=== PATIENT | male | born 1940 | race Caucasian/White ===

== ENCOUNTER 2018-04-13 13:00 | Outpatient (RCR) | payer OTHER, SELFPAY ==
--- NOTE | 2018-03-18 14:33 | HP.PTEVAL ---
Patient's Visit Information YASMANI HERNANDEZ is a 77 year old M referred to Physical Therapy by [facility] with a diagnosis of LBP and radiating BLE pain. Date of Evaluation: 03/09/18 Physical Therapist: Demarco Smith - Visit Plan Frequency: 2x /Week Duration: 4 Weeks Plan: Start with general mobility/core strengthening and hip strengthening in aquatic setting. Progress as tolerated. Add in gait progression and postural strengthening as tolerated. - Subjective Subjective: Pt. is here today for his initial evaluation with diagnosis of Low back pain and bilateral radiating pain. Pt. has a history of 3 lumbar surgeries Pt. reports most recently being in 2013. He reports BLE weakness and difficulty with gait. He has had increased difficulty over last 2 years. He reports occassionally falling due to his LLE giving out on him. He is scheduled for a CT and MRI on fri03/11/18. Pt. denies N/T currently, but does get N/T in LLE and B hands. Pt. does have MS. Pt. reports difficulty with bending twisting. He reports sudden LLE weakness at times and his leg gives out on him, but is typically able to regain his balance. Pt. uses a cane in community, no AD in home. Pt. is hopeful to increase stability in stance, decrease LBP and increase BLE strength in order to increase functional mobility. - Pain Lumbar spine Pain Intensity (Out of 10): 0 Pain Intensity Range: 0, 8 - Objective POSTURE: Pt. has increased L lateral shift in stance with hip out to R side. pt. has has slight correction through his lumbar spine, but maintains his shift. PT. has wide TOM and with trunk flexion. OCcassionally reaching out for objects to stabilize. Pt. is able to increase erect posture, but not fully secondary to increased pain. PALPATION: Pt. has increased tenderness to palpation of B lumbar erector spinea, increased muscle tone/tightness noted bilaterally. Pt. has normal healing incision, no signs of infection. No pain noted throughout BLEs. NEUROLOGICAL: Pt. has decreased sensation at distal LLE, lateral malleolus and bottom of foot the worst. Pt. has difficulty rising on toes and heels, requires balance assistance to attempt, minimal ability to complete. 2+ achilles DTR, unable to elicit patellar DTR bilaterally. ROM: LUMBAR SPINE: flexion mod loss increase NW (LLE sudden weakness), ext max loss increase NW, SB mod loss bilat NE, rotation min loss bilat NE. Pt. has tight HS bilaterally, tight hip flexors bilaterally, tight hip ER/IR as well. MMT: RLE- ankle 5/5 throughout; knee- ext 4+/5, flexion 4+/5; hip- flexion 4/5, abd 4/5, ext 4/5. LLE- ankle PF 5/5, DF 4+/5; knee- ext 4+/5, flexon 4+/5;hip- flexion 4/5, abd 4/5, ext 4/5. Core strength- poor. GAIT: Pt. has increased flexed posture in stance. He ambulates with cane, but has broken down pattern, occassional use of cane. Pt. has decreased L stance phase. Pt. has increased L lateral lean during stance. STAIRS: BHR with step to pattern, heavy use of railings. - Special Tests L/S Slump test left side: Positive L/S Slump test right side: Negative Lumbar Standing: Flexion - Mechanical Response: No effect Lumbar Standing: Flexion - Symptoms During Testing: Increases Lumbar Standing: Flexion - Symptoms After Testing: No worse Lumbar Standing: Extension - Mechanical Response: No effect Lumbar Standing: Extension - Symptoms During Testing: Increases Lumbar Standing: Extension - Symptoms After Testing: No worse Lumbar Standing: Right Side Gl[place] - Mechanical Response: No effect Lumbar Standing: Right Side [place] - Symptoms During Testing: No effect Lumbar Standing: Right Side [place] - Symptoms After Testing: No effect Lumbar Standing: Left Side [place] - Mechanical Response: No effect Lumbar Standing: Left Side [place] - Symptoms During Testing: No effect Lumbar Standing: Left Side [place] - Symptoms After Testing: No effect Lumbar Lying: Flexion - Mechanical Response: No effect Lumbar Lying: Flexion - Symptoms During Testing: No effect Lumbar Lying: Flexion - Symptoms After Testing: No effect - Goals Goal 1:: Pt. to be I with HEP. Goal Time Frame: 4-6 Weeks Goal 2:: Pt. to have increased lumbar ROM by 25% in all directions without increase in symptoms. Goal Time Frame: 4-6 Weeks Goal 3:: Pt. to ambulate 500' with increased gait pattern and reduced pain to 2-4/10 in lumbar spine. Goal Time Frame: 4-6 Weeks Goal 4:: Pt. to have icnreased BLE strength by 1/2 grade of all effected musculature to reduce stress on lumbar spine with all functional mobility. Goal Time Frame: 4-6 Weeks Goal 5:: Pt. sleep throughout the night with 0-2/10 pain. - Rehabilitation Potential Physical Therapy Diagnosis: Pt. has signs and symptoms consistent with LBP and BLE, L worse than R. Pt. has increased pain in lumbar spine and LLE with standing, lifting, bending, and most ADLs. Pt. would benefit from PT to increase core strength, BLE strength, gait mechanics and to increase lumbar ROM Rehabilitation Potential: Fair - Anticipated Interventions Patient/Client Instruction: Educate patient on: Condition, Plan of Care, Risk Factors, Benefits of Fitness Program For the Purpose of:: To improve self management, To prevent re-injury, To improve ability to perform tasks related to life management, To improve tolerance to ADL's Therapeutic Exercise to Include: Strength training, Power training, Endurance training, Balance training, Postural training, Flexibilty training, Gait and locomotor training, In an aquatic setting, Passive ROM, Active ROM, Dynamic Lumbar Stabilization For the Purpose of:: To decrease pain, To increase ROM, To improve nutrient delivery to tissue, To increase oxygenation perfusion, To improve muscle performance and motor function, To improve ability to perform ADL's, To increase tolerance to activity/condition/position, To improve health of tissue, To decrease soft tissue restriction, To improve safety with gait Thank you for the opportunity to evaluate your patient. For Medicare and Medicare HMO plans, please review the plan of care and approve it. It will need to be FAXED BACK to us at [phone] for Medicare purposes. Please let me know if there are questions or concerns regarding this plan of care. Physician Signature: Date:
--- NOTE | 2018-08-04 17:09 | HP.PT.NRP ---
HP - Discharge Summary (1) - Patient Information YASMANI HERNANDEZ was seen in my office for initial evaluation on 03/09/18. The following Plan of Care was established for this patient: Initial Frequency: 2x /Week Initial Duration: 4 Weeks - Anticipated Interventions Patient/Client Instruction: Educate patient on: Condition, Plan of Care, Risk Factors, Benefits of Fitness Program For the Purpose of:: To improve self management, To prevent re-injury, To improve ability to perform tasks related to life management, To improve tolerance to ADL's Therapeutic Exercise to Include: Strength training, Power training, Endurance training, Balance training, Postural training, Flexibilty training, Gait and locomotor training, In an aquatic setting, Passive ROM, Active ROM, Dynamic Lumbar Stabilization For the Purpose of:: To decrease pain, To increase ROM, To improve nutrient delivery to tissue, To increase oxygenation perfusion, To improve muscle performance and motor function, To improve ability to perform ADL's, To increase tolerance to activity/condition/position, To improve health of tissue, To decrease soft tissue restriction, To improve safety with gait This patient was last seen in our office 04/13/18. Pertinent comments regarding their Physical therapy will appear below: Pt. was seen for his low back pain in aquatic setting. Pt. was making good progress. I suggested and requested more visits, but patient has not been seen in ~4 months. Pt. will be DC from PT at this point in time. At this point I will be discontinuing this patient from physical therapy. I would be happy to see this patient again in the future if found appropriate by the physician. Thank you! AIDEN RosalesT
== END 2018-04-13 19:00 | disposition home or self-care (01) ==
LOC: PT 13:00
DX: M96.1 Postlaminectomy syndrome, not elsewhere classified (principal)
CPT/HCPCS: 97113; 97162

== ENCOUNTER 2018-10-08 14:52 | Emergency (ER) | payer OTHER, SELFPAY ==
[2018-10-08 14:53] VITALS: BP 141/95; PULSE 82; RESP 16; TEMP 36.4; O2SAT 100; BMI 29.2
--- NOTE | 2018-10-08 15:17 | US_ITS ---
STUDY: SCROTUM ULTRASOUND REASON FOR EXAM: Male, 78 years old. Swelling, injury TECHNIQUE: Ultrasound evaluation of the scrotum was performed with color Doppler and static salcido-scale imaging. COMPARISON: None. FINDINGS: RIGHT TESTICLE INTRATESTICULAR: There is a normal size of the right testicle. The right testicle measures 4.6 x 2.7 x 2.4 cm. There is a homogenous echotexture. There is normal arterial and normal venous vascularity. There is no demonstrated right testicular mass or cyst. EXTRATESTICULAR: The epididymis is normal in size. The epididymis head measures 1.4 x 1.3 x 0.9 cm. There is normal vascularity of the epididymis. There is 7 x 7 x 6 mm epididymal cyst. There is a large right hydrocele with debris.. There is no demonstrated varicocele. There is no demonstrated extratesticular mass or cyst. LEFT TESTICLE INTRATESTICULAR: There is a normal size of the left testicle. The left testicle measures 5.7 x 2 x 2.3 cm. There is a homogenous echotexture. There is normal arterial and normal venous vascularity. There is no demonstrated left testicular mass or cyst. EXTRATESTICULAR: The epididymis is normal in size. The epididymis head measures 29 x 0.8 x 0.8 cm. There is normal vascularity of the epididymis. There is no demonstrated epididymal cystic structure. There is there is a large complex hematoma adjacent to the testis measuring 6.4 x 3.6 x 4.1 cm There is no demonstrated varicocele. There is no demonstrated extratesticular mass or cyst. US/Testicular with Arterial Flow IMPRESSION: Large complex hematoma adjacent to the left testis within the scrotal sac, due to the hematoma along the surface of the testis testis or capsular injury cannot be excluded, the testis has homogeneous echogenicity. Large right hydrocele with debris likely hemorrhagic Right epididymal cyst Electronically Signed: Chaitanya Xiong, at 17:51 EDT Tel , Service support ,
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
[2018-10-08 15:56] LABS: Absolute Lymphocyte Count 1.61 X10^3/ul (0.83-4.51); Absolute Neutrophil Count 3.7 X10^3/uL (2.0-7.7); Basophil# 0.02 X10^3/uL; Basophil% 0.3 % (0-1); Eosinophil# 0.09 X10^3/uL; Eosinophils% 1.5 % (0-5); Hematocrit 39.5 % (40-54); Hemoglobin 13.3 g/dl (13.0-16.5); Lymphocyte # 1.61 X10^3/ul (4.0); Lymphocyte % 27.2 % (19-41); Mean Corp Hgb Conc 33.7 g/gl (32-36); Mean Corpuscular Hgb 30.6 pg (27.0-32.0); Mean Corpuscular Volume 90.8 fL (80-94); Mean Platelet Vol. 8.5 fl (6.2-12.0); Monocyte# 0.49 X10^3/uL; Monocyte% 8.3 % (0-10); Neutrophil # 3.71 X10^3/uL (2.7-7.7); Neutrophil % 62.5 % (47-70); Platelet Count 213 K/mm3 (150-450); RBC Distribution Width CV 12.6 % (11.6-14.6); RBC Distribution Width SD 42.1 fl (35.1-43.9); Red Blood Count 4.35 M/mm3 (4.6-6.2); White Blood Count 5.9 K/mm3 (4.4-11.0)
[2018-10-08 15:59] LABS: POSITIVE COUNT NO; POSITIVE DIFFERENTIAL NO; POSITIVE MORPHOLOGY NO
[2018-10-08 16:12] LABS: BUN 9 mg/dL (7-18); Creatinine, Serum 0.83 mg/dL (0.70-1.30); Estimated Creatinine Clearance 63.81 ml/min; Glucose 96 mg/dL (74-106)
[2018-10-08 16:13] LABS: Anion Gap 5 (5-15); BUN/Creat Ratio 10.8 RATIO (10-20); Calcium,Total 8.6 mg/dL (8.5-10.1); Chloride 98 mmol/L (98-107); EST Glomerular Filtration Rate 95 mL/min (>60); Est Glom Filt Rate - Afr Amer 115 mL/min (>60); Potassium 3.6 mmol/L (3.5-5.1); Sodium Level 133 mmol/L (136-145)
[2018-10-08] MEDS: Ceftriaxone 1 GM/50 ML BAG IV (16:34)
[2018-10-08 18:49] VITALS: RESP 18; O2SAT 99
== END 2018-10-08 18:49 | disposition home or self-care (01) ==
PROVIDERS: Emergency Provider Emergency Medicine
DX: N49.2 Inflammatory disorders of scrotum (principal); S30.22XA Contusion of scrotum and testes, initial encounter; W20.8XXA Other cause of strike by thrown, projected or falling object, initial encounter; Y93.89 Activity, other specified; Y92.89 Other specified places as the place of occurrence of the external cause; Y99.8 Other external cause status
CPT/HCPCS: 76870; 80048; 85025; 93976; 96365; 96366; 99284; A4216

== ENCOUNTER 2018-12-30 16:19 | Observation (INO) | payer OTHER, MEDICARE, SELFPAY ==
[2018-12-30] VITALS (8 sets, daily range): BP systolic 129–189; BP diastolic 77–108; PULSE 75–89; RESP 18; TEMP 36.2–37.2; O2SAT 97–98; BMI 28.3; BMI 27.1
--- NOTE | 2018-12-30 16:32 | CT_ITS ---
STUDY: CT BRAIN WITHOUT CONTRAST REASON FOR EXAM: Male, 78 years old. Confusion RADIATION DOSAGE (If Supplied By Facility): CTDIvol = ( 44.99 ) mGy, DLP = ( 748.30 ) mGycm TECHNIQUE: Transaxial CT imaging of the brain was performed without administration of intravenous contrast material. Individualized dose optimization techniques were used for this CT. COMPARISON: 08/24/2016 FINDINGS: There is no acute bleed or infarct. There are stable chronic ischemic and atrophic changes. The ventricles are normal in configuration. There is no hydrocephalus. There are stable mucosal hypertrophy in the left maxillary sinus. The visualized paranasal sinuses are otherwise clear. The mastoid air cells are well aerated. There is no skull fracture. CT/Brain/Head without Contrast IMPRESSION: Stable chronic ischemic and atrophic changes. No acute intracranial abnormality. Stable left maxillary sinusitis. Electronically Signed: Harris Rivero, at 18:00 EDT Tel , Service support ,
--- NOTE | 2018-12-30 16:33 | EKG12_ITS ---
Test Reason : CONFUSION Blood Pressure : / mmHG Vent. Rate : 078 BPM Atrial Rate : 078 BPM P-R Int : 170 ms QRS Dur : 154 ms QT Int : 436 ms P-R-T Axes : 062 004 022 degrees QTc Int : 497 ms Sinus rhythm with Premature atrial complexes Right bundle branch block Possible Lateral infarct , age undetermined Inferior infarct , age undetermined Abnormal ECG Confirmed by PK MORALES, NOLAN ([id number]), deputy editor in chief SATHISH JUSTIN ([id number]) on 01/04/2019 10:40:52 AM Referred By: NADEEM Confirmed By:JEAN WHITTINGTON MD
--- NOTE | 2018-12-30 16:40 | RAD_ITS ---
STUDY: X-RAY CHEST REASON FOR EXAM: Male, 78 years old. Dizziness. Confusion. TECHNIQUE: Frontal view of the chest COMPARISON: None. FINDINGS: The lungs are clear. There are no pleural effusions. There is no pneumothorax. The heart is normal in size. There are degenerative changes noted in the shoulders. RAD/Chest 1 View (Portable) IMPRESSION: No acute thoracic pathology. Electronically Signed: Harris Rivero, at 17:00 EDT Tel , Service support ,
[2018-12-30 16:44] LABS: Absolute Neutrophil Count 4.6 X10^3/uL (2.0-7.7); Basophil# 0.02 X10^3/uL; Basophil% 0.3 % (0-1); Eosinophils% 1.3 % (0-5); Hematocrit 37.8 % (40-54); Hemoglobin 13.1 g/dl (13.0-16.5); Lymphocyte % 25.3 % (19-41); Mean Corp Hgb Conc 34.7 g/gl (32-36); Mean Corpuscular Hgb 30.3 pg (27.0-32.0); Mean Corpuscular Volume 87.5 fL (80-94); Mean Platelet Vol. 8.3 fl (6.2-12.0); Monocyte# 0.87 X10^3/uL; Monocyte% 11.6 % (0-10); Neutrophil # 4.58 X10^3/uL (2.7-7.7); POSITIVE COUNT NO; POSITIVE DIFFERENTIAL NO; POSITIVE MORPHOLOGY NO; Platelet Count 248 K/mm3 (150-450); RBC Distribution Width CV 12.4 % (11.6-14.6); Red Blood Count 4.32 M/mm3 (4.6-6.2); White Blood Count 7.5 K/mm3 (4.4-11.0)
[2018-12-30 17:00] LABS: ALB/GLOB Ratio 1.2 RATIO (0.9-2.4); AST(SGOT) 26 U/L (15-37); Alanine Aminotransfer ALT/SGPT 24 U/L (16-61); Albumin, Serum 4.1 g/dL (3.2-5.0); Alkaline Phosphatase 108 U/L (45-117); Anion Gap 8 (5-15); BUN 22 mg/dL (7-18); BUN/Creat Ratio 20.8 RATIO (10-20); Calcium,Total 8.9 mg/dL (8.5-10.1); Chloride 91 mmol/L (98-107); Creatinine, Serum 1.06 mg/dL (0.70-1.30); EST Glomerular Filtration Rate 72 mL/min (>60); Est Glom Filt Rate - Afr Amer 87 mL/min (>60); Estimated Creatinine Clearance 46.22 ml/min; Globulin 3.4 g/dL (2.2-4.2); Glucose 97 mg/dL (74-106); Potassium 3.2 mmol/L (3.5-5.1); Protein, Total 7.5 g/dL (6.4-8.2); Sodium Level 128 mmol/L (136-145)
[2018-12-30] MEDS: 0.9% Normal Saline 1,000 ML 150 ML IV (17:08)
--- NOTE | 2018-12-30 18:16 | PCM.HP.STD ---
Problem List (1) CVA (cerebral infarction) Status: Acute Qualifiers: Cerebral infarction mechanism: unspecified mechanism Qualified Code(s): I63.9 - Cerebral infarction, unspecified (2) Dementia Status: Chronic Qualifiers: Dementia type: unspecified type Dementia behavioral disturbance: without behavioral disturbance Qualified Code(s): F03.90 - Unspecified dementia without behavioral disturbance (3) Depression Status: Chronic Qualifiers: Depression Type: unspecified Qualified Code(s): F32.9 - Major depressive disorder, single episode, unspecified (4) Diabetes mellitus, type II Status: Chronic Qualifiers: Diabetes mellitus termite helper insulin use: without termite helper use Diabetes mellitus complication status: with other specified complication Qualified Code(s): E11.69 - Type 2 diabetes mellitus with other specified complication (5) Hyperlipidemia Status: Chronic Qualifiers: Hyperlipidemia type: unspecified Qualified Code(s): E78.5 - Hyperlipidemia, unspecified (6) Hypertension Status: Chronic Qualifiers: Hypertension type: essential hypertension Qualified Code(s): I10 - Essential (primary) hypertension (7) Multiple sclerosis Status: Chronic (8) S/P AAA repair Status: Chronic History of Present Illness Date of Admission: 12/30/18 Chief Complaint: Confusion, Dizziness, LUE Paresthesias The patient is a 78 y/o M w/ PMHx: History of lung cancer status post partial lung resection in remission, Dementia unclear type with unclear behavioral disturbance history, HTN, HLD, Anxiety and Depression, Fe Deficiency Anemia/? Bipolar disorder, BPH, Hx CVA, Diabetes mellitus type II, Hx AAA s/p repair, Multiple Sclerosis, Chronic COPD, Carotid Disease s/p L CEA, Former EtOH Abuse, Former Tobacco use who presents to the [facility] history of weakness, malaise, difficulty with balance as well as noted confusion and disorientation with left upper extremity paresthesias. Work-up in the ED included T 97.2, heart rate 82, BP 129/77, respiratory rate 18, 97% on room air, unremarkable orthostatic vital signs, CBC with WBC 7.5, hemoglobin 13.1, platelet 248 with no left shift demonstrated, CMP with sodium 128, potassium 3.2, chloride 91, BUN/Cr 22/1.06, troponin less than 0.015, EKG with no acute evidence of ischemia, urinalysis unremarkable, CT brain with stable chronic ischemic and atrophic changes with no acute intracranial abnormality and stable left maxillary sinusitis, chest x-ray with no acute cardio primary findings. In the ED patient administered normal saline. Past Medical History Past Medical History (Chronic Problems): Chronic Problems Multiple sclerosis (Chronic) S/P AAA repair (Chronic) Dementia (Chronic) Depression (Chronic) Hypertension (Chronic) Diabetes mellitus, type II (Chronic) Hyperlipidemia (Chronic) Allergies tramadol Adverse Reaction (Verified 12/30/18 16:20) Itching Home Medications: Ambulatory Orders Medication Instructions Recorded Alprostadil/Papaverine Injection 5.9 mcg OTHER DAILY PRN 08/22/13 Baclofen [Lioresal] 20 mg PO TID 08/22/13 Clopidogrel Bisulfate [Plavix] 75 mg PO DAILY 08/22/13 Gabapentin [Neurontin] 900 mg PO 4X/DAY 08/22/13 Hydrochlorothiazide 25 mg PO DAILY 08/22/13 Donepezil HCl [Aricept] 10 mg PO QHS 01/02/15 Lamotrigine [Lamictal Odt] 100 mg PO BID 01/02/15 Multivitamins,Ther W-Minerals 1 tablet PO DAILY 01/02/15 [Multivitamin With Minerals] Terazosin HCl [Hytrin] 10 mg PO QHS 01/02/15 Venlafaxine HCl [Effexor] 150 mg PO BID 01/02/15 Albuterol Inhaler 2 puff INHALATION 4X/DAY PRN PRN 12/30/18 Atorvastatin Calcium 40 mg PO QHS 12/30/18 Budesonide 2 puff INHALATION BID 12/30/18 Ferrous Sulfate 325 mg PO DAILY 12/30/18 Finasteride 5 mg PO DAILY 12/30/18 Fluticasone Propionate 2 spray NASAL DAILY PRN PRN 12/30/18 Lisinopril [Prinivil] 10 mg PO DAILY 12/30/18 Loratadine 10 mg PO DAILY 12/30/18 Miralax 17 gm PO DAILY 12/30/18 Montelukast [Singulair] 10 mg PO QHS 12/30/18 Naproxen 500 mg PO BID PRN PRN 12/30/18 Sulfamethoxazole/Trimethoprim 1 tab PO DAILY 12/30/18 Surgical History: - - AAA repair, Carotid endarterectomy (L), Partial lung resection (Lung CA). Psychiatric History: Anxiety, Bipolar, Depression Lives: Spouse/ Significant Other Smoking Status: Former smoker Tobacco Use: Non-smoker Alcohol: Sober Drugs: None - *Family History Maternal History Items: - - Patient his mother when he was young of cancer, unclear type. Paternal History Items: - - Patient notes that his father when he was young of comp occasions secondary to alcohol abuse. Review of Systems Constitutional: Reports: Anorexia, Malaise, Weakness, Fatigue. Denies: Chills, Fever, Weight Change HEENT: Denies: Head Aches, Sinus Congestion, Sinus Drainage Cardiovascular: Denies: Chest Pain, Palpitations Respiratory: Denies: Cough, Shortness of breath at rest, Sputum production Gastrointestinal: Denies: Abdominal Pain, Nausea, Vomiting Genitourinary: Denies: Dysuria Musculoskeletal: Reports: Back Pain, Joint Pain, Neck Pain. Denies: Joint Tenderness Skin: Denies: Rash, Wounds Neurological: Reports: Confusion, Focal weakness, Numbness, Tingling Psychiatric: Reports: Anxiety, Depression. Denies: Homicidal Ideations, Suicidal Ideations Hematologic/ Lymphatic: Reports: Anemia, Easy Bruising, Easy Bleeding VTE Information - Inpt Only VTE Present on Admission: No VTE Mechan Device Prophylaxis: SCD's VTE Pharm Prophylaxis ordered?: Yes Subjective: Seated upright in ED bed, fatigued appearance, denies any acute complaints at this time and notes the paresthesias have improved to the left upper extremity. Objective: Physical Examination: General: awake, alert, oriented x [address], year, month, cooperative, seated upright in the ED bed, mildly fatigued appearance otherwise no acute distress. Skin: normal color, turgor, no icterus, cyanosis. HEENT: AT/NC, EOMI, PERRLA, mildly dry MM, no carotid bruits or JVD noted. Lungs: CTA bilaterally, moderate effort, moderate decrease BL bases, no rales, ronchi or wheezing. Heart: Regular rate and rhythm; no gallop, rub audible. Abdomen: soft, NTTP, ND, normal BS, + HM. Extremities: no cyanosis, clubbing, or edema. Neurological: patient awake, alert, oriented as noted; cognitive function improved per and she notes nearing baseline intact; pupils equally reactive to light and accomodation; cranial nerves II-XII grossly normal, moving all 4 extremities, no focal deficits, strength improved, moderately globally decreased, sensation intact including left upper extremity, [id number] and [id number] mildly impaired on the left side, negative Babinski bilaterally. Psychiatric: affect appears mildly fatigued, no acute evidence of depressive or anxiety feelings. - Physical Exam Vital Signs Temp Pulse Resp BP Pulse Ox 97.2 F L 83 18 189/108 H 98 12/30/18 16:21 12/30/18 18:11 12/30/18 18:11 12/30/18 18:11 12/30/18 18:11 Oxygen Delivery Method Room Air Weight: 159 lb 9.835 oz Body Mass Index (BMI) 28.3 Laboratory Tests Past 24 Hrs 12/30/18 12/30/18 16:35 16:35 WBC 7.5 RBC 4.32 L Hgb 13.1 Hct 37.8 L MCV 87.5 MCH 30.3 MCHC 34.7 RDW 12.4 RDW Differential 39.0 Plt Count 248 MPV 8.3 Immature Gran % (Auto) 0.500 Neut % (Auto) 61.0 Lymph % (Auto) 25.3 Teller % (Auto) 11.6 H Eos % (Auto) 1.3 Baso % (Auto) 0.3 Absolute Neuts (auto) 4.6 Absolute Lymphs (auto) 1.90 Total Counted Not Reportable Sodium 128 L Potassium 3.2 L Chloride 91 L Carbon Dioxide 29.0 Anion Gap 8 BUN 22 H Creatinine 1.06 Estim Creat Clear Calc 46.22 Est GFR (MDRD) Af Amer 87 Est GFR (MDRD) Non-Af 72 BUN/Creatinine Ratio 20.8 H Glucose 97 Calcium 8.9 Total Bilirubin 0.60 AST 26 ALT 24 Alkaline Phosphatase 108 Troponin I < 0.015 Total Protein 7.5 Albumin 4.1 Globulin 3.4 Albumin/Globulin Ratio 1.2 Assessment/Plan All Active Problems CVA (cerebral infarction) (Acute) The patient is a 78 y/o M w/ PMHx: History of lung cancer status post partial lung resection in remission, Dementia unclear type with unclear behavioral disturbance history, HTN, HLD, Anxiety and Depression, Fe Deficiency Anemia/? Bipolar disorder, BPH, Hx CVA, Diabetes mellitus type II, Hx AAA s/p repair, Multiple Sclerosis, Chronic COPD, Carotid Disease s/p L CEA, Former EtOH Abuse, Former Tobacco use who presents to the [facility] ED [facility] history of weakness, malaise, difficulty with balance as well as noted confusion and disorientation with left upper extremity paresthesias. (1) Malaise, fatigue, balance instability with left upper extremity paresthesias concerning for CVA: Work-up in the ED included T 97.2, heart rate 82, BP 129/77, respiratory rate 18, 97% on room air, unremarkable orthostatic vital signs, CBC with WBC 7.5, hemoglobin 13.1, platelet 248 with no left shift demonstrated, CMP with sodium 128, potassium 3.2, chloride 91, BUN/Cr 22/1.06, troponin less than 0.015, EKG with no acute evidence of ischemia, urinalysis unremarkable, CT brain with stable chronic ischemic and atrophic changes with no acute intracranial abnormality and stable left maxillary sinusitis, chest x-ray with no acute cardio primary findings. Will admit to PCU, will obtain MRI Brain, MRA Head and Neck, ECHO, PT/OT/Speech/Nutrition evaluation per protocol. Will consult Neurology for evaluation. Will allow permissive HTN, maintain on asa/plavix, statin w/ AM FLP, fall precautions. (2) Acute on chronic hyponatremia, suspect hypovolemia: Admission sodium 128, prior baseline 133-135, poor oral intake recently, will continue to hydrate and repeat level in AM. (3) Hypokalemia: Admission K+ 3.2, supplementation given, repeat level in AM. (4) Carotid Disease: s/p CEA, maintain on asa, plavix, statin (5) Chronic COPD: Hold home inhalers, ATC duonebs, PRN albuterol, HOB, IS parameters. (6) Hypertension: Continue home regimen including lisinopril, holding hydrochlorothiazide given poor oral intake and mild hyponatremia with restart once appropriate, PRN hydralazine. (7) Hyperlipidemia: Continue home statin regimen. AM FLP. (8) ? Diabetes mellitus type II: Noted in history, not on regimen, hemoglobin A1c pending, ADA diet, accu checks w/ ISS. (9) Multiple sclerosis: We will continue home baclofen and gabapentin regimen, fall precautions, PT, OT, case management for discharge planning. (10) Dementia, unclear type with unclear behavioral disturbance history: Complicates presentation, continue home Aricept regimen. (11) Anxiety and Depression/? Bipolar disorder: Continue home Lamictal and venlafaxine regimen. (12) Iron deficiency anemia: Admission hemoglobin 13.1, stable, continue supplementation. (13) BPH: Continue home finasteride regimen. (14) Former Tobacco use: Quit cigarette tobacco usage approximately 4 years prior, encouraged continued tobacco cessation. (15) Former EtOH Abuse: Never times nearing for years now. (16) DVT prophylaxis: SCD, Lovenox. Code Visit OBSV E&M: [id number] Initial observation care L3
--- NOTE | 2018-12-30 18:16 | ED.VISSUMM ---
- ER Visit Summary Date of Service: 12/30/18 Chief Complaint: [Dizziness and increased confusion] History of Present Illness: The patient is a 78 M [to the emergency department with his . Patient complains of dizziness for the last 5 days. states that he was in bed for 3 days and really could not stand or ambulate as he would fall. Patient also was quite confused per he would just stare when she try to talk to him. He would not take very much nourishment in. Patient denies any chest pain or shortness of breath. He denies recent illness. Patient has had history of prior stroke. He is a diabetic and has a history of hypertension and high cholesterol. Patient has a history of depression and some dementia. Past surgical history includes a left carotid endarterectomy and a AAA repair.] Physical Examination: [HEENT-PERRLA, EOMI. Cranial nerves II through XII grossly intact. TMs clear. Mucous membranes moist. No adenopathy. Cardiovascular-regular rate and rhythm without murmur or ectopy Lungs-clear to auscultation, chest wall stable without crepitus or subcu emphysema Abdomen-normoactive bowel sounds, soft, nontender, no rebound or rigidity, no peritoneal signs. Neuro rtfy-sedexa-pevi and heel ghotra testing within normal limits, negative Romberg, negative pronator drift, fundi benign. No focal neurologic deficits noted. Extremities-intact ?4, normal range of motion, normal pulses, atraumatic] Test Results: [CBC with differential obtained showed a white count of 7.5, hemoglobin 13, hematocrit 38, placed 248. Chemistries unremarkable other than a slightly depressed potassium at 3.2 and a sodium of 128. BUN was 22 and creatinine 1.06. Troponin is less than 0.015. EKG showed a sinus rhythm with a right bundle branch block and old inferior infarct CT scan of the brain without contrast showed chronic involutional changes otherwise nothing acute.] Emergency Department Course and Treatment: [] Treatment Plan: [Admit for further work-up and evaluation of possible stroke] Disposition: [Admit] Impression: [Dizziness Disequilibrium Hyponatremia Generalized weakness] This note was generated with [employer] software. It may contain incorrect words, spelling, and punctuation that were not noted in review of the chart prior to signing ED Disposition - Plan for ED Patient: [facility] [Primary Care Provider] -
[2018-12-30 18:19] LABS: Bacteria 0 SEEN /hpf (None Seen); Mucous, Urine 0 SEEN /hpf (<or=2+); Squamous Epithelial Cells - UA 0 SEEN /hpf (0-5); White Blood Cells 0 SEEN /hpf (0-5)
[2018-12-30 18:20] LABS: Color, Urine Yellow (Yellow); Glucose, Dipstick Normal (Normal); Ketone-Dipstick Negative (Negative); Leukocyte Esterase-Dipstick Negative /ul (Negative); Nitrite-Dipstick Negative (Negative); Occult Blood-Urine Negative /ul (Negative); Protein-Dipstick Negative (Negative); Urine Bilirubin Dipstick Negative (Negative); Urine Clarity Clear (Clear); Urine Urobilinogen Normal (Normal)
--- NOTE | 2018-12-30 18:20 | NURSING ---
CALLED [facility], TALKED TO ART. GAVE HER ALL THE INFO. THEY WILL CONTACT [facility] TOMORROW
--- NOTE | 2018-12-30 18:22 | NURSING ---
DR SIMS FOR DR MOORE
[2018-12-30 18:28] LABS: Red Blood Cells-Urine 0-5 SEEN /hpf (0-5)
--- NOTE | 2018-12-30 20:06 | ECHOD_ITS ---
Reason For Study: TIA/CVA Procedure This was a 2D Doppler, Color Flow transthoracic echocardiogram. Exam performed portable in patient room. Left Ventricle Normal size and thickness. Left ventricular systolic function is hyperdynamic. The estimated ejection fraction is greater than 70 %. Normal diastology for age. No regional wall motion abnormalities noted. Right Ventricle Normal RV size. Normal systolic function. Atria Normal left atrium. Normal right atrium. No doppler evidence for ASD. Mitral Valve There is no mitral valve stenosis. No mitral valve insufficiency. Tricuspid Valve There is no tricuspid stenosis. Trivial tricuspid valve insufficiency. Pulmonary artery systolic pressure is 55 mmHg. Aortic Valve Moderate diffuse aortic valve thickening. Trisinus/trileaflet aortic valve. Mild aortic stenosis. No aortic valve insufficiency. Pulmonic Valve There is no pulmonic valvular stenosis. No pulmonic valve insufficiency. Great Vessels Normal aortic root. Pericardium/Pleural No pericardial effusion. MMode/2D Measurements & Calculations LVIDd: 4.2 cm IVSd: 1.1 cm LVOT diam: 2.1 cm LVIDs: 2.3 cm LVPWd: 1.1 cm LVOT area: 3.6 cm2 RVDd: 3.1 cm FS: 44.1 % Ao root diam: 3.3 cm LAV(MOD-bp): 40.4 ml LA A4 area: 14.1 cm2 LAV(MOD-bp) Indexed: 22.3 ml/m2 LAV(MOD-sp2): 49.3 ml LAV(MOD-sp4): 30.6 ml LA dimension(2D): 3.4 cm RA A4 area: 13.2 cm2 Doppler Measurements & Calculations MV E max jairon: 86.9 cm/sec Lat Peak E' Jairon: 10.1 cm/sec Med Peak E' Jairon: 8.6 cm/sec MV A max jairon: 104.2 cm/sec E/E' lat: 8.6 E/E' med: 10.1 MV E/A: 0.83 Ao V2 max: 248.9 cm/sec LV V1 max: 135.7 cm/sec SV(LVOT): 82.5 ml Ao max P.8 mmHg LV V1 max P.4 mmHg Ao V2 mean: 157.8 cm/sec LV V1 mean P.7 mmHg Ao mean P.6 mmHg LV V1 mean: 90.6 cm/sec Ao V2 VTI: 41.0 cm LV V1 VTI: 23.0 cm REY(I,D): 2.0 cm2 REY(V,D): 2.0 cm2 PA V2 max: 136.3 cm/sec TR max jairon: 319.5 cm/sec TR max P.1 mmHg Interpretation Summary Left ventricular systolic function is hyperdynamic. The estimated ejection fraction is greater than 70 %. Normal diastology for age. Pulmonary artery systolic pressure is 55 mmHg. Moderate diffuse aortic valve thickening. Mild aortic stenosis. Ordering Physician: Rose Marinelli Performed By: Inocencia Garcia RDCS
--- NOTE | 2018-12-30 20:30 | NURSING ---
This RN received notice from ED that pt had vape pen. This RN questioned pt and pt confirmed that he had vape pen in his posession. This RN informed pt that it was against policy for him to use the vape pen while hospitalized here. This RN also informed pt that if he did use it then we would need to lock it up for him. Pt acknowledges understanding and agrees not to use it but would like to keep in his posession. Pt stated she placed it in his belongings bag in the closet.
[2018-12-30] MEDS: Ipratropium/Albuterol Sulfate 3 ML AMPUL.NEB INHALATION (21:16)
[2018-12-30] MEDS: 0.9% Normal Saline 1,000 ML 100 ML IV (21:20)
[2018-12-30 21:21] LABS: Phosphorus 2.8 mg/dL (2.5-4.9); Thyroid Stim Hormone (TSH) 0.51 uIU/mL (0.358-3.74)
[2018-12-30] MEDS: lamoTRIgine 100 MG Tablet PO (21:25)
[2018-12-30] MEDS: Venlafaxine HCl 75 MG Tablet 150 MG PO (21:26)
[2018-12-30] MEDS: Atorvastatin Calcium 40 MG Tablet PO (21:26)
[2018-12-30] MEDS: Gabapentin 600 MG Tablet 900 MG PO (21:26)
[2018-12-30] MEDS: Baclofen 10 MG Tablet 20 MG PO (21:26)
[2018-12-30] MEDS: Doxazosin 4 MG Tablet 8 MG PO (21:26)
[2018-12-30] MEDS: Donepezil HCl 10 MG Tablet PO (21:26)
[2018-12-30] MEDS: Montelukast 10 MG Tablet PO (21:30)
[2018-12-30 22:40] LABS: Bedside Glucose 82 mg/dL (70-110)
[2018-12-31] VITALS (9 sets, daily range): BP systolic 91–134; BP diastolic 47–68; PULSE 61–99; RESP 16–18; TEMP 36.7–37.1; O2SAT 93–98; BMI 27.1
[2018-12-31] MEDS: Acetaminophen 325 MG Tablet 650 MG PO (04:22)
[2018-12-31] MEDS: Baclofen 10 MG Tablet 20 MG PO ×2 (05:06→15:05)
[2018-12-31] MEDS: Fluticasone 0.05% 1 SPRAY NASAL.SRY 2 SPRAY NASAL (05:15)
[2018-12-31] MEDS: 0.9% NaCl Peripheral Flush Adult/Peds IV (05:17)
[2018-12-31 06:02] LABS: Hematocrit 34.1 % (40-54); Hemoglobin 11.9 g/dl (13.0-16.5); Mean Corp Hgb Conc 34.9 g/gl (32-36); Mean Corpuscular Hgb 30.7 pg (27.0-32.0); Mean Corpuscular Volume 88.1 fL (80-94); Mean Platelet Vol. 8.6 fl (6.2-12.0); Platelet Count 251 K/mm3 (150-450); RBC Distribution Width CV 12.3 % (11.6-14.6); RBC Distribution Width SD 39.1 fl (35.1-43.9); Red Blood Count 3.87 M/mm3 (4.6-6.2); White Blood Count 6.9 K/mm3 (4.4-11.0)
[2018-12-31 06:06] LABS: Scan Indicated on CBC? Y/N NO
[2018-12-31 06:24] LABS: Anion Gap 8 (5-15); BUN 18 mg/dL (7-18); BUN/Creat Ratio 19.4 RATIO (10-20); Calcium,Total 8.5 mg/dL (8.5-10.1); Chloride 96 mmol/L (98-107); Cholesterol 125 mg/dL (200); Creatinine, Serum 0.93 mg/dL (0.70-1.30); EST Glomerular Filtration Rate 84 mL/min (>60); Est Glom Filt Rate - Afr Amer 101 mL/min (>60); Estimated Creatinine Clearance 56.94 ml/min; Glucose 91 mg/dL (74-106); High Density Lipoprotein 47 mg/dL; Potassium 3.4 mmol/L (3.5-5.1); Sodium Level 133 mmol/L (136-145); Triglycerides 100 mg/dL; Very Low Density Lipoprotein 20 mg/dL (5-40)
[2018-12-31] MEDS: Ipratropium/Albuterol Sulfate 3 ML AMPUL.NEB INHALATION ×2 (06:59→13:08)
[2018-12-31 07:06] LABS: Bedside Glucose 100 mg/dL (70-110)
--- NOTE | 2018-12-31 08:30 | MRI_ITS ---
STUDY: MRI BRAIN WITHOUT CONTRAST REASON FOR EXAM: Male, 78 years old. CVA, dizziness, confusion TECHNIQUE: Standardized multiplanar fat and water weighted pulse sequences were obtained. COMPARISON: CT 12/30/2018 FINDINGS: Normal size of the ventricles and extra-axial spaces for the patient's age. There are multiple white matter hyperintensities, distributed throughout the deep white matter tracts of the cerebral hemispheres, consistent with moderate chronic white matter ischemic changes. Normal bilateral basal ganglia. Normal thalami. There is no extra-axial fluid accumulation. Normal flow voids within the major intracranial circulation suggesting patency by spin echo criteria. Normal sella turcica, pituitary gland, infundibular stalk, optic chiasm and hypothalamus. Normal tectal plate and pineal gland. Normal midbrain, selina and medulla. Normal cerebellum. Normal basal cisterns. Normal bilateral temporal bones. Normal bilateral internal auditory canals. There are bilateral ocular lens implants with otherwise normal intraorbital contents. Normal visualized paranasal sinuses. Normal calvarium and skull base. Normal visualized soft tissue structures. Normal visualized upper cervical spine. MRI/Brain without Contrast IMPRESSION: No evidence of acute infarct or hemorrhage. Moderate microangiopathic white matter disease. Electronically Signed: Ramez Shirley MD at 9:57 EDT Tel , Service support ,
--- NOTE | 2018-12-31 08:30 | MRI_ITS ---
STUDY: MRA OF THE HEAD WITHOUT CONTRAST REASON FOR EXAM: Male, 78 years old. CVA, dizziness, confusion TECHNIQUE: 3-D [id number] (TOF) imaging was performed with MIPs. The study was performed unenhanced. COMPARISON: MRI same day FINDINGS: Normal bilateral petrous carotid arteries. Normal right cavernous carotid artery with a normal supraclinoid bifurcation. Normal left cavernous carotid artery with a normal supraclinoid bifurcation. Normal right A1 segments of the anterior cerebral artery. Normal left A1 segments of the anterior cerebral artery. Normal intact anterior communicating artery (ACOM). Normal bilateral A2 segments of the anterior cerebral arteries. Normal right M1 and M2 segments of the middle cerebral arteries, with a normal M1 bifurcation. Normal left M1 and M2 segments of the middle cerebral arteries, with a normal M1 bifurcation. There is non-visualization of the right posterior communicating artery (PCOM). There is non-visualization of the left posterior communicating artery (PCOM). Normal bilateral vertebral arteries. Normal basilar artery with a normal basilar bifurcation. The visualized bilateral superior cerebellar (SCA) arteries are normal. Normal bilateral P1, P2 and visualized P3 segments of the posterior cerebral arteries. There is no demonstrated aneurysm of the [place] of Way. There is no major vessel occlusion or hemodynamically significant stenosis. There is no demonstrated abnormality of the visualized brain. MRI/MRA Head ONLY without Contrast IMPRESSION: No MRA evidence of significant intracranial arterial pathology. Electronically Signed: Ramez Shirley MD at 9:59 EDT Tel , Service support ,
--- NOTE | 2018-12-31 08:30 | MRI_ITS ---
STUDY: MRA NECK WITHOUT CONTRAST REASON FOR EXAM: Male, 78 years old. CVA and dizziness with confusion TECHNIQUE: Source images were obtained, MIPs were performed. The study was performed unenhanced. COMPARISON: None. FINDINGS: RIGHT CAROTID ARTERIES: Normal right common carotid artery (CCA). Normal right common carotid bulb. Normal origin of the right internal carotid (ICA) artery without a hemodynamically significant stenosis. Normal visualized cervical portion of the right internal carotid artery. Normal origin of the right external carotid artery (ECA). LEFT CAROTID ARTERIES: Normal left common carotid artery (CCA). Normal left common carotid bulb. Normal origin of the left internal carotid (ICA) artery without a hemodynamically significant stenosis. Normal visualized cervical portion of the left internal carotid artery. Normal origin of the left external carotid artery (ECA). VERTEBRAL ARTERIES: Normal antegrade flow within the bilateral vertebral artery without a hemodynamically significant stenosis. MRI/MRA Neck without Contrast IMPRESSION: Normal bilateral cervical carotid and vertebral arteries. Electronically Signed: Ramez Shirley MD at 10:13 EDT Tel , Service support ,
--- NOTE | 2018-12-31 09:55 | PCM.CONS.GEN ---
Reason for Consult Date of Consultation: 12/31/18 Reason for Consultation: paresthesias History of Present Illness: The patient is a 78 year old M reports left leg jumping since mri, but came into hospital due to multiple complaints as below, also several months of left arm tingling. being evaluated for possible [facility] was at home, had headache for two days, woozy, called [facility] and was instructed over the phone to come to ed. no new parestheias. reports dizzy described as worse when tryng to stand or bend over. describes spinning as well as light headedness per admit note: Date of Admission: 12/30/18 Chief Complaint: Confusion, Dizziness, LUE Paresthesias The patient is a 78 y/o M w/ PMHx: History of lung cancer status post partial lung resection in remission, Dementia unclear type with unclear behavioral disturbance history, HTN, HLD, Anxiety and Depression, Fe Deficiency Anemia/? Bipolar disorder, BPH, Hx CVA, Diabetes mellitus type II, Hx AAA s/p repair, Multiple Sclerosis, Chronic COPD, Carotid Disease s/p L CEA, Former EtOH Abuse, Former Tobacco use who presents to [facility] ED [facility] of weakness, malaise, difficulty with balance as well as noted confusion and disorientation with left upper extremity paresthesias. Work-up in the ED included T 97.2, heart rate 82, BP 129/77, respiratory rate 18, 97% on room air, unremarkable orthostatic vital signs, CBC with WBC 7.5, hemoglobin 13.1, platelet 248 with no left shift demonstrated, CMP with sodium 128, potassium 3.2, chloride 91, BUN/Cr 22/1.06, troponin less than 0.015, EKG with no acute evidence of ischemia, urinalysis unremarkable, CT brain with stable chronic ischemic and atrophic changes with no acute intracranial abnormality and stable left maxillary sinusitis, chest x-ray with no acute cardio primary findings. In the ED patient administered normal saline. Past Medical History Past Medical History (Chronic Problems): Chronic Problems Multiple sclerosis (Chronic) S/P AAA repair (Chronic) Dementia (Chronic) Depression (Chronic) Hypertension (Chronic) Diabetes mellitus, type II (Chronic) Hyperlipidemia (Chronic) Allergies tramadol Adverse Reaction (Verified 12/30/18 16:20) Itching Home Medications: Ambulatory Orders Medication Instructions Recorded Clopidogrel Bisulfate [Plavix] 75 mg PO DAILY 08/22/13 Donepezil HCl [Aricept] 10 mg PO QHS 01/02/15 Terazosin HCl [Hytrin] 10 mg PO QHS 01/02/15 Venlafaxine HCl [Effexor] 150 mg PO BID 01/02/15 Albuterol Sulfate [Ventolin Hfa] 2 puff INHALATION 4X/DAY PRN PRN 12/30/18 Atorvastatin Calcium [Lipitor] 40 mg PO QHS 12/30/18 Baclofen 10 - 20 mg PO TID 12/30/18 Budesonide/Formoterol Fumarate 2 puff INHALATION BID 12/30/18 [Symbicort 160-4.5 Mcg Inhaler] Calcium Carbonate/Vitamin D3 1 tab PO BID 12/30/18 [Calcium 500-Vit D3 200 Tablet] Cholecalciferol (Vitamin D3) 2,000 unit PO DAILY 12/30/18 [D3-2000] Ferrous Sulfate 325 mg PO DAILY 12/30/18 Finasteride [Proscar] 5 mg PO DAILY 12/30/18 Fluticasone 0.05% [Flonase Nasal 2 spray NASAL DAILY 12/30/18 [place]] Gabapentin [Neurontin] 900 mg PO 4X/DAY 12/30/18 Hydrochlorothiazide [Hctz] 25 mg PO DAILY 12/30/18 Lamotrigine [Lamictal] 100 mg PO BID 12/30/18 Lisinopril [Prinivil] 10 mg PO DAILY 12/30/18 Loratadine 10 mg PO DAILY 12/30/18 Montelukast [Singulair] 10 mg PO QHS 12/30/18 Naproxen 500 mg PO BID PRN PRN 12/30/18 Polyethylene Glycol 3350 [Purelax] 17 gm PO DAILY PRN PRN 12/30/18 Surgical History: - - AAA repair, Carotid endarterectomy (L), Partial lung resection (Lung CA). Psychiatric History: Anxiety, Bipolar, Depression Lives: Spouse/ Significant Other Smoking Status: Current every day smoker Tobacco Use: Vapor Alcohol: Sober Drugs: None - *Family History Maternal History Items: - - Patient his mother when he was young of cancer, unclear type. Paternal History Items: - - Patient notes that his father when he was young of comp occasions secondary to alcohol abuse. - Physical Exam General: Alert, Oriented x3, Cooperative, No apparent distress HEENT: PERRLA, EOMI Neurological: Cranial nerves II-XII grossly intact, Neuro grossly intact, Motor Exam 5/5 strength throughout, Sensory exam intact to light touch and pain, Coordination normal Psych/Mental Status: Normal Affect, Alert and oriented to time, place, person, mood and affect Vital Signs Temp Pulse Resp BP Pulse Ox 37.0 C 82 18 125/66 H 98 12/31/18 09:49 12/31/18 09:49 12/31/18 09:49 12/31/18 09:49 12/31/18 09:49 Oxygen Delivery Method Room Air Weight: 74 kg Body Mass Index (BMI) 27.1 Intake and Output for Last 24 Hours 12/29/18 12/30/18 12/31/18 23:59 23:59 23:59 Intake Total 360 / 360 877 / 877 Output Total 200 / 200 Balance 160 / 160 877 / 877 Laboratory Tests Past 24 Hrs 12/30/18 12/30/18 12/30/18 16:35 16:35 16:35 WBC 7.5 RBC 4.32 L Hgb 13.1 Hct 37.8 L MCV 87.5 MCH 30.3 MCHC 34.7 RDW 12.4 RDW Differential 39.0 Plt Count 248 MPV 8.3 Immature Gran % (Auto) 0.500 Neut % (Auto) 61.0 Lymph % (Auto) 25.3 [place] % (Auto) 11.6 H Eos % (Auto) 1.3 Baso % (Auto) 0.3 Absolute Neuts (auto) 4.6 Absolute Lymphs (auto) 1.90 Total Counted Not Reportable Sodium 128 L Potassium 3.2 L Chloride 91 L Carbon Dioxide 29.0 Anion Gap 8 BUN 22 H Creatinine 1.06 Estim Creat Clear Calc 46.22 Est GFR (MDRD) Af Amer 87 Est GFR (MDRD) Non-Af 72 BUN/Creatinine Ratio 20.8 H Glucose 97 Hemoglobin A1c Calcium 8.9 Phosphorus 2.8 Magnesium 2.0 Total Bilirubin 0.60 AST 26 ALT 24 Alkaline Phosphatase 108 Troponin I < 0.015 Total Protein 7.5 Albumin 4.1 Globulin 3.4 Albumin/Globulin Ratio 1.2 Triglycerides Cholesterol LDL Cholesterol VLDL Cholesterol HDL Cholesterol TSH 0.51 Urine Color Urine Clarity Urine pH Ur Specific [place] Urine Protein Urine Glucose (UA) Urine Ketones Urine Occult Blood Urine Nitrite Urine Bilirubin Urine Urobilinogen Ur Leukocyte Esterase Urine RBC Urine WBC Ur Squamous Epith Cells Urine Bacteria Urine Mucus 12/30/18 12/30/18 12/31/18 16:35 18:00 05:22 WBC 6.9 RBC 3.87 L Hgb 11.9 L Hct 34.1 L MCV 88.1 MCH 30.7 MCHC 34.9 RDW 12.3 RDW Differential 39.1 Plt Count 251 MPV 8.6 Immature Gran % (Auto) Neut % (Auto) Lymph % (Auto) [place] % (Auto) Eos % (Auto) Baso % (Auto) Absolute Neuts (auto) Absolute Lymphs (auto) Total Counted Sodium Potassium Chloride Carbon Dioxide Anion Gap BUN Creatinine Estim Creat Clear Calc Est GFR (MDRD) Af Amer Est GFR (MDRD) Non-Af BUN/Creatinine Ratio Glucose Hemoglobin A1c 6.0 Calcium Phosphorus Magnesium Total Bilirubin AST ALT Alkaline Phosphatase Troponin I Total Protein Albumin Globulin Albumin/Globulin Ratio Triglycerides Cholesterol LDL Cholesterol VLDL Cholesterol HDL Cholesterol TSH Urine Color Yellow Urine Clarity Clear Urine pH 7.0 Ur Specific [place] 1.010 Urine Protein Negative Urine Glucose (UA) Normal Urine Ketones Negative Urine Occult Blood Negative Urine Nitrite Negative Urine Bilirubin Negative Urine Urobilinogen Normal Ur Leukocyte Esterase Negative Urine RBC 0-5 SEEN Urine WBC 0 SEEN Ur Squamous Epith Cells 0 SEEN Urine Bacteria 0 SEEN Urine Mucus 0 SEEN 12/31/18 05:22 WBC RBC Hgb Hct MCV MCH MCHC RDW RDW Differential Plt Count MPV Immature Gran % (Auto) Neut % (Auto) Lymph % (Auto) [place] % (Auto) Eos % (Auto) Baso % (Auto) Absolute Neuts (auto) Absolute Lymphs (auto) Total Counted Sodium 133 L Potassium 3.4 L Chloride 96 L Carbon Dioxide 29.0 Anion Gap 8 BUN 18 Creatinine 0.93 Estim Creat Clear Calc 56.94 Est GFR (MDRD) Af Amer 101 Est GFR (MDRD) Non-Af 84 BUN/Creatinine Ratio 19.4 Glucose 91 Hemoglobin A1c Calcium 8.5 Phosphorus Magnesium Total Bilirubin AST ALT Alkaline Phosphatase Troponin I Total Protein Albumin Globulin Albumin/Globulin Ratio Triglycerides 100 Cholesterol 125 LDL Cholesterol 58 VLDL Cholesterol 20 HDL Cholesterol 47 TSH Urine Color Urine Clarity Urine pH Ur Specific [place] Urine Protein Urine Glucose (UA) Urine Ketones Urine Occult Blood Urine Nitrite Urine Bilirubin Urine Urobilinogen Ur Leukocyte Esterase Urine RBC Urine WBC Ur Squamous Epith Cells Urine Bacteria Urine Mucus POC Glucose 12/31/18 12/30/18 06:55 21:13 POC Glucose 100 82 Current Home Med List Medication Instructions Recorded Confirmed Type Clopidogrel Bisulfate [Plavix] 75 mg PO DAILY 08/22/13 12/30/18 History Donepezil HCl [Aricept] 10 mg PO QHS 01/02/15 12/30/18 History Terazosin HCl [Hytrin] 10 mg PO QHS 01/02/15 12/30/18 History Venlafaxine HCl [Effexor] 150 mg PO BID 01/02/15 12/30/18 History Albuterol Sulfate [Ventolin Hfa] 2 puff INHALATION 4X/DAY PRN PRN 12/30/18 12/30/18 History Atorvastatin Calcium [Lipitor] 40 mg PO QHS 12/30/18 12/30/18 History Baclofen 10 - 20 mg PO TID 12/30/18 12/30/18 History Budesonide/Formoterol Fumarate 2 puff INHALATION BID 12/30/18 12/30/18 History [Symbicort 160-4.5 Mcg Inhaler] Calcium Carbonate/Vitamin D3 1 tab PO BID 12/30/18 12/30/18 History [Calcium 500-Vit D3 200 Tablet] Cholecalciferol (Vitamin D3) 2,000 unit PO DAILY 12/30/18 12/30/18 History [D3-2000] Ferrous Sulfate 325 mg PO DAILY 12/30/18 12/30/18 History Finasteride [Proscar] 5 mg PO DAILY 12/30/18 12/30/18 History Fluticasone 0.05% [Flonase Nasal 2 spray NASAL DAILY 12/30/18 12/30/18 History [place]] Gabapentin [Neurontin] 900 mg PO 4X/DAY 12/30/18 12/30/18 History Hydrochlorothiazide [Hctz] 25 mg PO DAILY 12/30/18 12/30/18 History Lamotrigine [Lamictal] 100 mg PO BID 12/30/18 12/30/18 History Lisinopril [Prinivil] 10 mg PO DAILY 12/30/18 12/30/18 History Loratadine 10 mg PO DAILY 12/30/18 12/30/18 History Montelukast [Singulair] 10 mg PO QHS 12/30/18 12/30/18 History Naproxen 500 mg PO BID PRN PRN 12/30/18 12/30/18 History Polyethylene Glycol 3350 [Purelax] 17 gm PO DAILY PRN PRN 12/30/18 12/30/18 History Current Medications Generic Name Dose Route Start Last Admin Trade Name Freq PRN Reason Stop Dose Admin Acetaminophen 650 mg 12/30/18 20:06 12/31/18 04:22 Tylenol PO 650 mg Q6H PRN PRN Administration Non-cardiac pain (mod-severe) Al Hydroxide/Mg Hydroxide 15 - 30 ml 12/30/18 20:06 Mylanta Ii PO Q4H PRN PRN INDIGESTION Albuterol Sulfate 2.5 mg 12/30/18 20:06 Ventolin Aerosols INHALATION Q2H PRN PRN dyspnea, wheezing Albuterol/Ipratropium 3 ml 12/30/18 20:06 12/31/18 06:59 Duoneb INHALATION 3 ml Q6HWA.RT JUAN F Administration Aspirin 81 mg 12/31/18 08:00 Aspirin, Baby PO DAILY@0800 [facility] Atorvastatin Calcium 40 mg 12/30/18 22:00 12/30/18 21:26 Lipitor PO 40 mg QHS JUAN F Administration Baclofen 20 mg 12/30/18 22:00 12/31/18 05:06 Lioresal PO 20 mg TID JUAN F Administration Clopidogrel Bisulfate 75 mg 12/31/18 10:00 Plavix PO DAILY [facility] Dextrose 0 gm 12/30/18 20:06 D50w Syringe IV X1 PRN Hypoglycemia Protocol Donepezil HCl 10 mg 12/30/18 22:00 12/30/18 21:26 Aricept PO 10 mg QHS JUAN F Administration Doxazosin Mesylate 8 mg 12/30/18 22:00 12/30/18 21:26 Cardura PO 8 mg QHS JUAN F Administration Enoxaparin Sodium 40 mg 12/31/18 10:00 Lovenox SC DAILY@1000 [facility] Ferrous Sulfate 325 mg 12/31/18 08:00 [facility] Finasteride 5 mg 12/31/18 10:00 Proscar PO DAILY [facility] Fluticasone Propionate 2 spray 12/30/18 20:45 12/31/18 05:15 Flonase Nasal [place] NASAL 2 spray DAILY PRN PRN Administration ALLERGIES Gabapentin 900 mg 12/30/18 22:00 12/30/18 21:26 Neurontin PO 900 mg 4X/DAY JUAN F Administration Glucagon 1 mg 12/30/18 20:06 IM .X1 PRN Hypoglycemia Hydralazine HCl 10 mg 12/30/18 20:06 Apresoline Iv IV Q4H PRN PRN SBP > 160 Sodium Chloride 1,000 mls @ 100 mls/hr 12/30/18 20:06 12/30/18 21:20 IV 100 mls/hr .Q10H JUAN F Administration Insulin Human Lispro 0 unit 12/30/18 22:00 12/31/18 07:55 Humalog Kwashlypen ([facility]) SQ Not Given ACHS [facility] Protocol Lamotrigine 100 mg 12/30/18 22:00 12/30/18 21:25 Lamictal PO 100 mg BID JUAN F Administration Lisinopril 10 mg 12/31/18 10:00 Zestril PO DAILY JUAN F Loratadine 10 mg 12/31/18 10:00 Claritin PO DAILY JUAN F Melatonin 3 mg 12/30/18 20:06 Melatonin PO QHS PRN PRN INSOMNIA Montelukast Sodium 10 mg 12/30/18 22:00 12/30/18 21:30 Singulair PO 10 mg QHS JUAN F Administration Multivitamins/Minerals 1 tablet 12/31/18 08:00 [facility] Ondansetron HCl 4 mg 12/30/18 20:06 Zofran IV Q8H PRN PRN NAUSEA/VOMITING Polyethylene Glycol 17 gm 12/31/18 10:00 Miralax PO DAILY [facility] Sodium Chloride 5 - 15 ml 12/30/18 20:40 12/31/18 05:17 IV 10 ml UD PRN Administration SALINE FLUSH Venlafaxine HCl 150 mg 12/30/18 22:00 12/30/18 21:26 Effexor PO 150 mg BID JUAN F Administration mri reviewed, no acute mra reviewed, no stenosis Assessment/Plan All Active Problems CVA (cerebral infarction) (Acute) no evidence of cva however multiple confounding factors, suspect syncope. also history of myelopathy rec support bp 120-140 pt/ot no evidence of worsening myelopathy, [facility].
[2018-12-31] MEDS: Aspirin 81 MG TAB.CHEW PO (11:12)
[2018-12-31] MEDS: Ferrous Sulfate 325 MG Tablet PO (11:13)
[2018-12-31] MEDS: Loratadine 10 MG Tablet PO (11:14)
[2018-12-31] MEDS: lamoTRIgine 100 MG Tablet PO (11:14)
[2018-12-31] MEDS: Gabapentin 600 MG Tablet 900 MG PO ×2 (11:14→15:04)
[2018-12-31] MEDS: Venlafaxine HCl 75 MG Tablet 150 MG PO (11:14)
[2018-12-31] MEDS: Multivitamins,Ther W-Minerals Tablet 1 TABLET PO (11:14)
[2018-12-31] MEDS: Lisinopril 10 MG Tablet PO (11:15)
[2018-12-31] MEDS: Clopidogrel Bisulfate 75 MG Tablet PO (11:15)
[2018-12-31] MEDS: Finasteride 5 MG Tablet PO (11:15)
[2018-12-31] MEDS: Enoxaparin 40 MG/0.4 ML Syringe SC (11:20)
[2018-12-31 11:25] LABS: Bedside Glucose 121 mg/dL (70-110)
--- NOTE | 2018-12-31 14:54 | PCM.DC ---
You will use the following diet at home:: Calorie/Carbohydrate Controlled (specify 1200, 1400, etc), Cardiac Discharge Activity: Return to Normal Activity Call your doctor if you observe: Shortness of breath, Dizziness, Fainting spells, Chest pain Allergies/Adverse Reactions: Allergies tramadol Adverse Reaction (Verified 12/30/18 16:20) Itching Medications to take at Discharge Clopidogrel Bisulfate [Plavix] 75 mg PO DAILY 08/22/13 Donepezil HCl [Aricept] 10 mg PO QHS 01/02/15 Terazosin HCl [Hytrin] 10 mg PO QHS 01/02/15 Venlafaxine HCl [Effexor] 150 mg PO BID 01/02/15 Albuterol Sulfate [Ventolin Hfa] 2 puff INHALATION 4X/DAY PRN PRN 12/30/18 Atorvastatin Calcium [Lipitor] 40 mg PO QHS 12/30/18 Baclofen 10 - 20 mg PO TID 12/30/18 Budesonide/Formoterol Fumarate [Symbicort 160-4.5 Mcg Inhaler] 2 puff INHALATION BID 12/30/18 Calcium Carbonate/Vitamin D3 [Calcium 500-Vit D3 200 Tablet] 1 tab PO BID 12/30/18 Cholecalciferol (Vitamin D3) [D3-2000] 2,000 unit PO DAILY 12/30/18 Ferrous Sulfate 325 mg PO DAILY 12/30/18 Finasteride [Proscar] 5 mg PO DAILY 12/30/18 Fluticasone 0.05% [Flonase Nasal [place]] 2 spray NASAL DAILY 12/30/18 Gabapentin [Neurontin] 900 mg PO 4X/DAY 12/30/18 Hydrochlorothiazide [Hctz] 25 mg PO DAILY 12/30/18 Lamotrigine [Lamictal] 100 mg PO BID 12/30/18 Lisinopril [Prinivil] 10 mg PO DAILY 12/30/18 Loratadine 10 mg PO DAILY 12/30/18 Montelukast [Singulair] 10 mg PO QHS 12/30/18 Naproxen 500 mg PO BID PRN PRN 12/30/18 Polyethylene Glycol 3350 [Purelax] 17 gm PO DAILY PRN PRN 12/30/18 Primary Care Physician: [facility] [Primary Care Provider] - Please follow up with your Primary Care Physician in: 1 Week Test Results: Test results from this visit will be discussed in further detail at your follow-up appointment, if applicable. Proposed Discharge Date: 12/31/18
--- NOTE | 2018-12-31 14:55 | DS.PCM_ITS ---
Discharge Date and Diagnosis Date of Admission: 12/30/18 Date of Discharge: 12/31/18 - Primary Discharge Diagnosis 1. Left upper extremity paresthesias, CVA ruled out 2. Suspected syncope 3. Acute on chronic hyponatremia, secondary to hypovolemia 4. Hypokalemia, mild 5. Carotid artery disease status post CEA 6. Chronic COPD 7. Hypertension 8. Hyperlipidemia 9. Type 2 diabetes mellitus 10. Multiple sclerosis 11. Dementia, without known behavioral disturbance 12. Anxiety/depression/bipolar disorder? 13. Iron deficiency anemia 14. BPH 15. Former tobacco use 16. Former EtOH abuse - Secondary Discharge Diagnosis Chronic Problems Multiple sclerosis (Chronic) S/P AAA repair (Chronic) Dementia (Chronic) Depression (Chronic) Hypertension (Chronic) Diabetes mellitus, type II (Chronic) Hyperlipidemia (Chronic) Hospital Course and Treatment Imaging Results: Diagnostic Data Brain CT 12/30/18 16:32 IMPRESSION: Stable chronic ischemic and atrophic changes. No acute intracranial abnormality. Stable left maxillary sinusitis. Electronically Signed: Harris Riveor, at 18:00 EDT Tel , Service support , Chest X-Ray 12/30/18 16:40 IMPRESSION: No acute thoracic pathology. Electronically Signed: Harris Rivero at 17:00 EDT Tel , Service support , Brain MRI 12/31/18 08:30 IMPRESSION: No evidence of acute infarct or hemorrhage. Moderate microangiopathic white matter disease. Electronically Signed: Ramez Shirley MD at 9:57 EDT Tel , Service support , Head MRA 12/31/18 08:30 IMPRESSION: No MRA evidence of significant intracranial arterial pathology. Electronically Signed: Ramez Shirley MD at 9:59 EDT Tel , Service support , Neck MRA 12/31/18 08:30 IMPRESSION: Normal bilateral cervical carotid and vertebral arteries. Electronically Signed: Ramez Shirley MD at 10:13 EDT Tel , Service support , Dr. Mata- Neurology Operations: None Procedures: 2-D Echocardiogram Summary of Care Provided: The patient is a 78 year old M admitted 12/30/2018 due to confusion, dizziness, left upper extremity paresthesias. 1. Left upper extremity paresthesias, CVA ruled out-neurology consulted. Brain MRI negative for acute infarct or hemorrhage. MRI with no evidence of significant intracranial arterial pathology. Neck MRA with normal bilateral cervical carotid and vertebral arteries. Patient has history of myelopathy of the cervical and thoracic region. Suspect symptoms are secondary to this. [facility] Echocardiogram pending and will be reviewed prior to discharge. Neurology consulted. Suspect possible syncope versus myelopathy. Troponin negative. Orthostatic vitals negative. Continue aspirin, Plavix, statin. 2. Suspected syncope-troponin negative. Orthostatic vitals negative. Echocardiogram pending as noted above. 3. Acute on chronic hyponatremia, secondary to hypovolemia-improved with IV fluids. 4. Hypokalemia, mild-replace per protocol. 5. Carotid artery disease status post CEA-continue aspirin, Plavix, statin. 6. Chronic COPD-no acute exacerbation. 7. Hypertension-stable, continue home lisinopril, HCTZ regimen. If sodium continues to be low as outpatient, may consider discontinuing HCTZ and adding a different agent. 8. Hyperlipidemia-continue statin. 9. Type 2 diabetes mellitus-diet controlled. Hemoglobin A1c 6%. 10. Multiple sclerosis-continue baclofen, gabapentin regimen. 11. Dementia, without known behavioral disturbance-continue Aricept regimen. 12. Anxiety/depression/bipolar disorder? Continue Lamictal, venlafaxine regimen. 13. Iron deficiency anemia-continue iron supplementation. 14. BPH-continue finasteride regimen. 15. Former tobacco use-encouraged continued cessation. 16. Former ETOH abuse-denies recent use. Patient seen and examined prior to discharge. Physical assessment as noted below. Patient is stable for discharge with follow up recommendations as noted above. This patient was seen by RAISA Javed under the supervision of Dr. Sementi. - Physical Exam General: Alert, Oriented x3, Cooperative HEENT: Atraumatic, PERRLA, EOMI, Normocephalic Neck: Supple, No JVD, Negative Carotid Bruits Lungs: Clear to auscultation, Normal air movement Cardiovascular: Regular rate, Regular Rhythm, Normal S1, Normal S2, No murmurs Abdomen: Bowel Sounds Present, Soft, Non Tender, Non-Distended Extremities: No clubbing, No cyanosis, No edema, Capillary Refill Less than 3 Seconds Skin: No rashes, No breakdown Musculoskeletal: No Tenderness to Palpation of Joints or Extremities Neurological: Cranial nerves II-XII grossly intact, Neuro grossly intact Psych/Mental Status: Normal Affect, Appropriate Vital Signs Temp Pulse Resp BP Pulse Ox 98.6 F 82 16 125/66 H 98 12/31/18 09:49 12/31/18 13:08 12/31/18 13:08 12/31/18 09:49 12/31/18 09:49 Oxygen Delivery Method Room Air Weight: 163 lb 2.273 oz Body Mass Index (BMI) 27.1 Intake and Output for Last 24 Hours 12/29/18 12/30/18 12/31/18 23:59 23:59 23:59 Intake Total 360 / 360 877 / 877 Output Total 200 / 200 Balance 160 / 160 877 / 877 Laboratory Tests Past 24 Hrs 12/30/18 12/30/18 12/30/18 16:35 16:35 16:35 WBC 7.5 RBC 4.32 L Hgb 13.1 Hct 37.8 L MCV 87.5 MCH 30.3 MCHC 34.7 RDW 12.4 RDW Differential 39.0 Plt Count 248 MPV 8.3 Immature Gran % (Auto) 0.500 Neut % (Auto) 61.0 Lymph % (Auto) 25.3 [place] % (Auto) 11.6 H Eos % (Auto) 1.3 Baso % (Auto) 0.3 Absolute Neuts (auto) 4.6 Absolute Lymphs (auto) 1.90 Total Counted Not Reportable Sodium 128 L Potassium 3.2 L Chloride 91 L Carbon Dioxide 29.0 Anion Gap 8 BUN 22 H Creatinine 1.06 Estim Creat Clear Calc 46.22 Est GFR (MDRD) Af Amer 87 Est GFR (MDRD) Non-Af 72 BUN/Creatinine Ratio 20.8 H Glucose 97 Hemoglobin A1c Calcium 8.9 Phosphorus 2.8 Magnesium 2.0 Total Bilirubin 0.60 AST 26 ALT 24 Alkaline Phosphatase 108 Troponin I < 0.015 Total Protein 7.5 Albumin 4.1 Globulin 3.4 Albumin/Globulin Ratio 1.2 Triglycerides Cholesterol LDL Cholesterol VLDL Cholesterol HDL Cholesterol TSH 0.51 Urine Color Urine Clarity Urine pH Ur Specific [place] Urine Protein Urine Glucose (UA) Urine Ketones Urine Occult Blood Urine Nitrite Urine Bilirubin Urine Urobilinogen Ur Leukocyte Esterase Urine RBC Urine WBC Ur Squamous Epith Cells Urine Bacteria Urine Mucus 12/30/18 12/30/18 12/31/18 16:35 18:00 05:22 WBC 6.9 RBC 3.87 L Hgb 11.9 L Hct 34.1 L MCV 88.1 MCH 30.7 MCHC 34.9 RDW 12.3 RDW Differential 39.1 Plt Count 251 MPV 8.6 Immature Gran % (Auto) Neut % (Auto) Lymph % (Auto) [place] % (Auto) Eos % (Auto) Baso % (Auto) Absolute Neuts (auto) Absolute Lymphs (auto) Total Counted Sodium Potassium Chloride Carbon Dioxide Anion Gap BUN Creatinine Estim Creat Clear Calc Est GFR (MDRD) Af Amer Est GFR (MDRD) Non-Af BUN/Creatinine Ratio Glucose Hemoglobin A1c 6.0 Calcium Phosphorus Magnesium Total Bilirubin AST ALT Alkaline Phosphatase Troponin I Total Protein Albumin Globulin Albumin/Globulin Ratio Triglycerides Cholesterol LDL Cholesterol VLDL Cholesterol HDL Cholesterol TSH Urine Color Yellow Urine Clarity Clear Urine pH 7.0 Ur Specific [place] 1.010 Urine Protein Negative Urine Glucose (UA) Normal Urine Ketones Negative Urine Occult Blood Negative Urine Nitrite Negative Urine Bilirubin Negative Urine Urobilinogen Normal Ur Leukocyte Esterase Negative Urine RBC 0-5 SEEN Urine WBC 0 SEEN Ur Squamous Epith Cells 0 SEEN Urine Bacteria 0 SEEN Urine Mucus 0 SEEN 12/31/18 05:22 WBC RBC Hgb Hct MCV MCH MCHC RDW RDW Differential Plt Count MPV Immature Gran % (Auto) Neut % (Auto) Lymph % (Auto) [place] % (Auto) Eos % (Auto) Baso % (Auto) Absolute Neuts (auto) Absolute Lymphs (auto) Total Counted Sodium 133 L Potassium 3.4 L Chloride 96 L Carbon Dioxide 29.0 Anion Gap 8 BUN 18 Creatinine 0.93 Estim Creat Clear Calc 56.94 Est GFR (MDRD) Af Amer 101 Est GFR (MDRD) Non-Af 84 BUN/Creatinine Ratio 19.4 Glucose 91 Hemoglobin A1c Calcium 8.5 Phosphorus Magnesium Total Bilirubin AST ALT Alkaline Phosphatase Troponin I Total Protein Albumin Globulin Albumin/Globulin Ratio Triglycerides 100 Cholesterol 125 LDL Cholesterol 58 VLDL Cholesterol 20 HDL Cholesterol 47 TSH Urine Color Urine Clarity Urine pH Ur Specific [place] Urine Protein Urine Glucose (UA) Urine Ketones Urine Occult Blood Urine Nitrite Urine Bilirubin Urine Urobilinogen Ur Leukocyte Esterase Urine RBC Urine WBC Ur Squamous Epith Cells Urine Bacteria Urine Mucus POC Glucose 12/31/18 12/31/18 12/30/18 11:10 06:55 21:13 POC Glucose 121 H 100 82 Discharge Diet: Low fat/ Low Cholesterol, Carb Control Diet Discharge Activity: Return to Normal Activity Call your doctor if you observe: Shortness of breath, Dizziness, Fainting spells, Chest pain Home Medications: Medications to take at Discharge Clopidogrel Bisulfate [Plavix] 75 mg PO DAILY 08/22/13 Donepezil HCl [Aricept] 10 mg PO QHS 01/02/15 Terazosin HCl [Hytrin] 10 mg PO QHS 01/02/15 Venlafaxine HCl [Effexor] 150 mg PO BID 01/02/15 Albuterol Sulfate [Ventolin Hfa] 2 puff INHALATION 4X/DAY PRN PRN 12/30/18 Atorvastatin Calcium [Lipitor] 40 mg PO QHS 12/30/18 Baclofen 10 - 20 mg PO TID 12/30/18 Budesonide/Formoterol Fumarate [Symbicort 160-4.5 Mcg Inhaler] 2 puff INHALATION BID 12/30/18 Calcium Carbonate/Vitamin D3 [Calcium 500-Vit D3 200 Tablet] 1 tab PO BID 12/30/18 Cholecalciferol (Vitamin D3) [D3-2000] 2,000 unit PO DAILY 12/30/18 Ferrous Sulfate 325 mg PO DAILY 12/30/18 Finasteride [Proscar] 5 mg PO DAILY 12/30/18 Fluticasone 0.05% [Flonase Nasal [place]] 2 spray NASAL DAILY 12/30/18 Gabapentin [Neurontin] 900 mg PO 4X/DAY 12/30/18 Hydrochlorothiazide [Hctz] 25 mg PO DAILY 12/30/18 Lamotrigine [Lamictal] 100 mg PO BID 12/30/18 Lisinopril [Prinivil] 10 mg PO DAILY 12/30/18 Loratadine 10 mg PO DAILY 12/30/18 Montelukast [Singulair] 10 mg PO QHS 12/30/18 Naproxen 500 mg PO BID PRN PRN 12/30/18 Polyethylene Glycol 3350 [Purelax] 17 gm PO DAILY PRN PRN 12/30/18 Primary Care Physician: [facility] [Primary Care Provider] - Please follow up with your Primary Care Physician in: 1 Week Disposition: Home Minutes spent on discharge:: 35 Patient Condition:: Stable Medical Necessity - Tobacco Use Smoking Status: Current every day smoker Tobacco Use: Vapor Meaningful Use Info Meaningful Use Diagnoses (Choose all that apply): None applicable
[2018-12-31 16:46] LABS: Bedside Glucose 86 mg/dL (70-110)
== END 2018-12-31 14:55 | disposition home or self-care (01) ==
LOC: ED 17:35 → PCU 18:48
PROVIDERS: Admitting Provider Family Medicine; Emergency Provider Emergency Medicine; Visit Provider Internal Medicine
DX: E86.0 Dehydration (principal); E87.1 Hypo-osmolality and hyponatremia; R20.2 Paresthesia of skin; E87.6 Hypokalemia; I27.20 Pulmonary hypertension, unspecified; E11.9 Type 2 diabetes mellitus without complications; I10 Essential (primary) hypertension; F32.9 Major depressive disorder, single episode, unspecified; F03.90 Unspecified dementia, unspecified severity, without behavioral disturbance, psychotic disturbance, mood disturbance, and anxiety; E78.5 Hyperlipidemia, unspecified; G35 Multiple sclerosis; F41.9 Anxiety disorder, unspecified; D50.9 Iron deficiency anemia, unspecified; Z79.899 Other long term (current) drug therapy; Z79.02 Long term (current) use of antithrombotics/antiplatelets; Z79.51 Long term (current) use of inhaled steroids; Z85.118 Personal history of other malignant neoplasm of bronchus and lung; Z87.891 Personal history of nicotine dependence
CPT/HCPCS: 36415; 70450; 70544; 70547; 70551; 71045; 80048; 80053; 80061; 81001; 82962; 83036; 83735; 84100; 84443; 84484; 85025; 85027; 93005; 93306; 94640; 96360; 96361; 96372; 97162; 97166; 97802; 99218; 99285; J7030; Q9957; A4216; G0378

== ENCOUNTER 2019-08-03 20:22 | Emergency (ER) | payer OTHER, SELFPAY ==
[2018-12-31 16:34] VITALS: BMI 27.1
[2019-08-03 20:23] VITALS: BP 154/77; PULSE 62; RESP 20; TEMP 36.6; O2SAT 93; BMI 29.7
--- NOTE | 2019-08-03 21:33 | ED.DCSUM_ITS ---
- ER Visit Summary Date of Service: 08/03/19 Chief Complaint: Forearm dog scratch believes is infected History of Present Illness: The patient is a 79 M past medical history of prior TIA back surgery, AAA surgery and prior lung partial resection for lung cancer. Patient states his dog scratch about 4 days ago. On his right forearm. Nothing since in fact it is mildly red. Denies any fever. No pus. No streaks. No prior history. Physical Examination: Older male no acute distress vital signs are stable. He is afebrile. He does not look septic or toxic. H EENT exam unremarkable. Neck nontender no lymphadenopathy. Lungs clear to auscultation bilaterally. Heart regular rate and rhythm no murmur. Abdomen soft and nontender. Normal bowel sounds no peritoneal signs. Extremities moves all 4. Neurovascular intact. His right forearm about 2 inch laceration reportedly [place] to a dog. There is no puncture wounds. There is mild redness around it. No abscess. No lymphangitic streaking. No axillary lymphadenopathy. The right shoulder, elbow and wrist are nontender nonswollen. Normal range of motion. Right hand is neurovascular intact with normal oil and gas specialist strength and sensation and radial pulse. Test Results: None Emergency Department Course and Treatment: Right forearm cellulitis approximately 2 inches x 2 inches around the scratch. Patient given 1 p.o. Augmentin here. Treatment Plan: Augmentin twice daily for 7 days. Follow-up if not improving. Return if worse. Disposition: Discharge Impression: Right forearm dog scratch with surrounding cellulitis. This note was generated with [employer] dictation software. It may contain incorrect words, spelling, and punctuation that were not noted in review of the chart prior to signing ED Disposition - Plan for ED Patient: [facility] [[facility] -
--- NOTE | 2019-08-03 21:35 | ED.DEP ---
ED Disposition - Plan for ED Patient: Disposition: Home or Assisted Living Instructions: Cellulitis Prescriptions: Amox/Clavulanate Tablet [Augmentin Tablet] 875 mg PO Q12H #14 tab Prescription Printed [facility]errals[facility] [[facility]] - 1 Week if not improving Additional Instructions: Augmentin 1 pill twice a day for 7 days. Follow-up if not improving return to ER for looking worse.
[2019-08-03] MEDS: Amox/Clavulanate 875 MG Tablet PO (21:49)
[2019-08-03 21:51] VITALS: BP 145/80; PULSE 76; RESP 15; O2SAT 97
== END 2019-08-03 21:51 | disposition home or self-care (01) ==
PROVIDERS: Emergency Provider Emergency Medicine
DX: S50.811A Abrasion of right forearm, initial encounter (principal); L03.113 Cellulitis of right upper limb; W54.8XXA Other contact with dog, initial encounter; Y93.9 Activity, unspecified; Y92.9 Unspecified place or not applicable; I71.4 Abdominal aortic aneurysm, without rupture; Z86.73 Personal history of transient ischemic attack (TIA), and cerebral infarction without residual deficits; Z85.118 Personal history of other malignant neoplasm of bronchus and lung; Z90.2 Acquired absence of lung [part of]; Z79.02 Long term (current) use of antithrombotics/antiplatelets; Z79.899 Other long term (current) drug therapy
CPT/HCPCS: 99283

== ENCOUNTER 2020-05-01 18:27 | Emergency (ER) | payer OTHER, SELFPAY ==
[2020-05-01 18:28] VITALS: BP 129/78; PULSE 70; PULSE 77; RESP 18; TEMP 36.3; BMI 28.3
--- NOTE | 2020-05-01 18:47 | CT_ITS ---
STUDY: CT CERVICAL SPINE WITHOUT CONTRAST REASON FOR EXAM: Male, 79 years old. FELL OFF THE PORCH HIT HEAD. ON BLOOD THINNERS. HX OF MS AND LUNG CA RADIATION DOSAGE (If Supplied By Facility): CTDIvol = ( 25.28 ) mGy, DLP = ( 651.70 ) mGycm TECHNIQUE: High resolution transaxial imaging was performed without contrast material. Sagittal and coronal images were reconstructed. Individualized dose optimization techniques were used for this CT. COMPARISON: None FINDINGS: Normal craniovertebral junction. Normal anterior atlantoaxial articulation. Normal odontoid process. Normal cervical lordosis. Normal vertebral bodies and posterior osseous elements. C2-3: Normal endplates. Normal disc height and morphology. Normal central canal and intervertebral neuroforamina. C3-4: Normal endplates. Normal disc height and tiny central disc protrusion. Normal central canal. Severe bilateral neuroforaminal stenosis secondary to bony hypertrophy. C4-5: Postop change status post bilateral laminectomy Grade 1 spondylolisthesis. Normal endplates. Normal disc height and morphology. Normal central canal. Severe bilateral neuroforaminal stenosis secondary to bony hypertrophy. C5-6: Status post bilateral laminectomy. Narrowed disc space and minor endplate spurring. Normal central canal. Severe bilateral neuroforaminal stenosis secondary to bony hypertrophy. C6-7: Status post bilateral laminectomy. Normal endplates. Normal disc height and morphology. Normal central canal and intervertebral neuroforamina. C7-T1: Grade 1 spondylolisthesis Status post bilateral laminectomy. Normal endplates. Normal disc height and morphology. Normal central canal and intervertebral neuroforamina. Normal visualized soft tissue structures. CT/Spine Cervical without Contras IMPRESSION: No evidence for acute fracture or subluxation Status post bilateral laminectomy C4-5 through C7-T1 Moderate spondylosis and multilevel spinal stenosis secondary to bony hypertrophy Electronically Signed: Martinez Rajput MD at 19:57 EDT , Service support ,
--- NOTE | 2020-05-01 18:55 | ED.DCSUM_ITS ---
History of Present Illness Chief Complaint: Head Injury Informant: Patient, Significant Other Narrative: 79-year-old male with past medical history of multiple sclerosis and CVA presents with concern for fall. States that he was trying to open the front door with multiple bags in his hand became dizzy falling backwards. States that he fell backwards approximately 4 feet and struck his head. Patient is complaining of headache. Patient is on Plavix. Patient also complaining of neck pain. Patient has pain in his left great toe secondary to laceration he sustained during the fall. Past Medical History - Allergies and Home Meds Allergies/Adverse Reactions: Allergies tramadol Adverse Reaction (Verified 12/30/18 16:20) Itching Primary Care Physician: [facility] [Primary Care Provider] - Prior records reviewed: Yes Past Medical History: - - MS, CVA, HTN Surgical History: - - AAA repair, Carotid endarterectomy (L), Partial lung resection (Lung CA). Lives: With Family Smoking Status: Former smoker Alcohol: None Drugs: None - Family History Maternal Family History: Reports: - - Patient his mother when he was young of cancer, unclear type. Paternal Family History: Reports: - - Patient notes that his father when he was young of comp occasions secondary to alcohol abuse. Review of Systems General: Denies: Chills, Fever, Sweats Eyes: Denies: Visual changes - bilaterally, Diplopia ENT: Denies: Rhinorrhea, Sore throat Cardiovascular: Reports: Chest pain. Denies: Palpitations Respiratory: Reports: Dyspnea. Denies: Cough, Dyspnea on exertion Gastrointestinal: Denies: Abdominal pain, Nausea, Vomiting, Diarrhea, Melena, Hematochezia Genitourinary: Denies: Dysuria, Hematuria, Frequency Musculoskeletal: Denies: Back pain, Extremity Pain Skin: Denies: Rash, Wounds Neurological: Denies: Headache, Weakness, Numbness Physical Exam Vital Signs/Narrative: Vital Signs Temp Pulse Resp BP 05/01/20 18:28 97.4 F L 70 18 129/78 H Inital Vital Signs reviewed: Yes General: Well nourished, Well developed, No Acute Distress Head: Normocephalic, Atraumatic Eyes: Perrl, EOMI ENT: Moist mucous membranes, No rhinorrhea, Nasal congestion Neck: Supple, - - TTP in the cervical midline. Cardiovascular: Regular rate, Regular rhythm, No murmurs Respiratory: No distress, CTA bilaterally, Chest nontender Abdomen: Soft, Nontender, Nondistended, Normal bowel sounds Back: Nontender, Normal Inspection Extremities: Nontender, No edema Skin: Normal color, No rash, - - 2.5 cm laceration over the dorsal big toe. Neurological: Alert, Oriented x3, Cranial nerves II-XII grossly intact, Normal Strength, Normal Sensation Psychological: Normal affect, Normal Mood Diagnostic/Tx/Re-eval Clinical Impression(s) from Imaging Studies Cervical Spine CT 05/01/20 18:47 IMPRESSION: No evidence for acute fracture or subluxation Status post bilateral laminectomy C4-5 through C7-T1 Moderate spondylosis and multilevel spinal stenosis secondary to bony hypertrophy Electronically Signed: Martinez Rajput MD at 19:57 EDT , Service support , Toe X-Ray 05/01/20 19:05 IMPRESSION: 1. Mild to moderate soft tissue swelling is present around the phalanges of the great toe. Some small punctate radiopaque densities or calcifications are seen adjacent to the mid shaft of the proximal phalanges of the great toe which may be related to the overlying bandage material or due to radiopaque foreign bodies or soft tissue calcifications. Electronically Signed: Andrea Marcum MD at 19:21 EDT , Service support , Brain CT 05/01/20 19:10 IMPRESSION: Moderate atrophy and advanced periventricular white matter ischemic change. No evidence for acute intracranial bleed Electronically Signed: Martinez Rajput MD at 19:52 EDT , Service support , Laboratory Data 05/01/20 05/01/20 05/01/20 19:41 19:41 20:35 WBC 6.1 RBC 3.97 L Hgb 12.6 L Hct 39.2 L MCV 98.7 H MCH 31.7 MCHC 32.1 RDW Std Deviation 43.7 RDW Coeff of Melany 11.9 Plt Count 266 MPV 8.9 Immature Gran % (Auto) 0.300 Neut % (Auto) 58.2 Lymph % (Auto) 29.8 [place] % (Auto) 9.2 Eos % (Auto) 2.0 Baso % (Auto) 0.5 Absolute Neuts (auto) 3.6 Absolute Lymphs (auto) 1.82 Nucleated RBC % 0 Sodium 140 Potassium 4.3 Chloride 105 Carbon Dioxide 30.0 Anion Gap 5 BUN 17 Creatinine 0.84 Estim Creat Clear Calc 62.03 Est GFR (MDRD) Af Amer 113 Est GFR (MDRD) Non-Af 93 BUN/Creatinine Ratio 20.2 H Glucose 97 Calcium 8.9 Troponin I < 0.015 Urine Color Yellow Urine Clarity Sl. Cloudy Urine pH 6.0 Ur Specific [place] 1.015 Urine Protein 15 H Urine Glucose (UA) Normal Urine Ketones Negative Urine Occult Blood Negative Urine Nitrite Negative Urine Bilirubin Negative Urine Urobilinogen 4 H Ur Leukocyte Esterase 25 H Urine RBC 0 SEEN Urine WBC 0-5 SEEN Ur Squamous Epith Cells 0-5 SEEN Urine Bacteria 0 SEEN Urine Mucus 0 SEEN - Rhythm Strip Rhythm Strip: Sinus Rhythm Rate: 75 - EKG Initial EKG Interpretation: Sinus Rhythm - Sinus rhythm at 75 bpm. SD interval 168 ms. QTC of 484 ms. Right bundle branch block. Nonspecific ST changes. No changes from previous done on 12/30/2018. - Medical Decision Making Patient appears well and nontoxic. CT brain and cervical spine negative. Lab work within normal limits. EKG unchanged. X-ray of the right great toe shows no acute fracture. The wound was thoroughly cleansed. Patient be given Keflex for 5 days. 8 simple interrupted 4-0 Vicryl sutures were placed. Patient advised to return for any increasing pain or drainage. Patient also advised to return for any vomiting or confusion. Patient agreeable and discharged home in stable condition. Impression: 1. Closed head injury 2. Toe laceration - 8 4-0 vicryl sutures in simple interupted 3. Chronic anticoagulation Procedures - Lacerations lac Length: 0.98 in Depth: Sub Q Shape: Flap Prep: Nadir Laceration repair: Digital block, Irrigated, Lidocaine Irrigated (ml): 100 Number of Sutures/Shahid: 8 Suture Information: Vicryl, Simple, 4-0 ED Disposition - Plan for ED Patient: Disposition: Home or Assisted Living Instructions: ED Head Injury Adult, ED Laceration Foot Prescriptions: Cephalexin [Keflex] 500 mg PO Q6 #30 cap Prescription Printed [facility] [[facility]] -
--- NOTE | 2020-05-01 18:56 | EKG12_ITS ---
Test Reason : DYSRHYTHMIA Blood Pressure : / mmHG Vent. Rate : 075 BPM Atrial Rate : 075 BPM P-R Int : 168 ms QRS Dur : 148 ms QT Int : 434 ms P-R-T Axes : 028 070 031 degrees QTc Int : 484 ms Sinus rhythm with Premature atrial complexes Right bundle branch block Possible Inferior infarct , age undetermined Abnormal ECG Confirmed by JUS MORALES, BALTAZAR ([id number]), director of corporate real estate CLAUDY FERRARA ([id number]) on 05/08/2020 11:46:22 AM Referred By: EMILIANO Confirmed By:BALTAZAR LUU MD
--- NOTE | 2020-05-01 19:05 | RAD_ITS ---
STUDY: X-RAY LEFT FOOT, GREAT TOE REASON FOR EXAM: Male, 79 years old. FALL OFF OF PORCH. DEEP LACERATION AT PROXIMAL END OF GREAT TOE. DORSAL SURFACE TECHNIQUE: 3 view(s) of the toe were obtained. COMPARISON: None. FINDINGS: Mild to moderate soft tissue swelling is present around the phalanges of the great toe. Some small punctate radiopaque densities or calcifications are seen adjacent to the mid shaft of the proximal phalanges of the great toe which may be related to the overlying bandage material or due to radiopaque foreign bodies or soft tissue calcifications. Mild degenerative narrowing and spurring of the first MTP joint noted. No visualized acute fracture or displaced bony fragment. The remaining visualized structures are unremarkable. Small corticated ossicle at the head of the middle phalanges of the second digit is a normal variant or sequela from old trauma. Additional scattered degenerative changes are present. RAD/Toe(s) Min 2 Views IMPRESSION: 1. Mild to moderate soft tissue swelling is present around the phalanges of the great toe. Some small punctate radiopaque densities or calcifications are seen adjacent to the mid shaft of the proximal phalanges of the great toe which may be related to the overlying bandage material or due to radiopaque foreign bodies or soft tissue calcifications. Electronically Signed: Andrea Marcum MD at 19:21 EDT , Service support ,
--- NOTE | 2020-05-01 19:10 | CT_ITS ---
STUDY: CT BRAIN WITHOUT CONTRAST REASON FOR EXAM: Male, 79 years old. FELL OFF THE PORCH HIT HEAD. ON BLOOD THINNERS. HX OF MS AND LUNG CA RADIATION DOSAGE (If Supplied By Facility): CTDIvol = ( 44.99 ) mGy, DLP = ( 812.98 ) mGycm TECHNIQUE: Transaxial CT imaging of the brain was performed without administration of intravenous contrast material. Individualized dose optimization techniques were used for this CT. COMPARISON: No relevant priors. FINDINGS: Normal soft tissue structures. Normal calvarium. Calcification of cavernous carotids. Moderate atrophy and advanced periventricular white matter ischemic changes.. Normal basal ganglia and thalami. Normal brainstem. Normal cerebellum. There is no intracranial hemorrhage. There are no findings of an acute ischemic infarction. Postsurgical changes of the orbits. Mild mucosal thickening left maxillary sinus CT/Brain/Head without Contrast IMPRESSION: Moderate atrophy and advanced periventricular white matter ischemic change. No evidence for acute intracranial bleed Electronically Signed: Martinez Rajput MD at 19:52 EDT , Service support ,
[2020-05-01 19:44] VITALS: BP 178/91; PULSE 74; RESP 18; O2SAT 98
[2020-05-01 19:50] LABS: Absolute Lymphocyte Count 1.82 X10^3/uL (0.83-4.51); Absolute Neutrophil Count 3.6 X10^3/uL (2.0-7.7); Basophil# 0.03 X10^3/uL; Basophil% 0.5 % (0-1); Eosinophil# 0.12 X10^3/uL; Hematocrit 39.2 % (40-54); Hemoglobin 12.6 g/dL (13.0-16.5); Lymphocyte # 1.82 X10^3/ul (4.0); Lymphocyte % 29.8 % (19-41); Mean Corp Hgb Conc 32.1 g/dL (32-36); Mean Corpuscular Hgb 31.7 pg (27.0-32.0); Mean Corpuscular Volume 98.7 fL (80-94); Mean Platelet Vol. 8.9 fl (6.2-12.0); Monocyte# 0.56 X10^3/uL; Monocyte% 9.2 % (0-10); NRBC Flagged by Analyzer 0 % (0-5); Neutrophil # 3.56 X10^3/uL (2.7-7.7); Neutrophil % 58.2 % (47-70); Platelet Count 266 K/mm3 (150-450); RBC Distribution Width CV 11.9 % (11.6-14.6); RBC Distribution Width SD 43.7 fl (35.1-43.9); Red Blood Count 3.97 M/mm3 (4.6-6.2); White Blood Count 6.1 K/mm3 (4.4-11.0)
[2020-05-01 20:13] LABS: Anion Gap 5 (5-15); BUN 17 mg/dL (7-18); BUN/Creat Ratio 20.2 RATIO (10-20); Calcium,Total 8.9 mg/dL (8.5-10.1); Chloride 105 mmol/L (98-107); Creatinine, Serum 0.84 mg/dL (0.70-1.30); EST Glomerular Filtration Rate 93 mL/min (>60); Est Glom Filt Rate - Afr Amer 113 mL/min (>60); Estimated Creatinine Clearance 62.03 ml/min; Glucose 97 mg/dL (74-106); Potassium 4.3 mmol/L (3.5-5.1); Sodium Level 140 mmol/L (136-145)
[2020-05-01 20:43] LABS: Bacteria 0 SEEN /hpf (None Seen); Mucous, Urine 0 SEEN /hpf (<or=2+); Red Blood Cells-Urine 0 SEEN /hpf (0-5)
[2020-05-01 20:51] LABS: Color, Urine Yellow (Yellow); Glucose, Dipstick Normal (Normal); Ketone-Dipstick Negative (Negative); Leukocyte Esterase-Dipstick 25 /ul (Negative); Nitrite-Dipstick Negative (Negative); Occult Blood-Urine Negative /ul (Negative); Protein-Dipstick 15 mg/dl (Negative); Specific Gravity, Urine 1.015 (1.002-1.030); Urine Bilirubin Dipstick Negative (Negative); Urine Clarity Sl. Cloudy (Clear); Urine Urobilinogen 4 mg/dl (Normal)
[2020-05-01 21:11] LABS: Squamous Epithelial Cells - UA 0-5 SEEN /hpf (0-5); White Blood Cells 0-5 SEEN /hpf (0-5)
[2020-05-01] MEDS: Diphth,Pertuss(Acell),Tet Vac 0.5 ML Vial IM (21:11)
[2020-05-01] MEDS: Cephalexin 250 MG Capsule 500 MG PO (22:09)
[2020-05-01] MEDS: Acetaminophen 500 MG Tablet 1000 MG PO (23:10)
[2020-05-01 23:17] VITALS: BP 193/88; PULSE 71; RESP 20; O2SAT 97
--- NOTE | 2020-05-01 23:18 | ED.RN ---
THIS NURSE REVIEWED D/C INSTRUCTIONS WITH PT AND VISITOR. BOTH VERBALIZED UNDERSTANDING OF INSTRUCTIONS. IV D/C. IV CATHETER INTACT. RIGHT FOOT AND TOE CLEANED AND DRESSED. PT DENIES FURTHER QUESTIONS AT THIS TIME. PT ASSISTED TO VEHICLE VIA W/C.
== END 2020-05-01 23:22 | disposition home or self-care (01) ==
PROVIDERS: Emergency Provider Emergency Medicine
DX: S09.90XA Unspecified injury of head, initial encounter (principal); S91.111A Laceration without foreign body of right great toe without damage to nail, initial encounter; G35 Multiple sclerosis; Z79.01 Long term (current) use of anticoagulants; Z85.118 Personal history of other malignant neoplasm of bronchus and lung; Z86.73 Personal history of transient ischemic attack (TIA), and cerebral infarction without residual deficits; W19.XXXA Unspecified fall, initial encounter
CPT/HCPCS: 12001; 70450; 72125; 73660; 80048; 81001; 84484; 85025; 90471; 90715; 93005; 99285; A4216

== ENCOUNTER → 2020-05-25 15:44 | Outpatient (CLI) | payer SELFPAY ==
[2020-05-01 18:28] VITALS: BMI 28.3
--- NOTE | 2020-05-25 15:47 | VDLE_ITS ---
Reason For Study: Lt leg swelling Procedure LEFT This is a venous duplex using B-mode, color GSV is normal. flow and spectral Doppler. FV is compressible, spontaneous, phasic, Exam performed in department. competent and demonstrates normal A preliminary report was called and/or faxed augmentation. to [facility]. POP V is compressible, spontaneous, phasic, competent and demonstrates normal augmentation. T/P Trunk is compressible. PTV is compressible. LT PerV is compressible. Unable to visualize left CFV and SFJ in short due to shadowing from left SUPERVISOR HOME ENERGY CONSULTANT. CFV visualized in long with normal venous doppler flow noted. Incidental finding of left SUPERVISOR HOME ENERGY CONSULTANT measuring 2.28 x 2.23 x 2.1 cm. Interpretation Summary Deep veins of the left lower extremity are patent and compressible segmentally. There is no evidence of left lower extremity deep vein thrombosis. The left great saphenous vein appears patent and compressible segmentally. The left common femoral vein and left sapheno-femoral junction were not well visualized. 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 Clinical correlation is advised, and further evaluation may be warranted. Ordering Physician: Tiffany Eli Referring Physician: [facility] Performed By: Sonam Chavez RVT and Student
== END ==
PROVIDERS: Referring Provider Internal Medicine; Visit Provider Internal Medicine
DX: M79.89 Other specified soft tissue disorders (principal)
CPT/HCPCS: 93971

== ENCOUNTER 2020-08-03 16:29 | Inpatient (IN) | payer OTHER, MEDICARE, SELFPAY ==
[2020-08-03 16:30] VITALS: BP 132/76; PULSE 74; RESP 20; TEMP 36.6; O2SAT 93; O2SAT 98
[2020-08-03 16:32] VITALS: BP 132/76; PULSE 74; RESP 20; TEMP 36.6; O2SAT 93; BMI 29.7
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
[2020-08-03 17:20] LABS: Bacteria 0 SEEN /hpf (None Seen); Red Blood Cells-Urine 0 SEEN /hpf (0-5); Squamous Epithelial Cells - UA 0 SEEN /hpf (0-5); White Blood Cells 0 SEEN /hpf (0-5)
[2020-08-03 17:31] LABS: Color, Urine Yellow (Yellow); Glucose, Dipstick Normal (Normal); Ketone-Dipstick 5 mg/dl (Negative); Leukocyte Esterase-Dipstick Negative /ul (Negative); Nitrite-Dipstick Negative (Negative); Occult Blood-Urine 10 /ul (Negative); Protein-Dipstick 30 mg/dl (Negative); Urine Bilirubin Dipstick Negative (Negative); Urine Clarity Clear (Clear); Urine Urobilinogen 1 mg/dl (Normal)
[2020-08-03 17:38] LABS: Absolute Lymphocyte Count 1.52 X10^3/uL (0.83-4.51); Absolute Neutrophil Count 4.4 X10^3/uL (2.0-7.7); Basophil# 0.02 X10^3/uL; Basophil% 0.3 % (0-1); Eosinophil# 0.03 X10^3/uL; Eosinophils% 0.4 % (0-5); Lymphocyte # 1.52 X10^3/ul (4.0); Mean Corp Hgb Conc 34.2 g/dL (32-36); Mean Corpuscular Hgb 31.2 pg (27.0-32.0); Mean Corpuscular Volume 91.1 fL (80-94); Mean Platelet Vol. 8.4 fl (6.2-12.0); Monocyte# 0.94 X10^3/uL; Monocyte% 13.6 % (0-10); NRBC Flagged by Analyzer 0 % (0-5); Neutrophil # 4.38 X10^3/uL (2.7-7.7); Neutrophil % 63.4 % (47-70); Platelet Count 252 K/mm3 (150-450); RBC Distribution Width CV 12.3 % (11.6-14.6); Red Blood Count 4.17 M/mm3 (4.6-6.2); White Blood Count 6.9 K/mm3 (4.4-11.0)
[2020-08-03 17:44] LABS: Mucous, Urine 1+ /hpf (<or=2+)
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
[2020-08-03 17:47] LABS: ALB/GLOB Ratio 1.1 RATIO (0.9-2.4); AST(SGOT) 14 U/L (15-37); Alanine Aminotransfer ALT/SGPT 26 U/L (16-61); Albumin, Serum 3.7 g/dL (3.2-5.0); Alkaline Phosphatase 143 U/L (45-117); Anion Gap 6 (5-15); BUN 13 mg/dL (7-18); BUN/Creat Ratio 20.3 RATIO (10-20); Calcium,Total 8.9 mg/dL (8.5-10.1); Chloride 98 mmol/L (98-107); Creatinine, Serum 0.64 mg/dL (0.70-1.30); EST Glomerular Filtration Rate 128 mL/min (>60); Est Glom Filt Rate - Afr Amer 155 mL/min (>60); Estimated Creatinine Clearance 43.58 ml/min; Globulin 3.3 g/dL (2.2-4.2); Glucose 82 mg/dL (74-106); Potassium 3.6 mmol/L (3.5-5.1); Sodium Level 132 mmol/L (136-145)
[2020-08-03 18:03] VITALS: BP 147/87; PULSE 73; RESP 14; O2SAT 98
[2020-08-03 18:54] LABS: Amphetamine Urine VISTA NEGATIVE (<1000 ng/mL); Barbiturate Urine VISTA NEGATIVE (< 200 ng/mL); Benzodiazepine Urine VISTA NEGATIVE (< 200 ng/mL); Cocaine Urine VISTA NEGATIVE (< 300 ng/mL); Ecstacy Urine VISTA NEGATIVE (< 500 ng/mL); Methadone Urine VISTA NEGATIVE (< 300 ng/mL); PCP Urine VISTA NEGATIVE (< 25 ng/mL); THC Urine VISTA NEGATIVE (< 50 ng/mL); Vista UDS pH Range 5
[2020-08-03 19:09] VITALS: BP 167/98; PULSE 71; RESP 12; O2SAT 98
[2020-08-03 20:00] VITALS: BP 156/85; PULSE 89; RESP 12; O2SAT 97
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
[2020-08-03 21:28] LABS: Vitamin B12 718 pg/mL (211-911)
[2020-08-03 22:30] VITALS: BP 163/87; PULSE 89; RESP 16; TEMP 37; O2SAT 98
[2020-08-03 22:31] VITALS: BMI 27.8
[2020-08-03 22:41] VITALS: BMI 27.8
[2020-08-04 04:30] VITALS: BP 151/100; PULSE 78; RESP 16; TEMP 37.1; O2SAT 97
[2020-08-04 05:56] LABS: Absolute Lymphocyte Count 1.55 X10^3/uL (0.83-4.51); Absolute Neutrophil Count 4.9 X10^3/uL (2.0-7.7); Basophil# 0.03 X10^3/uL; Basophil% 0.4 % (0-1); Eosinophil# 0.06 X10^3/uL; Eosinophils% 0.8 % (0-5); Hematocrit 38.3 % (40-54); Hemoglobin 12.8 g/dL (13.0-16.5); Lymphocyte # 1.55 X10^3/ul (4.0); Lymphocyte % 20.7 % (19-41); Mean Corp Hgb Conc 33.4 g/dL (32-36); Mean Corpuscular Hgb 30.3 pg (27.0-32.0); Mean Corpuscular Volume 90.5 fL (80-94); Mean Platelet Vol. 8.2 fl (6.2-12.0); Monocyte# 0.93 X10^3/uL; Monocyte% 12.4 % (0-10); NRBC Flagged by Analyzer 0 % (0-5); Neutrophil # 4.88 X10^3/uL (2.7-7.7); Neutrophil % 65.4 % (47-70); Platelet Count 228 K/mm3 (150-450); RBC Distribution Width CV 12.2 % (11.6-14.6); RBC Distribution Width SD 40.4 fl (35.1-43.9); Red Blood Count 4.23 M/mm3 (4.6-6.2); White Blood Count 7.5 K/mm3 (4.4-11.0)
[2020-08-04 06:35] LABS: Anion Gap 8 (5-15); BUN 12 mg/dL (7-18); BUN/Creat Ratio 21.5 RATIO (10-20); Calcium,Total 8.9 mg/dL (8.5-10.1); Chloride 98 mmol/L (98-107); Creatinine, Serum 0.56 mg/dL (0.70-1.30); EST Glomerular Filtration Rate 150 mL/min (>60); Est Glom Filt Rate - Afr Amer 181 mL/min (>60); Estimated Creatinine Clearance 43.58 ml/min; Glucose 89 mg/dL (74-106); Potassium 3.4 mmol/L (3.5-5.1); Sodium Level 132 mmol/L (136-145); Thyroid Stim Hormone (TSH) 0.18 uIU/mL (0.358-3.74)
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
[2020-08-04 08:09] VITALS: BP 138/96; PULSE 97; RESP 16; TEMP 37.3; O2SAT 95; BMI 27.8
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
[2020-08-04] MEDS: Acetaminophen 325 MG Tablet 650 MG PO (10:42)
[2020-08-04 13:40] VITALS: BP 135/87; PULSE 82; RESP 18; TEMP 37.1; O2SAT 97
--- NOTE | 2020-08-04 13:47 | PCS.PANDOC ---
PANDEMIC DOCUMENTATION INITIATED: Date: 08/04/20 Time: 6186
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
[2020-08-04 15:50] VITALS: O2SAT 97
--- NOTE | 2020-08-04 16:12 | CASEMGMT ---
Addendum entered by Rosita Abraham 08/04/20 16:14: Social Work Phone call to Terence at [facility] and updated that pt will discharge to [facility]. RAS Leach Original Note: Social Work Return call from Maddie at [facility] and they are able to accept pt tomorrow. PassRR completed in the [employer] system. Phone call to pt and updated that pt has been accepted at [facility] and will likely transfer tomorrow. Plan: [facility], tomorrow or when medically ready RAS Leach
[2020-08-04 16:39] LABS: Free T3 2.8 pg/mL (2.18-3.98); T4 Free Direct 1.52 ng/dL (0.76-1.46)
[2020-08-04 19:56] VITALS: PULSE 99; RESP 22; O2SAT 96
[2020-08-04] MEDS: Albuterol 2.5 MG/3 ML VIAL.NEB. INHALATION (19:56)
[2020-08-04] MEDS: Budesonide Respules 0.5 MG/2 ML AMPUL.NEB. INHALATION (19:56)
[2020-08-04 21:21] VITALS: BP 141/74; PULSE 66; RESP 16; TEMP 36.6; O2SAT 96
[2020-08-04] MEDS: lamoTRIgine 100 MG Tablet PO (21:23)
[2020-08-04] MEDS: Doxazosin 4 MG Tablet 8 MG PO (21:23)
[2020-08-04] MEDS: Calcium Carb/Vitamin D 1 TABLET Tablet PO (21:24)
[2020-08-04] MEDS: Montelukast 10 MG Tablet PO (21:24)
[2020-08-04] MEDS: Atorvastatin Calcium 40 MG Tablet PO (21:24)
[2020-08-05 03:20] VITALS: BP 98/63; PULSE 85; RESP 18; TEMP 36.6; O2SAT 98
[2020-08-05 06:24] LABS: Anion Gap 5 (5-15); BUN 19 mg/dL (7-18); BUN/Creat Ratio 33.9 RATIO (10-20); Calcium,Total 8.6 mg/dL (8.5-10.1); Chloride 98 mmol/L (98-107); Creatinine, Serum 0.56 mg/dL (0.70-1.30); EST Glomerular Filtration Rate 149 mL/min (>60); Est Glom Filt Rate - Afr Amer 180 mL/min (>60); Estimated Creatinine Clearance 43.58 ml/min; Glucose 102 mg/dL (74-106); Magnesium 1.9 mg/dL (1.6-2.6); Potassium 3.5 mmol/L (3.5-5.1); Sodium Level 131 mmol/L (136-145)
[2020-08-05 06:53] VITALS: PULSE 68; RESP 16; O2SAT 97
[2020-08-05] MEDS: Albuterol 2.5 MG/3 ML VIAL.NEB. INHALATION ×2 (06:53→13:15)
[2020-08-05] MEDS: Budesonide Respules 0.5 MG/2 ML AMPUL.NEB. INHALATION (06:53)
--- NOTE | 2020-08-05 09:06 | TREXTCAR_ITS ---
- Diet 08/03/20 22:18 Diet: Regular - General Food consistency:: Soft & Bite Sized Liquid Consistency:: Regular/Thin Type of Dietary Supplement:: Ensure Enlive Is pt able to select menu?: No Diet Comments: 120 ml ensure enlive w/ meals - Routine Orders/Code Status Routine Lab Work: [facility] Code Status: Full Code - Wound(s) left forehead Wound Type: Hematoma right shoulder Wound Type: Hematoma left forearm Wound Type: wound from wrist fracture, splint in place left eye Wound Type: Hematoma - Therapies Physical Therapy: Eval and Treat Occupational Therapy: Eval and Treat - Allergies/Procedures Done in Hospital Allergies/Adverse Reactions: Allergies tramadol Adverse Reaction (Verified 12/30/18 16:20) Itching - Type of Care/Length of Stay Estimated LOS: Convalescent Care Less Than 30 days Type of Care Needed: Skilled Rehab Potential: Fair Prognosis: Fair - Additional Orders/Day of Discharge Additional Orders: Hard Neck collar. May remove briefy for bathing/showering. Day of Discharge: 08/05/20 - Dietary and Speech Recommendations Dietitian Recommendations/Changes: Will provide liberal Regular soft / bite sized diet w/ ONS at meals d/t s/s of malnutrition - Follow Up Care Primary Care Physician: [facility] [Primary Care Provider] - Within 2 Weeks Please Follow Up With: Spine/Neurosurgery When: next scheduled appointment or in 2-4 weeks.
[2020-08-05 09:42] VITALS: BP 113/57; PULSE 93; RESP 16; TEMP 36.7; O2SAT 97
[2020-08-05] MEDS: Calcium Carb/Vitamin D 1 TABLET Tablet PO (09:48)
[2020-08-05] MEDS: Ferrous Sulfate 325 MG Tablet PO (09:48)
[2020-08-05] MEDS: Lisinopril 10 MG Tablet PO (09:48)
[2020-08-05] MEDS: Clopidogrel Bisulfate 75 MG Tablet PO (09:48)
[2020-08-05] MEDS: lamoTRIgine 100 MG Tablet PO (09:48)
[2020-08-05] MEDS: Loratadine 10 MG Tablet PO (09:49)
[2020-08-05] MEDS: Fluticasone 0.05% 1 SPRAY NASAL.SRY 2 SPRAY NASAL (09:50)
[2020-08-05] MEDS: Finasteride 5 MG Tablet PO (09:50)
--- NOTE | 2020-08-05 12:39 | DS.PCM_ITS ---
Discharge Date and Diagnosis - Problem List Patient Problems: Active and Suspected Problems Encephalopathy (Acute) Multiple falls (Acute) Date of Admission: 08/03/20 Date of Discharge: 08/05/20 - Primary Discharge Diagnosis Acute Problems: Active Problems Encephalopathy (Acute) Multiple falls (Acute) - Secondary Discharge Diagnosis Chronic Problems: Chronic Problems Multiple sclerosis (Chronic) S/P AAA repair (Chronic) Dementia (Chronic) Depression (Chronic) Hypertension (Chronic) Diabetes mellitus, type II (Chronic) Hyperlipidemia (Chronic) Hospital Course and Treatment Imaging Results: Clinical Impression(s) from Imaging Studies Brain CT 08/03/20 16:48 IMPRESSION: No acute intracranial findings. Negative for hemorrhage, hematoma or extra-axial fluid collection. Stable involutional changes from prior exam. Contusion of the anterior left scalp without underlying skull fracture. Electronically Signed: Fariha Acevedo MD at 19:24 EST , Service support , Cervical Spine CT 08/03/20 16:50 IMPRESSION: Degenerative anterolisthesis of C4 and C7 stable from prior exam. Status post laminectomy and posterior spinal fusion from C5 through T2 with no change in hardware placement from prior exam. Negative for acute fracture deformity. There are linear defects consistent with fractures in the posterior arch of C1 which are nondisplaced and were present on the prior exam of 05/01/2020 with no change in alignment. Degenerative disc and joint changes as stated above are stable from prior exam. Bilateral carotid artery calcifications are present. Electronically Signed: Fariha Acevedo MD at 19:34 EST , Service support , Chest X-Ray 08/03/20 17:45 IMPRESSION: No acute cardiopulmonary findings or changes allowing for shallow inspiration. Moderate chronic elevation of the right diaphragm. Negative for pneumothorax, consolidation, atelectasis or substantial pleural effusion. Stable cardiomediastinal silhouette. Evidence of a recent fracture of the lateral left seventh rib. Electronically Signed: Fariha Acevedo MD at 19:20 EST , Service support , Wrist X-Ray 08/03/20 17:45 IMPRESSION: Wrist is in splints in slight dorsiflexion. Mild dorsal impaction fracture deformity of the distal radius that looks old. The distal ulna has been surgically removed or has eroded in the past, chronic finding. Degenerative arthrosis of the radiocarpal joint, intercarpal articulations and first carpometacarpal joint. Electronically Signed: Fariha Acevedo MD at 19:18 EST , Service support , Operations: None Procedures: None Summary of Care Provided: The patient is a 80 year old M presents with confusion. 1. encephalopathy: * improved. * Likely multifactorial. Head CT did not show any intracranial injury, however does show pronounced atrophy. Unclear patient has underlying dementia may also be a component of medication. * Patient is on gabapentin, donezepil. Continue to hold these medications. 2. Recent neck fracture: * CT neck does show a linear defect within the posterior arch of C1 that were nondisplaced and that were present back in April though that report does not comment on it. * Continue with the hard cervical collar. * Follow up with spine/neurosurgery as to when brace can be removed. * I requested records from , but have not arrived. 3. Positive rapid Covid antigen. PCR was negative. No lymphopenia. Chest x- ray is not suggestive of COVID-19 either. Discontinue isolation. 4. Abnormal TSH: FT4 slightly elevated. follow up as outpt. Not significant to suggest Grave's disease. 5. Debility: [] Patient Problems: Active and Suspected Problems Encephalopathy (Acute) Multiple falls (Acute) - Physical Exam Vitals/I&O's: Vital Signs Temp Pulse Resp BP Pulse Ox 36.7 C 93 16 113/57 L 97 08/05/20 09:42 08/05/20 09:42 08/05/20 09:42 08/05/20 09:42 08/05/20 09:42 Oxygen Delivery Method Room Air Weight: 66.8 kg Body Mass Index (BMI) 27.8 Intake and Output for Last 24 Hours 08/03/20 08/04/20 08/05/20 23:59 23:59 23:59 Intake Total 120 / 120 480 / 880 400 / 400 Output Total 200 / 425 575 / 575 Balance 120 / 120 280 / 455 -175 / -175 General: Alert, No apparent distress HEENT: Atraumatic, Normocephalic Oral: Moist Mucosa, No Gingival or Mucosal Lesions/ Ulcerations Neck: No Nodes, Thyroid Normal Size and Texture Lungs: Clear to auscultation, Normal air movement, No rhonchi, No wheeze, No rales Cardiovascular: Regular rate, Regular Rhythm, Normal S1, Normal S2 Abdomen: Bowel Sounds Present, Soft, Non Tender, Non-Distended, No Hepato- splenomegaly Extremities: No edema, No Calf Tenderness Microbiology Past 72 Hours 08/03/20 17:11 Mucosa - Nose SARS-CoV-2 Antigen (Rapid) - Final SARS-CoV-2 (COVID 19) Laboratory Results 08/04/20 05:40: Free T4 1.52 H, Free T3 pg/dL 2.8 08/05/20 05:10: Sodium 131 L, Potassium 3.5, Chloride 98, Carbon Dioxide 28.0, Anion Gap 5, BUN 19 H, Creatinine 0.56 L, Estim Creat Clear Calc 43.58, Est GFR (MDRD) Af Amer 180, Est GFR (MDRD) Non-Af 149, BUN/Creatinine Ratio 33.9 H, Glucose 102, Calcium 8.6, Magnesium 1.9 Current Medications Acetaminophen (Acetaminophen 325 Mg Tablet) 650 mg PO Q6H PRN PRN PRN Reason: Pain Score 1-10/Temp > 100.7 F Last Admin: 08/04/20 10:42 Dose: 650 mg Documented by: Albuterol Sulfate (Albuterol Sulfate 8 Gm Inhaler (60 Puffs)) 2 puff INHALATION 4X/DAY PRN PRN PRN Reason: SOB &/OR WHEEZING Albuterol Sulfate (Albuterol 2.5 Mg/3 Ml Vial.Neb.) 2.5 mg INHALATION Q6HWA.RT JUAN F Last Admin: 08/05/20 06:53 Dose: 2.5 mg Documented by: Atorvastatin Calcium (Atorvastatin Calcium 40 Mg Tablet) 40 mg PO QHS JUAN F Last Admin: 08/04/20 21:24 Dose: 40 mg Documented by: Budesonide (Budesonide Respules 0.5 Mg/2 Ml Ampul.Neb.) 0.5 mg INHALATION Q12H.RT [facility] Last Admin: 08/05/20 06:53 Dose: 0.5 mg Documented by: Calcium/Vitamin D (Calcium Carb/Vitamin D 1 Tablet Tablet) 1 tablet PO BID [facility] Last Admin: 08/05/20 09:48 Dose: 1 tablet Documented by: Cholecalciferol (Cholecalciferol (Vit D3) 1,000 Unit (25mcg)) 2,000 unit PO DAILY [facility] Last Admin: 08/05/20 09:47 Dose: 2,000 unit Documented by: Clopidogrel Bisulfate (Clopidogrel Bisulfate 75 Mg Tablet) 75 mg PO DAILY [facility] Last Admin: 08/05/20 09:48 Dose: 75 mg Documented by: Doxazosin Mesylate (Doxazosin 4 Mg Tablet) 8 mg PO QHS [facility] Last Admin: 08/04/20 21:23 Dose: 8 mg Documented by: Ferrous Sulfate (Ferrous Sulfate 325 Mg Tablet) 325 mg PO DAILY [facility] Last Admin: 08/05/20 09:48 Dose: 325 mg Documented by: Finasteride (Finasteride 5 Mg Tablet) 5 mg PO DAILY [facility] Last Admin: 08/05/20 09:50 Dose: 5 mg Documented by: Fluticasone Propionate (Fluticasone 0.05% 1 [place] Nasal.Sry) 2 spray NASAL DAILY [facility] Last Admin: 08/05/20 09:50 Dose: 2 spray Documented by: Lamotrigine (Lamotrigine 100 Mg Tablet) 100 mg PO BID [facility] Last Admin: 08/05/20 09:48 Dose: 100 mg Documented by: Lisinopril (Lisinopril 10 Mg Tablet) 10 mg PO DAILY [facility] Last Admin: 08/05/20 09:48 Dose: 10 mg Documented by: Loratadine (Loratadine 10 Mg Tablet) 10 mg PO DAILY [facility] Last Admin: 08/05/20 09:49 Dose: 10 mg Documented by: Montelukast Sodium (Montelukast 10 Mg Tablet) 10 mg PO QHS [facility] Last Admin: 08/04/20 21:24 Dose: 10 mg Documented by: Ondansetron HCl (Ondansetron 4 Mg/2 Ml Vial) 4 mg IV Q8H PRN PRN PRN Reason: NAUSEA/VOMITING Polyethylene Glycol (Polyethylene Glycol 3350 17 Gm Packet) 17 gm PO DAILY PRN PRN PRN Reason: Constipation Sodium Chloride (0.9% Saline Lock 10 Ml Syringe) 10 - 40 ml IV UD PRN PRN Reason: SALINE FLUSH Discharge Diet: No Restrictions Home Medications: Medications to take at Discharge Clopidogrel Bisulfate [Plavix] 75 mg PO DAILY 08/22/13 Terazosin HCl [Hytrin] 10 mg PO QHS 01/02/15 Venlafaxine HCl [Effexor] 150 mg PO BID 01/02/15 Albuterol Sulfate [Ventolin Hfa] 2 puff INHALATION 4X/DAY PRN PRN 12/30/18 Atorvastatin Calcium [Lipitor] 40 mg PO QHS 12/30/18 Budesonide/Formoterol Fumarate [Symbicort 160-4.5 Mcg Inhaler] 2 puff INHALATION BID 12/30/18 Calcium Carbonate/Vitamin D3 [Calcium 500-Vit D3 200 Tablet] 1 tab PO BID 12/30/18 Cholecalciferol (Vitamin D3) [D3-2000] 2,000 unit PO DAILY 12/30/18 Ferrous Sulfate 325 mg PO DAILY 12/30/18 Finasteride [Proscar] 5 mg PO DAILY 12/30/18 Fluticasone 0.05% [Flonase Nasal [place]] 2 spray NASAL DAILY 12/30/18 Hydrochlorothiazide [Hctz] 25 mg PO DAILY 12/30/18 Lamotrigine [Lamictal] 100 mg PO BID 12/30/18 Lisinopril [Prinivil] 10 mg PO DAILY 12/30/18 Loratadine 10 mg PO DAILY 12/30/18 Montelukast [Singulair] 10 mg PO QHS 12/30/18 Naproxen 500 mg PO BID PRN PRN 12/30/18 Polyethylene Glycol 3350 [Purelax] 17 gm PO DAILY PRN PRN 12/30/18 Alprostadil [Edex] 1 injectable IC PRN PRN 08/03/19 [facility] [[facility]] - Within 2 Weeks Please Follow Up With: Spine/Neurosurgery When: next scheduled appointment or in 2-4 weeks. Disposition: [facility] facility Minutes spent on discharge:: 32 Patient Condition:: Fair Medical Necessity - Tobacco Use Smoking Status: Former smoker Meaningful Use Info Meaningful Use Diagnoses (Choose all that apply): None applicable Inpatient E&M: 69286 Disch Hosp
[2020-08-05 13:15] VITALS: PULSE 85; RESP 16
[2020-08-05] MEDS: Glycerin/Hypromellose/PEG400 15 ml Bottle 2 DRP EACH EYE (14:15)
== END 2020-08-05 15:30 | disposition skilled nursing facility (03) | DRG 72 ==
LOC: ED 19:53 → MS2 20:14 → PCU 08-04 13:31
PROVIDERS: Admitting Provider Hospitalist; Emergency Provider Emergency Medicine
DX: G93.40 Encephalopathy, unspecified (principal); R94.6 Abnormal results of thyroid function studies; F03.90 Unspecified dementia, unspecified severity, without behavioral disturbance, psychotic disturbance, mood disturbance, and anxiety; R29.6 Repeated falls; R05 Cough; G35 Multiple sclerosis; I10 Essential (primary) hypertension; E78.5 Hyperlipidemia, unspecified; E11.9 Type 2 diabetes mellitus without complications; F31.9 Bipolar disorder, unspecified; Z87.891 Personal history of nicotine dependence; F41.9 Anxiety disorder, unspecified; S00.91XA Abrasion of unspecified part of head, initial encounter; W19.XXXA Unspecified fall, initial encounter; Y92.9 Unspecified place or not applicable; Y99.9 Unspecified external cause status
CPT/HCPCS: 36415; 70450; 71045; 72125; 73110; 80048; 80053; 80307; 81001; 82140; 82607; 83735; 84439; 84443; 84481; 85025; 87426; 87635; 94640; 97162; 97166; 97802; 99285; 99406; A4216; U0002

== ENCOUNTER 2020-08-21 20:14 | Observation (INO) | payer OTHER, MEDICARE, SELFPAY ==
[2020-08-21 20:19] VITALS: BP 92/60; PULSE 91; RESP 18; TEMP 37.1; O2SAT 95; BMI 25.4
--- NOTE | 2020-08-21 20:50 | EKG12_ITS ---
Test Reason : DEC SODIUM Blood Pressure : / mmHG Vent. Rate : 089 BPM Atrial Rate : 089 BPM P-R Int : 164 ms QRS Dur : 156 ms QT Int : 412 ms P-R-T Axes : 013 074 030 degrees QTc Int : 501 ms Sinus rhythm with Premature atrial complexes Right bundle branch block Possible Inferior infarct , age undetermined Abnormal ECG Confirmed by JUS MORALES, BALTAZAR ([id number]), assistant production editor CLAUDY FERRARA ([id number]) on 08/24/2020 9:29:10 AM Referred By: KRISTEN Confirmed By:BALTAZAR LUU MD
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
[2020-08-21 21:05] LABS: Absolute Lymphocyte Count 0.65 X10^3/uL (0.83-4.51); Absolute Neutrophil Count 4.9 X10^3/uL (2.0-7.7); Basophil# 0.03 X10^3/uL; Basophil% 0.4 % (0-1); Eosinophil# 0.09 X10^3/uL; Eosinophils% 1.3 % (0-5); Hematocrit 36.4 % (40-54); Hemoglobin 11.3 g/dL (13.0-16.5); Lymphocyte # 0.65 X10^3/ul (4.0); Lymphocyte % 9.6 % (19-41); Mean Corpuscular Hgb 30.2 pg (27.0-32.0); Mean Corpuscular Volume 97.3 fL (80-94); Mean Platelet Vol. 11.4 fl (6.2-12.0); Monocyte# 1.12 X10^3/uL; Monocyte% 16.5 % (0-10); NRBC Flagged by Analyzer 0 % (0-5); Neutrophil # 4.86 X10^3/uL (2.7-7.7); Neutrophil % 71.6 % (47-70); Platelet Count 141 K/mm3 (150-450); RBC Distribution Width CV 13.8 % (11.6-14.6); RBC Distribution Width SD 49.4 fl (35.1-43.9); Red Blood Count 3.74 M/mm3 (4.6-6.2); White Blood Count 6.8 K/mm3 (4.4-11.0)
[2020-08-21] MEDS: 0.9% Normal Saline 1,000 ML 1000 ML IV (21:15)
[2020-08-21 21:22] LABS: AST(SGOT) 21 U/L (15-37); Alanine Aminotransfer ALT/SGPT 27 U/L (16-61); Albumin, Serum 3.3 g/dL (3.2-5.0); Alkaline Phosphatase 111 U/L (45-117); Anion Gap 8 (5-15); BUN 13 mg/dL (7-18); BUN/Creat Ratio 22.7 RATIO (10-20); Calcium,Total 8.6 mg/dL (8.5-10.1); Chloride 87 mmol/L (98-107); Creatinine, Serum 0.57 mg/dL (0.70-1.30); EST Glomerular Filtration Rate 145 mL/min (>60); Est Glom Filt Rate - Afr Amer 176 mL/min (>60); Estimated Creatinine Clearance 51.25 ml/min; Globulin 3.2 g/dL (2.2-4.2); Glucose 117 mg/dL (74-106); Potassium 3.9 mmol/L (3.5-5.1); Protein, Total 6.5 g/dL (6.4-8.2); Sodium Level 121 mmol/L (136-145)
[2020-08-21 21:53] LABS: Mucous, Urine 0 SEEN /hpf (<or=2+); Red Blood Cells-Urine 0 SEEN /hpf (0-5)
[2020-08-21 22:01] LABS: Color, Urine Yellow (Yellow); Glucose, Dipstick Normal (Normal); Ketone-Dipstick Negative (Negative); Leukocyte Esterase-Dipstick 500 /ul (Negative); Nitrite-Dipstick Positive (Negative); Occult Blood-Urine 10 /ul (Negative); Protein-Dipstick 30 mg/dl (Negative); Urine Bilirubin Dipstick Negative (Negative); Urine Clarity Sl. Cloudy (Clear); Urine Urobilinogen 1 mg/dl (Normal)
[2020-08-21 22:12] LABS: White Blood Cells 25-50 SEEN /hpf (0-5)
[2020-08-21 22:13] LABS: Bacteria 3+ /hpf (None Seen); Squamous Epithelial Cells - UA 0-5 SEEN /hpf (0-5)
[2020-08-21 22:18] VITALS: BP 139/96; PULSE 90; RESP 18; O2SAT 93
[2020-08-21 22:21] LABS: Lactic Acid 0.7 mmol/L (0.4-1.9)
[2020-08-21] MEDS: 0.9% Normal Saline 1,000 ML 999 ML IV (22:50)
[2020-08-21] MEDS: Ceftriaxone 1 GM/50 ML BAG IV (22:51)
--- NOTE | 2020-08-21 23:01 | HP.PCM_ITS ---
History of Present Illness Date of Admission: 08/21/20 Chief Complaint: abnormal labs The patient is a 80 year old M with a PMH as outlined who was admitted via the ED with a complaint of abnormal labs. Labs done in the SNF showed sodium of 118. He has chronically low sodium. He is on hydrochlorthiazide, and also said he wasnt drinking much. Review of systems was otherwise negative. BP improved with IVF hydration, and labs also showed some evidence of UTI. He had no other complaints. Review of systems was otherwise negative. Vitals in the ED showed initial blood pressure of 92/60 which improved to 139/96 after he was hydrated with fluids. Labs were otherwise stable. Initial sodium was 121 per labs done here. Chemistry was otherwise negative. CBC was unremarkable with hemoglobin of 11.3 and platelets of WBC of 6.8 as well as platelets of 141. Urine showed 3+ bacteria and elevated white cell count and urine was also cloudy. He is being admitted to be managed for acute on chronic hyponatremia as well as UTI. Past Medical History Past Medical History (Chronic Problems): Chronic Problems Multiple sclerosis (Chronic) S/P AAA repair (Chronic) Dementia (Chronic) Depression (Chronic) Hypertension (Chronic) Diabetes mellitus, type II (Chronic) Hyperlipidemia (Chronic) Allergies tramadol Adverse Reaction (Verified 12/30/18 16:20) Itching Home Medications: Ambulatory Orders Medication Instructions Recorded Clopidogrel Bisulfate [Plavix] 75 mg PO DAILY 08/22/13 Terazosin HCl [Hytrin] 10 mg PO QHS 01/02/15 Venlafaxine HCl [Effexor] 150 mg PO BID 01/02/15 Atorvastatin Calcium [Lipitor] 40 mg PO QHS 12/30/18 Budesonide/Formoterol Fumarate 2 puff INHALATION BID 12/30/18 [Symbicort 160-4.5 Mcg Inhaler] Calcium Carbonate/Vitamin D3 1 tab PO BID 12/30/18 [Calcium 500-Vit D3 200 Tablet] Cholecalciferol (Vitamin D3) 2,000 unit PO DAILY 12/30/18 [D3-2000] Ferrous Sulfate 325 mg PO DAILY 12/30/18 Finasteride [Proscar] 5 mg PO DAILY 12/30/18 Fluticasone 0.05% [Flonase Nasal 2 spray NASAL QHS 12/30/18 [place]] Hydrochlorothiazide [Hctz] 25 mg PO DAILY 12/30/18 Lamotrigine [Lamictal] 100 mg PO BID 12/30/18 Lisinopril [Prinivil] 10 mg PO DAILY 12/30/18 Loratadine 10 mg PO DAILY 12/30/18 Montelukast [Singulair] 10 mg PO QHS 12/30/18 Baclofen 10 mg PO TID 08/21/20 Surgical History: noncontributory, - - AAA repair, Carotid endarterectomy (L), Partial lung resection (Lung CA). Back surgery Psychiatric History: Anxiety, Bipolar, Depression Lives: [facility] Smoking Status: Former smoker Alcohol: Sober Drugs: None - *Family History Maternal History Items: - - Patient his mother when he was young of cancer, unclear type. Paternal History Items: - - Patient notes that his father when he was young of comp occasions secondary to alcohol abuse. Review of Systems Constitutional: Reports: Weight Change. Denies: Chills, Fever, Malaise, Weakn ess, Fatigue Eyes: Denies: Blurred vision HEENT: Denies: Head Aches, Sinus Congestion, Sinus Drainage Cardiovascular: Denies: Chest Pain, Palpitations Respiratory: Denies: Cough, Shortness of Breath, Shortness of breath at rest, Shortness of breath upon exertion, Sputum production Gastrointestinal: Denies: Abdominal Pain, Nausea, Vomiting Genitourinary: Denies: Dysuria Musculoskeletal: Denies: Joint Pain, Joint Tenderness Skin: Denies: Rash, Wounds Neurological: Denies: Numbness, Tingling, Focal weakness Psychiatric: Denies: Anxiety, Depression, Homicidal Ideations, Suicidal Ideations Hematologic/ Lymphatic: Denies: Easy Bruising, Easy Bleeding VTE Information - Inpt Only VTE Present on Admission: No VTE Pharm Prophylaxis ordered?: Yes Patient Problems: Active and Suspected Problems UTI (urinary tract infection) (Acute) Hyponatremia (Acute) Hypotension (Acute) - Physical Exam Vitals/I&O's: Vital Signs Temp Pulse Resp BP Pulse Ox 98.7 F 90 18 139/96 H 93 08/21/20 20:19 08/21/20 22:18 08/21/20 22:18 08/21/20 22:18 08/21/20 22:18 Oxygen Delivery Method Room Air Weight: 153 lb 0.013 oz Body Mass Index (BMI) 25.4 Intake and Output for Last 24 Hours 08/19/20 08/20/20 08/21/20 23:59 23:59 23:59 Intake Total 1000 / 1000 Balance 1000 / 1000 General: Alert, Oriented x3, Cooperative HEENT: Atraumatic, PERRLA, EOMI, Normocephalic Neck: Supple, No JVD, Negative Carotid Bruits Lungs: Clear to auscultation, Normal air movement, No rhonchi, No wheeze Cardiovascular: Regular rate, Regular Rhythm, Normal S1, Normal S2, No murmurs Abdomen: Bowel Sounds Present, Soft, Non Tender Extremities: No clubbing, No cyanosis, No edema, Capillary Refill Less than 3 Seconds Skin: No rashes, No breakdown Musculoskeletal: No Tenderness to Palpation of Joints or Extremities Lymphatic: No Cervical, Supraclavicular, or Inguinal Adenopathy Neurological: Cranial nerves II-XII grossly intact, Neuro grossly intact, Motor Exam 5/5 strength throughout Psych/Mental Status: Normal Affect, Appropriate, Alert and oriented to time, place, person, mood and affect Laboratory Results 08/21/20 20:55: WBC 6.8, RBC 3.74 L, Hgb 11.3 L, Hct 36.4 L, MCV 97.3 H, MCH 30.2, MCHC 31.0 L, RDW Std Deviation 49.4 H, RDW Coeff of Melany 13.8, Plt Count 141 L, MPV 11.4, Immature Gran % (Auto) 0.600, Neut % (Auto) 71.6 H, Lymph % (Auto) 9.6 L, [place] % (Auto) 16.5 H, Eos % (Auto) 1.3, Baso % (Auto) 0.4, Absolute Neuts (auto) 4.9, Absolute Lymphs (auto) 0.65 L, Nucleated RBC % 0 08/21/20 20:55: Sodium 121 L, Potassium 3.9, Chloride 87 L, Carbon Dioxide 26.0, Anion Gap 8, BUN 13, Creatinine 0.57 L, Estim Creat Clear Calc 51.25, Est GFR (MDRD) Af Amer 176, Est GFR (MDRD) Non-Af 145, BUN/Creatinine Ratio 22.7 H, Glucose 117 H, Calcium 8.6, Magnesium 2.0, Total Bilirubin 0.40, AST 21, ALT 27, Alkaline Phosphatase 111, Total Protein 6.5, Albumin 3.3, Globulin 3.2, Alb umin/Globulin Ratio 1.0 08/21/20 21:40: Urine Color Yellow, Urine Clarity Sl. Cloudy, Urine pH 7.0, Ur Specific [place] 1.010, Urine Protein 30 H, Urine Glucose (UA) Normal, Urine Ketones Negative, Urine Occult Blood 10 H, Urine Nitrite Positive H, Urine Bilirubin Negative, Urine Urobilinogen 1 H, Ur Leukocyte Esterase 500 H, Urine RBC 0 SEEN, Urine WBC 25-50 SEEN, Ur Squamous Epith Cells 0-5 SEEN, Urine Bacteria 3+, Urine Mucus 0 SEEN 08/21/20 21:40: Lactic Acid 0.7 Current Medications Sodium Chloride () 1,000 mls @ 999 mls/hr IV .Q1H1M ONE Stop: 08/21/20 23:29 Last Admin: 08/21/20 22:50 Dose: 999 mls/hr Documented by: Sodium Chloride () 1,000 mls @ 150 mls/hr IV .[id number] [facility] Assessment/Plan All Active Problems Encephalopathy (Acute) Multiple falls (Acute) UTI (urinary tract infection) (Acute) Hyponatremia (Acute) Hypotension (Acute) 80 y/o admitted for hyponatremia #Acute on chronic hyponatremia * sodium is 121, was 118 in the SNF. baseline sodium is ~ 131 * think it is due to diuretics, and he has also not been eating or drinking well * will hold HCTZ; hydrate gently with IVF * check urine and sodium osmolality * trend sodium. To correct sodium by 6-8mmol/L within 24 hours * * #UTI * UA showed 3+ bacteria and elevated wbc * started on IV ceftriaxone, will continue * urine culture * #Hypertension: on lisinopril #CAD: on plavix and lisinopril #BPH: on flomax and terazosin DVT prophylaxis: lovenox OBSV E&M: [id number] Initial observation care L3 Procedures: [id number] Advncd Care Plan 30 Min
[2020-08-21 23:23] VITALS: BP 117/75; PULSE 84; RESP 18; TEMP 36.9; O2SAT 95
[2020-08-22] VITALS (13 sets, daily range): BP systolic 119–149; BP diastolic 61–87; PULSE 73–131; RESP 16–18; TEMP 36.5–37.1; O2SAT 95–98; BMI 25.1
[2020-08-22] MEDS: 0.9% Normal Saline 1,000 ML 150 ML IV ×3 (00:29→14:20)
[2020-08-22] MEDS: Phenazopyridine 95 MG Tablet PO ×2 (04:27→14:23)
[2020-08-22 04:53] LABS: Osmolality, Urine 206 mOsm/KG
[2020-08-22] MEDS: Baclofen 10 MG Tablet PO ×2 (05:51→14:23)
[2020-08-22] MEDS: Enoxaparin 40 MG/0.4 ML Syringe SC (05:51)
[2020-08-22 06:39] LABS: Absolute Lymphocyte Count 0.75 X10^3/uL (0.83-4.51); Absolute Neutrophil Count 4.1 X10^3/uL (2.0-7.7); Basophil# 0.03 X10^3/uL; Basophil% 0.5 % (0-1); Eosinophil# 0.01 X10^3/uL; Eosinophils% 0.2 % (0-5); Hematocrit 32.6 % (40-54); Hemoglobin 11.3 g/dL (13.0-16.5); Lymphocyte # 0.75 X10^3/ul (4.0); Lymphocyte % 12.8 % (19-41); Mean Corp Hgb Conc 34.7 g/dL (32-36); Mean Corpuscular Hgb 30.4 pg (27.0-32.0); Mean Corpuscular Volume 87.6 fL (80-94); Mean Platelet Vol. 8.3 fl (6.2-12.0); Monocyte# 0.92 X10^3/uL; Monocyte% 15.7 % (0-10); NRBC Flagged by Analyzer 0 % (0-5); Neutrophil # 4.12 X10^3/uL (2.7-7.7); Neutrophil % 70.5 % (47-70); Platelet Count 290 K/mm3 (150-450); RBC Distribution Width SD 38.8 fl (35.1-43.9); Red Blood Count 3.72 M/mm3 (4.6-6.2); White Blood Count 5.9 K/mm3 (4.4-11.0)
[2020-08-22 07:02] LABS: Anion Gap 6 (5-15); BUN 7 mg/dL (7-18); BUN/Creat Ratio 16.2 RATIO (10-20); Calcium,Total 8.2 mg/dL (8.5-10.1); Chloride 96 mmol/L (98-107); Creatinine, Serum 0.43 mg/dL (0.70-1.30); EST Glomerular Filtration Rate 202 mL/min (>60); Est Glom Filt Rate - Afr Amer 244 mL/min (>60); Estimated Creatinine Clearance 51.25 ml/min; Glucose 92 mg/dL (74-106); Potassium 3.5 mmol/L (3.5-5.1); Sodium Level 126 mmol/L (136-145)
[2020-08-22] MEDS: Budesonide Respules 0.5 MG/2 ML AMPUL.NEB. INHALATION (07:03)
[2020-08-22] MEDS: Albuterol 2.5 MG/3 ML VIAL.NEB. INHALATION ×2 (07:03→13:40)
[2020-08-22 07:08] LABS: Osmolality, Serum 263 mOsm/KG (280-301)
[2020-08-22] MEDS: Calcium Carb/Vitamin D 1 TABLET Tablet PO ×2 (08:30→16:45)
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
[2020-08-22] MEDS: Clopidogrel Bisulfate 75 MG Tablet PO (10:47)
[2020-08-22] MEDS: Finasteride 5 MG Tablet PO (10:48)
[2020-08-22] MEDS: Venlafaxine HCl 75 MG Tablet 150 MG PO (10:48)
[2020-08-22] MEDS: lamoTRIgine 100 MG Tablet PO (10:49)
[2020-08-22] MEDS: Lisinopril 10 MG Tablet PO (10:49)
[2020-08-22] MEDS: Loratadine 10 MG Tablet PO (10:50)
[2020-08-22] MEDS: Ferrous Sulfate 325 MG Tablet PO (10:50)
[2020-08-22] MEDS: Fluticasone 0.05% 1 SPRAY NASAL.SRY 2 SPRAY NASAL (10:51)
[2020-08-22] MEDS: HYDROcodone Bitartrate/Apap 5/325 Tablet PO ×2 (11:40→18:16)
--- NOTE | 2020-08-22 11:50 | TREXTCAR_ITS ---
- Diet 08/22/20 00:12 Diet: Cardiac - Heart Healthy Food consistency:: Regular Liquid Consistency:: Regular/Thin - Routine Orders/Code Status Routine Lab Work: BMP - daily times 3 days starting 08/23/20 - Wound(s) Left Medial Great Toe Wound Type: Abrasion - Therapies Weight Bearing: Full weight bearing Physical Therapy: Eval and Treat Occupational Therapy: Eval and Treat - Problem/Diagnosis (1) UTI (urinary tract infection) Status: Acute Comment: Culture pending at the time of discharge from hospital (2) Hyponatremia Status: Acute Comment: Probably secondary to hydrochlorothiazide usage (3) Multiple sclerosis Status: Chronic (4) Dementia Status: Chronic (5) Hyperlipidemia Status: Chronic - Allergies/Procedures Done in Hospital Allergies/Adverse Reactions: Allergies tramadol Adverse Reaction (Verified 12/30/18 16:20) Itching Procedures: None - Type of Care/Length of Stay Estimated LOS: Convalescent Care Less Than 30 days Type of Care Needed: Skilled Rehab Potential: Good Prognosis: Good - Additional Orders/Day of Discharge H&P will serve as current which was dated: 08/21/20 Day of Discharge: 08/22/20 - Follow Up Care Primary Care Physician: [facility],[place] [Primary Care Provider] -
[2020-08-22] MEDS: Cefadroxil 500 MG CAPSULE 1000 MG PO (13:08)
--- NOTE | 2020-08-22 13:23 | CASEMGMT ---
Addendum entered by Sonam Keenan 08/22/20 15:11: COVID test is still pending. SW did go ahead and schedule transportation. SW accessed trip assist and arrange transportation via cot for 5:30pm. Transportation form completed and placed on SNF folder and copy on pt's chart. SW updated RN on transportation time. SW placed a call to Maddie at [facility] and updated her on transportation time, let Maddie know as soon as COVID results are available they will be faxed. SW updated pt on discharge and transportation to [facility]. SW also placed a call to pt's Jessica and updated her on discharge and transportation time. COVID test results will be faxed once available Plan: Return to [facility] skilled with [facility] transporting pt at 5:30pm. RAS Gallegos Original Note: Social Work Note SW faxed completed discharge paperwork to [facility] including transfer to extended care facility, signed medication list, and any scripts. Original in SNF folder and copy on pt's chart. YAMILETH spoke with RN, COVID test will need to be collected and then transportation can be arranged. RN states pt can transport via cot. SW will arrange transportation once COVID test has been collected. YAMILETH will also fax COVID results and COVID tool to [facility] once available. Plan: Return to [facility] skilled today LILY GallegosW
[2020-08-22] MEDS: DiphenhydrAMINE 25 MG Capsule PO (16:45)
--- NOTE | 2020-08-22 18:13 | NURSING ---
report called to Justine at [facility]
--- NOTE | 2020-08-23 14:47 | PCM.DC.SUM ---
Discharge Date and Diagnosis - Problem List Patient Problems: Active and Suspected Problems UTI (urinary tract infection) (Acute) Culture pending at the time of discharge from hospital Hyponatremia (Acute) Probably secondary to hydrochlorothiazide usage Hypotension (Acute) Date of Admission: 08/21/20 Date of Discharge: 08/22/20 - Primary Discharge Diagnosis Acute Problems: Active Problems #1 hyponatremia-secondary to hydrochlorothiazide usage #2 acute cystitis-from E. coli #3 multiple sclerosis #4 dementia #5 hyperlipidemia - Secondary Discharge Diagnosis Chronic Problems: Chronic Problems Multiple sclerosis (Chronic) S/P AAA repair (Chronic) Dementia (Chronic) Depression (Chronic) Hypertension (Chronic) Diabetes mellitus, type II (Chronic) Hyperlipidemia (Chronic) Hospital Course and Treatment Operations: None Procedures: None Summary of Care Provided: The patient is a 80 year old M was seen in the emergency room at [facility] due to abnormal labs drawn at the nursing facility at which the patient resides. [facility] a [facility], patient had no complaints and was unsure why he was sent to the emergency room. Patient's medical problems included dementia, multiple sclerosis, and hypertension. Labs obtained in the emergency room showed a sodium of 121, urinalysis indicated the patient had a urinary tract infection, patient's white blood cell count was normal. Patient was given IV antibiotics and IV fluids, he was placed in observation status on MedSurg 3, patient remained asymptomatic with a sodium of 126. It was felt that he was stable for discharge back to his extended care facility on 08/22/2020. On 08/22/2020, patient was seen and examined: On examination he appeared in good health and spirits. Vital signs as documented. Skin warm and dry and without overt rashes. Neck without JVD, neck was supple, trachea midline, thyroid was normal. Lungs clear bilaterally, normal air movement was noted. Heart exam notable for regular rhythm, normal sounds and absence of murmurs, rubs or gallops. Abdomen unremarkable and without evidence of organomegaly, masses, or abdominal aortic enlargement. Bowel sounds are present, abdomen is not distended. Extremities nonedematous, no cyanosis was noted, no clubbing was noted. Neuro: Cranial nerves II through XII are grossly intact, no focal motor deficits were noted, sensation to light touch and pinprick intact, motor exam 5/5 throughout. Psych: Patient is alert and responded to simple questions appropriately Patient was discharged to his extended care facility on 08/22/2020 in stable condition. Patient Problems: Active and Suspected Problems UTI (urinary tract infection) (Acute) Culture pending at the time of discharge from hospital Hyponatremia (Acute) Probably secondary to hydrochlorothiazide usage Hypotension (Acute) - Physical Exam Vitals/I&O's: Vital Signs Temp Pulse Resp BP Pulse Ox 98.8 F 78 16 149/87 H 95 08/22/20 16:26 08/22/20 16:26 08/22/20 16:26 08/22/20 16:26 08/22/20 16:26 Oxygen Delivery Method Room Air Weight: 68.5 kg Body Mass Index (BMI) 25.1 Intake and Output for Last 24 Hours 08/21/20 08/22/20 08/23/20 23:59 23:59 23:59 Intake Total 1050 / 1050 3120 / 3120 Output Total 1050 / 1050 Balance 1050 / 1050 2070 / 2070 Microbiology Past 72 Hours 08/21/20 Unknown Urine, Clean Catch Urine Culture - Final Presumptive E. coli Laboratory Results 08/22/20 13:30: COVID-19 (LINDY) Not Detected Home Medications: Medications to take at Discharge Clopidogrel Bisulfate [Plavix] 75 mg PO DAILY 08/22/13 Terazosin HCl [Hytrin] 10 mg PO QHS 01/02/15 Venlafaxine HCl [Effexor] 150 mg PO BID 01/02/15 Atorvastatin Calcium [Lipitor] 40 mg PO QHS 12/30/18 Budesonide/Formoterol Fumarate [Symbicort 160-4.5 Mcg Inhaler] 2 puff INHALATION BID 12/30/18 Calcium Carbonate/Vitamin D3 [Calcium 500-Vit D3 200 Tablet] 1 tab PO BID 12/30/18 Cholecalciferol (Vitamin D3) [D3-2000] 2,000 unit PO DAILY 12/30/18 Ferrous Sulfate 325 mg PO DAILY 12/30/18 Finasteride [Proscar] 5 mg PO DAILY 12/30/18 Fluticasone 0.05% [Flonase Nasal [place]] 2 spray NASAL QHS 12/30/18 Lamotrigine [Lamictal] 100 mg PO BID 12/30/18 Lisinopril [Prinivil] 10 mg PO DAILY 12/30/18 Loratadine 10 mg PO DAILY 12/30/18 Montelukast [Singulair] 10 mg PO QHS 12/30/18 Baclofen 5 mg PO TID #1 tab 08/22/20 Cephalexin [Keflex] 500 mg PO TID #18 cap 08/22/20 Hydrocodone Bitart/Apap 5-325 [[place] 5/325] 2 tab PO Q6H PRN PRN 7 Days #20 tab 08/22/20 Following Prescriptions Were Given to Patient: Baclofen 5 mg PO TID #1 tab Cephalexin [Keflex] 500 mg PO TID #18 cap Hydrocodone Bitart/Apap 5-325 [[place] 5/325] 2 tab PO Q6H PRN PRN 7 Days #20 tab PRN Reason: Pain Score 1-10 Prescription Printed [facility] Physician[facility] [Primary [facility] Provider] - [facility]position: [facility] Minutes spent on discharge:: 30 Patient Condition:: Stable Medical Necessity - Tobacco Use Smoking Status: Former smoker Meaningful Use Info Meaningful Use Diagnoses (Choose all that apply): None applicable OBSV E&M: 87108 Observation care discharge
== END 2020-08-22 19:16 | disposition skilled nursing facility (03) ==
LOC: ED 23:14 → MS3 23:37
PROVIDERS: Admitting Provider Student in an Organized Health Care Education/Training Program; Emergency Provider Emergency Medicine; Visit Provider Internal Medicine
DX: N30.00 Acute cystitis without hematuria (principal); E87.1 Hypo-osmolality and hyponatremia; I95.9 Hypotension, unspecified; E78.5 Hyperlipidemia, unspecified; E11.9 Type 2 diabetes mellitus without complications; I10 Essential (primary) hypertension; G35 Multiple sclerosis; F31.9 Bipolar disorder, unspecified; F03.90 Unspecified dementia, unspecified severity, without behavioral disturbance, psychotic disturbance, mood disturbance, and anxiety; N40.0 Benign prostatic hyperplasia without lower urinary tract symptoms; I25.10 Atherosclerotic heart disease of native coronary artery without angina pectoris; B96.20 Unspecified Escherichia coli [E. coli] as the cause of diseases classified elsewhere; Z79.899 Other long term (current) drug therapy; Z79.02 Long term (current) use of antithrombotics/antiplatelets; Z87.891 Personal history of nicotine dependence; Z79.51 Long term (current) use of inhaled steroids; T50.2X5A Adverse effect of carbonic-anhydrase inhibitors, benzothiadiazides and other diuretics, initial encounter
CPT/HCPCS: 36415; 80048; 80053; 81001; 83605; 83735; 83930; 83935; 85025; 87040; 87086; 87088; 87186; 87635; 93005; 94640; 96361; 96365; 96372; 97162; 99218; 99285; J7030; A4216; G0378; U0002

== ENCOUNTER 2020-11-02 03:33 | Inpatient (IN) | payer OTHER, MEDICARE, SELFPAY ==
[2020-08-31 12:42] VITALS: BMI 32.1
[2020-11-02] VITALS (16 sets, daily range): BP systolic 115–166; BP diastolic 73–88; PULSE 62–98; RESP 16–20; TEMP 35.9–37.2; O2SAT 92–99; BMI 23.1; BMI 25.4
--- NOTE | 2020-11-02 03:36 | CT_ITS ---
STUDY: CT BRAIN WITHOUT CONTRAST REASON FOR EXAM: Male, 80 years old. Head injury RADIATION DOSAGE (If Supplied By Facility): CTDIvol = ( 44.99 ) mGy, DLP = ( 796.11 ) mGycm TECHNIQUE: Transaxial CT imaging of the brain was performed without administration of intravenous contrast material. Individualized dose optimization techniques were used for this CT. COMPARISON: August 03, 2020 CT head FINDINGS: There is mild left posterior parietal soft tissue edema. Normal calvarium. There is mild cerebral atrophy with widening of the extra-axial spaces and ventricular dilatation. There are areas of decreased attenuation within the white matter tracts of the supratentorial brain, consistent with microvascular disease changes. Normal basal ganglia and thalami. Normal brainstem. There is mild cerebellar atrophy. There is calcification of the cavernous carotid arteries. There is no intracranial hemorrhage. There are no findings of an acute ischemic infarction. Normal visualized paranasal sinuses. CT/Brain/Head without Contrast IMPRESSION: Atrophy. No visualized acute hemorrhage infarct or edema. Mild left posterior parietal superficial soft tissue edema. No visualized acute fracture or underlying acute intracranial hemorrhage. Electronically Signed: Christina Dominguez MD at 3:49 EDT Tel , Service support ,
--- NOTE | 2020-11-02 03:44 | RAD_ITS ---
STUDY: X-RAY CHEST REASON FOR EXAM: Male, 80 years old. Confusion TECHNIQUE: Single AP portable view of the chest. COMPARISON: 09/03/2020 FINDINGS: There is partial of a cervical spine fusion. Lungs are underexpanded. Interstitial markings are minimally prominent. Slightly greater than prior study. There is postoperative change overlying the right chest or breast. There is no demonstrated pleural abnormality. Normal size heart. There is postoperative change in the right hilum and volume loss. Normal visualized pulmonary arteries. There is atherosclerotic tortuosity of the aortic arch and descending thoracic aorta. There are diffuse degenerative changes of the visualized thoracic spine. There is degenerative osteoarthritis of the bilateral shoulders. There is no demonstrated abnormality of the visualized soft tissue structures of the upper abdomen. RAD/Chest 1 View (Portable) IMPRESSION: Underexpansion of the lungs, postoperative changes right hilum and probable lobectomy. Mild interstitial prominence could consider mild central vascular edema. Electronically Signed: Christina Dominguez MD at 5:11 EDT Tel , Service support ,
--- NOTE | 2020-11-02 03:44 | ED.DCSUM_ITS ---
History of Present Illness Chief Complaint: Fall Informant: Patient Narrative: 80-year-old male with extensive past medical history including obstructive sleep apnea, COPD, bipolar disorder, hypertension presents with concern for confusion. [facility] from [facility] after multiple falls over the past 2 days. They states that he has had a acute change in mental status over the past 2 to 3 hours. Patient cannot provide accurate history of present illness. Continues to say that nothing is wrong and curse. Past Medical History - Allergies and Home Meds Allergies/Adverse Reactions: Allergies tramadol Adverse Reaction (Verified 11/02/20 03:37) Itching Prior records reviewed: Yes Past Medical History: - - [place]QU[place], COPD, HTN, Bipolar Surgical History: noncontributory, - - AAA repair, Carotid endarterectomy (L), Partial lung resection (Lung CA). Back surgery Lives: [facility] Smoking Status: Unknown if ever smoked - Family History Maternal Family History: Family History (Last Updated 08/31/20 @ 12:48 by Jessie Dukes) Other CVA (cerebral vascular accident) Cancer Hypertension Family History: Reports: - - Patient his mother when he was young of cancer, unclear type. Paternal Family History: Family History (Last Updated 08/31/20 @ 12:48 by Jessie Dukes) Other CVA (cerebral vascular accident) Cancer Hypertension Family History: Reports: - - Patient notes that his father when he was young of comp occasions secondary to alcohol abuse. Review of Systems ROS: Unable to Obtain - confusion Physical Exam Vital Signs/Narrative: Vital Signs Temp Pulse Resp Pulse Ox 11/02/20 03:40 99.0 F 98 20 H 92 General: Well nourished, Well developed, No Acute Distress Head: Normocephalic, Atraumatic Eyes: Perrl, EOMI ENT: Moist mucous membranes, No rhinorrhea Neck: Supple, Nontender Cardiovascular: Regular rhythm, No murmurs, Tachycardia Respiratory: No distress, Chest nontender, Wheezing Abdomen: Soft, Nontender, Nondistended, Normal bowel sounds Back: Nontender, Normal Inspection Extremities: Nontender, No edema Skin: Normal color, No rash Neurological: Alert, Oriented x3, Cranial nerves II-XII grossly intact, Normal Strength, Normal Sensation Psychological: Normal affect, Normal Mood Diagnostic/Tx/Re-eval Chest X-Ray - ED: 1 View, Read by ED Physician, Read by Radiologist Clinical Impression(s) from Imaging Studies Brain CT 11/02/20 03:36 IMPRESSION: Atrophy. No visualized acute hemorrhage infarct or edema. Mild left posterior parietal superficial soft tissue edema. No visualized acute fracture or underlying acute intracranial hemorrhage. Electronically Signed: Christina Dominguez MD at 3:49 EDT Tel , Service support , Chest X-Ray 11/02/20 03:44 IMPRESSION: Underexpansion of the lungs, postoperative changes right hilum and probable lobectomy. Mild interstitial prominence could consider mild central vascular edema. Electronically Signed: Christina Dominguez MD at 5:11 EDT Tel , Service support , Laboratory Data 11/02/20 11/02/20 11/02/20 03:50 03:50 03:50 WBC 18.0 H RBC 4.02 L Hgb 12.2 L Hct 37.2 L MCV 92.5 MCH 30.3 MCHC 32.8 RDW Std Deviation 48.6 H RDW Coeff of Melany 14.1 Plt Count 249 MPV 8.0 Immature Gran % (Auto) 0.600 Neut % (Auto) 88.5 H Lymph % (Auto) 5.6 L [place] % (Auto) 4.9 Eos % (Auto) 0.2 Baso % (Auto) 0.2 Absolute Neuts (auto) 15.9 H Absolute Lymphs (auto) 1.01 Nucleated RBC % 0 PT 12.9 INR 1.0 APTT 26.0 Specimen Type Sample Site pH Bicarbonate Actual Total CO2 Base Excess O2 Saturation ABG pCO2 ABG pO2 Yovani Test O2 Delivery Device Liter Flow Sodium 129 L Potassium 4.4 Chloride 97 L Carbon Dioxide 28.0 Anion Gap 4 L BUN 15 Creatinine 0.64 L Estim Creat Clear Calc 60.83 Est GFR (MDRD) Af Amer 154 Est GFR (MDRD) Non-Af 127 BUN/Creatinine Ratio 23.3 H Glucose 104 Lactic Acid Calcium 8.4 L Total Bilirubin 0.60 AST 17 ALT 24 Alkaline Phosphatase 96 Troponin I < 0.015 Total Protein 6.3 L Albumin 3.5 Globulin 2.8 Albumin/Globulin Ratio 1.2 Urine Color Urine Clarity Urine pH Ur Specific [place] Urine Protein Urine Glucose (UA) Urine Ketones Urine Occult Blood Urine Nitrite Urine Bilirubin Urine Urobilinogen Ur Leukocyte Esterase Urine RBC Urine WBC Ur Squamous Epith Cells Urine Bacteria Urine Mucus 11/02/20 11/02/20 11/02/20 03:50 03:50 03:50 WBC 18.1 H RBC 4.05 L Hgb 12.4 L Hct 37.8 L MCV 93.3 MCH 30.6 MCHC 32.8 RDW Std Deviation 48.3 H RDW Coeff of Melany 14.0 Plt Count 281 MPV 8.8 Immature Gran % (Auto) 0.600 Neut % (Auto) 87.6 H Lymph % (Auto) 6.1 L [place] % (Auto) 5.4 Eos % (Auto) 0.1 Baso % (Auto) 0.2 Absolute Neuts (auto) 15.9 H Absolute Lymphs (auto) 1.10 Nucleated RBC % 0 PT INR APTT Specimen Type Sample Site pH Bicarbonate Actual Total CO2 Base Excess O2 Saturation ABG pCO2 ABG pO2 Yovani Test O2 Delivery Device Liter Flow Sodium Cancelled Potassium Cancelled Chloride Cancelled Carbon Dioxide Cancelled Anion Gap Cancelled BUN Cancelled Creatinine Cancelled Estim Creat Clear Calc Est GFR (MDRD) Af Amer Cancelled Est GFR (MDRD) Non-Af Cancelled BUN/Creatinine Ratio Cancelled Glucose Cancelled Lactic Acid 1.3 Calcium Cancelled Total Bilirubin Cancelled AST Cancelled ALT Cancelled Alkaline Phosphatase Cancelled Troponin I Total Protein Cancelled Albumin Cancelled Globulin Cancelled Albumin/Globulin Ratio Cancelled Urine Color Urine Clarity Urine pH Ur Specific [place] Urine Protein Urine Glucose (UA) Urine Ketones Urine Occult Blood Urine Nitrite Urine Bilirubin Urine Urobilinogen Ur Leukocyte Esterase Urine RBC Urine WBC Ur Squamous Epith Cells Urine Bacteria Urine Mucus 11/02/20 11/02/20 04:32 04:45 WBC RBC Hgb Hct MCV MCH MCHC RDW Std Deviation RDW Coeff of Melany Plt Count MPV Immature Gran % (Auto) Neut % (Auto) Lymph % (Auto) [place] % (Auto) Eos % (Auto) Baso % (Auto) Absolute Neuts (auto) Absolute Lymphs (auto) Nucleated RBC % PT INR APTT Specimen Type ART Sample Site R Radial pH 7.44 Bicarbonate Actual 25.1 Total CO2 26 Base Excess 1 O2 Saturation 90 L ABG pCO2 36.8 ABG pO2 57 L Yovani Test Positive O2 Delivery Device AeroTx Liter Flow 8.0 Sodium Potassium Chloride Carbon Dioxide Anion Gap BUN Creatinine Estim Creat Clear Calc Est GFR (MDRD) Af Amer Est GFR (MDRD) Non-Af BUN/Creatinine Ratio Glucose Lactic Acid Calcium Total Bilirubin AST ALT Alkaline Phosphatase Troponin I Total Protein Albumin Globulin Albumin/Globulin Ratio Urine Color Yellow Urine Clarity Clear Urine pH 8.0 Ur Specific [place] 1.015 Urine Protein Negative Urine Glucose (UA) Normal Urine Ketones Negative Urine Occult Blood Negative Urine Nitrite Negative Urine Bilirubin Negative Urine Urobilinogen Normal Ur Leukocyte Esterase Negative Urine RBC 0 SEEN Urine WBC 0 SEEN Ur Squamous Epith Cells 0 SEEN Urine Bacteria RARE Urine Mucus 0 SEEN - Rhythm Strip Rhythm Strip: Sinus Rhythm Rate: 84 Ectopy: PVC(s), PAC(s) - EKG Initial EKG Interpretation: Sinus Rhythm - Normal sinus rhythm at 84 bpm. AK interval of 136 ms. QTC of 484 ms. Right bundle branch block. PVCs. PACs. - Medical Decision Making Patient on arrival does appear confused. He is alert however. Patient was taken straight to CT given his history of head injury. This shows no large amount of hemorrhage or infarct. Lab work shows a significant leukocytosis with a left shift. Patient was given Zosyn and vancomycin. No lactic acidosis. Blood cultures pending. Chronic hyponatremia at 129. Patient was given 1 L of normal saline. On exam patient has very significant coarse breath sounds with some mild wheezing. Was given DuoNeb breathing treatment as well as Solu- Medrol. Chest x-ray shows interstitial coarsening. No evidence of jenny infiltrate. Interpreted by myself. Radiology concurs. Patient has no significant peripheral edema. Patient was placed on 4 L by nasal cannula given hypoxemia on ABG. Given the patient's hypoxemia and concern for pneumonia he wi ll be admitted for further treatment and evaluation. Impression: 1. Hypoxemia 2. Hospital associated pneumonia 3. Chronic hyponatremia 4. Delirium ED Disposition - Plan for ED Patient: Disposition: Acute Care Hospital [facility]
--- NOTE | 2020-11-02 03:44 | EKG12_ITS ---
Test Reason : FALL Blood Pressure : / mmHG Vent. Rate : 084 BPM Atrial Rate : 084 BPM P-R Int : 136 ms QRS Dur : 144 ms QT Int : 410 ms P-R-T Axes : 033 056 033 degrees QTc Int : 484 ms Sinus rhythm with occasional Premature ventricular complexes and Premature atrial complexes Right bundle branch block Inferior infarct , age undetermined Abnormal ECG Confirmed by PK MORALES, NOLAN ([id number]), servicer [employer] CLAUDY FERRARA ([id number]) on 11/03/2020 8:19:09 AM Referred By: RIGO Confirmed By:JEAN WHITTINGTON MD
[2020-11-02 03:55] LABS: Absolute Lymphocyte Count 1.01 X10^3/uL (0.83-4.51); Absolute Neutrophil Count 15.9 X10^3/uL (2.0-7.7); Basophil# 0.04 X10^3/uL; Basophil% 0.2 % (0-1); Eosinophil# 0.03 X10^3/uL; Eosinophils% 0.2 % (0-5); Hematocrit 37.2 % (40-54); Hemoglobin 12.2 g/dL (13.0-16.5); Lymphocyte # 1.01 X10^3/ul (0.83-4.51); Lymphocyte % 5.6 % (19-41); Mean Corp Hgb Conc 32.8 g/dL (32-36); Mean Corpuscular Hgb 30.3 pg (27.0-32.0); Mean Corpuscular Volume 92.5 fL (80-94); Monocyte# 0.88 X10^3/uL; Monocyte% 4.9 % (0-10); NRBC Flagged by Analyzer 0 % (0-5); Neutrophil # 15.89 X10^3/uL (2.7-7.7); Neutrophil % 88.5 % (47-70); Platelet Count 249 K/mm3 (150-450); RBC Distribution Width CV 14.1 % (11.6-14.6); RBC Distribution Width SD 48.6 fl (35.1-43.9); Red Blood Count 4.02 M/mm3 (4.6-6.2)
[2020-11-02 04:05] LABS: Prothrombin Time (Protime)PT. 12.9 SECONDS (11.7-14.9)
[2020-11-02] MEDS: Ipratropium/Albuterol Sulfate 3 ML AMPUL.NEB INHALATION ×4 (04:15→18:46)
[2020-11-02 04:26] LABS: ALB/GLOB Ratio 1.2 RATIO (0.9-2.4); AST(SGOT) 17 U/L (15-37); Alanine Aminotransfer ALT/SGPT 24 U/L (16-61); Albumin, Serum 3.5 g/dL (3.2-5.0); Alkaline Phosphatase 96 U/L (45-117); Anion Gap 4 (5-15); BUN 15 mg/dL (7-18); BUN/Creat Ratio 23.3 RATIO (10-20); Calcium,Total 8.4 mg/dL (8.5-10.1); Chloride 97 mmol/L (98-107); Creatinine, Serum 0.64 mg/dL (0.70-1.30); EST Glomerular Filtration Rate 127 mL/min (>60); Est Glom Filt Rate - Afr Amer 154 mL/min (>60); Estimated Creatinine Clearance 60.83 ml/min; Globulin 2.8 g/dL (2.2-4.2); Glucose 104 mg/dL (74-106); Potassium 4.4 mmol/L (3.5-5.1); Protein, Total 6.3 g/dL (6.4-8.2); Sodium Level 129 mmol/L (136-145)
[2020-11-02 04:32] LABS: Lactic Acid 1.3 mmol/L (0.4-1.9)
[2020-11-02 04:40] LABS: Allen Test Positive; Base Excess 1 mmol/L (-2 to +2); Bicarbonate 25.1 mmol/L (22-26); Blood Gas Specimen Type ART; O2 Delivery Device AeroTx; PO2 57 mmHG (75-100); SITE R Radial; SO2 90 % (95-99); Total Carbon Dioxide 26 mmol/L; pCO2 36.8 mmHg (35-45); pH 7.44 (7.35-7.45)
[2020-11-02 04:50] LABS: Mucous, Urine 0 SEEN /hpf (<or=2+); Red Blood Cells-Urine 0 SEEN /hpf (0-5); Squamous Epithelial Cells - UA 0 SEEN /hpf (0-5); White Blood Cells 0 SEEN /hpf (0-5)
[2020-11-02 04:51] LABS: Color, Urine Yellow (Yellow); Glucose, Dipstick Normal (Normal); Ketone-Dipstick Negative (Negative); Leukocyte Esterase-Dipstick Negative /ul (Negative); Nitrite-Dipstick Negative (Negative); Occult Blood-Urine Negative /ul (Negative); Protein-Dipstick Negative (Negative); Specific Gravity, Urine 1.015 (1.002-1.030); Urine Bilirubin Dipstick Negative (Negative); Urine Clarity Clear (Clear); Urine Urobilinogen Normal (Normal)
--- NOTE | 2020-11-02 05:01 | PCM.HP.STD ---
Problem List (1) Pneumonia Status: Acute Qualifiers: Pneumonia type: due to unspecified organism Laterality: bilateral Lung location: unspecified part of lung Qualified Code(s): J18.9 - Pneumonia, unspecified organism (2) Encephalopathy Status: Acute (3) Multiple falls Status: Acute (4) Hyponatremia Status: Chronic Comment: Probably secondary to hydrochlorothiazide usage (5) Multiple sclerosis Status: Chronic (6) S/P AAA repair Status: Chronic (7) Dementia Status: Chronic Qualifiers: Dementia type: unspecified type (8) Depression Status: Chronic Qualifiers: Depression Type: unspecified (9) Hypertension Status: Chronic Qualifiers: Hypertension type: essential hypertension (10) Diabetes mellitus, type II Status: Resolved Qualifiers: Diabetes mellitus assisted insulin use: without intermodal truck driver use Diabetes mellitus complication status: with other specified complication Qualified Code(s): E11.69 - Type 2 diabetes mellitus with other specified complication (11) Hyperlipidemia Status: Chronic Qualifiers: Hyperlipidemia type: unspecified History of Present Illness Date of Admission: 11/02/20 Chief Complaint: Confusion, falls, hypoxia. The patient is an 80 y/o M w/ PMHx: HTN, HLD, Asthma/COPD, Dementia unclear type with unclear behavioral disturbance history, Chronic back pain w/ Hx cervical fracture, Lung Cancer unclear type, Anxiety and Depression/Bipolar disorder, PASQUALE, Multiple Sclerosis, EtOH abuse history, Diabetes mellitus type II, Hx AAA s/p repair, Carotid disease s/p L CEA who presents to the [facility] ED on 11/02/20 with onset increased confusion, agitation and increased falls over the last 48 hours at SNF with no specific recent illness or complaint but given presentation referred to the ED for evaluation. In the ED upon presentation patient hypoxia with ABG with decreased pO2, placed on supplementation in the ED with coarse BS BL. Upon evaluation in the ED patient more alert and will awaken, but extremely cantankerous and when questioned as to whether or not anything is been bothering him he says nothing aside from [the physician]. Work-up in the ED included T 99, heart rate 98, BP 134/73, respiratory rate 20, and 2% on room air, CBC with WBC 18, hemoglobin 12.2, platelet 249 with left shift, unremarkable coags, CMP with sodium 129, chloride 97, BUN/creatinine 15/0.64, lactic acid 1.3, troponin less than 0.015 otherwise unremarkable pack profile, hepatic profile, CT brain with evidence of atrophy with no visualized acute hemorrhage infarct or edema, mild left posterior parietal superficial soft tissue edema with no acute fracture or underlying acute intracranial hemorrhage, EKG was sinus rhythm with PVCs, PACs with right bundle branch block with no acute evidence of ischemia, chest x-ray with underexpansion, postoperative changes right hilum and probable lobectomy with mild interstitial prominence possibly mild central vascular edema.. In the ED patient ministered normal saline, DuoNeb therapy, vancomycin and Zosyn as well as solumedrol. Past Medical History Past Medical History (Chronic Problems): Chronic Problems (Last Updated 08/31/20 @ 15:24 by Jessie Dukes) Hyponatremia (Chronic) Probably secondary to hydrochlorothiazide usage Multiple sclerosis (Chronic) S/P AAA repair (Chronic) Dementia (Chronic) Depression (Chronic) Hypertension (Chronic) Hyperlipidemia (Chronic) Medical History: Medical History (Last Updated 08/31/20 @ 15:24 by Jessie Dukes) Anxiety disorder F41.9 Asthma J45.909 Bipolar disorder F31.9 Constipation K59.00 Dementia F03.90 Essential (primary) hypertension I10 Hyperlipidemia E78.5 Lung cancer C34.90 Major depressive disorder F32.9 Multiple rib fractures S22.49XA Multiple sclerosis G35 Nondisplaced posterior arch fracture of first cervical vertebra S12.031A PASQUALE (obstructive sleep apnea) G47.33 UTI (urinary tract infection) N39.0 h/o back surgery x3 unspecified fracture of third metacarpal bone, left hand unspecifiedfracture of fourth metacarpal bone, left hand COPD (chronic obstructive pulmonary disease) J44.9 HTN (hypertension) I10 Allergies tramadol Adverse Reaction (Verified 11/02/20 03:37) Itching Home Medications: Ambulatory Orders Medication Instructions Recorded Venlafaxine HCl [Effexor] 150 mg PO BID 01/02/15 acetaminophen 325 mg capsule 650 mg PO Q4H PRN PRN 08/31/20 albuterol sulfate 90 mcg/actuation 2 puff INHALATION Q6H PRN 08/31/20 aerosol inhaler aluminum-mag hydroxide-simethicone 10 ml PO PRN PRN ml 08/31/20 200 mg-200 mg-20 mg/5 mL oral susp atorvastatin 40 mg tablet 40 mg PO QPM 08/31/20 baclofen 5 mg tablet 5 mg PO TID 08/31/20 bisacodyl 10 mg rectal suppository 10 mg RC DAILY PRN 08/31/20 budesonide-formoterol HFA 160 2 puff INHALATION BID 08/31/20 mcg-4.5 mcg/actuation aerosol inhaler cholecalciferol (vitamin D3) 50 50 mcg PO DAILY 08/31/20 mcg (2,000 unit) capsule clopidogrel 75 mg tablet 75 mg PO DAILY 08/31/20 dextrose 40 % oral gel 10 g PO Q15M PRN 08/31/20 ferrous sulfate 325 mg (65 mg 325 mg PO DAILY 08/31/20 iron) tablet finasteride 5 mg tablet 5 mg PO DAILY 08/31/20 fluticasone propionate 50 1 spray INTRANASAL DAILY 08/31/20 mcg/actuation nasal spray,suspension guaifenesin 100 mg/5 mL oral liquid 200 mg PO Q4H PRN 08/31/20 lamotrigine 100 mg tablet 100 mg PO BID 08/31/20 lisinopril 10 mg tablet 20 mg PO DAILY 08/31/20 loratadine 10 mg tablet 10 mg PO DAILY 08/31/20 montelukast 10 mg tablet 10 mg PO QHS 08/31/20 polyethylene glycol 3350 17 17 g PO DAILY PRN PRN 08/31/20 gram/dose oral powder terazosin 10 mg capsule 10 mg PO QHS 08/31/20 Calcium Carb/Vitamin D 1 tablet PO BIDCM 11/02/20 [Caltrate-600 With Vit D Tab] Divalproex Sodium [Depakote] 250 mg PO QHS 11/02/20 Menthol [Biofreeze] 1 applic TOPICAL BID PRN PRN 11/02/20 Ropinirole HCl 0.25 mg PO QHS 11/02/20 Surgical History: Surgical History (Last Updated 08/31/20 @ 12:46 by Jessie Dukes) H/O hernia repair Z98.890, Z87.19 Surgical History: - - AAA repair, Carotid endarterectomy (L), Partial lung resection (Lung CA), Back surgery x 3. Psychiatric History: Anxiety, Bipolar, Depression Lives: [facility] Smoking Status: Former smoker Tobacco Use: Non-smoker Alcohol: Sober Drugs: None - *Family History Maternal Family History: Family History (Last Updated 08/31/20 @ 12:48 by Jessie Dukes) Other CVA (cerebral vascular accident) Cancer Hypertension History Items: - - Patient his mother when he was young of cancer, unclear type. Paternal Family History: Family History (Last Updated 08/31/20 @ 12:48 by Jessie Dukes) Other CVA (cerebral vascular accident) Cancer Hypertension History Items: - - Patient notes that his father when he was young of complicates associated with EtOH abuse. Review of Systems Unable to obtain accurate/complete ROS d/t: Unable to give appropriate ROS, underlying dementia, encephalopathic. VTE Information - Inpt Only VTE Present on Admission: No VTE Mechan Device Prophylaxis: SCD's VTE Pharm Prophylaxis ordered?: Yes Patient Problems: Active and Suspected Problems (Last Updated 08/31/20 @ 15:24 by Jessie Dukes) Pneumonia (Acute) Encephalopathy (Acute) Multiple falls (Acute) Subjective: Patient laying in the ED bed, awakens to stimuli, irritable, no evidence of any respiratory distress, laying flat in the ED bed. Objective: Physical Examination: General: Patient awakens to stimuli, more alert than initial presentation in the ED, very irritable, not answering orientation questions, laying flat in the ED bed with no evidence of any distress. Skin: normal color, turgor, no icterus, cyanosis except occasional staged ecchymoses with fall history. HEENT: AT/NC, EOMI, PERRLA, moderately dry MM, no carotid bruits or marked JVD noted. Lungs: Diminished breath sounds, greater bases, coarse, occasional end expiratory wheeze, rhonchorous, no specific rales noted or any respiratory distress. Heart: Regular rate and rhythm; no gallop, rub audible. Abdomen: soft, NTTP, ND, normal BS, no HSM. Extremities: no cyanosis, clubbing, or edema. Neurological: Patient awakens to stimuli, more alert than initial presentation in the ED, very irritable, not answering orientation questions; cognitive function not baseline intact, underlying history of dementia with reduction baseline; pupils equally reactive to light and accomodation; cranial nerves II-XII grossly normal, moving all 4 extremities, strength moderately to severely global decrease given acute presentation. Psychiatric: affect appears irritable, improved since initial ED presentation as had been very encephalopathic and lethargic initially, no acute evidence of depressive or anxiety feelings. - Physical Exam Vitals/I&O's: Vital Signs Temp Pulse Resp BP Pulse Ox 99.0 F 85 20 H 154/73 H 92 11/02/20 03:40 11/02/20 04:15 11/02/20 04:15 11/02/20 03:48 11/02/20 03:40 Oxygen Delivery Method Room Air Weight: 161 lb 9.581 oz Body Mass Index (BMI) 23.1 Intake and Output for Last 24 Hours 10/31/20 11/01/20 11/02/20 23:59 23:59 23:59 Intake Total 500 / 500 Balance 500 / 500 Laboratory Results 11/02/20 03:50: Sodium 129 L, Potassium 4.4, Chloride 97 L, Carbon Dioxide 28.0, Anion Gap 4 L, BUN 15, Creatinine 0.64 L, Estim Creat Clear Calc 60.83, Est GFR (MDRD) Af Amer 154, Est GFR (MDRD) Non-Af 127, BUN/Creatinine Ratio 23.3 H, Glucose 104, Calcium 8.4 L, Total Bilirubin 0.60, AST 17, ALT 24, Alkaline Phosphatase 96, Troponin I < 0.015, Total Protein 6.3 L, Albumin 3.5, Globulin 2.8, Albumin/Globulin Ratio 1.2 11/02/20 03:50: WBC 18.0 H, RBC 4.02 L, Hgb 12.2 L, Hct 37.2 L, MCV 92.5, MCH 30.3, MCHC 32.8, RDW Std Deviation 48.6 H, RDW Coeff of Melany 14.1, Plt Count 249, MPV 8.0, Immature Gran % (Auto) 0.600, Neut % (Auto) 88.5 H, Lymph % (Auto) 5.6 L, George % (Auto) 4.9, Eos % (Auto) 0.2, Baso % (Auto) 0.2, Absolute Neuts (auto) 15.9 H, Absolute Lymphs (auto) 1.01, Nucleated RBC % 0 11/02/20 03:50: PT 12.9, INR 1.0, APTT 26.0 11/02/20 03:50: Lactic Acid 1.3 11/02/20 04:32: Specimen Type ART, Sample Site R Radial, pH 7.44, Bicarbonate Actual 25.1, Total CO2 26, Base Excess 1, O2 Saturation 90 L, ABG pCO2 36.8, ABG pO2 57 L, Yovani Test Positive, O2 Delivery Device AeroTx, Liter Flow 8.0 11/02/20 04:45: Urine Color Yellow, Urine Clarity Clear, Urine pH 8.0, Ur Specific [place] 1.015, Urine Protein Negative, Urine Glucose (UA) Normal, Urine Ketones Negative, Urine Occult Blood Negative, Urine Nitrite Negative, Urine Bilirubin Negative, Urine Urobilinogen Normal, Ur Leukocyte Esterase Negative, Urine RBC Pending, Urine WBC Pending, Ur Squamous Epith Cells Pending, Urine Bacteria Pending, Urine Mucus Pending Current Medications Vancomycin HCl 1,250 mg/ (Sodium Chloride) 275 mls @ 167 mls/hr IV X1 ONE Stop: 11/02/20 06:08 Assessment/Plan All Active Problems (Last Updated 08/31/20 @ 15:24 by Jessie Dukes) Pneumonia (Acute) Encephalopathy (Acute) Multiple falls (Acute) UTI (urinary tract infection) (Acute) Hypotension (Acute) Diabetes mellitus, type II (Resolved) The patient is an 80 y/o M w/ PMHx: HTN, HLD, Asthma/COPD, Dementia unclear type with unclear behavioral disturbance history, Chronic back pain w/ Hx cervical fracture, Lung Cancer unclear type, Anxiety and Depression/Bipolar disorder, PASQUALE, Multiple Sclerosis, EtOH abuse history, Diabetes mellitus type II, Hx AAA s/p repair, Carotid disease s/p L CEA who presents to the [facility] ED on 11/02/20 with onset increased confusion, agitation and increased falls over the last 48 hours at SNF with no specific recent illness or complaint but given presentation referred to the ED for evaluation. 1. Acute Encephalopathy secondary to Acute on Chronic COPD Exacerbation secondary to Suspected Acute Pneumonia, Possible GN/GP organism w/ Hypoxia, Possibly New onset CHF Unclear type: Will admit to MD with telemetry, maintain on oxygen with wean as tolerated to room air, continue ATC duonebs, PRN albuterol, maintain on IV solumedrol, maintained on IV Zosyn and Vancomycin w/ pending MRSA screen, HOB, IS parameters w/ pending sputum cultures, respiratory viral panel and urine antigens. Bld cx x 2 obtained in the ED. History of recent 08/03/20 COVID positive status. BNP requested given CXR read; however, in the ED laying flat, no respiratory distress. Will defer immediately trial lasix given hyponatremia history with diuretics, will await BNP, continue to monitor, if notably elevated may consider trial IV lasix and repeat CXR in AM. 2. Recent Mechanical Falls: Likely secondary to #1 and complicated by age as well as dementia underlying, CT head with no acute intracranial findings, noted superficial mild L posterior parietal soft tissue edema, likely from recent fall. Maintain on fall precautions, therapies as well as CM consulted for discharge planning. 3. Chronic hyponatremia: Admission sodium 129, prior baseline 128-135, previously on HCTZ which was felt associated, does not appear on current list, will repeat CMP in AM. 4. Carotid Disease: s/p CEA, maintain on asa, plavix, statin, HTN regimen. 5. Chronic COPD: Hold home inhalers, ATC duonebs, PRN albuterol, HOB, IS parameters. 6. Hypertension: Continue home regimen including lisinopril, PRN hydralazine. 7. Hyperlipidemia: Continue home statin regimen. 8. ? Hx of Diabetes mellitus type II: Noted in history, 12/30/18 HgbA1c 6.0%, will obtain repeat HgBA1c, defer ADA diet/accu checks pending results. 9. Multiple sclerosis: We will continue home baclofen and gabapentin regimen, fall precautions, PT, OT, case management for discharge planning. 10. Dementia, unclear type with unclear behavioral disturbance history: Complicates presentation, previously on aricept, maintain on fall precautions, therapies consulted as well as CM for discharge planning as noted. 11. Anxiety and Depression/Bipolar disorder: Continue home Lamictal, depakote and venlafaxine regimen. Will obtain lamictal and depakote levels to be cautious given encephalopathy. 12. Chronic anemia, Iron deficiency anemia: Admission hemoglobin 12.2, baseline appears 11-12, stable, continue supplementation. 13. BPH: Continue home finasteride regimen. 14. Former Tobacco use: Quit cigarette tobacco usage approximately 5-6 years prior, encouraged continued tobacco cessation. 15. Former EtOH Abuse: Sober for years, encourage continuation. 16. PASQUALE: Will attempt nightly BiPAP. 17. DVT prophylaxis: SCD, Lovenox. 18. CODE STATUS: Full Code status per skilled facility. Inpatient E&M: 23210 Init Hosp L3
[2020-11-02 05:02] LABS: Bacteria RARE /hpf (None Seen)
[2020-11-02] MEDS: MethylPREDNISolone 125 MG/2 ML Vial IV (05:20)
--- NOTE | 2020-11-02 05:40 | ECHOD_ITS ---
Reason For Study: CHF Procedure This was a 2D Doppler, Color Flow transthoracic echocardiogram. The study was technically difficult. PT was unable to lie still for exam. Exam performed portable in ED. Left Ventricle Normal LV size. The estimated ejection fraction is 70 %. Unable to assess diastolic dysfunction. No regional wall motion abnormalities noted. Right Ventricle Normal RV size. Normal systolic function. Atria The left atrium is mildly enlarged. Normal right atrium. No doppler evidence for ASD. Mitral Valve There is no mitral valve stenosis. Trivial mitral valve insufficiency. Tricuspid Valve There is no tricuspid stenosis. No tricuspid valve insufficiency. Pulmonary artery systolic pressure is 35 mmHg. Aortic Valve Moderate diffuse aortic valve thickening. Moderate aortic stenosis. No aortic valve insufficiency. Pulmonic Valve There is no pulmonic valvular stenosis. No pulmonic valve insufficiency. Great Vessels Normal aortic root. Pericardium/Pleural No pericardial effusion. MMode/2D Measurements & Calculations LVIDd: 5.4 cm IVSd: 1.1 cm LVOT diam: 2.2 cm LVIDs: 3.3 cm LVPWd: 1.2 cm LVOT area: 3.9 cm2 RVDd: 2.7 cm FS: 38.5 % Ao root diam: 3.9 cm LAV(MOD-bp): 79.9 ml LA A4 area: 27.9 cm2 LAV(MOD-bp) Indexed: 43.0 ml/m2 LAV(MOD-sp2): 62.7 ml LAV(MOD-sp4): 94.2 ml LA dimension(2D): 4.2 cm Time Measurements MV dec time: 0.18 sec Doppler Measurements & Calculations MV E max jairon: 87.9 cm/sec Lat Peak E' Jairon: 7.7 cm/sec Med Peak E' Jairon: 7.2 cm/sec MV A max jairon: 150.8 cm/sec E/E' lat: 11.4 E/E' med: 12.3 MV E/A: 0.58 Ao V2 max: 327.8 cm/sec LV V1 max: 125.0 cm/sec SV(LVOT): 107.3 ml Ao max P.0 mmHg LV V1 max P.3 mmHg Ao V2 mean: 239.5 cm/sec LV V1 mean P.7 mmHg Ao mean P.8 mmHg LV V1 mean: 92.9 cm/sec Ao V2 VTI: 68.0 cm LV V1 VTI: 27.4 cm REY(I,D): 1.6 cm2 REY(V,D): 1.5 cm2 PA V2 max: 104.1 cm/sec TR max jairon: 274.9 cm/sec TR max P.2 mmHg ECHO/Echo Complete Interpretation Summary The estimated ejection fraction is 70 %. Unable to assess diastolic dysfunction. The left atrium is mildly enlarged. Trivial mitral valve insufficiency. Moderate diffuse aortic valve thickening. Moderate aortic stenosis. Ordering Physician: Rose Marinelli Referring Physician: [facility] Performed By: Aubrie Bennett RDCS, RVT
[2020-11-02 05:46] LABS: Absolute Neutrophil Count 15.9 X10^3/uL (2.0-7.7); Basophil# 0.03 X10^3/uL; Basophil% 0.2 % (0-1); Eosinophil# 0.02 X10^3/uL; Eosinophils% 0.1 % (0-5); Hematocrit 37.8 % (40-54); Hemoglobin 12.4 g/dL (13.0-16.5); Lymphocyte % 6.1 % (19-41); Mean Corp Hgb Conc 32.8 g/dL (32-36); Mean Corpuscular Hgb 30.6 pg (27.0-32.0); Mean Corpuscular Volume 93.3 fL (80-94); Mean Platelet Vol. 8.8 fl (6.2-12.0); Monocyte# 0.98 X10^3/uL; Monocyte% 5.4 % (0-10); NRBC Flagged by Analyzer 0 % (0-5); Neutrophil # 15.85 X10^3/uL (2.7-7.7); Neutrophil % 87.6 % (47-70); Platelet Count 281 K/mm3 (150-450); RBC Distribution Width SD 48.3 fl (35.1-43.9); Red Blood Count 4.05 M/mm3 (4.6-6.2); White Blood Count 18.1 K/mm3 (4.4-11.0)
--- NOTE | 2020-11-02 06:08 | ED.RN ---
[facility] notified of admission
[2020-11-02 06:16] LABS: Valproic Acid (Depakene) Level 24 ug/mL (50-100)
[2020-11-02] MEDS: Baclofen 10 MG Tablet 5 MG PO ×3 (06:20→21:55)
--- NOTE | 2020-11-02 06:20 | PCM.RX.CS ---
Consult Pharmacy has been consulted to manage selected antiobiotic: Vancomycin Type of Consult: New start Labs: Sodium 129 mmol/L (136-145) L 11/02/20 03:50 Sodium Cancelled 11/02/20 03:50 Potassium 4.4 mmol/L (3.5-5.1) 11/02/20 03:50 Potassium Cancelled 11/02/20 03:50 Chloride 97 mmol/L (98-107) L 11/02/20 03:50 Chloride Cancelled 11/02/20 03:50 Carbon Dioxide 28.0 mmol/L (21.0-32.0) 11/02/20 03:50 Carbon Dioxide Cancelled 11/02/20 03:50 Anion Gap 4 (5-15) L 11/02/20 03:50 Anion Gap Cancelled 11/02/20 03:50 BUN 15 mg/dL (7-18) 11/02/20 03:50 BUN Cancelled 11/02/20 03:50 Creatinine 0.64 mg/dL (0.70-1.30) L 11/02/20 03:50 Creatinine Cancelled 11/02/20 03:50 Est GFR (MDRD) Af Amer 154 mL/min (>60) 11/02/20 03:50 Est GFR (MDRD) Af Amer Cancelled 11/02/20 03:50 Est GFR (MDRD) Non-Af 127 mL/min (>60) 11/02/20 03:50 Est GFR (MDRD) Non-Af Cancelled 11/02/20 03:50 BUN/Creatinine Ratio 23.3 RATIO (10-20) H 11/02/20 03:50 BUN/Creatinine Ratio Cancelled 11/02/20 03:50 Glucose 104 mg/dL (74-106) 11/02/20 03:50 Glucose Cancelled 11/02/20 03:50 Goal Trough: 15-20 mcg/mL Pharmacy Plan for Drug Dosing: Pharmacy Service will continue to monitor and adjust dosing as required. Medications Vancomycin HCl 750 mg/ Sodium (Chloride) 265 mls @ 250 mls/hr IV Q12H JUAN F Discontinued Medications Vancomycin HCl 1,250 mg/ (Sodium Chloride) 275 mls @ 167 mls/hr IV X1 ONE Stop: 11/02/20 06:08 Last Admin: 11/02/20 06:02 Dose: 167 mls/hr Documented by: Follow-Up Labs: Trough Vancomycin Labs to be done on [date and time ordered]: 11/03 @ 2321
[2020-11-02 07:37] LABS: M R Staph aureus DNA By PCR Negative (Negative); Probe Check PASS; Specimen Processing Control PASS
--- NOTE | 2020-11-02 08:01 | PN_ITS ---
Patient Problems: Active and Suspected Problems (Last Updated 08/31/20 @ 15:24 by Jessie Dukes) Pneumonia (Acute) Encephalopathy (Acute) Multiple falls (Acute) Reason for Visit: Acute encephalopathy Congestive heart failure Hyponatremia Subjective: Patient is an 80-year-old gentleman resident of an [facility] admitted following a fall. Patient was noted to be confused subsequently transferred to the ED as a result Objective: GENERAL: cooperative HEENT: Atraumatic; EYES; Anicteric, Normal Conjunctiva NECK; supple, normal thyroid, RESPIRATORY: Diminished to auscultation CARDIOVASCULAR: Regular S1 S2, GI: soft, normoactive bowel sounds, : No Renal angle tenderness; EXTREMITIES: No edema, no clubbing, MUSCULOSKELETAL: no muscle waisting NEURO: Awake; no lateralizing signs. SKIN: No Rash PSYCH; Flat affect Vitals/I&O's: Vital Signs Temp Pulse Resp BP Pulse Ox 98.5 F 71 20 H 115/78 98 11/02/20 06:10 11/02/20 06:10 11/02/20 06:10 11/02/20 06:10 11/02/20 06:10 Oxygen Flow Rate (L/min) 2 Oxygen Delivery Method Nasal Cannula Weight: 69.2 kg Body Mass Index (BMI) 25.4 Intake and Output for Last 24 Hours 10/31/20 11/01/20 11/02/20 23:59 23:59 23:59 Intake Total 550 / 550 Balance 550 / 550 Microbiology Past 72 Hours 11/02/20 05:42 Urine, Random Legionella Antigen - Final 11/02/20 05:42 Urine, Random Streptococcus pneumoniae Antigen (M - Final Laboratory Results 11/02/20 03:50: Sodium 129 L, Potassium 4.4, Chloride 97 L, Carbon Dioxide 28.0, Anion Gap 4 L, BUN 15, Creatinine 0.64 L, Estim Creat Clear Calc 60.83, Est GFR (MDRD) Af Amer 154, Est GFR (MDRD) Non-Af 127, BUN/Creatinine Ratio 23.3 H, Glucose 104, Calcium 8.4 L, Total Bilirubin 0.60, AST 17, ALT 24, Alkaline Phosphatase 96, Troponin I < 0.015, Total Protein 6.3 L, Albumin 3.5, Globulin 2.8, Albumin/Globulin Ratio 1.2 11/02/20 03:50: WBC 18.0 H, RBC 4.02 L, Hgb 12.2 L, Hct 37.2 L, MCV 92.5, MCH 30.3, MCHC 32.8, RDW Std Deviation 48.6 H, RDW Coeff of Melany 14.1, Plt Count 249, MPV 8.0, Immature Gran % (Auto) 0.600, Neut % (Auto) 88.5 H, Lymph % (Auto) 5.6 L, [place] % (Auto) 4.9, Eos % (Auto) 0.2, Baso % (Auto) 0.2, Absolute Neuts (auto) 15.9 H, Absolute Lymphs (auto) 1.01, Nucleated RBC % 0 11/02/20 03:50: PT 12.9, INR 1.0, APTT 26.0 11/02/20 03:50: Lactic Acid 1.3 11/02/20 03:50: B-Natriuretic Peptide Pending 11/02/20 03:50: Sodium Cancelled, Potassium Cancelled, Chloride Cancelled, Carbon Dioxide Cancelled, Anion Gap Cancelled, BUN Cancelled, Creatinine Cancelled, Est GFR (MDRD) Af Amer Cancelled, Est GFR (MDRD) Non-Af Cancelled, BUN/Creatinine Ratio Cancelled, Glucose Cancelled, Calcium Cancelled, Magnesium 2.0, Total Bilirubin Cancelled, AST Cancelled, ALT Cancelled, Alkaline Phosphatase Cancelled, Total Protein Cancelled, Albumin Cancelled, Globulin Cancelled, Albumin/Globulin Ratio Cancelled 11/02/20 03:50: WBC 18.1 H, RBC 4.05 L, Hgb 12.4 L, Hct 37.8 L, MCV 93.3, MCH 30.6, MCHC 32.8, RDW Std Deviation 48.3 H, RDW Coeff of Melany 14.0, Plt Count 281, MPV 8.8, Immature Gran % (Auto) 0.600, Neut % (Auto) 87.6 H, Lymph % (Auto) 6.1 L, [place] % (Auto) 5.4, Eos % (Auto) 0.1, Baso % (Auto) 0.2, Absolute Neuts (auto) 15.9 H, Absolute Lymphs (auto) 1.10, Nucleated RBC % 0 11/02/20 03:50: Valproic Acid 24 L 11/02/20 03:50: Hemoglobin A1c Pending 11/02/20 03:50: Lamotrigine Pending 11/02/20 04:32: Specimen Type ART, Sample Site R Radial, pH 7.44, Bicarbonate Actual 25.1, Total CO2 26, Base Excess 1, O2 Saturation 90 L, ABG pCO2 36.8, ABG pO2 57 L, Yovani Test Positive, O2 Delivery Device AeroTx, Liter Flow 8.0 11/02/20 04:45: Urine Color Yellow, Urine Clarity Clear, Urine pH 8.0, Ur Specific [place] 1.015, Urine Protein Negative, Urine Glucose (UA) Normal, Urine Ketones Negative, Urine Occult Blood Negative, Urine Nitrite Negative, Urine Bilirubin Negative, Urine Urobilinogen Normal, Ur Leukocyte Esterase Negative, Urine RBC 0 SEEN, Urine WBC 0 SEEN, Ur Squamous Epith Cells 0 SEEN, Urine Bacteria RARE, Urine Mucus 0 SEEN 11/02/20 06:10: MRSA (PCR) Negative Current Medications Acetaminophen (Acetaminophen 325 Mg Tablet) 650 mg PO Q6H PRN PRN PRN Reason: Pain Score 1-10/Temp > 100.7 F Al Hydroxide/Mg Hydroxide (Mag Hydrox/Al Hydrox/Simeth 30 Ml Udc) 30 ml PO Q6H PRN PRN PRN Reason: Gastric Burning Albuterol Sulfate (Albuterol 2.5 Mg/3 Ml Vial.Neb.) 2.5 mg INHALATION Q2H PRN PRN PRN Reason: Dyspnea, wheezing Albuterol/Ipratropium (Ipratropium/Albuterol Sulfate 3 Ml Ampul.Neb) 3 ml INHALATION Q4HWA.RT [facility] Last Admin: 11/02/20 07:07 Dose: 3 ml Documented by: Atorvastatin Calcium (Atorvastatin Calcium 40 Mg Tablet) 40 mg PO QHS [facility] Baclofen (Baclofen 10 Mg Tablet) 5 mg PO TID [facility] Last Admin: 11/02/20 06:20 Dose: 5 mg Documented by: Clopidogrel Bisulfate (Clopidogrel Bisulfate 75 Mg Tablet) 75 mg PO DAILY [facility] Divalproex Sodium (Divalproex Sodium 250 Mg Tablet) 250 mg PO QHS [facility] Doxazosin Mesylate (Doxazosin 4 Mg Tablet) 8 mg PO QHS [facility] Enoxaparin Sodium (Enoxaparin 40 Mg/0.4 Ml Syringe) 40 mg SC DAILY [facility] Famotidine (Famotidine 20 Mg Tablet) 20 mg PO BID [facility] Ferrous Sulfate (Ferrous Sulfate 325 Mg Tablet) 325 mg PO DAILYCM [facility] Finasteride (Finasteride 5 Mg Tablet) 5 mg PO DAILY [facility] Guaifenesin (Guaifenesin 10 Ml Udc (200mg/10ml)) 20 ml PO Q4H PRN PRN PRN Reason: COUGH Hydralazine HCl (Hydralazine 20 Mg/Ml Vial) 10 mg IV Q4H PRN PRN PRN Reason: SBP > 160 Piperacillin Sod/Tazobactam (Sod 3.375 gm/ Sodium Chloride) 50 mls @ 12.5 mls/hr IV Q8 [facility] Vancomycin IV Pharmacy to Dose (1 each/ Sodium Chloride) 500 mls @ 250 mls/hr IV X1 PRN; Protocol PRN Reason: Rx to Dose Sodium Chloride () 250 mls @ 15 mls/hr IV .[id number] PRN PRN Reason: Saline Flush Vancomycin HCl 750 mg/ Sodium (Chloride) 265 mls @ 250 mls/hr IV Q12H [facility] Lamotrigine (Lamotrigine 100 Mg Tablet) 100 mg PO BID [facility] Lisinopril (Lisinopril 20 Mg Tablet) 20 mg PO DAILY [facility] Loratadine (Loratadine 10 Mg Tablet) 10 mg PO DAILY [facility] Magnesium Hydroxide (Magnesium Hydroxide 30 Ml Udc) 30 ml PO DAILY PRN PRN PRN Reason: Constipation Melatonin (Melatonin 3 Mg Tablet) 3 mg PO QHS PRN PRN PRN Reason: INSOMNIA Methylprednisolone (Methylprednisolone 40 Mg/Ml Vial) 40 mg IV Q8 [facility] Last Admin: 11/02/20 06:17 Dose: Not Given Documented by: Montelukast Sodium (Montelukast 10 Mg Tablet) 10 mg PO QHS [facility] Nitroglycerin (Nitroglycerin (Inpatient Use) 0.4 Mg Tab.Subl) 0.4 mg SL Q5M PRN PRN Reason: CARDIAC/CHEST PAIN Nutritional Formula (Lactose Free) (Ensure Enlive 120 Ml Liquid) 120 ml PO 4X/DAY [facility] Ondansetron HCl (Ondansetron 4 Mg/2 Ml Vial) 4 mg IV Q8H PRN PRN PRN Reason: NAUSEA/VOMITING Pramipexole Dihydrochloride (Pramipexole Di-Hcl 0.125 Mg Tablet) 0.125 mg PO QHS JUAN F Prochlorperazine Edisylate (Prochlorperazine 10 Mg/2 Ml Vial) 5 mg IV Q4H PRN PRN PRN Reason: Breakthrough nausea/vomiting Psyllium Hydrophilic Mucilloid (Psyllium 1 Packet) 1 packet PO DAILY PRN PRN PRN Reason: Constipation Senna/Docusate Sodium (Senna/Docusate Sodium 1 Tablet) 2 tablet PO BID PRN PRN PRN Reason: Constipation Sodium Chloride (0.9% Saline Lock 10 Ml Syringe) 10 - 40 ml IV UD PRN PRN Reason: SALINE FLUSH Throat Lozenges (Benzocaine/Menthol 1 Lozenge) 1 lozenge MUCOUS MEM Q2H PRN PRN PRN Reason: SORE THROAT Venlafaxine HCl (Venlafaxine Hcl 100 Mg Tablet) 150 mg PO BID JUAN F STROKE Vital Signs/Narrative: Vital Signs Temp Pulse Resp BP Pulse Ox 11/02/20 06:10 98.5 F 71 20 H 115/78 98 11/02/20 05:23 96.6 F L 80 20 H 159/79 H 99 11/02/20 04:15 85 20 H Medical Necessity - Tobacco Use Smoking Status: Former smoker Tobacco Use: Non-smoker Assessment/Plan All Active Problems (Last Updated 08/31/20 @ 15:24 by Jessie Dukes) Pneumonia (Acute) Encephalopathy (Acute) Multiple falls (Acute) UTI (urinary tract infection) (Acute) Hypotension (Acute) Diabetes mellitus, type II (Resolved) Patient is an 80-year-old gentleman resident of an [facility] admitted following a fall. Patient was noted to be confused subsequently transferred to the ED as a result 1. Encephalopathy ?Etiology unclear. There was suspicion for possible infectious etiology including pneumonia 2. Suspected community-acquired pneumonia ?Patient started on vancomycin and Zosyn after cultures have been sent 3. Acute Congestive heart failure ?Suspected CHF with preserved ejection fraction chest x-ray obtained on admission demonstrated mild interstitial prominence with central vascular edema subsequently started on Lasix 4. Physical deconditioning repeated falls - Requested for PT OT eval and social media assistant to assist with discharge planning 5. Hyponatremia ?Chronic sodium level on admission 129 monitoring 6. Hypertension - Blood pressure controlled, home medications continued with dose adjustment as needed 7. BPH ?Patient is on Flomax and Terazosin Reports urinary retention Chahal catheter was placed in view of patient being incontinent 8. Multiple sclerosis -by history?patient is on gabapentin and baclofen 9. Bipolar disorder ?Depakote 10. Carotid artery disease ?With previous CVA 11. COPD ?Aerosol treatments as needed 12. DVT prophylaxis?Lovenox - lovenox Clinical Impression(s) from Imaging Studies Brain CT 11/02/20 03:36 IMPRESSION: Atrophy. No visualized acute hemorrhage infarct or edema. Mild left posterior parietal superficial soft tissue edema. No visualized acute fracture or underlying acute intracranial hemorrhage. Electronically Signed: Christina Dominguez MD at 3:49 EDT Tel , Service support , Chest X-Ray 11/02/20 03:44 IMPRESSION: Underexpansion of the lungs, postoperative changes right hilum and probable lobectomy. Mild interstitial prominence could consider mild central vascular edema. Electronically Signed: Christina Dominguez MD at 5:11 EDT Tel , Service support , Inpatient E&M: [id number] Subs Hosp L2
[2020-11-02 08:33] LABS: Hemoglobin A1c 5.3 % (3.8-5.6)
[2020-11-02] MEDS: Loratadine 10 MG Tablet PO (08:37)
[2020-11-02] MEDS: Clopidogrel Bisulfate 75 MG Tablet PO (08:37)
[2020-11-02] MEDS: Famotidine 20 MG Tablet PO ×2 (08:37→21:56)
[2020-11-02] MEDS: Ferrous Sulfate 325 MG Tablet PO (08:37)
[2020-11-02] MEDS: guaiFENesin 10 ML UDC (200MG/10ML) 20 ML PO (08:37)
[2020-11-02] MEDS: Finasteride 5 MG Tablet PO (08:37)
[2020-11-02] MEDS: Lisinopril 20 MG Tablet PO (08:37)
[2020-11-02] MEDS: Acetaminophen 325 MG Tablet 650 MG PO (08:38)
[2020-11-02] MEDS: Enoxaparin 40 MG/0.4 ML Syringe SC (08:38)
[2020-11-02] MEDS: lamoTRIgine 100 MG Tablet PO ×2 (08:41→21:55)
[2020-11-02 08:51] LABS: BNP,B-Type NATRIURETIC PEPTIDE 71.4 pg/mL (0-100)
[2020-11-02] MEDS: Furosemide 40 MG/4 ML Vial IV ×3 (09:13→21:44)
[2020-11-02] MEDS: 0.9% Saline Lock 10 ML Syringe IV ×4 (09:14→21:44)
--- NOTE | 2020-11-02 09:48 | NURSING ---
wound photo: left forearm
--- NOTE | 2020-11-02 09:49 | NURSING ---
wound photo: right forearm
--- NOTE | 2020-11-02 10:13 | CASEMGMT ---
Addendum entered by Sonam Keenan 11/02/20 14:43: YAMILETH met with pt to discuss discharge plans. Pt sleeping when this worker entered the room but woke up. Pt appears confused, words are very hard to understanding. Pt confirms he came from a group home but unable to tell this worker the name of the group home. SW informed pt that once he is medically cleared, pt can return to [facility]. Addendum entered by Sonam Keenan 11/02/20 14:24: YAMILETH then received call from Sonam at [facility] stating pt is able to return under his Medicare, confirms pt will need COVID test to return. Plan: Return to [facility] when medically cleared Addendum entered by Sonam Keenan 11/02/20 14:12: YAMILETH reviewed chart. Pt presented to [facility] with falls, AMS, confusion. YAMILETH placed a call to pt's Jessica. YAMILETH introduced self and role at [facility] to Jessica. Jessica states she didn't know pt was admitted to [facility]. YAMILETH informed Jessica that pt was admitted this morning, Jessica states [facility] never called her to let her know. YAMILETH asked Jessica about discharge plans, Jessica states plan will be for pt to return to [facility] at discharge. YAMILETH placed a call to Sonam at [facility] and left message updating her on pt's admission. Plan: Return to [facility] Original Note: Social Work Note Pt is listed as being from [facility]. YAMILETH faxed updated clinicals to [facility]. Sonam Keenan [employer]ERMOMETER PRODUCTION WORKER, BAKERY MACHINE MECHANIC
[2020-11-02] MEDS: Ketorolac 15 MG/ML Vial IV (16:02)
--- NOTE | 2020-11-02 16:20 | RAD_ITS ---
STUDY: X-RAY - PELVIS AND LEFT HIP REASON FOR EXAM: Male, 80 years old. fall TECHNIQUE: 3 views of the pelvis and hip. COMPARISON: None. FINDINGS: Normal bilateral iliac wings, sacroiliac joints and visualized sacrum. Normal bilateral superior and inferior pubic rami. Normal pubic symphysis. Normal bilateral ischial tuberosities. Normal visualized femoral head. Normal acetabulum. Normal hip joint. Prominent vascular calcifications. Changes consistent with previous left inguinal hernia repair. RAD/HIP, UNI W/ Pelvis 2-3 Views IMPRESSION: No definite acute or significant abnormality seen. Electronically Signed: Jus Rosenbaum MD at 19:19 EDT , Service support ,
--- NOTE | 2020-11-02 16:20 | RAD_ITS ---
STUDY: X-RAY - LEFT SHOULDER REASON FOR EXAM: Male, 80 years old. fall TECHNIQUE: 2 view(s) of the shoulder. COMPARISON: None. FINDINGS: Exam limited by demineralization. Nondisplaced fracture through the humeral neck and humeral head cannot be excluded. CT scan is recommended. No dislocation. Grossly normal acromioclavicular joint. Normal visualized ribs. Previous cervical spine surgery. RAD/Shoulder min 2 Views IMPRESSION: Nondisplaced fractures of the humeral head and neck cannot be excluded. CT scan recommended. Electronically Signed: Jus Rosenbaum MD at 19:17 EDT , Service support ,
--- NOTE | 2020-11-02 20:17 | CT_ITS ---
[employer]Scriptor Unformatted Report Format: Options: n 2f 2i act cap dr clayton wm wcta sl lj Gender: Male Age: 80 years Exam: CT Upper Extremity W/O Contrast Injection Comparison: Radiographs of the same day History: Questional L humeral head fx Contrast: The exam is limited by patient motion. Discontinuity is seen in the proximal humeral shaft but it appears to be motion artifact rather than fracture. However there is significant abnormality of the humeral head where there is a 3 cm lytic lesion of the anterior humeral head. This could be a very large subchondral cyst from degenerative disease, or a lytic metastasis. Severe degenerative changes seen of the humeral head, glenoid, and there is marked narrowing of the glenohumeral joint. Mild degenerative changes of the acromial clavicular joint. No rib fractures are seen. Extensive surgical changes of the cervical spine. Interstitial disease throughout the lungs. Cannot exclude atelectasis or infiltrate in the left lung base. IMPRESSION: Significantly limited by motion. No gross fracture, but nondisplaced fracture would be difficult to conclude. 3 cm lytic lesion of the humeral head. Neoplasm not excluded. Severe glenohumeral degenerative changes. Electronically Signed: Jus Rosenbaum MD at 21:32 EDT , Service support , CT/Extremity Upper without Contra
[2020-11-02] MEDS: Divalproex Sodium 250 MG Tablet PO (21:55)
[2020-11-02] MEDS: Doxazosin 4 MG Tablet 8 MG PO (21:55)
[2020-11-02] MEDS: Atorvastatin Calcium 40 MG Tablet PO (21:56)
[2020-11-02] MEDS: Pramipexole Di-HCl 0.125 MG Tablet PO (21:56)
[2020-11-02] MEDS: Montelukast 10 MG Tablet PO (21:57)
[2020-11-03] VITALS (15 sets, daily range): BP systolic 96–143; BP diastolic 56–92; PULSE 68–105; RESP 16–18; TEMP 36.7–37.2; O2SAT 93–98
[2020-11-03 05:50] LABS: Absolute Lymphocyte Count 0.82 X10^3/uL (0.83-4.51); Absolute Neutrophil Count 6.8 X10^3/uL (2.0-7.7); Basophil# 0.01 X10^3/uL; Basophil% 0.1 % (0-1); Hematocrit 40.3 % (40-54); Hemoglobin 12.3 g/dL (13.0-16.5); Lymphocyte # 0.82 X10^3/ul (0.83-4.51); Lymphocyte % 10.1 % (19-41); Mean Corp Hgb Conc 30.5 g/dL (32-36); Mean Corpuscular Hgb 30.2 pg (27.0-32.0); Mean Platelet Vol. 8.6 fl (6.2-12.0); Monocyte# 0.48 X10^3/uL; Monocyte% 5.9 % (0-10); NRBC Flagged by Analyzer 0 % (0-5); Neutrophil # 6.79 X10^3/uL (2.7-7.7); Neutrophil % 83.3 % (47-70); Platelet Count 275 K/mm3 (150-450); RBC Distribution Width SD 51.4 fl (35.1-43.9); Red Blood Count 4.07 M/mm3 (4.6-6.2); White Blood Count 8.2 K/mm3 (4.4-11.0)
[2020-11-03 06:10] LABS: AST(SGOT) 17 U/L (15-37); Alanine Aminotransfer ALT/SGPT 21 U/L (16-61); Albumin, Serum 3.2 g/dL (3.2-5.0); Alkaline Phosphatase 84 U/L (45-117); Anion Gap 7 (5-15); BUN 24 mg/dL (7-18); BUN/Creat Ratio 29.6 RATIO (10-20); Calcium,Total 8.8 mg/dL (8.5-10.1); Chloride 97 mmol/L (98-107); Creatinine, Serum 0.81 mg/dL (0.70-1.30); EST Glomerular Filtration Rate 97 mL/min (>60); Est Glom Filt Rate - Afr Amer 118 mL/min (>60); Estimated Creatinine Clearance 63.27 ml/min; Globulin 3.2 g/dL (2.2-4.2); Glucose 129 mg/dL (74-106); Protein, Total 6.4 g/dL (6.4-8.2); Sodium Level 131 mmol/L (136-145)
[2020-11-03] MEDS: Furosemide 40 MG/4 ML Vial IV ×2 (06:11→21:08)
[2020-11-03] MEDS: 0.9% Saline Lock 10 ML Syringe IV ×3 (06:11→21:07)
[2020-11-03] MEDS: Baclofen 10 MG Tablet 5 MG PO ×3 (06:16→21:15)
--- NOTE | 2020-11-03 07:30 | PCM.PN.HOSP ---
Patient Problems: Active and Suspected Problems (Last Updated 08/31/20 @ 15:24 by Jessie Dukes) Pneumonia (Acute) Encephalopathy (Acute) Multiple falls (Acute) Reason for Visit: Left shoulder pain Acute encephalopathy Acute congestive heart failure with preserved ejection fraction Subjective: Did complain of left shoulder pain ?Imaging studies obtained could not rule out nondisplaced fracture. Patient was however found to have a 3 cm lytic lesion involving the humeral head and neoplasm could not be ruled out. (Subsequently ordered CT of the abdomen and pelvis, MRI of the chest as part of work-up for suspected malignancy, also ordered PSA.) Patient was also found to have severe glenohumeral degenerative changes Objective: GENERAL: cooperative HEENT: Atraumatic; EYES; Anicteric, Normal Conjunctiva NECK; supple, normal thyroid, RESPIRATORY: Diminished to auscultation CARDIOVASCULAR: Regular S1 S2, GI: soft, normoactive bowel sounds, : No Renal angle tenderness; EXTREMITIES: No edema, no clubbing, MUSCULOSKELETAL: no muscle waisting NEURO: Awake; no lateralizing signs. SKIN: No Rash PSYCH; Flat affect Vitals/I&O's: Vital Signs Temp Pulse Resp BP Pulse Ox 98.1 F 79 18 141/90 H 97 11/03/20 03:27 11/03/20 03:27 11/03/20 03:27 11/03/20 03:27 11/03/20 03:36 Oxygen Flow Rate (L/min) 1.5 Oxygen Delivery Method Nasal Cannula Weight: 65.5 kg Body Mass Index (BMI) 25.4 Intake and Output for Last 24 Hours 11/01/20 11/02/20 11/03/20 23:59 23:59 23:59 Intake Total 1222.00 / 1222.00 115.75 / 115.75 Output Total 3000 / 3000 1300 / 1300 Balance -1778.00 / -1778.00 -1184.25 / -1184.25 Microbiology Past 72 Hours 11/02/20 14:15 Mucosa - Nose SARS-CoV-2 Antigen (Rapid) - Final 11/02/20 07:05 Mucosa - Nasopharyngeal Respiratory Panel (PCR) - Final 11/02/20 05:42 Urine, Random Legionella Antigen - Final 11/02/20 05:42 Urine, Random Streptococcus pneumoniae Antigen (M - Final Laboratory Results 11/02/20 03:50: B-Natriuretic Peptide 71.4 11/02/20 03:50: Hemoglobin A1c 5.3 11/02/20 06:10: MRSA (PCR) Negative 11/03/20 05:40: WBC 8.2, RBC 4.07 L, Hgb 12.3 L, Hct 40.3, MCV 99.0 H D, MCH 30.2, MCHC 30.5 L D, RDW Std Deviation 51.4 H, RDW Coeff of Melany 14.0, Plt Count 275, MPV 8.6, Immature Gran % (Auto) 0.600, Neut % (Auto) 83.3 H, Lymph % (Auto) 10.1 L, [place] % (Auto) 5.9, Eos % (Auto) 0.0, Baso % (Auto) 0.1, Absolute Neuts (auto) 6.8, Absolute Lymphs (auto) 0.82 L, Nucleated RBC % 0 11/03/20 05:40: Sodium 131 L, Potassium 4.0, Chloride 97 L, Carbon Dioxide 27.0, Anion Gap 7, BUN 24 H, Creatinine 0.81, Estim Creat Clear Calc 63.27, Est GFR (MDRD) Af Amer 118, Est GFR (MDRD) Non-Af 97, BUN/Creatinine Ratio 29.6 H, Glucose 129 H, Calcium 8.8, Total Bilirubin 0.50, AST 17, ALT 21, Alkaline Phosphatase 84, Total Protein 6.4, Albumin 3.2, Globulin 3.2, Albumin/Globulin Ratio 1.0 Current Medications Acetaminophen (Acetaminophen 325 Mg Tablet) 650 mg PO Q6H PRN PRN PRN Reason: Pain Score 1-10/Temp > 100.7 F Last Admin: 11/02/20 08:38 Dose: 650 mg Documented by: Acetaminophen (Acetaminophen 650 Mg Suppository) 650 mg RC Q4H PRN PRN PRN Reason: Pain Score 1-10 Al Hydroxide/Mg Hydroxide (Mag Hydrox/Al Hydrox/Simeth 30 Ml Udc) 30 ml PO Q6H PRN PRN PRN Reason: Gastric Burning Albuterol Sulfate (Albuterol 2.5 Mg/3 Ml Vial.Neb.) 2.5 mg INHALATION Q2H PRN PRN PRN Reason: Dyspnea, wheezing Albuterol/Ipratropium (Ipratropium/Albuterol Sulfate 3 Ml Ampul.Neb) 3 ml INHALATION Q4HWA.RT [facility] Last Admin: 11/02/20 18:46 Dose: 3 ml Documented by: Atorvastatin Calcium (Atorvastatin Calcium 40 Mg Tablet) 40 mg PO QHS [facility] Last Admin: 11/02/20 21:56 Dose: 40 mg Documented by: Baclofen (Baclofen 10 Mg Tablet) 5 mg PO TID [facility] Last Admin: 11/03/20 06:16 Dose: 5 mg Documented by: Clopidogrel Bisulfate (Clopidogrel Bisulfate 75 Mg Tablet) 75 mg PO DAILY [facility] Last Admin: 11/02/20 08:37 Dose: 75 mg Documented by: Divalproex Sodium (Divalproex Sodium 250 Mg Tablet) 250 mg PO QHS [facility] Last Admin: 11/02/20 21:55 Dose: 250 mg Documented by: Doxazosin Mesylate (Doxazosin 4 Mg Tablet) 8 mg PO QHS [facility] Last Admin: 11/02/20 21:55 Dose: 8 mg Documented by: Enoxaparin Sodium (Enoxaparin 40 Mg/0.4 Ml Syringe) 40 mg SC DAILY [facility] Last Admin: 11/02/20 08:38 Dose: 40 mg Documented by: Famotidine (Famotidine 20 Mg Tablet) 20 mg PO BID [facility] Last Admin: 11/02/20 21:56 Dose: 20 mg Documented by: Ferrous Sulfate ([facility] S[facility]ate 325 Mg Tablet) [facility] Admin: 11/02/20 08:37 Dose: 325 mg Documented by: Finasteride (Finasteride 5 Mg Tablet) 5 mg PO DAILY [facility] Last Admin: 11/02/20 08:37 Dose: 5 mg Documented by: Furosemide (Furosemide 40 Mg/4 Ml Vial) 40 mg IV Q8 [facility] Last Admin: 11/03/20 06:11 Dose: 40 mg Documented by: Guaifenesin (Guaifenesin 10 Ml Udc (200mg/10ml)) 20 ml PO Q4H PRN PRN PRN Reason: COUGH Last Admin: 11/02/20 08:37 Dose: 20 ml Documented by: Hydralazine HCl (Hydralazine 20 Mg/Ml Vial) 10 mg IV Q4H PRN PRN PRN Reason: SBP > 160 Piperacillin Sod/Tazobactam (Sod 3.375 gm/ Sodium Chloride) 50 mls @ 12.5 mls/hr IV Q8 [facility] Last Admin: 11/03/20 06:13 Dose: 12.5 mls/hr Documented by: Vancomycin IV Pharmacy to Dose (1 each/ Sodium Chloride) 500 mls @ 250 mls/hr IV X1 PRN; Protocol PRN Reason: Rx to Dose Sodium Chloride () 250 mls @ 15 mls/hr IV .[id number] PRN PRN Reason: Saline Flush Last Infusion: 11/03/20 06:12 Dose: 0 mls/hr Documented by: Vancomycin HCl 750 mg/ Sodium (Chloride) 265 mls @ 250 mls/hr IV Q12H [facility] Last Admin: 11/03/20 06:20 Dose: 250 mls/hr Documented by: Lamotrigine (Lamotrigine 100 Mg Tablet) 100 mg PO BID [facility] Last Admin: 11/02/20 21:55 Dose: 100 mg Documented by: Lisinopril (Lisinopril 20 Mg Tablet) 20 mg PO DAILY [facility] Last Admin: 11/02/20 08:37 Dose: 20 mg Documented by: Loratadine (Loratadine 10 Mg Tablet) 10 mg PO DAILY [facility] Last Admin: 11/02/20 08:37 Dose: 10 mg Documented by: Magnesium Hydroxide (Magnesium Hydroxide 30 Ml Udc) 30 ml PO DAILY PRN PRN PRN Reason: Constipation Melatonin (Melatonin 3 Mg Tablet) 3 mg PO QHS PRN PRN PRN Reason: INSOMNIA Methylprednisolone (Methylprednisolone 40 Mg/Ml Vial) 40 mg IV Q8 [facility] Last Admin: 11/03/20 06:12 Dose: 40 mg Documented by: Montelukast Sodium (Montelukast 10 Mg Tablet) 10 mg PO QHS [facility] Last Admin: 11/02/20 21:57 Dose: 10 mg Documented by: Nitroglycerin (Nitroglycerin (Inpatient Use) 0.4 Mg Tab.Subl) 0.4 mg SL Q5M PRN PRN Reason: CARDIAC/CHEST PAIN Ondansetron HCl (Ondansetron 4 Mg/2 Ml Vial) 4 mg IV Q8H PRN PRN PRN Reason: NAUSEA/VOMITING Pramipexole Dihydrochloride (Pramipexole Di-Hcl 0.125 Mg Tablet) 0.125 mg PO QHS [facility] Last Admin: 11/02/20 21:56 Dose: 0.125 mg Documented by: Prochlorperazine Edisylate (Prochlorperazine 10 Mg/2 Ml Vial) 5 mg IV Q4H PRN PRN PRN Reason: Breakthrough nausea/vomiting Psyllium Hydrophilic Mucilloid (Psyllium 1 Packet) 1 packet PO DAILY PRN PRN PRN Reason: Constipation Senna/Docusate Sodium (Senna/Docusate Sodium 1 Tablet) 2 tablet PO BID PRN PRN PRN Reason: Constipation Sodium Chloride (0.9% Saline Lock 10 Ml Syringe) 10 - 40 ml IV UD PRN PRN Reason: SALINE FLUSH Last Admin: 11/03/20 06:11 Dose: 20 ml Documented by: Throat Lozenges (Benzocaine/Menthol 1 Lozenge) 1 lozenge MUCOUS MEM Q2H PRN PRN PRN Reason: SORE THROAT Venlafaxine HCl (Venlafaxine Hcl 100 Mg Tablet) 150 mg PO BID [facility] Last Admin: 11/02/20 21:55 Dose: 150 mg Documented by: STROKE Vital Signs/Narrative: Vital Signs Pulse Ox 11/03/20 03:36 97 Medical Necessity - Tobacco Use Smoking Status: Former smoker Tobacco Use: Non-smoker Assessment/Plan All Active Problems (Last Updated 08/31/20 @ 15:24 by Jessie Dukes) Pneumonia (Acute) Encephalopathy (Acute) Multiple falls (Acute) UTI (urinary tract infection) (Acute) Hypotension (Acute) Diabetes mellitus, type II (Resolved) Patient is an 80-year-old gentleman resident of an [facility] admitted following a fall. Patient was noted to be confused subsequently transferred to the ED as a result 1. Left shoulder pain maging studies obtained could not rule out nondisplaced fracture. Patient was however found to have a 3 cm lytic lesion involving the humeral head and neoplasm could not be ruled out. (Subsequently ordered CT of the abdomen and pelvis, MRI of the chest as part of work-up for suspected malignancy, also ordered PSA.) Patient was also found to have severe glenohumeral degenerative changes 2. Suspected community-acquired pneumonia ?Patient started on vancomycin and Zosyn after cultures have been sent ?11/03/2020; patient WBC count trending down cultures so far negative to date 3. Acute Congestive heart failure ?Suspected CHF with preserved ejection fraction chest x-ray obtained on admission demonstrated mild interstitial prominence with central vascular edema subsequently started on Lasix -D echo demonstrated EF of 70% 4. Physical deconditioning repeated falls - Requested for PT OT eval and social media assistant to assist with discharge planning 5. Hyponatremia ?Chronic sodium level on admission 129 monitoring ?11/03/2020 sodium levels up to 131 6. Encephalopathy ?Etiology unclear. There was suspicion for possible infectious etiology including pneumonia -Patient level of sensorium improved he however did feel speech and swallow eval on 11/03/2019 1 repeat scheduled for 11/03/2020 7. BPH ?Patient is on Flomax and Terazosin Reports urinary retention Chahal catheter was placed in view of patient being incontinent 8. Multiple sclerosis -by history?patient is on gabapentin and baclofen 9. Bipolar disorder ?Depakote 10. Carotid artery disease ?With previous CVA 11. COPD ?Aerosol treatments as needed 12. Hypertension - Blood pressure controlled, home medications continued with dose adjustment as needed 13, DVT prophylaxis?Lovenox - lovenox Clinical Impression(s) from Imaging Studies Echocardiogram 11/02/20 05:40 Interpretation Summary The estimated ejection fraction is 70 %. Unable to assess diastolic dysfunction. The left atrium is mildly enlarged. Trivial mitral valve insufficiency. Moderate diffuse aortic valve thickening. Moderate aortic stenosis. Ordering Physician: Rose Marinelli Referring Physician: [facility] Performed By: Aubrie Bennett, RDCS, RVT Hip/Pelvis X-Ray 11/02/20 16:20 IMPRESSION: No definite acute or significant abnormality seen. Electronically Signed: Jus Rosenbaum MD at 19:19 EDT , Service support , Shoulder X-Ray 11/02/20 16:20 IMPRESSION: Nondisplaced fractures of the humeral head and neck cannot be excluded. CT scan recommended. Electronically Signed: Jus Rosenbaum MD at 19:17 EDT , Service support , Upper Extremity CT 11/02/20 20:17 Inpatient E&M: 21959 Subs Hosp L3
[2020-11-03] MEDS: Lisinopril 20 MG Tablet PO (09:56)
[2020-11-03] MEDS: Loratadine 10 MG Tablet PO (09:57)
[2020-11-03] MEDS: Famotidine 20 MG Tablet PO ×2 (09:57→21:15)
[2020-11-03] MEDS: Enoxaparin 40 MG/0.4 ML Syringe SC (09:57)
[2020-11-03] MEDS: Clopidogrel Bisulfate 75 MG Tablet PO (09:57)
[2020-11-03] MEDS: Ferrous Sulfate 325 MG Tablet PO (09:58)
[2020-11-03] MEDS: Finasteride 5 MG Tablet PO (09:59)
--- NOTE | 2020-11-03 10:02 | CT_ITS ---
STUDY: CT CHEST, ABDOMEN T PELVIS WITH CONTRAST REASON FOR EXAM: Male, 80 years old. Fall. Weakness. Looking for malignancy. Prior abdominal aortic aneurysm repair. RADIATION DOSAGE (If Supplied By Facility): CTDIvol = ( 17.66 ) mGy, DLP = ( 1334.08 ) mGycm TECHNIQUE: Transaxial imaging was performed following intravenous administration of Oral and amp;amp; IV Gastrografin and amp;amp; 100mL Isovue-300. Individualized dose optimization techniques were used for this CT. COMPARISON: No relevant priors. FINDINGS: CHEST Elevation of the right hemidiaphragm. Hyperinflation. Mild emphysematous changes more prominent in the upper lobes with bullous formation. Subpleural blebs in the right lower lobe and mild scarring. Minimal increased markings in the anterior lateral aspect of the left lower lobe. There is no demonstrated pleural abnormality. There are calcifications of the coronary arteries. There are multiple small lymph nodes within the mediastinum, which are normal in size and morphology most compatible with reactive lymph hyperplasia. Surgical clips are seen in the right hilar and suprahilar region most likely secondary to prior right upper lobe surgery. Normal unenhanced pulmonary arteries. There is atherosclerotic calcification of the aortic arch with tortuosity and elongation of the aortic arch and descending thoracic aorta. There are multi-level degenerative changes of the thoracic spine. Healed fractures in the upper right hemithorax most likely related to prior surgical intervention. There is no demonstrated abnormality of the visualized upper abdomen. ABDOMEN Normal liver. Mildly distended gallbladder. Minimal increased densities are seen along the dependent portion of the gallbladder. This may represent either sludge or tiny gallstones. Normal spleen. Normal pancreas. Normal bilateral adrenal glands. Normal right kidney. Normal left kidney. Normal visualized stomach. Normal small intestine. Large amount of fecal material is seen throughout the colon. The appendix is visualized and appears normal. There is diffuse atherosclerotic calcification of the abdominal aorta and its major visceral branches., There is evidence of ectasia of the right common iliac artery with a transverse dimension of 1.8 cm. Ectasia of the left common iliac artery with a transverse dimension of 2.3 cm. Without a demonstrated aneurysm. Normal inferior vena cava. Normal retroperitoneum. Normal abdominal wall. There are diffuse degenerative changes of the visualized lumbar spine. Marked degree of degenerative changes of the shoulders worse on the left side. There is evidence of a 2.8 cm lytic lesion in the anterior aspect of the left humeral head. PELVIS A PIZARRO catheter is seen within a decompressed urinary bladder. There is diffuse thickening of the bladder wall. Normal visualized small intestine. Normal visualized colon. There is no pelvic fluid. There is no pelvic lymphadenopathy or mass lesion. There is diffuse atherosclerotic calcification of the pelvic arteries. Normal abdominal wall. There are diffuse degenerative changes of the visualized lumbar spine. Prior laminectomy and fusion at the L3-L4 and L4-L5 levels. Minimal anterior listhesis of L4 on L5. CT/CT Chest, Abd, Pel w/Contrast IMPRESSION: Findings suggestive of a mild degree of sludge in the gallbladder lumen. Large amount of fecal material is seen in the colon. Thickened gallbladder wall. Electronically Signed: Jorge Herman MD at 13:24 EDT , Service support ,
[2020-11-03] MEDS: Acetaminophen 325 MG Tablet 650 MG PO (10:13)
[2020-11-03] MEDS: Ipratropium/Albuterol Sulfate 3 ML AMPUL.NEB INHALATION ×3 (11:08→19:11)
--- NOTE | 2020-11-03 11:12 | CASEMGMT ---
Social Work Note Pt can discharge back to [facility] when medically ready. YAMILETH faxed updated clinicals (including pt's COVID test and COVID tool) to Sonam at [facility] and placed a call to Sonam to update her. YAMILETH placed Green sheet, transport forms, COVID tool, and COVID test on pt's chart. Plan: Return to [facility] when medically cleared Sonam Hilles [employer]ER [employer] OPERATOR, CRYPTOLOGIC SUPPORT SPECIALIST
--- NOTE | 2020-11-03 12:31 | CASEMGMT ---
Pt screened with [facility] Palliative Care screening tool due to pt being a [employer] 3. Pt did not meet criteria.
[2020-11-03] MEDS: lamoTRIgine 100 MG Tablet PO ×2 (13:36→21:15)
[2020-11-03 18:41] LABS: Vancomycin, Trough Level 10.6 ug/mL (5.0-15.0)
--- NOTE | 2020-11-03 19:41 | PCM.RX.CS ---
Consult Pharmacy has been consulted to manage selected antiobiotic: Vancomycin Type of Consult: Follow-up Prior Doses of Antibiotics Received/Current Regimen: Medications Vancomycin HCl 750 mg/ Sodium (Chloride) 265 mls @ 250 mls/hr IV Q12H [facility] Last Admin: 11/03/20 18:23 Dose: 250 mls/hr Documented by: Labs: Sodium 131 mmol/L (136-145) L 11/03/20 05:40 Potassium 4.0 mmol/L (3.5-5.1) 11/03/20 05:40 Chloride 97 mmol/L (98-107) L 11/03/20 05:40 Carbon Dioxide 27.0 mmol/L (21.0-32.0) 11/03/20 05:40 Anion Gap 7 (5-15) 11/03/20 05:40 BUN 24 mg/dL (7-18) H 11/03/20 05:40 Creatinine 0.81 mg/dL (0.70-1.30) 11/03/20 05:40 Est GFR (MDRD) Af Amer 118 mL/min (>60) 11/03/20 05:40 Est GFR (MDRD) Non-Af 97 mL/min (>60) 11/03/20 05:40 BUN/Creatinine Ratio 29.6 RATIO (10-20) H 11/03/20 05:40 Glucose 129 mg/dL (74-106) H 11/03/20 05:40 Vancomycin Trough 10.6 ug/mL (5.0-15.0) 11/03/20 17:25 Microbiology: Microbiology 11/02/20 14:15 Mucosa - Nose SARS-CoV-2 Antigen (Rapid) - Final 11/02/20 07:05 Mucosa - Nasopharyngeal Respiratory Panel (PCR) - Final 11/02/20 05:42 Urine, Random Legionella Antigen - Final 11/02/20 05:42 Urine, Random Streptococcus pneumoniae Antigen (M - Final Goal Trough: 15-20 mcg/mL Pharmacy Plan for Drug Dosing: Trough below goal. Increase to 1000mg IV q12h and recheck prior to 4th dose. Pharmacy Service will continue to monitor and adjust dosing as required. Follow-Up Labs: Trough Vancomycin - 11/05 @ 1730
[2020-11-03] MEDS: Atorvastatin Calcium 40 MG Tablet PO (21:15)
[2020-11-03] MEDS: Doxazosin 4 MG Tablet 8 MG PO (21:15)
[2020-11-03] MEDS: Pramipexole Di-HCl 0.125 MG Tablet PO (21:15)
[2020-11-03] MEDS: Montelukast 10 MG Tablet PO (21:15)
[2020-11-03] MEDS: Divalproex Sodium 250 MG Tablet PO (21:15)
--- NOTE | 2020-11-04 00:06 | CPS ---
patient refused bipap.
[2020-11-04 03:30] VITALS: BP 137/78; PULSE 80; RESP 18; TEMP 36.3; O2SAT 92
[2020-11-04 03:59] VITALS: PULSE 97
[2020-11-04] MEDS: 0.9% Saline Lock 10 ML Syringe IV (06:14)
[2020-11-04] MEDS: Furosemide 40 MG/4 ML Vial IV (06:15)
[2020-11-04] MEDS: Baclofen 10 MG Tablet 5 MG PO ×2 (06:20→13:40)
[2020-11-04] MEDS: Vancomycin IV 1,000 MG/200 ML BAG 200 MG IV (06:25)
[2020-11-04 07:13] VITALS: PULSE 59; RESP 16; O2SAT 91
[2020-11-04] MEDS: Ipratropium/Albuterol Sulfate 3 ML AMPUL.NEB INHALATION ×2 (07:15→11:04)
--- NOTE | 2020-11-04 07:25 | PCM.PN.HOSP ---
Patient Problems: Active and Suspected Problems (Last Updated 08/31/20 @ 15:24 by Jessie Dukes) Pneumonia (Acute) Encephalopathy (Acute) Multiple falls (Acute) Reason for Visit: Acute encephalopathy Shoulder pain Subjective: Patient seen had a relatively uneventful night pain is tolerable. CT of the abdomen pelvis and chest obtained did not show any evidence of malignancy patient was found to have a distended gallbladder with possible gallstones otherwise unremarkable study. Decision was made to discharge patient to his ECF Objective: GENERAL: cooperative HEENT: Atraumatic; EYES; Anicteric, Normal Conjunctiva NECK; supple, normal thyroid, RESPIRATORY: Diminished to auscultation CARDIOVASCULAR: Regular S1 S2, GI: soft, normoactive bowel sounds, : No Renal angle tenderness; EXTREMITIES: No edema, no clubbing, MUSCULOSKELETAL: no muscle waisting NEURO: Awake; no lateralizing signs. SKIN: No Rash PSYCH; Flat affect Vitals/I&O's: Vital Signs Temp Pulse Resp BP Pulse Ox 97.4 F L 59 L 16 137/78 H 91 11/04/20 03:30 11/04/20 07:13 11/04/20 07:13 11/04/20 03:30 11/04/20 07:13 Oxygen Flow Rate (L/min) 2 Oxygen Delivery Method Room Air Weight: 66.3 kg Body Mass Index (BMI) 25.4 Intake and Output for Last 24 Hours 11/02/20 11/03/20 11/04/20 23:59 23:59 23:59 Intake Total 1222.00 / 1222.00 1475.25 / 1475.25 617.5 / 617.5 Output Total 3000 / 3000 1650 / 1650 1650 / 1650 Balance -1778.00 / -1778.00 -174.75 / -174.75 -1032.5 / -1032.5 Microbiology Past 72 Hours 11/02/20 14:15 Mucosa - Nose SARS-CoV-2 Antigen (Rapid) - Final 11/02/20 07:05 Mucosa - Nasopharyngeal Respiratory Panel (PCR) - Final 11/02/20 05:42 Urine, Random Legionella Antigen - Final 11/02/20 05:42 Urine, Random Streptococcus pneumoniae Antigen (M - Final Laboratory Results 11/03/20 10:55: Total PSA Pending 11/03/20 17:25: Vancomycin Trough 10.6 Current Medications Acetaminophen (Acetaminophen 325 Mg Tablet) 650 mg PO Q6H PRN PRN PRN Reason: Pain Score 1-10/Temp > 100.7 F Last Admin: 11/03/20 10:13 Dose: 650 mg Documented by: Acetaminophen (Acetaminophen 650 Mg Suppository) 650 mg RC Q4H PRN PRN PRN Reason: Pain Score 1-10 Al Hydroxide/Mg Hydroxide (Mag Hydrox/Al Hydrox/Simeth 30 Ml Udc) 30 ml PO Q6H PRN PRN PRN Reason: Gastric Burning Albuterol Sulfate (Albuterol 2.5 Mg/3 Ml Vial.Neb.) 2.5 mg INHALATION Q2H PRN PRN PRN Reason: Dyspnea, wheezing Albuterol/Ipratropium (Ipratropium/Albuterol Sulfate 3 Ml Ampul.Neb) 3 ml INHALATION Q4HWA.RT [facility] Last Admin: 11/04/20 07:15 Dose: 3 ml Documented by: Atorvastatin Calcium (Atorvastatin Calcium 40 Mg Tablet) 40 mg PO QHS [facility] Last Admin: 11/03/20 21:15 Dose: 40 mg Documented by: Baclofen (Baclofen 10 Mg Tablet) 5 mg PO TID [facility] Last Admin: 11/04/20 06:20 Dose: 5 mg Documented by: Clopidogrel Bisulfate (Clopidogrel Bisulfate 75 Mg Tablet) 75 mg PO DAILY [facility] Last Admin: 11/03/20 09:57 Dose: 75 mg Documented by: Divalproex Sodium (Divalproex Sodium 250 Mg Tablet) 250 mg PO QHS [facility] Last Admin: 11/03/20 21:15 Dose: 250 mg Documented by: Doxazosin Mesylate (Doxazosin 4 Mg Tablet) 8 mg PO QHS [facility] Last Admin: 11/03/20 21:15 Dose: 8 mg Documented by: Enoxaparin Sodium (Enoxaparin 40 Mg/0.4 Ml Syringe) 40 mg SC DAILY [facility] Last Admin: 11/03/20 09:57 Dose: 40 mg Documented by: Famotidine (Famotidine 20 Mg Tablet) 20 mg PO BID [facility] Last Admin: 11/03/20 21:15 Dose: 20 mg Documented by: Ferrous Sulfate (Ferrous Sulfate 325 Mg Tablet) [facility] Admin: 11/03/20 09:58 Dose: 325 mg Documented by: Finasteride (Finasteride 5 Mg Tablet) 5 mg PO DAILY [facility] Last Admin: 11/03/20 09:59 Dose: 5 mg Documented by: Furosemide (Furosemide 40 Mg/4 Ml Vial) 40 mg IV Q8 [facility] Last Admin: 11/04/20 06:15 Dose: 40 mg Documented by: Guaifenesin (Guaifenesin 10 Ml Udc (200mg/10ml)) 20 ml PO Q4H PRN PRN PRN Reason: COUGH Last Admin: 11/02/20 08:37 Dose: 20 ml Documented by: Hydralazine HCl (Hydralazine 20 Mg/Ml Vial) 10 mg IV Q4H PRN PRN PRN Reason: SBP > 160 Piperacillin Sod/Tazobactam (Sod 3.375 gm/ Sodium Chloride) 50 mls @ 12.5 mls/hr IV Q8 [facility] Last Admin: 11/04/20 06:13 Dose: 12.5 mls/hr Documented by: Vancomycin IV Pharmacy to Dose (1 each/ Sodium Chloride) 500 mls @ 250 mls/hr IV X1 PRN; Protocol PRN Reason: Rx to Dose Sodium Chloride () 250 mls @ 15 mls/hr IV .[id number] PRN PRN Reason: Saline Flush Last Infusion: 11/04/20 06:33 Dose: 0 mls/hr Documented by: Vancomycin HCl (Vancomycin) 1,000 mg in 200 mls @ 200 mls/hr IV Q12H [facility] Last Admin: 11/04/20 06:25 Dose: 200 mls/hr Documented by: Iopamidol (Contrast Allergy Safety Check) 0 ml IV X1 [facility] Lamotrigine (Lamotrigine 100 Mg Tablet) 100 mg PO BID [facility] Last Admin: 11/03/20 21:15 Dose: 100 mg Documented by: Lisinopril (Lisinopril 20 Mg Tablet) 20 mg PO DAILY [facility] Last Admin: 11/03/20 09:56 Dose: 20 mg Documented by: Loratadine (Loratadine 10 Mg Tablet) 10 mg PO DAILY [facility] Last Admin: 11/03/20 09:57 Dose: 10 mg Documented by: Magnesium Hydroxide (Magnesium Hydroxide 30 Ml Udc) 30 ml PO DAILY PRN PRN PRN Reason: Constipation Melatonin (Melatonin 3 Mg Tablet) 3 mg PO QHS PRN PRN PRN Reason: INSOMNIA Methylprednisolone (Methylprednisolone 40 Mg/Ml Vial) 40 mg IV Q8 [facility] Last Admin: 11/04/20 06:14 Dose: 40 mg Documented by: Montelukast Sodium (Montelukast 10 Mg Tablet) 10 mg PO QHS [facility] Last Admin: 11/03/20 21:15 Dose: 10 mg Documented by: Nitroglycerin (Nitroglycerin (Inpatient Use) 0.4 Mg Tab.Subl) 0.4 mg SL Q5M PRN PRN Reason: CARDIAC/CHEST PAIN Ondansetron HCl (Ondansetron 4 Mg/2 Ml Vial) 4 mg IV Q8H PRN PRN PRN Reason: NAUSEA/VOMITING Pramipexole Dihydrochloride (Pramipexole Di-Hcl 0.125 Mg Tablet) 0.125 mg PO QHS [facility] Last Admin: 11/03/20 21:15 Dose: 0.125 mg Documented by: Prochlorperazine Edisylate (Prochlorperazine 10 Mg/2 Ml Vial) 5 mg IV Q4H PRN PRN PRN Reason: Breakthrough nausea/vomiting Psyllium Hydrophilic Mucilloid (Psyllium 1 Packet) 1 packet PO DAILY PRN PRN PRN Reason: Constipation Sodium Chloride (0.9% Saline Lock 10 Ml Syringe) 10 - 40 ml IV UD PRN PRN Reason: SALINE FLUSH Last Admin: 11/04/20 06:14 Dose: 20 ml Documented by: Throat Lozenges (Benzocaine/Menthol 1 Lozenge) 1 lozenge MUCOUS MEM Q2H PRN PRN PRN Reason: SORE THROAT Venlafaxine HCl (Venlafaxine Hcl 100 Mg Tablet) 150 mg PO BID [facility] Last Admin: 11/03/20 21:15 Dose: 150 mg Documented by: STROKE Vital Signs/Narrative: Vital Signs Temp Pulse Resp BP Pulse Ox 11/04/20 07:13 59 L 16 91 11/04/20 03:59 97 11/04/20 03:30 97.4 F L 80 18 137/78 H 92 Medical Necessity - Tobacco Use Smoking Status: Former smoker Tobacco Use: Non-smoker Assessment/Plan All Active Problems (Last Updated 08/31/20 @ 15:24 by Jessie Dukes) Pneumonia (Acute) Encephalopathy (Acute) Multiple falls (Acute) UTI (urinary tract infection) (Acute) Hypotension (Acute) Diabetes mellitus, type II (Resolved) Patient is an 80-year-old gentleman resident of an ECF admitted following a fall. Patient was noted to be confused subsequently transferred to the ED as a result 1. Left shoulder pain maging studies obtained could not rule out nondisplaced fracture. Patient was however found to have a 3 cm lytic lesion involving the humeral head and neoplasm could not be ruled out. (Subsequently ordered CT of the abdomen and pelvis, MRI of the chest as part of work-up for suspected malignancy, also ordered PSA.) Patient was also found to have severe glenohumeral degenerative changes - CT of the abdomen pelvis and chest obtained did not show any evidence of malignancy patient was found to have a distended gallbladder with possible gallstones otherwise unremarkable study. Decision was made to discharge patient to his ECF 2. Suspected community-acquired pneumonia ?Patient started on vancomycin and Zosyn after cultures have been sent ?11/03/2020; patient WBC count trending down cultures so far negative to date -CT of the chest was negative for pneumonia pneumonia ruled out antibiotics discontinued 3. Acute Congestive heart failure ?Suspected CHF with preserved ejection fraction chest x-ray obtained on admission demonstrated mild interstitial prominence with central vascular edema subsequently started on Lasix -D echo demonstrated EF of 70% 4. Physical deconditioning repeated falls - Requested for PT OT eval and social security specialist to assist with discharge planning 5. Hyponatremia ?Chronic sodium level on admission 129 monitoring ?11/03/2020 sodium levels up to 131 6. Encephalopathy ?Etiology unclear. There was suspicion for possible infectious etiology including pneumonia -Patient level of sensorium improved he however did feel speech and swallow eval on 11/03/2019 1 repeat scheduled for 11/03/2020 7. BPH ?Patient is on Flomax and Terazosin Reports urinary retention Chahal catheter was placed in view of patient being incontinent 8. Multiple sclerosis -by history?patient is on gabapentin and baclofen 9. Bipolar disorder ?Depakote 10. Carotid artery disease ?With previous CVA 11. COPD ?Aerosol treatments as needed 12. Hypertension - Blood pressure controlled, home medications continued with dose adjustment as needed 13, DVT prophylaxis?Lovenox - lovenox Inpatient E&M: [id number] [facility] Hosp L2
[2020-11-04] MEDS: Ferrous Sulfate 325 MG Tablet PO (07:55)
[2020-11-04] MEDS: Magnesium Citrate 300 ML PO (07:58)
[2020-11-04 08:32] LABS: Hematocrit 37.7 % (40-54); Hemoglobin 12.4 g/dL (13.0-16.5); Mean Corp Hgb Conc 32.9 g/dL (32-36); Mean Corpuscular Hgb 30.3 pg (27.0-32.0); Mean Corpuscular Volume 92.2 fL (80-94); Mean Platelet Vol. 8.6 fl (6.2-12.0); Platelet Count 279 K/mm3 (150-450); RBC Distribution Width CV 14.1 % (11.6-14.6); RBC Distribution Width SD 48.1 fl (35.1-43.9); Red Blood Count 4.09 M/mm3 (4.6-6.2); White Blood Count 8.5 K/mm3 (4.4-11.0)
[2020-11-04 08:46] LABS: Anion Gap 10 (5-15); BUN 33 mg/dL (7-18); BUN/Creat Ratio 38.7 RATIO (10-20); Calcium,Total 8.5 mg/dL (8.5-10.1); Chloride 92 mmol/L (98-107); Creatinine, Serum 0.85 mg/dL (0.70-1.30); EST Glomerular Filtration Rate 92 mL/min (>60); Est Glom Filt Rate - Afr Amer 111 mL/min (>60); Estimated Creatinine Clearance 60.29 ml/min; Glucose 140 mg/dL (74-106); Potassium 3.2 mmol/L (3.5-5.1); Sodium Level 131 mmol/L (136-145)
[2020-11-04 08:59] VITALS: BP 126/73; PULSE 61; RESP 18; TEMP 36.6; O2SAT 92
[2020-11-04] MEDS: Famotidine 20 MG Tablet PO (09:18)
[2020-11-04] MEDS: Enoxaparin 40 MG/0.4 ML Syringe SC (09:22)
[2020-11-04] MEDS: lamoTRIgine 100 MG Tablet PO (09:23)
[2020-11-04] MEDS: Lisinopril 20 MG Tablet PO (09:24)
[2020-11-04] MEDS: Finasteride 5 MG Tablet PO (09:25)
[2020-11-04] MEDS: Clopidogrel Bisulfate 75 MG Tablet PO (09:25)
[2020-11-04] MEDS: Loratadine 10 MG Tablet PO (09:26)
[2020-11-04] MEDS: Senna Tablet 1 TABLET PO (09:27)
--- NOTE | 2020-11-04 09:51 | TREXTCAR_ITS ---
- Diet 11/03/20 09:36 Diet: Cardiac - Heart Healthy Food consistency:: Soft & Bite Sized Liquid Consistency:: Regular/Thin Type of Dietary Supplement:: Ensure Clear Is pt able to select menu?: No - Routine Orders/Code Status Code Status: Full Code - Wound(s) Left forearm Wound Type: Skin Tear Dressing Change: Adaptic right forearm Wound Type: Skin Tear Dressing Change: Adaptic left lower forehad Wound Type: Abrasion left knee Wound Type: Abrasion - Therapies Physical Therapy: Eval and Treat Occupational Therapy: Eval and Treat - Allergies/Procedures Done in Hospital Allergies/Adverse Reactions: Allergies tramadol Adverse Reaction (Verified 11/02/20 03:37) Itching - Type of Care/Length of Stay Estimated LOS: Convalescent Care Less Than 30 days Type of Care Needed: Skilled Rehab Potential: Good Prognosis: Good - Additional Orders/Day of Discharge Day of Discharge: 11/04/20 - Dietary and Speech Recommendations Dietitian Recommendations/Changes: Rec KLAUS Cardiac as pt medically able w/ luan ture modifications per POST OFFICE MARKUP CLERK. Will provide ONS as indicated once diet progressed. - Follow Up Care Primary Care Physician: [facility],[place] [Primary Care Provider] -
--- NOTE | 2020-11-04 09:57 | DS.PCM_ITS ---
Discharge Date and Diagnosis - Problem List Patient Problems: Active and Suspected Problems (Last Updated 08/31/20 @ 15:24 by Jessie Dukes) Pneumonia (Acute) Encephalopathy (Acute) Multiple falls (Acute) Date of Admission: 11/02/20 Date of Discharge: 11/04/20 - Primary Discharge Diagnosis Acute Problems: Active Problems (Last Updated 08/31/20 @ 15:24 by Jessie Dukes) Encephalopathy (Acute) Multiple falls (Acute) - Secondary Discharge Diagnosis Chronic Problems: Chronic Problems (Last Updated 08/31/20 @ 15:24 by Jessie Dukes) Hyponatremia (Chronic) Probably secondary to hydrochlorothiazide usage Multiple sclerosis (Chronic) S/P AAA repair (Chronic) Dementia (Chronic) Depression (Chronic) Hypertension (Chronic) Hyperlipidemia (Chronic) Hospital Course and Treatment Imaging Results: Clinical Impression(s) from Imaging Studies Brain CT 11/02/20 03:36 IMPRESSION: Atrophy. No visualized acute hemorrhage infarct or edema. Mild left posterior parietal superficial soft tissue edema. No visualized acute fracture or underlying acute intracranial hemorrhage. Electronically Signed: Christina Dominguez MD at 3:49 EDT Tel , Service support , Chest X-Ray 11/02/20 03:44 IMPRESSION: Underexpansion of the lungs, postoperative changes right hilum and probable lobectomy. Mild interstitial prominence could consider mild central vascular edema. Electronically Signed: Christina Dominguez MD at 5:11 EDT Tel , Service support , Echocardiogram 11/02/20 05:40 Interpretation Summary The estimated ejection fraction is 70 %. Unable to assess diastolic dysfunction. The left atrium is mildly enlarged. Trivial mitral valve insufficiency. Moderate diffuse aortic valve thickening. Moderate aortic stenosis. Ordering Physician: Rose Marinelli Referring Physician: [facility] Performed By: Aubrie Bennett RDCS, RVT Hip/Pelvis X-Ray 11/02/20 16:20 IMPRESSION: No definite acute or significant abnormality seen. Electronically Signed: Jus Rosenbaum MD at 19:19 EDT , Service support , Shoulder X-Ray 11/02/20 16:20 IMPRESSION: Nondisplaced fractures of the humeral head and neck cannot be excluded. CT scan recommended. Electronically Signed: Jus Rosenbaum MD at 19:17 EDT , Service support , Upper Extremity CT 11/02/20 20:17 ADDENDUM: 11/03/20 1212 Chest/Abdomen/Pelvis CT 11/03/20 10:02 IMPRESSION: Findings suggestive of a mild degree of sludge in the gallbladder lumen. Large amount of fecal material is seen in the colon. Thickened gallbladder wall. Electronically Signed: Jorge Herman MD at 13:24 EDT , Service support , Consultations 11/02/20 06:16 Consult: Onc/Wound/piano tuner Routine Comment: Reason for Consult:: flor arms Operations: None Summary of Care Provided: Patient is an 80-year-old gentleman resident of an [facility] admitted following a fall . Patient was noted to be confused subsequently transferred to the ED as a result 1. Left shoulder pain maging studies obtained could not rule out nondisplaced fracture. Patient was however found to have a 3 cm lytic lesion involving the humeral head and neoplasm could not be ruled out. (Subsequently ordered CT of the abdomen and pelvis, MRI of the chest as part of work-up for suspected malignancy, also ordered PSA.) Patient was also found to have severe glenohumeral degenerative changes - CT of the abdomen pelvis and chest obtained did not show any evidence of malignancy patient was found to have a distended gallbladder with possible gallstones otherwise unremarkable study. Decision was made to discharge patient to his ECF 2. Suspected community-acquired pneumonia ?Patient started on vancomycin and Zosyn after cultures have been sent ?11/03/2020; patient WBC count trending down cultures so far negative to date -CT of the chest was negative for pneumonia pneumonia ruled out antibiotics discontinued 3. Acute Congestive heart failure ?Suspected CHF with preserved ejection fraction chest x-ray obtained on admission demonstrated mild interstitial prominence with central vascular edema subsequently started on Lasix -D echo demonstrated EF of 70% 4. Physical deconditioning repeated falls - Requested for PT OT eval and oncology social worker to assist with discharge planning 5. Hyponatremia ?Chronic sodium level on admission 129 monitoring ?11/03/2020 sodium levels up to 131 6. Encephalopathy ?Etiology unclear. There was suspicion for possible infectious etiology including pneumonia -Patient level of sensorium improved he however did feel speech and swallow eval on 11/03/2019 1 repeat scheduled for 11/03/2020 7. BPH ?Patient is on Flomax and Terazosin Reports urinary retention Chahal catheter was placed in view of patient being incontinent 8. Multiple sclerosis -by history?patient is on gabapentin and baclofen 9. Bipolar disorder ?Depakote 10. Carotid artery disease ?With previous CVA 11. COPD ?Aerosol treatments as needed 12. Hypertension - Blood pressure controlled, home medications continued with dose adjustment as needed 13, DVT prophylaxis?Lovenox - lovenox Patient Problems: Active and Suspected Problems (Last Updated 08/31/20 @ 15:24 by Jessie Dukes) Pneumonia (Acute) Encephalopathy (Acute) Multiple falls (Acute) Objective: GENERAL: cooperative HEENT: Atraumatic; EYES; Anicteric, Normal Conjunctiva NECK; supple, normal thyroid, RESPIRATORY: Diminished to auscultation CARDIOVASCULAR: Regular S1 S2, GI: soft, normoactive bowel sounds, : No Renal angle tenderness; EXTREMITIES: No edema, no clubbing, MUSCULOSKELETAL: no muscle waisting NEURO: Awake; no lateralizing signs. SKIN: No Rash - Physical Exam Vitals/I&O's: Vital Signs Temp Pulse Resp BP Pulse Ox 97.9 F 61 18 126/73 H 92 11/04/20 08:59 11/04/20 08:59 11/04/20 08:59 11/04/20 08:59 11/04/20 08:59 Oxygen Flow Rate (L/min) 2 Oxygen Delivery Method Room Air Weight: 66.3 kg Body Mass Index (BMI) 25.4 Intake and Output for Last 24 Hours 11/02/20 11/03/20 11/04/20 23:59 23:59 23:59 Intake Total 1222.00 / 1222.00 1475.25 / 1475.25 817.5 / 817.5 Output Total 3000 / 3000 1650 / 1650 1650 / 1650 Balance -1778.00 / -1778.00 -174.75 / -174.75 -832.5 / -832.5 Microbiology Past 72 Hours 11/02/20 04:48 Blood Culture (Wb) - Anticubital Right Blood Culture - Preliminary No growth in 48 hours. 11/02/20 04:52 Blood Culture (Wb) - Right Wrist Blood Culture - Preliminary No growth in 48 hours. 11/02/20 14:15 Mucosa - Nose SARS-CoV-2 Antigen (Rapid) - Final 11/02/20 07:05 Mucosa - Nasopharyngeal Respiratory Panel (PCR) - Final 11/02/20 05:42 Urine, Random Legionella Antigen - Final 11/02/20 05:42 Urine, Random Streptococcus pneumoniae Antigen (M - Final Laboratory Results 11/03/20 10:55: Total PSA Pending 11/03/20 17:25: Vancomycin Trough 10.6 11/04/20 08:16: WBC 8.5, RBC 4.09 L, Hgb 12.4 L, Hct 37.7 L, MCV 92.2 D, MCH 30.3, MCHC 32.9 D, RDW Std Deviation 48.1 H, RDW Coeff of Melany 14.1, Plt Count 279, MPV 8.6 11/04/20 08:16: Sodium 131 L, Potassium 3.2 L, Chloride 92 L, Carbon Dioxide 29.0, Anion Gap 10, BUN 33 H, Creatinine 0.85, Estim Creat Clear Calc 60.29, Est GFR (MDRD) Af Amer 111, Est GFR (MDRD) Non-Af 92, BUN/Creatinine Ratio 38.7 H, Glucose 140 H, Calcium 8.5, Magnesium 2.0 Current Medications Acetaminophen (Acetaminophen 325 Mg Tablet) 650 mg PO Q6H PRN PRN PRN Reason: Pain Score 1-10/Temp > 100.7 F Last Admin: 11/03/20 10:13 Dose: 650 mg Documented by: Acetaminophen (Acetaminophen 650 Mg Suppository) 650 mg RC Q4H PRN PRN PRN Reason: Pain Score 1-10 Al Hydroxide/Mg Hydroxide (Mag Hydrox/Al Hydrox/Simeth 30 Ml Udc) 30 ml PO Q6H PRN PRN PRN Reason: Gastric Burning Albuterol Sulfate (Albuterol 2.5 Mg/3 Ml Vial.Neb.) 2.5 mg INHALATION Q2H PRN PRN PRN Reason: Dyspnea, wheezing Albuterol/Ipratropium (Ipratropium/Albuterol Sulfate 3 Ml Ampul.Neb) 3 ml INHALATION Q4HWA.RT [facility] Last Admin: 11/04/20 07:15 Dose: 3 ml Documented by: Atorvastatin Calcium (Atorvastatin Calcium 40 Mg Tablet) 40 mg PO QHS [facility] Last Admin: 11/03/20 21:15 Dose: 40 mg Documented by: Baclofen (Baclofen 10 Mg Tablet) 5 mg PO TID [facility] Last Admin: 11/04/20 06:20 Dose: 5 mg Documented by: Clopidogrel Bisulfate (Clopidogrel Bisulfate 75 Mg Tablet) 75 mg PO DAILY [facility] Last Admin: 11/04/20 09:25 Dose: 75 mg Documented by: Divalproex Sodium (Divalproex Sodium 250 Mg Tablet) 250 mg PO QHS [facility] Last Admin: 11/03/20 21:15 Dose: 250 mg Documented by: Doxazosin Mesylate (Doxazosin 4 Mg Tablet) 8 mg PO QHS [facility] Last Admin: 11/03/20 21:15 Dose: 8 mg Documented by: Enoxaparin Sodium (Enoxaparin 40 Mg/0.4 Ml Syringe) 40 mg SC DAILY [facility] Last Admin: 11/04/20 09:22 Dose: 40 mg Documented by: Famotidine (Famotidine 20 Mg Tablet) 20 mg PO BID [facility] Last Admin: 11/04/20 09:18 Dose: 20 mg Documented by: Ferrous Sulfate (Ferrous Sulfate 325 Mg Tablet) 325 [facility] Last Admin: 11/04/20 07:55 Dose: 325 mg Documented by: Finasteride (Finasteride 5 Mg Tablet) 5 mg PO DAILY [facility] Last Admin: 11/04/20 09:25 Dose: 5 mg Documented by: Furosemide (Furosemide 40 Mg/4 Ml Vial) 40 mg IV Q8 [facility] Last Admin: 11/04/20 06:15 Dose: 40 mg Documented by: Guaifenesin (Guaifenesin 10 Ml Udc (200mg/10ml)) 20 ml PO Q4H PRN PRN PRN Reason: COUGH Last Admin: 11/02/20 08:37 Dose: 20 ml Documented by: Hydralazine HCl (Hydralazine 20 Mg/Ml Vial) 10 mg IV Q4H PRN PRN PRN Reason: SBP > 160 Vancomycin IV Pharmacy to Dose (1 each/ Sodium Chloride) 500 mls @ 250 mls/hr IV X1 PRN; Protocol PRN Reason: Rx to Dose Sodium Chloride () 250 mls @ 15 mls/hr IV .[id number] PRN PRN Reason: Saline Flush Last Infusion: 11/04/20 06:33 Dose: 0 mls/hr Documented by: Lamotrigine (Lamotrigine 100 Mg Tablet) 100 mg PO BID [facility] Last Admin: 11/04/20 09:23 Dose: 100 mg Documented by: Lisinopril (Lisinopril 20 Mg Tablet) 20 mg PO DAILY [facility] Last Admin: 11/04/20 09:24 Dose: 20 mg Documented by: Loratadine (Loratadine 10 Mg Tablet) 10 mg PO DAILY [facility] Last Admin: 11/04/20 09:26 Dose: 10 mg Documented by: Magnesium Hydroxide (Magnesium Hydroxide 30 Ml Udc) 30 ml PO DAILY PRN PRN PRN Reason: Constipation Melatonin (Melatonin 3 Mg Tablet) 3 mg PO QHS PRN PRN PRN Reason: INSOMNIA Methylprednisolone (Methylprednisolone 40 Mg/Ml Vial) 40 mg IV Q8 [facility] Last Admin: 11/04/20 06:14 Dose: 40 mg Documented by: Montelukast Sodium (Montelukast 10 Mg Tablet) 10 mg PO QHS [facility] Last Admin: 11/03/20 21:15 Dose: 10 mg Documented by: Nitroglycerin (Nitroglycerin (Inpatient Use) 0.4 Mg Tab.Subl) 0.4 mg SL Q5M PRN PRN Reason: CARDIAC/CHEST PAIN Ondansetron HCl (Ondansetron 4 Mg/2 Ml Vial) 4 mg IV Q8H PRN PRN PRN Reason: NAUSEA/VOMITING Pramipexole Dihydrochloride (Pramipexole Di-Hcl 0.125 Mg Tablet) 0.125 mg PO QHS [facility] Last Admin: 11/03/20 21:15 Dose: 0.125 mg Documented by: Prochlorperazine Edisylate (Prochlorperazine 10 Mg/2 Ml Vial) 5 mg IV Q4H PRN PRN PRN Reason: Breakthrough nausea/vomiting Psyllium Hydrophilic Mucilloid (Psyllium 1 Packet) 1 packet PO DAILY PRN PRN PRN Reason: Constipation Senna (Senna Tablet) 1 tablet PO BID [facility] Last Admin: 11/04/20 09:27 Dose: 1 tablet Documented by: Sodium Chloride (0.9% Saline Lock 10 Ml Syringe) 10 - 40 ml IV UD PRN PRN Reason: SALINE FLUSH Last Admin: 11/04/20 06:14 Dose: 20 ml Documented by: Throat Lozenges (Benzocaine/Menthol 1 Lozenge) 1 lozenge MUCOUS MEM Q2H PRN PRN PRN Reason: SORE THROAT Venlafaxine HCl (Venlafaxine Hcl 100 Mg Tablet) 150 mg PO BID [facility] Last Admin: 11/04/20 09:23 Dose: 150 mg Documented by: Discharge Diet: No Restrictions Discharge Activity: Return to Normal Activity Home Medications: Medications to take at Discharge Venlafaxine HCl [Effexor] 150 mg PO BID 01/02/15 acetaminophen 325 mg capsule 650 mg PO Q4H PRN PRN 08/31/20 albuterol sulfate 90 mcg/actuation aerosol inhaler 2 puff INHALATION Q6H PRN 08/31/20 aluminum-mag hydroxide-simethicone 200 mg-200 mg-20 mg/5 mL oral susp 10 ml PO PRN PRN ml 08/31/20 atorvastatin 40 mg tablet 40 mg PO QPM 08/31/20 baclofen 5 mg tablet 5 mg PO TID 08/31/20 bisacodyl 10 mg rectal suppository 10 mg RC DAILY PRN 08/31/20 budesonide-formoterol HFA 160 mcg-4.5 mcg/actuation aerosol inhaler 2 puff INHALATION BID 08/31/20 cholecalciferol (vitamin D3) 50 mcg (2,000 unit) capsule 50 mcg PO DAILY 08/31/20 clopidogrel 75 mg tablet 75 mg PO DAILY 08/31/20 dextrose 40 % oral gel 10 g PO Q15M PRN 08/31/20 ferrous sulfate 325 mg (65 mg iron) tablet 325 mg PO DAILY 08/31/20 finasteride 5 mg tablet 5 mg PO DAILY 08/31/20 fluticasone propionate 50 mcg/actuation nasal spray,suspension 2 spray INTRANASAL DAILY 08/31/20 guaifenesin 100 mg/5 mL oral liquid 200 mg PO Q6H PRN PRN 08/31/20 lamotrigine 100 mg tablet 100 mg PO BID 08/31/20 lisinopril 10 mg tablet 20 mg PO DAILY 08/31/20 loratadine 10 mg tablet 10 mg PO DAILY 08/31/20 montelukast 10 mg tablet 10 mg PO QHS 08/31/20 polyethylene glycol 3350 17 gram/dose oral powder 17 g PO DAILY PRN PRN 08/31/20 terazosin 10 mg capsule 10 mg PO QHS 08/31/20 Calcium Carb/Vitamin D [Caltrate-600 With Vit D Tab] 1 tablet PO BIDCM 11/02/20 Divalproex Sodium [Depakote] 250 mg PO QHS 11/02/20 Menthol [Biofreeze] 1 applic TOPICAL BID PRN PRN 11/02/20 Ropinirole HCl 0.25 mg PO QHS 11/02/20 Primary Care Physician: [facility] [Primary Care Provider] - Disposition: [facility] facility Minutes spent on discharge:: 35 Patient Condition:: Stable Medical Necessity - Tobacco Use Smoking Status: Former smoker Tobacco Use: Non-smoker Meaningful Use Info Meaningful Use Diagnoses (Choose all that apply): CHF - CHF REGINA/ARB ordered at discharge?: No Reason REGINA/ARB not ordered?: Worsening renal function Documented LVEF (%): 70 Inpatient E&M: 47910 Disch Hosp
[2020-11-04 11:17] VITALS: PULSE 74; RESP 16
[2020-11-04 13:52] VITALS: BP 113/54; PULSE 72; RESP 18; TEMP 36.9; O2SAT 95
[2020-11-05 08:06] LABS: PSA, Total 2.7 ng/mL (0.0-4.0)
[2020-11-06 20:57] LABS: Lamotrigine (Lamictal) Level 3.7 ug/mL (2.0-20.0)
== END 2020-11-04 15:28 | disposition skilled nursing facility (03) | DRG 190 ==
LOC: ED 03:59 → MS3 05:13
PROVIDERS: Admitting Provider Family Medicine; Emergency Provider Emergency Medicine; Visit Provider Internal Medicine
DX: J44.0 Chronic obstructive pulmonary disease with (acute) lower respiratory infection (principal); J18.9 Pneumonia, unspecified organism; I50.31 Acute diastolic (congestive) heart failure; G93.40 Encephalopathy, unspecified; E87.1 Hypo-osmolality and hyponatremia; J44.1 Chronic obstructive pulmonary disease with (acute) exacerbation; R29.6 Repeated falls; F31.9 Bipolar disorder, unspecified; G47.33 Obstructive sleep apnea (adult) (pediatric); I11.0 Hypertensive heart disease with heart failure; Y95 Nosocomial condition; R09.02 Hypoxemia; G35 Multiple sclerosis; F03.90 Unspecified dementia, unspecified severity, without behavioral disturbance, psychotic disturbance, mood disturbance, and anxiety; E11.9 Type 2 diabetes mellitus without complications; E78.5 Hyperlipidemia, unspecified; F41.9 Anxiety disorder, unspecified; D50.9 Iron deficiency anemia, unspecified; F10.11 Alcohol abuse, in remission; N40.1 Benign prostatic hyperplasia with lower urinary tract symptoms; R33.8 Other retention of urine; M25.512 Pain in left shoulder; Z79.899 Other long term (current) drug therapy; Z79.02 Long term (current) use of antithrombotics/antiplatelets; Z85.118 Personal history of other malignant neoplasm of bronchus and lung; Z87.891 Personal history of nicotine dependence
CPT/HCPCS: 36415; 36600; 70450; 71045; 71260; 73030; 73200; 73502; 74177; 80048; 80053; 80164; 80202; 81001; 82542; 82803; 83036; 83605; 83735; 83880; 84153; 84484; 85025; 85027; 85610; 85730; 87040; 87426; 87449; 87633; 87641; 92526; 92610; 93005; 93306; 94640; 97110; 97162; 97166; 97530; 97535; 99251; 99285; J7040; J7050; Q9967; A4216; G0463; J1940

== ENCOUNTER → 2020-11-14 10:13 | Outpatient (CLI) | payer OTHER, SELFPAY ==
[2020-08-31 12:42] VITALS: BMI 32.1
[2020-11-02 05:50] VITALS: BMI 25.4
--- NOTE | 2020-11-14 10:24 | MRI_ITS ---
STUDY: MRI CERVICAL SPINE WITHOUT CONTRAST REASON FOR EXAM: Male, 80 years old. C1 POSTERIOR ARCH FRACTURE TECHNIQUE: Standardized fat and water weighted pulse sequences were obtained in the sagittal and axial planes. COMPARISON: CT 08/03/2020 FINDINGS: Normal foramen magnum and brainstem-cervical cord junction. Normal craniovertebral junction. Normal anterior atlantoaxial articulation. Normal odontoid process. The fracture of the C1 is poorly visualized. Normal cervical lordosis. Normal vertebral bodies and posterior osseous elements. C2-3: Mild left facet hypertrophy. No spinal stenosis or neural foraminal stenosis. C3-4: Mild broad disc osteophyte complex produces mild spinal stenosis and mild bilateral neural foraminal stenosis. C4-5: Moderate bilateral facet hypertrophy. 2 mm of anterolisthesis of C4 on C5 with a moderate broad disc osteophyte complex produces severe spinal stenosis with effacement of the cervical spinal cord. There is subtle hyperintensity of the cord at this level worrisome for early myelomalacia. C5-6: Status post posterior decompression with anatomic alignment and no spinal stenosis or neural foraminal stenosis. C6-7: Status post posterior decompression with anatomic alignment and no spinal stenosis or neural foraminal stenosis. C7-T1: Status post posterior decompression with 2 mm of anterolisthesis of C7 on T1 and no spinal stenosis or neural foraminal stenosis. Normal visualized soft tissue structures. MRI/Spine Cervical (Routine) IMPRESSION: Postsurgical changes and degenerative disc disease as described above. Electronically Signed: Jabari Romo MD at 12:00 EDT Tel , Service support ,
== END ==
DX: S12.000A Unspecified displaced fracture of first cervical vertebra, initial encounter for closed fracture (principal)
CPT/HCPCS: 72141

== ENCOUNTER 2020-11-16 10:56 | Observation (INO) | payer OTHER, MEDICARE, SELFPAY ==
[2020-11-02 05:50] VITALS: BMI 25.4
[2020-11-16] VITALS (11 sets, daily range): BP systolic 154–173; BP diastolic 68–97; PULSE 64–95; RESP 16–20; TEMP 36.6–36.9; O2SAT 94–98; BMI 28.9; BMI 27.1
--- NOTE | 2020-11-16 11:25 | CT_ITS ---
EXAM: CT CERVICAL SPINE WITHOUT INTRAVENOUS CONTRAST CLINICAL INDICATION: fall TECHNIQUE: Helically acquired images were obtained of the cervical spine without intravenous contrast. 2D reformatted images were reviewed. This CT exam was performed using one or more of the following dose reduction techniques: automated exposure control, adjustment of the mA and/or kV according to patient size, and/or use of iterative reconstruction technique. This report was created using [employer] report generation technology. COMPARISON: None. FINDINGS: VERTEBRAE: Multilevel posterior fusion with unroofing in the lower cervical spine. Multilevel anterior spondylosis and uncovertebral hypertrophy. Degenerative anterolisthesis of C3-C4 measures 3.2 mm. No fracture. No discrete lytic or blastic abnormality. Normal craniocervical junction and cervicothoracic junction. DISCS/SPINAL CANAL/NEURAL FORAMINA: Bilateral foraminal stenosis at C3-C4, C4-C5 and C5-C6. SOFT TISSUES: Unremarkable. No prevertebral soft tissue swelling. VASCULATURE: Carotid atherosclerosis noted. LYMPH NODES: Unremarkable. No cervical adenopathy. LUNG APICES: Unremarkable as visualized. Clear. OTHER FINDINGS: Multilevel facet arthropathy. CT/Spine Cervical without Contras IMPRESSION: No acute findings in the cervical spine. Electronically Signed: Sam Walton MD (Brooks) at 12:39 EDT , Service support ,
--- NOTE | 2020-11-16 11:25 | EKG12_ITS ---
Test Reason : FALL Blood Pressure : / mmHG Vent. Rate : 076 BPM Atrial Rate : 076 BPM P-R Int : 168 ms QRS Dur : 144 ms QT Int : 418 ms P-R-T Axes : 050 064 034 degrees QTc Int : 470 ms Sinus rhythm with Premature atrial complexes Right bundle branch block Inferior infarct , age undetermined Abnormal ECG Confirmed by PATRICIA MORALES, MIGEL ([id number]), news videotape editor CLAUDY FERRARA ([id number]) on 11/20/2020 12:34:27 PM Referred By: Confirmed By:MIGEL GOMEZ MD
--- NOTE | 2020-11-16 11:25 | CT_ITS ---
STUDY: CT BRAIN WITHOUT CONTRAST REASON FOR EXAM: Male, 80 years old. Fell twice, facial trauma and abrasions RADIATION DOSAGE (If Supplied By Facility): CTDIvol = ( 38.43 ) mGy, DLP = ( 712.69 ) mGycm TECHNIQUE: Transaxial CT imaging of the brain was performed without administration of intravenous contrast material. Individualized dose optimization techniques were used for this CT. COMPARISON: No relevant priors. FINDINGS: Left facial soft tissue swelling. Normal calvarium. There is moderate cerebral atrophy with widening of the extra-axial spaces and ventricular dilatation. There are areas of decreased attenuation within the white matter tracts of the supratentorial brain, consistent with microvascular disease changes. Normal basal ganglia and thalami. Normal brainstem. Normal cerebellum. There is no intracranial hemorrhage. There are no findings of an acute ischemic infarction. Normal visualized paranasal sinuses. CT/Brain/Head without Contrast IMPRESSION: No acute intracranial hemorrhage or mass effect. Left facial soft tissue swelling. Electronically Signed: Sam Walton MD (Brooks) at 12:37 EDT , Service support ,
--- NOTE | 2020-11-16 11:25 | CT_ITS ---
STUDY: CT FACIAL BONES WITHOUT CONTRAST REASON FOR EXAM: Male, 80 years old. fall RADIATION DOSAGE (If Supplied By Facility): CTDIvol = ( 25.01 ) mGy, DLP = ( 529.9 ) mGycm TECHNIQUE: The patient was scanned in a multi detector CT scanner. Sagittal and coronal images were reconstructed. Individualized dose optimization techniques were used for this CT. COMPARISON: None. FINDINGS: Left malar facial soft tissue swelling extending to the left orbit. Degenerative changes of the temporomandibular joints with bilateral symmetric anterior subluxation, possibly positional. Normal orbital zeng and orbital contents. Normal nasal bones and anterior nasal spine. Normal facial bones. There is no demonstrated fracture. Normal visualized paranasal sinuses. CT/Sinus/Facial Bone IMPRESSION: No demonstrated facial fracture. Left malar and periorbital soft tissue swelling. Electronically Signed: Sam Walton MD (Brooks) at 12:44 EDT , Service support ,
--- NOTE | 2020-11-16 11:52 | EDS_ITS ---
HPI HPI - Fall History of Present Illness Chief Complaint: Fall Informant: patient and EMS Narrative Narrative: 80-year-old male presenting after fall. Patient is a poor historian. Patient states he fell out of bed. Per [facility] patient fell twice today. He has been falling frequently. He complains of pain in his left shoulder and face. He is unsure if he lost consciousness. He is on Plavix. He is unsure his last tetanus immunization. He denies chest pain or fever. Tetanus Immunization: Unknown [facility] Medical History (Updated 11/16/20 @ 13:[address] Shantal Alegria MD) Anxiety disorder Asthma Bipolar disorder Constipation COPD (chronic obstructive pulmonary disease) COPD (chronic obstructive pulmonary disease) Dementia Essential (primary) hypertension h/o back surgery HTN (hypertension) Hyperlipidemia Lung cancer Major depressive disorder Multiple rib fractures Multiple sclerosis Nondisplaced posterior arch fracture of first cervical vertebra PASQUALE (obstructive sleep apnea) unspecified fracture of third metacarpal bone, left hand unspecifiedfracture of fourth metacarpal bone, left hand UTI (urinary tract infection) Home Medications albuterol sulfate 90 mcg/actuation aerosol inhaler 2 puff INHALATION Q6H PRN 08/31/20 [History Last Taken Unknown] atorvastatin 40 mg tablet 40 mg PO QPM 08/31/20 [History Last Taken 11/15/20] baclofen 5 mg tablet 10 mg PO TID 08/31/20 [History Last Taken 11/16/20] budesonide-formoterol HFA 160 mcg-4.5 mcg/actuation aerosol inhaler 2 puff INHALATION BID 08/31/20 [History Last Taken 11/16/20] cholecalciferol (vitamin D3) 50 mcg (2,000 unit) capsule 50 mcg PO QHS 08/31/20 [History Last Taken 11/15/20] clopidogrel 75 mg tablet 75 mg PO DAILY 08/31/20 [History Last Taken 11/15/20] ferrous sulfate 325 mg (65 mg iron) tablet 325 mg PO DAILY 08/31/20 [History Last Taken 11/16/20] fluticasone propionate 50 mcg/actuation nasal spray,suspension 2 spray INTRANASAL QHS 08/31/20 [History Last Taken 11/15/20] lamotrigine 100 mg tablet 100 mg PO BID 08/31/20 [History Last Taken 11/16/20] loratadine 10 mg tablet 10 mg PO DAILY 08/31/20 [History Last Taken 11/16/20] montelukast 10 mg tablet 10 mg PO QHS 08/31/20 [History Last Taken 11/15/20] terazosin 10 mg capsule 10 mg PO QHS 08/31/20 [History Last Taken 11/15/20] calcium carbonate-vitamin D3 1 tablet PO BIDCM 11/02/20 [History Last Taken 11/16/20] ropinirole 0.25 mg PO QHS 11/02/20 [History Last Taken 11/15/20] divalproex 125 mg PO QHS 11/16/20 [History Last Taken 11/15/20] lisinopril 20 mg PO DAILY 11/16/20 [History Last Taken 11/16/20] venlafaxine 150 mg PO BID 11/16/20 [History Last Taken 11/16/20] Allergy/AdvReac Type Severity Reaction Status Date / Time tramadol AdvReac Itching Verified 11/16/20 11:01 Family History (Updated 08/31/20 @ 12:48 by Jessie Dukes) Other CVA (cerebral vascular accident) Cancer Hypertension Surgical History H/O hernia repair Social History (Updated 09/01/20 @ 10:[address] Maria A Alejo, ) housing: [facility] Smoking Status: Former smoker alcohol intake: never what type of physical activity do you participate in: additional details: physical therapy ROS ROS ED Review of Systems ROS Unobtainable: other Details: Dementia Constitutional Constitutional ED: Denies fever(s) Eyes Eyes: Denies change in vision ENT ENT ED: Denies rhinorrhea or sore throat Cardiovascular Cardiovascular: Denies chest pain or palpitations Respiratory/Chest Respiratory/Chest: Denies cough or dyspnea Gastrointestinal Gastrointestinal: Denies abdominal pain, diarrhea, nausea or vomiting Genitourinary Genitourinary ED: Denies dysuria Musculoskeletal Musculoskeletal: Reports other Details: Left shoulder pain ; Denies myalgias Integumentary Reports other Details: Multiple skin tears ; Denies rash Neurologic Neurologic: Denies headache(s) Psychiatric Psychiatric: Denies suicidal thoughts EXAM Physical Exam Const Vital Signs: 11/16/20 10:57 11/16/20 11:02 11/16/20 11:56 Temperature 98.4 F Temperature Source Temporal Pulse Rate 73 74 Respiratory Rate 18 18 Respiratory Effort Short of Breath Respiratory Pattern Normal Blood Pressure 173/97 H Blood Pressure Mean 122 Pulse Ox 98 Oxygen Delivery Method Room Air 11/16/20 13:18 Temperature Temperature Source Pulse Rate 82 Respiratory Rate 18 Respiratory Effort Respiratory Pattern Blood Pressure 173/94 H Blood Pressure Mean 120 Pulse Ox 94 Oxygen Delivery Method Room Air Positive well nourished and well developed General Appearance ED: well developed HEENT Reports normocephalic and head/scalp atraumatic Eyes PERRL and EOMs intact bilaterally Eyes Narrative: No pain with extraocular movements. Left periorbital ecchymosis. Abrasion left face. Neck supple Neck Narrative: No midline tenderness General: Negative for tenderness Chest Wall inspection of chest normal Resp normal respiratory effort Auscultation: wheezes Cardio regular rate and regular rhythm GI non-tender and non-distended Palpation: soft; Negative for guarding or rebound tenderness present no CVA tenderness Extremity Extremity Narrative: Skin tears left forearm and left elbow. Neurovascularly intact distally Neuro moves all extremities and no focal motor deficits Sensorium / Orientation: alert Psych mental status grossly normal MDM MDM MDM Narrative Medical decision making narrative: Wounds were cleaned and dressed. He was given DuoNeb aerosol. After review of his records his tetanus is up-to-date. Patient is a poor historian, has history of dementia. He now states he believes he did pass out. Will discuss with hospitalist for observation. Lab Data Attestation: I reviewed the patient's lab results. Labs: Laboratory Results - last 24 hr 11/16/20 11/16/20 11/16/20 11:45 11:45 11:45 WBC 8.5 RBC 3.93 L Hgb 11.8 L Hct 35.6 L MCV 90.6 MCH 30.0 MCHC 33.1 RDW Std Deviation 46.5 H RDW Coeff of Melany 13.9 Plt Count 257 MPV 8.2 Immature Gran % (Auto) 0.600 Neut % (Auto) 78.9 H Lymph % (Auto) 12.4 L [place] % (Auto) 7.1 Eos % (Auto) 0.8 Baso % (Auto) 0.2 Absolute Neuts (auto) 6.7 Absolute Lymphs (auto) 1.05 Nucleated RBC % 0 PT 13.0 INR 1.0 Sodium 131 L Potassium 3.9 Chloride 98 Carbon Dioxide 27.0 Anion Gap 6 BUN 13 Creatinine 0.54 L Estim Creat Clear Calc 45.50 Est GFR (MDRD) Af Amer 189 Est GFR (MDRD) Non-Af 156 BUN/Creatinine Ratio 24.2 H Glucose 91 Calcium 8.5 Troponin I < 0.015 Urine Color Urine Clarity Urine pH Ur Specific [place] Urine Protein Urine Glucose (UA) Urine Ketones Urine Occult Blood Urine Nitrite Urine Bilirubin Urine Urobilinogen Ur Leukocyte Esterase Urine RBC Urine WBC Ur Squamous Epith Cells Urine Bacteria Urine Mucus 11/16/20 13:06 WBC RBC Hgb Hct MCV MCH MCHC RDW Std Deviation RDW Coeff of Melany Plt Count MPV Immature Gran % (Auto) Neut % (Auto) Lymph % (Auto) [place] % (Auto) Eos % (Auto) Baso % (Auto) Absolute Neuts (auto) Absolute Lymphs (auto) Nucleated RBC % PT INR Sodium Potassium Chloride Carbon Dioxide Anion Gap BUN Creatinine Estim Creat Clear Calc Est GFR (MDRD) Af Amer Est GFR (MDRD) Non-Af BUN/Creatinine Ratio Glucose Calcium Troponin I Urine Color Yellow Urine Clarity Clear Urine pH 8.0 Ur Specific [place] 1.010 Urine Protein Negative Urine Glucose (UA) Normal Urine Ketones Negative Urine Occult Blood Negative Urine Nitrite Negative Urine Bilirubin Negative Urine Urobilinogen Normal Ur Leukocyte Esterase Negative Urine RBC 0 SEEN Urine WBC 0 SEEN Ur Squamous Epith Cells 0 SEEN Urine Bacteria 0 SEEN Urine Mucus 0 SEEN Microbiology 11/16/20 11:50 SARS-CoV-2 Antigen (Rapid) - Final Nasal Secretion Radiography Diagnostic Testing: Radiology Impression Brain CT 11/16/20 11:25 IMPRESSION: No acute intracranial hemorrhage or mass effect. Left facial soft tissue swelling. Electronically Signed: Sam Walton MD (Brooks) at 12:37 EDT , Service support , Cervical Spine CT 11/16/20 11:25 IMPRESSION: No acute findings in the cervical spine. Electronically Signed: Sam Walton MD (Brooks) at 12:39 EDT , Service support , Facial/Sinus 11/16/20 11:25 IMPRESSION: No demonstrated facial fracture. Left malar and periorbital soft tissue swelling. Electronically Signed: Sam Walton MD (Brooks) at 12:44 EDT , Service support , Chest X-Ray 11/16/20 12:20 IMPRESSION: 1. Stable, nonacute portable x-ray examination of the chest. Electronically Signed: Sam Walton MD (Brooks) at 12:43 EDT , Service support , Forearm X-Ray 11/16/20 12:20 IMPRESSION: No acute fracture or malalignment. Electronically Signed: Sam Walton MD (Brooks) at 12:41 EDT , Service support , Shoulder X-Ray 11/16/20 12:20 IMPRESSION: 1. No fracture or malalignment. 2. Stable degenerative changes. Electronically Signed: Sam Walton MD (Brooks) at 12:40 EDT , Service support , EKG Initial EKG: Attestation: I personally reviewed and interpreted this EKG as follows: Interpretation: Sinus Rhythm, No Acute Injury Pattern and RBBB Prior EKG tracings: available for review Prior: Unchanged Discharge Plan Triage Chief Complaint: Fall ED Provider: Shantal Alegria Dx/Rx/DC Orders Clinical Impression: Frequent falls, Contusion of face, Skin tear of left upper extremity Prescriptions: No Action albuterol sulfate [Ventolin HFA] 90 mcg/actuation HFA aerosol inhaler 2 puff INHALATION Q6H PRN (Reason: Sob &/Or Wheezing) RF: 0 terazosin 10 mg capsule 10 mg PO QHS RF: 0 budesonide-formoterol [Symbicort] 160-4.5 mcg/actuation HFA aerosol inhaler 2 puff INHALATION BID RF: 0 montelukast 10 mg tablet 10 mg PO QHS RF: 0 loratadine 10 mg tablet 10 mg PO DAILY RF: 0 lamotrigine 100 mg tablet 100 mg PO BID RF: 0 atorvastatin 40 mg tablet 40 mg PO QPM RF: 0 baclofen 5 mg tablet 10 mg PO TID RF: 0 cholecalciferol (vitamin D3) 50 mcg (2,000 unit) capsule 50 mcg PO QHS RF: 0 clopidogrel 75 mg tablet 75 mg PO DAILY RF: 0 ferrous sulfate 325 mg (65 mg iron) tablet 325 mg PO DAILY RF: 0 fluticasone propionate [Allergy Relief (fluticasone)] 50 mcg/actuation spray,suspension 2 spray INTRANASAL QHS RF: 0 ropinirole 0.25 MG tablet 0.25 mg PO QHS RF: 0 calcium carbonate-vitamin D3 1 TAB tablet 1 tablet PO BIDCM RF: 0 lisinopril 20 mg Tablet 20 mg PO DAILY RF: 0 venlafaxine 150 mg Capsule,Extended Release 24hr 150 mg PO BID RF: 0 divalproex 125 mg Tablet,Delayed Release (Dr/Ec) 125 mg PO QHS RF: 0 [facility] [Primary Care Provider] - Disposition Disposition: Acute Care Hospital [facility]
[2020-11-16] MEDS: Ipratropium/Albuterol Sulfate 3 ML AMPUL.NEB INHALATION ×3 (11:55→18:41)
[2020-11-16 12:00] LABS: Absolute Lymphocyte Count 1.05 X10^3/uL (0.83-4.51); Absolute Neutrophil Count 6.7 X10^3/uL (2.0-7.7); Basophil# 0.02 X10^3/uL; Basophil% 0.2 % (0-1); Eosinophil# 0.07 X10^3/uL; Eosinophils% 0.8 % (0-5); Hematocrit 35.6 % (40-54); Hemoglobin 11.8 g/dL (13.0-16.5); Lymphocyte # 1.05 X10^3/ul (0.83-4.51); Lymphocyte % 12.4 % (19-41); Mean Corp Hgb Conc 33.1 g/dL (32-36); Mean Corpuscular Volume 90.6 fL (80-94); Mean Platelet Vol. 8.2 fl (6.2-12.0); Monocyte% 7.1 % (0-10); NRBC Flagged by Analyzer 0 % (0-5); Neutrophil # 6.69 X10^3/uL (2.7-7.7); Neutrophil % 78.9 % (47-70); Platelet Count 257 K/mm3 (150-450); RBC Distribution Width CV 13.9 % (11.6-14.6); RBC Distribution Width SD 46.5 fl (35.1-43.9); Red Blood Count 3.93 M/mm3 (4.6-6.2); White Blood Count 8.5 K/mm3 (4.4-11.0)
[2020-11-16 12:16] LABS: Anion Gap 6 (5-15); BUN 13 mg/dL (7-18); BUN/Creat Ratio 24.2 RATIO (10-20); Calcium,Total 8.5 mg/dL (8.5-10.1); Chloride 98 mmol/L (98-107); Creatinine, Serum 0.54 mg/dL (0.70-1.30); EST Glomerular Filtration Rate 156 mL/min (>60); Est Glom Filt Rate - Afr Amer 189 mL/min (>60); Glucose 91 mg/dL (74-106); Potassium 3.9 mmol/L (3.5-5.1); Sodium Level 131 mmol/L (136-145)
--- NOTE | 2020-11-16 12:20 | RAD_ITS ---
STUDY: X-RAY CHEST REASON FOR EXAM: Male, 80 years old. sob TECHNIQUE: AP COMPARISON: 11/02/2020 FINDINGS: Persistent hypoinflation with elevation the right hemidiaphragm. Surgical clips project over the right chest/hilum. Stable coarsened interstitial lung markings. There is no demonstrated pleural abnormality. Normal size heart. Normal mediastinum and porsha. Normal visualized pulmonary arteries. There is atherosclerotic calcification of the aortic arch with tortuosity. Fusion hardware of the lower cervical spine. Stable lateral left seventh rib fracture. There is no demonstrated abnormality of the visualized soft tissue structures of the upper abdomen. RAD/Chest 1 View (Portable) IMPRESSION: 1. Stable, nonacute portable x-ray examination of the chest. Electronically Signed: Sam Walton MD (Brooks) at 12:43 EDT , Service support ,
--- NOTE | 2020-11-16 12:20 | RAD_ITS ---
STUDY: X-RAY - LEFT RADIUS AND ULNA REASON FOR EXAM: Male, 80 years old. fall, injury, pain TECHNIQUE: 2 view(s) of the forearm. COMPARISON: None. FINDINGS: There is non-specific soft tissue swelling. Normal visualized radius. Deformity of the distal ulna compatible with prior surgery or fracture. RAD/Forearm 2 Views IMPRESSION: No acute fracture or malalignment. Electronically Signed: Sam Walton MD (Brooks) at 12:41 EDT , Service support ,
--- NOTE | 2020-11-16 12:20 | RAD_ITS ---
STUDY: X-RAY - LEFT SHOULDER REASON FOR EXAM: Male, 80 years old. fall, limited range of motion, pain TECHNIQUE: 3 view(s) of the shoulder. COMPARISON: 11/02/2020 FINDINGS: There is moderate degenerative arthrosis of the glenohumeral articulation. Widening acromioclavicular joint is stable. Normal acromion. Normal humeral head and visualized proximal humerus. The soft tissue structures are unremarkable. Surgical clips project over the right hilum. Fusion hardware in the cervical spine. RAD/Shoulder min 2 Views IMPRESSION: 1. No fracture or malalignment. 2. Stable degenerative changes. Electronically Signed: Sam Walton MD (Brooks) at 12:40 EDT , Service support ,
[2020-11-16 13:14] LABS: Bacteria 0 SEEN /hpf (None Seen); Mucous, Urine 0 SEEN /hpf (<or=2+); Red Blood Cells-Urine 0 SEEN /hpf (0-5); Squamous Epithelial Cells - UA 0 SEEN /hpf (0-5); White Blood Cells 0 SEEN /hpf (0-5)
[2020-11-16 13:15] LABS: Color, Urine Yellow (Yellow); Glucose, Dipstick Normal (Normal); Ketone-Dipstick Negative (Negative); Leukocyte Esterase-Dipstick Negative /ul (Negative); Nitrite-Dipstick Negative (Negative); Occult Blood-Urine Negative /ul (Negative); Protein-Dipstick Negative (Negative); Urine Bilirubin Dipstick Negative (Negative); Urine Clarity Clear (Clear); Urine Urobilinogen Normal (Normal)
--- NOTE | 2020-11-16 14:13 | HP.PCM.HOS_ITS ---
HPI - General General Date of Admission: 11/16/20 HPI Narrative YASMANI HERNANDEZ, is a 80 M who presents from SNF secondary to a fall. He is a poor historian states that he only fell once however it does appear that he is probably fallen multiple times given the extensiveness of his skin tears. He has been admitted several times since July secondary to falls. It is difficult to ascertain whether or not he blacked out, he told the ED physician that he blacked out prior to his fall however he told me that his fall was mechanical. Regardless he had an echo in October of this year which was unremarkable. In the ER vital signs are normal and labs were also unremarkable though they did note some respiratory wheezing without hypoxia. [facility] Medical History (Updated 11/16/20 @ 14:47 by Sonam Pickens) Anxiety disorder Asthma Bipolar disorder Constipation COPD (chronic obstructive pulmonary disease) COPD (chronic obstructive pulmonary disease) Dementia Essential (primary) hypertension Former smoker Former smoker h/o back surgery Hearing loss, left Hearing loss, right HTN (hypertension) Hyperlipidemia Lung cancer Major depressive disorder Multiple rib fractures Multiple sclerosis Nondisplaced posterior arch fracture of first cervical vertebra PASQUALE (obstructive sleep apnea) Sleep apnea Sleep apnea unspecified fracture of third metacarpal bone, left hand unspecifiedfracture of fourth metacarpal bone, left hand UTI (urinary tract infection) Home Medications albuterol sulfate 90 mcg/actuation aerosol inhaler 2 puff INHALATION Q6H PRN 08/31/20 [History Last Taken Unknown] atorvastatin 40 mg tablet 40 mg PO QPM 08/31/20 [History Last Taken 11/15/20] baclofen 5 mg tablet 10 mg PO TID 08/31/20 [History Last Taken 11/16/20] budesonide-formoterol HFA 160 mcg-4.5 mcg/actuation aerosol inhaler 2 puff INHALATION BID 08/31/20 [History Last Taken 11/16/20] cholecalciferol (vitamin D3) 50 mcg (2,000 unit) capsule 50 mcg PO QHS 08/31/20 [History Last Taken 11/15/20] clopidogrel 75 mg tablet 75 mg PO DAILY 08/31/20 [History Last Taken 11/15/20] ferrous sulfate 325 mg (65 mg iron) tablet 325 mg PO DAILY 08/31/20 [History Last Taken 11/16/20] fluticasone propionate 50 mcg/actuation nasal spray,suspension 2 spray INTRANASAL QHS 08/31/20 [History Last Taken 11/15/20] lamotrigine 100 mg tablet 100 mg PO BID 08/31/20 [History Last Taken 11/16/20] loratadine 10 mg tablet 10 mg PO DAILY 08/31/20 [History Last Taken 11/16/20] montelukast 10 mg tablet 10 mg PO QHS 08/31/20 [History Last Taken 11/15/20] terazosin 10 mg capsule 10 mg PO QHS 08/31/20 [History Last Taken 11/15/20] calcium carbonate-vitamin D3 1 tablet PO BIDCM 11/02/20 [History Last Taken 11/16/20] ropinirole 0.25 mg PO QHS 11/02/20 [History Last Taken 11/15/20] divalproex 125 mg PO QHS 11/16/20 [History Last Taken 11/15/20] lisinopril 20 mg PO DAILY 11/16/20 [History Last Taken 11/16/20] venlafaxine 150 mg PO BID 11/16/20 [History Last Taken 11/16/20] Allergy/AdvReac Type Severity Reaction Status Date / Time tramadol AdvReac Itching Verified 11/16/20 11:01 Family History (Updated 08/31/20 @ 12:48 by Jessie Dukes) Other CVA (cerebral vascular accident) Cancer Hypertension Surgical History (Updated 11/16/20 @ 14:48 by Sonam Pickens) H/O hernia repair History of AAA (abdominal aortic aneurysm) repair S/P partial lobectomy of lung Social History (Updated 09/01/20 @ 10:[address] Maria A Alejo, ) housing: assisted Smoking Status: Former smoker alcohol intake: never what type of physical activity do you participate in: additional details: physical therapy ROS Constitutional Constitutional: Denies chills or fever(s) Eyes Eyes: Denies change in vision ENT HEENT: Denies rhinorrhea or sore throat Cardiovascular Cardiovascular: Denies chest pain or palpitations Respiratory/Chest Respiratory/Chest: Denies cough or dyspnea Gastrointestinal Gastrointestinal: Denies abdominal pain, diarrhea, nausea or vomiting Genitourinary Genitourinary: Denies dysuria Musculoskeletal Musculoskeletal: Reports other Details: Left shoulder pain ; Denies myalgias Integumentary Integumentary: Reports other Details: Multiple skin tears ; Denies rash Neurologic Neurologic: Denies headache(s) Psychiatric Psychiatric: Denies suicidal thoughts Vital Signs Vital Signs Vital Signs: 11/16/20 10:57 11/16/20 11:02 11/16/20 11:56 Temperature 98.4 F Temperature Source Temporal Pulse Rate 73 74 Respiratory Rate 18 18 Respiratory Effort Short of Breath Respiratory Pattern Normal Blood Pressure 173/97 H Blood Pressure Mean 122 Pulse Ox 98 Oxygen Delivery Method Room Air 11/16/20 13:18 Temperature Temperature Source Pulse Rate 82 Respiratory Rate 18 Respiratory Effort Respiratory Pattern Blood Pressure 173/94 H Blood Pressure Mean 120 Pulse Ox 94 Oxygen Delivery Method Room Air Physical Exam Const alert and no apparent distress General Appearance: cooperative HEENT moist oral mucous membranes Face and Sinus: facial ecchymosis left Positive for periorbital Eyes PERRL, EOMs intact bilaterally and conjunctivae normal Neck no lymphadenopathy, supple and no JVD Resp normal respiratory effort and no use of accessory muscles Auscultation: wheezes scattered wheezes and throughout; Negative for crackles, rales or rhonchi Cardio regular rate, regular rhythm, S1 normal heart sound, S2 normal heart sound and no murmurs GI soft to palpation, non-tender and non-distended; Negative for hepatosplenomegaly Extremity no clubbing, cyanosis or edema Skin Skin Narrative: Left forearm skin tear Trauma: abrasion Wound Narrative: Neuro moves all extremities and no focal motor deficits Psych affect normal Lab / Micro Data Result Diagrams: 11/16/20 11:45 11/16/20 11:45 Labs: Laboratory Results - last 24 hr 11/16/20 11/16/20 11/16/20 11:45 11:45 11:45 WBC 8.5 RBC 3.93 L Hgb 11.8 L Hct 35.6 L MCV 90.6 MCH 30.0 MCHC 33.1 RDW Std Deviation 46.5 H RDW Coeff of Melany 13.9 Plt Count 257 MPV 8.2 Immature Gran % (Auto) 0.600 Neut % (Auto) 78.9 H Lymph % (Auto) 12.4 L [place] % (Auto) 7.1 Eos % (Auto) 0.8 Baso % (Auto) 0.2 Absolute Neuts (auto) 6.7 Absolute Lymphs (auto) 1.05 Nucleated RBC % 0 PT 13.0 INR 1.0 Sodium 131 L Potassium 3.9 Chloride 98 Carbon Dioxide 27.0 Anion Gap 6 BUN 13 Creatinine 0.54 L Estim Creat Clear Calc 45.50 Est GFR (MDRD) Af Amer 189 Est GFR (MDRD) Non-Af 156 BUN/Creatinine Ratio 24.2 H Glucose 91 Calcium 8.5 Troponin I < 0.015 Urine Color Urine Clarity Urine pH Ur Specific [place] Urine Protein Urine Glucose (UA) Urine Ketones Urine Occult Blood Urine Nitrite Urine Bilirubin Urine Urobilinogen Ur Leukocyte Esterase Urine RBC Urine WBC Ur Squamous Epith Cells Urine Bacteria Urine Mucus 11/16/20 13:06 WBC RBC Hgb Hct MCV MCH MCHC RDW Std Deviation RDW Coeff of Melany Plt Count MPV Immature Gran % (Auto) Neut % (Auto) Lymph % (Auto) [place] % (Auto) Eos % (Auto) Baso % (Auto) Absolute Neuts (auto) Absolute Lymphs (auto) Nucleated RBC % PT INR Sodium Potassium Chloride Carbon Dioxide Anion Gap BUN Creatinine Estim Creat Clear Calc Est GFR (MDRD) Af Amer Est GFR (MDRD) Non-Af BUN/Creatinine Ratio Glucose Calcium Troponin I Urine Color Yellow Urine Clarity Clear Urine pH 8.0 Ur Specific [place] 1.010 Urine Protein Negative Urine Glucose (UA) Normal Urine Ketones Negative Urine Occult Blood Negative Urine Nitrite Negative Urine Bilirubin Negative Urine Urobilinogen Normal Ur Leukocyte Esterase Negative Urine RBC 0 SEEN Urine WBC 0 SEEN Ur Squamous Epith Cells 0 SEEN Urine Bacteria 0 SEEN Urine Mucus 0 SEEN Micro: Microbiology 11/16/20 11:50 SARS-CoV-2 Antigen (Rapid) - Final Nasal Secretion Radiology Impression Brain CT 11/16/20 11:25 IMPRESSION: No acute intracranial hemorrhage or mass effect. Left facial soft tissue swelling. Electronically Signed: Sam Walton MD (Brooks) at 12:37 EDT , Service support , Cervical Spine CT 11/16/20 11:25 IMPRESSION: No acute findings in the cervical spine. Electronically Signed: Sam Walton MD (Brooks) at 12:39 EDT , Service support , Facial/Sinus 11/16/20 11:25 IMPRESSION: No demonstrated facial fracture. Left malar and periorbital soft tissue swelling. Electronically Signed: Sam Walton MD (Brooks) at 12:44 EDT , Service support , Chest X-Ray 11/16/20 12:20 IMPRESSION: 1. Stable, nonacute portable x-ray examination of the chest. Electronically Signed: Sam Walton MD (Brooks) at 12:43 EDT , Service support , Forearm X-Ray 11/16/20 12:20 IMPRESSION: No acute fracture or malalignment. Electronically Signed: Sam Walton MD (Brooks) at 12:41 EDT , Service support , Shoulder X-Ray 11/16/20 12:20 IMPRESSION: 1. No fracture or malalignment. 2. Stable degenerative changes. Electronically Signed: Sam Walton MD (Brooks) at 12:40 EDT , Service support , Assessment & Plan Assessment/Plan (1) Frequent falls: (2) Contusion of face: QUALIFIERS: Encounter type: initial encounter Qualified Code(s): S00.83XA - Contusion of other part of head, initial encounter (3) Skin tear of left upper extremity: PLAN: 1. Frequent falls, inability to complete ADLs/dementia -He is fallen multiple times at the assisted, will continue with PT/OT evaluation -Recently had an echo, no need to repeat 1 to rule out possible thank you. -We will place him on telemetry and monitor heart function for any arrhythmias 2. HTN/HLD -Blood pressure is stable, will continue with his home blood pressure medications -Continue with Lipitor -Continue with Plavix 3. COPD -Not in exacerbation -He does have some wheezes but is not hypoxic -We will place him on some prednisone and breathing treatments 4. Seizure disorder -Continue with Depakote and Lamictal 5. Depression anxiety -Stable -Continue with Effexor DVT: Lovenox Visit Charges Inpatient E&M: 18070 Init Hosp L3
[2020-11-16] MEDS: Acetaminophen 325 MG Tablet 650 MG PO (16:20)
[2020-11-17] MEDS: Acetaminophen 325 MG Tablet 650 MG PO (00:04)
[2020-11-17 02:54] VITALS: BP 143/86; PULSE 71; RESP 16; TEMP 36.8; O2SAT 97
[2020-11-17 03:30] VITALS: PULSE 81
[2020-11-17 06:19] LABS: Absolute Lymphocyte Count 1.36 X10^3/uL (0.83-4.51); Absolute Neutrophil Count 5.4 X10^3/uL (2.0-7.7); Basophil# 0.04 X10^3/uL; Basophil% 0.5 % (0-1); Eosinophil# 0.09 X10^3/uL; Eosinophils% 1.2 % (0-5); Hematocrit 37.2 % (40-54); Hemoglobin 12.3 g/dL (13.0-16.5); Lymphocyte # 1.36 X10^3/ul (0.83-4.51); Lymphocyte % 17.6 % (19-41); Mean Corp Hgb Conc 33.1 g/dL (32-36); Mean Corpuscular Hgb 30.2 pg (27.0-32.0); Mean Corpuscular Volume 91.4 fL (80-94); Mean Platelet Vol. 8.3 fl (6.2-12.0); Monocyte# 0.73 X10^3/uL; Monocyte% 9.5 % (0-10); NRBC Flagged by Analyzer 0 % (0-5); Neutrophil # 5.44 X10^3/uL (2.7-7.7); Neutrophil % 70.6 % (47-70); Platelet Count 302 K/mm3 (150-450); RBC Distribution Width CV 13.9 % (11.6-14.6); RBC Distribution Width SD 46.8 fl (35.1-43.9); Red Blood Count 4.07 M/mm3 (4.6-6.2); White Blood Count 7.7 K/mm3 (4.4-11.0)
[2020-11-17 06:55] LABS: Anion Gap 7 (5-15); BUN 12 mg/dL (7-18); BUN/Creat Ratio 22.9 RATIO (10-20); Calcium,Total 8.6 mg/dL (8.5-10.1); Chloride 100 mmol/L (98-107); Creatinine, Serum 0.52 mg/dL (0.70-1.30); EST Glomerular Filtration Rate 161 mL/min (>60); Est Glom Filt Rate - Afr Amer 194 mL/min (>60); Glucose 98 mg/dL (74-106); Potassium 3.7 mmol/L (3.5-5.1); Sodium Level 134 mmol/L (136-145)
[2020-11-17 07:00] VITALS: PULSE 93
[2020-11-17 07:13] VITALS: O2SAT 94
[2020-11-17 08:54] VITALS: BP 94/53; PULSE 72; RESP 16; TEMP 37.2; O2SAT 98
--- NOTE | 2020-11-17 09:04 | MRI_ITS ---
STUDY: MRI BRAIN WITHOUT CONTRAST REASON FOR EXAM: Male, 80 years old. recurrent falls TECHNIQUE: Standardized multiplanar fat and water weighted pulse sequences were obtained. COMPARISON: 12/31/2018 FINDINGS: There is moderate cerebral atrophy with widening of the extra-axial spaces and ventricular dilatation. There are multiple white matter hyperintensities, distributed throughout the deep white matter tracts of the cerebral hemispheres, consistent with moderate chronic white matter ischemic changes. There is no evidence for recent intracranial ischemia or other cause of cytotoxic edema on diffusion weighted imaging (DWI). Normal T2* images of the brain without demonstrated susceptibility artifact. There is no demonstrated hemosiderin stain. Normal bilateral basal ganglia. Normal thalami. There is no extra-axial fluid accumulation. Normal flow voids within the major intracranial circulation suggesting patency by spin echo criteria. Normal sella turcica, pituitary gland, infundibular stalk, optic chiasm and hypothalamus. Normal tectal plate and pineal gland. There are chronic white matter ischemic changes of the selina. The midbrain and medulla are otherwise normal. Normal cerebellum. Normal basal cisterns. Normal bilateral temporal bones. Normal bilateral internal auditory canals. No demonstrated orbital abnormality, within the constraints of a routine brain study. Normal visualized paranasal sinuses. Normal calvarium and skull base. Normal visualized soft tissue structures. Normal visualized upper cervical spine. MRI/Brain without Contrast IMPRESSION: Involutional changes of the brain, as described above. No acute infarct. Electronically Signed: Jabari Romo MD at 11:21 EDT Tel , Service support ,
--- NOTE | 2020-11-17 09:28 | CASEMGMT ---
IAIN MATOS NOTE: Pt screened with [facility] Palliative Care screening tool due to pt being a Strata 3 and a readmission. Pt did not meet criteria. Nydia CONLEY RN CM
--- NOTE | 2020-11-17 09:38 | CASEMGMT ---
Patient is from [facility]. YAMILETH faxed updates to [facility]. Nadja Salmeron TRACK LAYING EQUIPMENT OPERATOR WILMAR
--- NOTE | 2020-11-17 10:29 | CASEMGMT ---
Addendum entered by Gage Serna 11/17/20 13:47: Discharge summary and transfer to extended care instructions faxed to [place] [facility] [place] at this time. Original Note: IAIN MATOS NOTE Blanca @ [place] [facility] [place] ([phone]. Ext: [phone]) given clinical update at this time. DC summary to be faxed to [phone] when pt is discharged. Nydia CONLEY RN CM
[2020-11-17] MEDS: Enoxaparin 40 MG/0.4 ML Syringe SC (11:11)
[2020-11-17] MEDS: predniSONE 20 MG Tablet 40 MG PO (11:11)
--- NOTE | 2020-11-17 11:43 | NURSING ---
wound photo: left forearm
--- NOTE | 2020-11-17 12:15 | PCM.TXEXTCAR ---
Documented by User: Annette Bo NP, FONDANT PUFF MAKER-C 11/17/20 12:28 Diet 11/16/20 13:46 Diet: Cardiac - Heart Healthy Food consistency:: Regular Liquid Consistency:: Regular/Thin Routine Orders/Code Status Enema Type: Fleetz Enema Frequency: Daily PRN Suppository Type: Dulcolax 10mg Suppository Frequency: Daily PRN Routine Lab Work: - (CBC, BMP weekly) Wound(s) Left face cheek: Wound Type: Skin Tear Left forearm: Wound Type: Skin Tear Right knee: Wound Type: Abrasion Right elbow: Wound Type: Abrasion Left elbow: Wound Type: Skin Tear left upper arm: Wound Type: Skin Tear Suggestions for Active Care Change Position every (hours): 2 Times a day to sit in chair: 3 Therapies Physical Therapy: Eval and Treat Occupational Therapy: Eval and Treat Problem/Diagnosis (1) Frequent falls: Status: Acute (2) Contusion of face: Status: Acute (3) Skin tear of left upper extremity: Status: Acute Allergies/Procedures Done in Hospital Allergies tramadol Adverse Reaction (Verified 11/16/20 11:01) Itching Procedures: None Type of Care/Length of Stay Estimated LOS: More Than 30 Days Type of Care Needed: Skilled Rehab Potential: Fair Prognosis: Fair Additional Orders/Day of Discharge Additional Orders: Keep clean, dry dressing over left facial face contusion. H&P will serve as current which was dated: 11/16/20 Day of Discharge: 11/17/20 Dietary and Speech Recommendations Dietitian Recommendations/Changes: Rec IMPREGNATOR consult if pt presents w/ s/s of chewing/swallowing difficulty. Continue Current diet order. 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 Follow Up Care Please follow up with your Primary Care Physician in: 1 Week Discharge Plan Admission Admit Date/Time: 11/16/20 13:44 Attending Provider: Rose Marinelli Primary Care Provider: [facility] Instructions Additional Instructions / Restrictions: Keep Chahal in place pending urology consult. Discharge Orders/Prescriptions Prescriptions: Continued albuterol sulfate [Ventolin HFA] 90 mcg/actuation HFA aerosol inhaler 2 puff INHALATION Q6H PRN (Reason: Sob &/Or Wheezing) RF: 0 terazosin 10 mg capsule 10 mg PO QHS RF: 0 budesonide-formoterol [Symbicort] 160-4.5 mcg/actuation HFA aerosol inhaler 2 puff INHALATION BID RF: 0 montelukast 10 mg tablet 10 mg PO QHS RF: 0 loratadine 10 mg tablet 10 mg PO DAILY RF: 0 lamotrigine 100 mg tablet 100 mg PO BID RF: 0 atorvastatin 40 mg tablet 40 mg PO QPM RF: 0 baclofen 5 mg tablet 10 mg PO TID RF: 0 cholecalciferol (vitamin D3) 50 mcg (2,000 unit) capsule 50 mcg PO QHS RF: 0 clopidogrel 75 mg tablet 75 mg PO DAILY RF: 0 ferrous sulfate 325 mg (65 mg iron) tablet 325 mg PO DAILY RF: 0 fluticasone propionate [Allergy Relief (fluticasone)] 50 mcg/actuation spray,suspension 2 spray INTRANASAL QHS RF: 0 ropinirole 0.25 MG tablet 0.25 mg PO QHS RF: 0 calcium carbonate-vitamin D3 1 TAB tablet 1 tablet PO BIDCM RF: 0 lisinopril 20 mg Tablet 20 mg PO DAILY RF: 0 venlafaxine 150 mg Capsule,Extended Release 24hr 150 mg PO BID RF: 0 divalproex 125 mg Tablet,Delayed Release (Dr/Ec) 125 mg PO QHS RF: 0 Referrals / Follow Up: Woo Paz MD [STAFF PHYSICIAN] - In 1 Week [facility] [Primary Care Provider] - In 1 Week Disposition Disposition (needs filled in before D/C Order can be placed): [facility] Documented by User: Dr. Rose Marinelli MD 11/17/20 16:00 Allergies/Procedures Done in Hospital Allergies tramadol Adverse Reaction (Verified 11/16/20 11:01) Itching Discharge Plan Admission Admit Date/Time: 11/16/20 13:44 Attending Provider: Rose Marinelli Primary Care Provider[facility] Instructions Additional Instructions / Restrictions: Keep Chahal in place pending urology consult. Discharge Orders/Prescriptions Prescriptions: Continued albuterol sulfate [Ventolin HFA] 90 mcg/actuation HFA aerosol inhaler 2 puff INHALATION Q6H PRN (Reason: Sob &/Or Wheezing) RF: 0 terazosin 10 mg capsule 10 mg PO QHS RF: 0 budesonide-formoterol [Symbicort] 160-4.5 mcg/actuation HFA aerosol inhaler 2 puff INHALATION BID RF: 0 montelukast 10 mg tablet 10 mg PO QHS RF: 0 loratadine 10 mg tablet 10 mg PO DAILY RF: 0 lamotrigine 100 mg tablet 100 mg PO BID RF: 0 atorvastatin 40 mg tablet 40 mg PO QPM RF: 0 baclofen 5 mg tablet 10 mg PO TID RF: 0 cholecalciferol (vitamin D3) 50 mcg (2,000 unit) capsule 50 mcg PO QHS RF: 0 clopidogrel 75 mg tablet 75 mg PO DAILY RF: 0 ferrous sulfate 325 mg (65 mg iron) tablet 325 mg PO DAILY RF: 0 fluticasone propionate [Allergy Relief (fluticasone)] 50 mcg/actuation spray,suspension 2 spray INTRANASAL QHS RF: 0 ropinirole 0.25 MG tablet 0.25 mg PO QHS RF: 0 calcium carbonate-vitamin D3 1 TAB tablet 1 tablet PO BIDCM RF: 0 lisinopril 20 mg Tablet 20 mg PO DAILY RF: 0 venlafaxine 150 mg Capsule,Extended Release 24hr 150 mg PO BID RF: 0 divalproex 125 mg Tablet,Delayed Release (Dr/Ec) 125 mg PO QHS RF: 0 Referrals / Follow Up: Woo Paz MD [STAFF PHYSICIAN] - [place] [facility] [place] [facility] [facility] [facility] [place] - In 1 Week Disposition Disposition (needs filled in before D/C Order can be placed): [facility] Care Facility
--- NOTE | 2020-11-17 12:29 | DS.PCM_ITS ---
Documented by User: Annette Bo NP, CITY DIRECTOR-C 11/17/20 12:50 Providers Date of Admission: 11/16/20 Primary Care Physician: [facility] Consultations 11/16/20 13:45 Consult: Onc/Wound/guard driver Routine Comment: Reason for Consult:: Multiple skin tears Reason For Visit: FALL POSSIBLE SYNCOPE, INABILITY TO COMPLETE ADLS Diagnosis Discharge Diagnosis (1) Frequent falls: Status: Acute Code(s): R29.6 - Repeated falls (2) Contusion of face: Status: Acute Code(s): S00.83XA - Contusion of other part of head, initial encounter Qualifiers: Encounter type: initial encounter Qualified Code(s): S00.83XA - Contusion of other part of head, initial encounter (3) Skin tear of left upper extremity: Status: Acute Code(s): S41.112A - Laceration without foreign body of left upper arm, initial encounter Medications at Discharge Home Medications albuterol sulfate 90 mcg/actuation aerosol inhaler 2 puff INHALATION Q6H PRN 08/31/20 atorvastatin 40 mg tablet 40 mg PO QPM 08/31/20 baclofen 5 mg tablet 10 mg PO TID 08/31/20 budesonide-formoterol HFA 160 mcg-4.5 mcg/actuation aerosol inhaler 2 puff INHALATION BID 08/31/20 cholecalciferol (vitamin D3) 50 mcg (2,000 unit) capsule 50 mcg PO QHS 08/31/20 clopidogrel 75 mg tablet 75 mg PO DAILY 08/31/20 ferrous sulfate 325 mg (65 mg iron) tablet 325 mg PO DAILY 08/31/20 fluticasone propionate 50 mcg/actuation nasal spray,suspension 2 spray INTRANASAL QHS 08/31/20 lamotrigine 100 mg tablet 100 mg PO BID 08/31/20 loratadine 10 mg tablet 10 mg PO DAILY 08/31/20 montelukast 10 mg tablet 10 mg PO QHS 08/31/20 terazosin 10 mg capsule 10 mg PO QHS 08/31/20 calcium carbonate-vitamin D3 1 tablet PO BIDCM 11/02/20 ropinirole 0.25 mg PO QHS 11/02/20 divalproex 125 mg PO QHS 11/16/20 lisinopril 20 mg PO DAILY 11/16/20 venlafaxine 150 mg PO BID 11/16/20 Hospital Course Operations None Procedures None Summary of Care Provided Minutes Spent on Discharge: 35 Hospital Course: Patient is an 80-year-old male admitted 11/16/2020 following fall at SNF. Patient has a history of recurrent falls. 1. Recurrent falls, debility resulting in left facial contusion and left upper extremity skin tear-imaging negative for acute process/fracture. MRI of brain negative for acute stroke. Telemetry unremarkable. Troponin negative. Orthostatic vitals pending and will be reviewed prior to discharge. Return to SNF for further PT/OT. Fall precautions. Keep wounds covered with clean, dry dressing. Suspect multiple chronic comorbidities including MS, dementia contributing to recurrent falls. Recent echocardiogram 11/02/2020 demonstrated an EF of 70%, moderate aortic stenosis. 2. Urinary retention, BPH-Chahal placed during admission. Already on alpha 1 amber. Follow-up with urology in 1 week. 3. Dementia, unclear behavioral disturbance history 4. MS-on baclofen, gabapentin. 5. Chronic COPD-no exacerbation. 6. Seizure disorder-on Depakote, Lamictal. 7. Depression/anxiety-on Effexor. 8. Hypertension/hyperlipidemia-continue home medication regimen. 9. History of alcohol abuse-sober for years, encouraged continuation. 10. PASQUALE-unclear PAP use. 11. Former tobacco use-encouraged continued cessation. Patient seen and examined prior to discharge. Physical assessment as noted below. Patient is stable for discharge with follow up recommendations as noted above. This patient was seen by RAISA Javed under the supervision of Dr. Marinelli. Physical Exam Const alert, oriented x3 and no apparent distress Orientation / Consciousness: awake, oriented to person, oriented to place and oriented to time HEENT normocephalic and moist oral mucous membranes Eyes PERRL, EOMs intact bilaterally and conjunctivae normal Neck no lymphadenopathy Resp normal respiratory effort and clear to auscultation bilaterally Cardio regular rate, regular rhythm and no murmurs Peripheral Pulses: pulses 2+ throughout GI normal to inspection, nondistended, normoactive bowel sounds, non-tender and non-distended Extremity normal to inspection Skin no rashes or lesions noted Skin Narrative: Left face contusion, left upper extremity skin tear. Lesions: no lesions Rashes: no rashes Trauma: no lacerations or abrasions Neuro oriented x3 Sensorium / Orientation: awake and alert Psych affect normal ABG / Lab / Microbiology Data Result Diagrams: 11/17/20 05:54 11/17/20 05:54 Laboratory: Laboratory Results - last 24 hr 11/16/20 11/16/20 11/17/20 11:45 13:06 05:54 WBC 7.7 RBC 4.07 L Hgb 12.3 L Hct 37.2 L MCV 91.4 MCH 30.2 MCHC 33.1 RDW Std Deviation 46.8 H RDW Coeff of Melany 13.9 Plt Count 302 MPV 8.3 Immature Gran % (Auto) 0.600 Neut % (Auto) 70.6 H Lymph % (Auto) 17.6 L [place] % (Auto) 9.5 Eos % (Auto) 1.2 Baso % (Auto) 0.5 Absolute Neuts (auto) 5.4 Absolute Lymphs (auto) 1.36 Nucleated RBC % 0 Sodium Potassium Chloride Carbon Dioxide Anion Gap BUN Creatinine Estim Creat Clear Calc Est GFR (MDRD) Af Amer Est GFR (MDRD) Non-Af BUN/Creatinine Ratio Glucose Calcium Magnesium 2.0 Urine Color Yellow Urine Clarity Clear Urine pH 8.0 Ur Specific [place] 1.010 Urine Protein Negative Urine Glucose (UA) Normal Urine Ketones Negative Urine Occult Blood Negative Urine Nitrite Negative Urine Bilirubin Negative Urine Urobilinogen Normal Ur Leukocyte Esterase Negative Urine RBC 0 SEEN Urine WBC 0 SEEN Ur Squamous Epith Cells 0 SEEN Urine Bacteria 0 SEEN Urine Mucus 0 SEEN 11/17/20 05:54 WBC RBC Hgb Hct MCV MCH MCHC RDW Std Deviation RDW Coeff of Melany Plt Count MPV Immature Gran % (Auto) Neut % (Auto) Lymph % (Auto) [place] % (Auto) Eos % (Auto) Baso % (Auto) Absolute Neuts (auto) Absolute Lymphs (auto) Nucleated RBC % Sodium 134 L Potassium 3.7 Chloride 100 Carbon Dioxide 27.0 Anion Gap 7 BUN 12 Creatinine 0.52 L Estim Creat Clear Calc 45.50 Est GFR (MDRD) Af Amer 194 Est GFR (MDRD) Non-Af 161 BUN/Creatinine Ratio 22.9 H Glucose 98 Calcium 8.6 Magnesium Urine Color Urine Clarity Urine pH Ur Specific [place] Urine Protein Urine Glucose (UA) Urine Ketones Urine Occult Blood Urine Nitrite Urine Bilirubin Urine Urobilinogen Ur Leukocyte Esterase Urine RBC Urine WBC Ur Squamous Epith Cells Urine Bacteria Urine Mucus Microbiology: Microbiology 11/16/20 11:50 SARS-CoV-2 Antigen (Rapid) - Final Nasal Secretion Microbiology 11/16/20 11:50 Nasal Secretion SARS-CoV-2 Antigen (Rapid) - Final Radiography Diagnostic Testing: Radiology Impression Brain CT 11/16/20 11:25 IMPRESSION: No acute intracranial hemorrhage or mass effect. Left facial soft tissue swelling. Electronically Signed: Sam Walton MD (Brooks) at 12:37 EDT , Service support , Cervical Spine CT 11/16/20 11:25 IMPRESSION: No acute findings in the cervical spine. Electronically Signed: Sam Walton MD (Brooks) at 12:39 EDT , Service support , Facial/Sinus 11/16/20 11:25 IMPRESSION: No demonstrated facial fracture. Left malar and periorbital soft tissue swelling. Electronically Signed: Sam Walton MD (Brooks) at 12:44 EDT , Service support , Chest X-Ray 11/16/20 12:20 IMPRESSION: 1. Stable, nonacute portable x-ray examination of the chest. Electronically Signed: Sam Walton MD (Brooks) at 12:43 EDT , Service support , Forearm X-Ray 11/16/20 12:20 IMPRESSION: No acute fracture or malalignment. Electronically Signed: Sam Walton MD (Brooks) at 12:41 EDT , Service support , Shoulder X-Ray 11/16/20 12:20 IMPRESSION: 1. No fracture or malalignment. 2. Stable degenerative changes. Electronically Signed: Sam Walton MD (Brooks) at 12:40 EDT , Service support , Brain MRI 11/17/20 09:04 IMPRESSION: Involutional changes of the brain, as described above. No acute infarct. Electronically Signed: Jabari Romo MD at 11:21 EDT Tel , Service support , Meaningful Use Info Meaningful Use Diagnoses (Choose all that apply): None applicable Discharge Plan Admission Admit Date/Time: 11/16/20 13:44 Attending Provider: Rose Marinelli Primary Care Provider: [facility],[place] Instructions Additional Instructions / Restrictions: Keep Chahal in place pending urology consult. Discharge Orders/Prescriptions Prescriptions: Continued albuterol sulfate [Ventolin HFA] 90 mcg/actuation HFA aerosol inhaler 2 puff INHALATION Q6H PRN (Reason: Sob &/Or Wheezing) RF: 0 terazosin 10 mg capsule 10 mg PO QHS RF: 0 budesonide-formoterol [Symbicort] 160-4.5 mcg/actuation HFA aerosol inhaler 2 puff INHALATION BID RF: 0 montelukast 10 mg tablet 10 mg PO QHS RF: 0 loratadine 10 mg tablet 10 mg PO DAILY RF: 0 lamotrigine 100 mg tablet 100 mg PO BID RF: 0 atorvastatin 40 mg tablet 40 mg PO QPM RF: 0 baclofen 5 mg tablet 10 mg PO TID RF: 0 cholecalciferol (vitamin D3) 50 mcg (2,000 unit) capsule 50 mcg PO QHS RF: 0 clopidogrel 75 mg tablet 75 mg PO DAILY RF: 0 ferrous sulfate 325 mg (65 mg iron) tablet 325 mg PO DAILY RF: 0 fluticasone propionate [Allergy Relief (fluticasone)] 50 mcg/actuation spray,suspension 2 spray INTRANASAL QHS RF: 0 ropinirole 0.25 MG tablet 0.25 mg PO QHS RF: 0 calcium carbonate-vitamin D3 1 TAB tablet 1 tablet PO BIDCM RF: 0 lisinopril 20 mg Tablet 20 mg PO DAILY RF: 0 venlafaxine 150 mg Capsule,Extended Release 24hr 150 mg PO BID RF: 0 divalproex 125 mg Tablet,Delayed Release (Dr/Ec) 125 mg PO QHS RF: 0 Referrals / Follow Up: Woo Paz MD [STAFF PHYSICIAN] - [place] [facility] [place] [facility] [[facility] [place] - In 1 Week Disposition Disposition (needs filled in before D/C Order can be placed): Shelter Facility Documented by User: Dr. Rose Marinelli MD 11/17/20 16:00 Providers Date of Admission: 11/16/20 Reason For Visit: FALL POSSIBLE SYNCOPE, INABILITY TO COMPLETE ADLS Medications at Discharge Home Medications albuterol sulfate 90 mcg/actuation aerosol inhaler 2 puff INHALATION Q6H PRN 08/31/20 atorvastatin 40 mg tablet 40 mg PO QPM 08/31/20 baclofen 5 mg tablet 10 mg PO TID 08/31/20 budesonide-formoterol HFA 160 mcg-4.5 mcg/actuation aerosol inhaler 2 puff INHALATION BID 08/31/20 cholecalciferol (vitamin D3) 50 mcg (2,000 unit) capsule 50 mcg PO QHS 08/31/20 clopidogrel 75 mg tablet 75 mg PO DAILY 08/31/20 ferrous sulfate 325 mg (65 mg iron) tablet 325 mg PO DAILY 08/31/20 fluticasone propionate 50 mcg/actuation nasal spray,suspension 2 spray INTRANASAL QHS 08/31/20 lamotrigine 100 mg tablet 100 mg PO BID 08/31/20 loratadine 10 mg tablet 10 mg PO DAILY 08/31/20 montelukast 10 mg tablet 10 mg PO QHS 08/31/20 terazosin 10 mg capsule 10 mg PO QHS 08/31/20 calcium carbonate-vitamin D3 1 tablet PO BIDCM 11/02/20 ropinirole 0.25 mg PO QHS 11/02/20 divalproex 125 mg PO QHS 11/16/20 lisinopril 20 mg PO DAILY 11/16/20 venlafaxine 150 mg PO BID 11/16/20 ABG / Lab / Microbiology Data Result Diagrams: 11/17/20 05:54 11/17/20 05:54 Discharge Plan Admission Admit Date/Time: 11/16/20 13:44 Attending Provider: Rose Marinelli Primary Care Provider: [facility] Instructions Additional Instructions / Restrictions: Keep Chahal in place pending urology consult. Discharge Orders/Prescriptions Prescriptions: Continued albuterol sulfate [Ventolin HFA] 90 mcg/actuation HFA aerosol inhaler 2 puff INHALATION Q6H PRN (Reason: Sob &/Or Wheezing) RF: 0 terazosin 10 mg capsule 10 mg PO QHS RF: 0 budesonide-formoterol [Symbicort] 160-4.5 mcg/actuation HFA aerosol inhaler 2 puff INHALATION BID RF: 0 montelukast 10 mg tablet 10 mg PO QHS RF: 0 loratadine 10 mg tablet 10 mg PO DAILY RF: 0 lamotrigine 100 mg tablet 100 mg PO BID RF: 0 atorvastatin 40 mg tablet 40 mg PO QPM RF: 0 baclofen 5 mg tablet 10 mg PO TID RF: 0 cholecalciferol (vitamin D3) 50 mcg (2,000 unit) capsule 50 mcg PO QHS RF: 0 clopidogrel 75 mg tablet 75 mg PO DAILY RF: 0 ferrous sulfate 325 mg (65 mg iron) tablet 325 mg PO DAILY RF: 0 fluticasone propionate [Allergy Relief (fluticasone)] 50 mcg/actuation spray,suspension 2 spray INTRANASAL QHS RF: 0 ropinirole 0.25 MG tablet 0.25 mg PO QHS RF: 0 calcium carbonate-vitamin D3 1 TAB tablet 1 tablet PO BIDCM RF: 0 lisinopril 20 mg Tablet 20 mg PO DAILY RF: 0 venlafaxine 150 mg Capsule,Extended Release 24hr 150 mg PO BID RF: 0 divalproex 125 mg Tablet,Delayed Release (Dr/Ec) 125 mg PO QHS RF: 0 Referrals / Follow Up: Woo Paz MD [STAFF PHYSICIAN] - [facility] [place] [facility] [[facility] - In 1 Week Disposition Disposition (needs filled in before D/C Order can be placed): Shelter Facility
--- NOTE | 2020-11-17 13:34 | CASEMGMT ---
Readmission chart review: Pt was admitted from [facility] on 11/02-11/04/20 for Falls, encephalopathy, COPD exac, hypoxia. Pt with hx multiple sclerosis. Pt returned to [facility] at discharge. Pt returned to [facility] ED on 11/16/20 for falls, possible syncope. All testing has been negative for any fractures, but pt has had multiple skin tears each visit. Plan is for pt to return to [facility] again at this time. CM to follow for any further discharge planning/needs. Raiza TIMMONS CM
--- NOTE | 2020-11-17 13:35 | CASEMGMT ---
Social Work Per physician, pt is ready for discharge today. SW met with pt and pt confirms that he plans to return to [facility] at time of discharge. Orders faxed to [facility]. Pt notified that pt will return to [facility] today. 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 SW notified Sonam at [facility] and bedside nurse of discharge time. RAS Leach
[2020-11-17 16:39] VITALS: BP 134/87; PULSE 66; RESP 18; TEMP 37.1; O2SAT 98
== END 2020-11-17 01:00 | disposition skilled nursing facility (03) ==
LOC: ED 14:03 → PCU 11-17 06:25
PROVIDERS: Admitting Provider Family Medicine; Emergency Provider Emergency Medicine; Visit Provider Family Medicine
DX: S00.83XA Contusion of other part of head, initial encounter (principal); W06.XXXA Fall from bed, initial encounter; Y93.9 Activity, unspecified; Y92.129 Unspecified place in nursing home as the place of occurrence of the external cause; S41.112A Laceration without foreign body of left upper arm, initial encounter; R29.6 Repeated falls; I10 Essential (primary) hypertension; E78.5 Hyperlipidemia, unspecified; J44.9 Chronic obstructive pulmonary disease, unspecified; G35 Multiple sclerosis; F03.91 Unspecified dementia, unspecified severity, with behavioral disturbance; H91.93 Unspecified hearing loss, bilateral; G47.33 Obstructive sleep apnea (adult) (pediatric); G40.909 Epilepsy, unspecified, not intractable, without status epilepticus; F41.8 Other specified anxiety disorders; N40.1 Benign prostatic hyperplasia with lower urinary tract symptoms; R33.8 Other retention of urine; F31.9 Bipolar disorder, unspecified; F41.9 Anxiety disorder, unspecified; Z85.118 Personal history of other malignant neoplasm of bronchus and lung; Z91.81 History of falling; Z79.02 Long term (current) use of antithrombotics/antiplatelets; Z79.51 Long term (current) use of inhaled steroids; Z87.891 Personal history of nicotine dependence; Z79.899 Other long term (current) drug therapy
CPT/HCPCS: 36415; 51702; 70450; 70486; 70551; 71045; 72125; 73030; 73090; 80048; 81001; 83735; 84484; 85025; 85610; 87426; 90715; 93005; 94640; 96372; 97802; 99218; 99285; A4216; G0378

== ENCOUNTER → 2020-12-18 05:00 | Outpatient (REF) | payer MEDICARE, MEDICAID, SELFPAY ==
[2020-11-16 14:53] VITALS: BMI 27.1
[2020-12-18 09:26] LABS: Hematocrit 36.4 % (40-54); Hemoglobin 11.4 g/dL (13.0-16.5); Mean Corp Hgb Conc 31.3 g/dL (32-36); Mean Corpuscular Hgb 29.8 pg (27.0-32.0); Mean Platelet Vol. 8.7 fl (6.2-12.0); Platelet Count 311 K/mm3 (150-450); RBC Distribution Width CV 14.4 % (11.6-14.6); Red Blood Count 3.83 M/mm3 (4.6-6.2); White Blood Count 9.2 K/mm3 (4.4-11.0)
[2020-12-18 09:31] LABS: Anion Gap 8 (5-15); BUN 22 mg/dL (7-18); BUN/Creat Ratio 30.8 RATIO (10-20); Calcium,Total 8.8 mg/dL (8.5-10.1); Chloride 98 mmol/L (98-107); Creatinine, Serum 0.71 mg/dL (0.70-1.30); EST Glomerular Filtration Rate 113 mL/min (>60); Est Glom Filt Rate - Afr Amer 136 mL/min (>60); Glucose 94 mg/dL (74-106); Potassium 4.2 mmol/L (3.5-5.1); Sodium Level 137 mmol/L (136-145)
== END ==
LOC: OLS.SW300 05:00
PROVIDERS: Referring Provider Family Medicine; Visit Provider Family Medicine
DX: I10 Essential (primary) hypertension (principal)
CPT/HCPCS: 36415; 80048; 85027

== ENCOUNTER → 2020-12-25 04:00 | Outpatient (REF) | payer OTHER, MEDICARE, SELFPAY ==
[2020-11-16 14:53] VITALS: BMI 27.1
[2020-12-25 07:32] LABS: Hematocrit 30.8 % (40-54); Hemoglobin 9.9 g/dL (13.0-16.5); Mean Corp Hgb Conc 32.1 g/dL (32-36); Mean Corpuscular Volume 93.3 fL (80-94); Mean Platelet Vol. 9.2 fl (6.2-12.0); Platelet Count 259 K/mm3 (150-450); RBC Distribution Width CV 14.2 % (11.6-14.6); RBC Distribution Width SD 48.3 fl (35.1-43.9); White Blood Count 6.2 K/mm3 (4.4-11.0)
[2020-12-25 07:41] LABS: Anion Gap 3 (5-15); BUN 12 mg/dL (7-18); BUN/Creat Ratio 21.4 RATIO (10-20); Calcium,Total 8.8 mg/dL (8.5-10.1); Chloride 103 mmol/L (98-107); Creatinine, Serum 0.56 mg/dL (0.70-1.30); EST Glomerular Filtration Rate 149 mL/min (>60); Est Glom Filt Rate - Afr Amer 180 mL/min (>60); Glucose 89 mg/dL (74-106); Sodium Level 137 mmol/L (136-145)
== END ==
LOC: OLS.SW300 04:00
PROVIDERS: Visit Provider Family Medicine
DX: J44.9 Chronic obstructive pulmonary disease, unspecified (principal); F03.90 Unspecified dementia, unspecified severity, without behavioral disturbance, psychotic disturbance, mood disturbance, and anxiety; I10 Essential (primary) hypertension; E78.5 Hyperlipidemia, unspecified
CPT/HCPCS: 36415; 80048; 85027

== ENCOUNTER → 2021-01-01 05:00 | Outpatient (REF) | payer MEDICARE, OTHER, MEDICAID, SELFPAY ==
[2020-11-16 14:53] VITALS: BMI 27.1
[2021-01-01 09:19] LABS: Hematocrit 32.7 % (40-54); Hemoglobin 10.3 g/dL (13.0-16.5); Mean Corp Hgb Conc 31.5 g/dL (32-36); Mean Corpuscular Hgb 29.5 pg (27.0-32.0); Mean Corpuscular Volume 93.7 fL (80-94); Mean Platelet Vol. 8.9 fl (6.2-12.0); Platelet Count 298 K/mm3 (150-450); RBC Distribution Width CV 13.9 % (11.6-14.6); RBC Distribution Width SD 47.3 fl (35.1-43.9); Red Blood Count 3.49 M/mm3 (4.6-6.2); White Blood Count 6.2 K/mm3 (4.4-11.0)
[2021-01-01 09:24] LABS: Anion Gap 7 (5-15); BUN 10 mg/dL (7-18); BUN/Creat Ratio 17.3 RATIO (10-20); Calcium,Total 8.9 mg/dL (8.5-10.1); Chloride 101 mmol/L (98-107); Creatinine, Serum 0.58 mg/dL (0.70-1.30); EST Glomerular Filtration Rate 144 mL/min (>60); Est Glom Filt Rate - Afr Amer 174 mL/min (>60); Glucose 95 mg/dL (74-106); Potassium 3.9 mmol/L (3.5-5.1); Sodium Level 136 mmol/L (136-145)
== END ==
LOC: OLS.SW300 05:00
PROVIDERS: Visit Provider Family Medicine
DX: J44.9 Chronic obstructive pulmonary disease, unspecified (principal); F03.90 Unspecified dementia, unspecified severity, without behavioral disturbance, psychotic disturbance, mood disturbance, and anxiety; I10 Essential (primary) hypertension; E78.5 Hyperlipidemia, unspecified
CPT/HCPCS: 36415; 80048; 85027

== ENCOUNTER → 2021-01-08 05:00 | Outpatient (REF) | payer MEDICARE, OTHER, MEDICAID, SELFPAY ==
[2020-11-16 14:53] VITALS: BMI 27.1
[2021-01-08 10:19] LABS: Hematocrit 33.8 % (40-54); Hemoglobin 10.8 g/dL (13.0-16.5); Mean Corpuscular Hgb 29.9 pg (27.0-32.0); Mean Corpuscular Volume 93.6 fL (80-94); Mean Platelet Vol. 8.8 fl (6.2-12.0); Platelet Count 322 K/mm3 (150-450); RBC Distribution Width CV 14.1 % (11.6-14.6); RBC Distribution Width SD 48.3 fl (35.1-43.9); Red Blood Count 3.61 M/mm3 (4.6-6.2); White Blood Count 6.6 K/mm3 (4.4-11.0)
[2021-01-08 10:23] LABS: Anion Gap 7 (5-15); BUN 16 mg/dL (7-18); BUN/Creat Ratio 28.5 RATIO (10-20); Calcium,Total 8.9 mg/dL (8.5-10.1); Chloride 102 mmol/L (98-107); Creatinine, Serum 0.56 mg/dL (0.70-1.30); EST Glomerular Filtration Rate 149 mL/min (>60); Est Glom Filt Rate - Afr Amer 180 mL/min (>60); Glucose 91 mg/dL (74-106); Potassium 3.9 mmol/L (3.5-5.1); Sodium Level 137 mmol/L (136-145)
== END ==
LOC: OLS.SW300 05:00
PROVIDERS: Referring Provider Family Medicine; Visit Provider Family Medicine
DX: J44.9 Chronic obstructive pulmonary disease, unspecified (principal); N39.0 Urinary tract infection, site not specified; I10 Essential (primary) hypertension; E78.5 Hyperlipidemia, unspecified; J18.9 Pneumonia, unspecified organism
CPT/HCPCS: 36415; 80048; 85027

== ENCOUNTER → 2021-01-22 05:00 | Outpatient (REF) | payer MEDICARE, OTHER, MEDICAID, SELFPAY ==
[2020-11-16 14:53] VITALS: BMI 27.1
[2021-01-22 08:43] LABS: Anion Gap 7 (5-15); BUN 15 mg/dL (7-18); BUN/Creat Ratio 20.8 RATIO (10-20); Calcium,Total 8.8 mg/dL (8.5-10.1); Chloride 101 mmol/L (98-107); Creatinine, Serum 0.72 mg/dL (0.70-1.30); EST Glomerular Filtration Rate 111 mL/min (>60); Est Glom Filt Rate - Afr Amer 135 mL/min (>60); Glucose 103 mg/dL (74-106); Sodium Level 137 mmol/L (136-145)
[2021-01-22 08:49] LABS: Hematocrit 34.8 % (40-54); Hemoglobin 11.1 g/dL (13.0-16.5); Mean Corp Hgb Conc 31.9 g/dL (32-36); Mean Corpuscular Hgb 29.8 pg (27.0-32.0); Mean Corpuscular Volume 93.3 fL (80-94); Mean Platelet Vol. 9.2 fl (6.2-12.0); Platelet Count 315 K/mm3 (150-450); RBC Distribution Width CV 13.5 % (11.6-14.6); RBC Distribution Width SD 46.3 fl (35.1-43.9); Red Blood Count 3.73 M/mm3 (4.6-6.2); White Blood Count 7.5 K/mm3 (4.4-11.0)
[2021-01-29 02:54] VITALS: BMI 23.3
== END ==
LOC: OLS.SW300 05:00
PROVIDERS: Visit Provider Family Medicine
DX: I10 Essential (primary) hypertension (principal)
CPT/HCPCS: 36415; 80048; 85027

== ENCOUNTER 2021-01-29 02:53 | Emergency (ER) | payer OTHER, MEDICARE, MEDICAID, SELFPAY ==
[2020-11-16 14:53] VITALS: BMI 27.1
[2021-01-29] VITALS (9 sets, daily range): BP systolic 102–145; BP diastolic 64–95; PULSE 95–123; RESP 18–24; TEMP 36.3–36.6; O2SAT 80–99; BMI 23.3
[2021-01-29] MEDS: Ipratropium/Albuterol Sulfate 3 ML AMPUL.NEB INHALATION (03:03)
--- NOTE | 2021-01-29 03:03 | EKG12_ITS ---
Test Reason : DYSRHYTHMIA Blood Pressure : / mmHG Vent. Rate : 117 BPM Atrial Rate : 117 BPM P-R Int : 132 ms QRS Dur : 134 ms QT Int : 360 ms P-R-T Axes : -27 114 016 degrees QTc Int : 502 ms Undetermined rhythm :Consider Sinus Vs Etopic Atrial Rhythm with PSVC's Right bundle branch block Left posterior fascicular block Bifascicular block Abnormal ECG Confirmed by JUS MORALES, BALTAZAR ([id number]), book editor CLAUDY FERRARA ([id number]) on 01/31/2021 12:31:39 PM Referred By: PEGGY Confirmed By:BALTAZAR LUU MD
--- NOTE | 2021-01-29 03:05 | CT_ITS ---
STUDY: CT BRAIN WITHOUT CONTRAST REASON FOR EXAM: Male, 80 years old. Injury. TECHNIQUE: Transaxial CT imaging of the brain was performed without administration of intravenous contrast material. Individualized dose optimization techniques were used for this CT. COMPARISON: 11/16/2020 CT brain. FINDINGS: No evidence of intracranial hemorrhage, mass, acute infarct, or hydrocephalus. Chronic microangiopathic changes in the white matter. Atherosclerosis of the intracranial arteries. No skull fracture or acute osseous abnormality. Visualized paranasal sinuses and mastoid air cells patent. Visualized extracranial soft tissues unremarkable. Prominent degenerative pannus posterior to the dens similar to previous. CT/Brain/Head without Contrast IMPRESSION: No evidence of intracranial injury or skull fracture. Electronically Signed: Quentin Jimenez MD at 5:41 EDT Tel , Service support ,
--- NOTE | 2021-01-29 03:06 | ED.VIS.FALL ---
HPI HPI - Fall History of Present Illness Chief Complaint: Fall Informant: patient Occured/Mechanism Occurred: Today Pain/Injury Pain Location: head and chest Quality of Pain: Sharp Current Severity: Mild Maximum Severity: Mild Associated Symptoms Associated Symptoms: Negative for Parasthesias, Weakness, Loss of function, Inability to ambulate, Loss of consciousness and Amnesia Narrative Narrative: 80-year-old male history of lung CA and COPD. [facility] he says he slipped and fell on water. Hit his right ear and his right lower rib cage. Since the fall has developed shortness of breath. He denies fever or chills. He denies headache or neck pain. Is a laceration to his right ear. He denies any abdominal pain. Tetanus Immunization: <5 years Prior similar symptoms: No Recent Illness/Hospitalization: No PFSH PFSH Medical History Anxiety disorder Asthma Bipolar disorder Constipation COPD (chronic obstructive pulmonary disease) COPD (chronic obstructive pulmonary disease) Dementia Essential (primary) hypertension Former smoker Former smoker h/o back surgery Hearing loss, left Hearing loss, right HTN (hypertension) Hyperlipidemia Lung cancer Major depressive disorder Multiple rib fractures Multiple sclerosis Nondisplaced posterior arch fracture of first cervical vertebra PASQUALE (obstructive sleep apnea) Sleep apnea Sleep apnea unspecified fracture of third metacarpal bone, left hand unspecifiedfracture of fourth metacarpal bone, left hand UTI (urinary tract infection) Home Medications albuterol sulfate 90 mcg/actuation aerosol inhaler 2 puff INHALATION Q6H PRN 08/31/20 [History Last Taken Unknown] atorvastatin 40 mg tablet 40 mg PO QPM 08/31/20 [History Last Taken 11/15/20] baclofen 5 mg tablet 10 mg PO TID 08/31/20 [History Last Taken 11/16/20] budesonide-formoterol HFA 160 mcg-4.5 mcg/actuation aerosol inhaler 2 puff INHALATION BID 08/31/20 [History Last Taken 11/16/20] cholecalciferol (vitamin D3) 50 mcg (2,000 unit) capsule 50 mcg PO QHS 08/31/20 [History Last Taken 11/15/20] clopidogrel 75 mg tablet 75 mg PO DAILY 08/31/20 [History Last Taken 11/15/20] ferrous sulfate 325 mg (65 mg iron) tablet 325 mg PO DAILY 08/31/20 [History Last Taken 11/16/20] fluticasone propionate 50 mcg/actuation nasal spray,suspension 2 spray INTRANASAL QHS 08/31/20 [History Last Taken 11/15/20] lamotrigine 100 mg tablet 100 mg PO BID 08/31/20 [History Last Taken 11/16/20] loratadine 10 mg tablet 10 mg PO DAILY 08/31/20 [History Last Taken 11/16/20] montelukast 10 mg tablet 10 mg PO QHS 08/31/20 [History Last Taken 11/15/20] terazosin 10 mg capsule 10 mg PO QHS 08/31/20 [History Last Taken 11/15/20] calcium carbonate-vitamin D3 1 tablet PO BIDCM 11/02/20 [History Last Taken 11/16/20] ropinirole 0.25 mg PO QHS 11/02/20 [History Last Taken 11/15/20] divalproex 125 mg PO QHS 11/16/20 [History Last Taken 11/15/20] lisinopril 20 mg PO DAILY 11/16/20 [History Last Taken 11/16/20] venlafaxine 150 mg PO BID 11/16/20 [History Last Taken 11/16/20] cephalexin 500 mg PO TID 5 Days #15 cap 01/29/21 [Rx Last Taken Unknown] hydrocodone-acetaminophen 1 tab PO Q4H PRN 7 Days #20 tab 01/29/21 [Rx Last Taken Unknown] oxycodone 5 mg PO TID 01/29/21 [History Last Taken Unknown] Allergy/AdvReac Type Severity Reaction Status Date / Time tramadol AdvReac Itching Verified 01/29/21 02:59 Family History Other CVA (cerebral vascular accident) Cancer Hypertension Surgical History H/O hernia repair History of AAA (abdominal aortic aneurysm) repair S/P partial lobectomy of lung Social History housing: [facility] Smoking Status: Former smoker alcohol intake: never what type of physical activity do you participate in: additional details: physical therapy ROS ROS ED ROS Narrative Patient denies recent illness. Complaining of right ear pain from the fall and the laceration. Right rib cage pain. Review of Systems ROS Unobtainable: Denies due to encephalopathy Constitutional Constitutional ED: Denies chills or fever(s) Eyes Eyes: Denies change in vision ENT ENT ED: Reports ear pain Cardiovascular Cardiovascular: Reports chest pain Respiratory/Chest Respiratory/Chest: Reports dyspnea Gastrointestinal Gastrointestinal: Denies abdominal pain, diarrhea, nausea or vomiting Genitourinary Genitourinary ED: Denies dysuria or hematuria Musculoskeletal Musculoskeletal: Denies myalgias Integumentary Denies rash Neurologic Neurologic: Denies headache(s) Psychiatric Psychiatric: Denies depression Endocrine Endocrinology: Denies polyuria Hematologic/Lymphatic Hematologic/Lymphatic: Denies easy bruising Allergic/Immunologic Allergic/Immunologic ED: Denies urticaria EXAM Physical Exam Narrative Exam Narrative: Elderly male respiratory distress. Vital signs stable pulse ox 80% on nonrebreather when I am in the room he is in the 92% range on a nonrebreather. HEENT exam is round reactive light. He has a significant laceration the top of his right ear which will need to be repaired. There is mild bleeding. No trauma to his face or scalp. C-spine nontender trachea midline. Lungs coarse breath sounds throughout. Increased respiratory rate. Right rib cage tenderness. No ecchymosis or bruising. No subcu air crepitance. Left rib cage nontender. Heart tachycardic rate about 120. Abdomen soft nontender normal bowel sounds no peritoneal signs. No bruising. Pelvic girdle intact. Moving all 4 extremities. Nontender no deformity. Back nontender. Neurologically is awake alert. Answering questions following commands. Moving his extremities. Const Vital Signs: 01/29/21 02:53 01/29/21 02:54 01/29/21 02:57 Temperature 97.4 F L 97.4 F L Temperature Source Temporal Temporal Pulse Rate 123 H 123 H Respiratory Rate 24 H 24 H Respiratory Effort Respiratory Depth Respiratory Pattern Blood Pressure 145/95 H 145/95 H Blood Pressure Mean 111 111 Pulse Ox 89 80 80 Oxygen Delivery Method Non-Rebreather Non-Rebreather Non-Rebreather Oxygen Flow Rate (L/min) 15 15 15 Fraction of Inspired Oxygen (FIO2) 01/29/21 03:03 01/29/21 03:06 01/29/21 03:08 Temperature Temperature Source Pulse Rate 116 H Respiratory Rate 24 H Respiratory Effort Short of Breath Labored Labored Accessory Muscle Use Respiratory Depth Shallow Deep Respiratory Pattern Tachypnea Tachypnea Blood Pressure Blood Pressure Mean Pulse Ox 92 Oxygen Delivery Method Venturi Mask Non-Rebreather Non-Rebreather Oxygen Flow Rate (L/min) 12 15 15 Fraction of Inspired Oxygen (FIO2) 50 01/29/21 04:54 01/29/21 06:10 01/29/21 07:00 Temperature 97.9 F Temperature Source Temporal Pulse Rate 116 H 105 H 115 H Respiratory Rate 20 H 18 19 H Respiratory Effort Respiratory Depth Respiratory Pattern Blood Pressure 102/64 124/76 H 121/87 H Blood Pressure Mean 76 92 98 Pulse Ox 97 99 92 Oxygen Delivery Method Venturi Mask Room Air Venturi Mask Oxygen Flow Rate (L/min) 8 8 Fraction of Inspired Oxygen (FIO2) 40 01/29/21 08:04 Temperature 97.6 F L Temperature Source Temporal Pulse Rate 107 H Respiratory Rate 19 H Respiratory Effort Respiratory Depth Respiratory Pattern Blood Pressure 130/85 H Blood Pressure Mean 100 Pulse Ox 95 Oxygen Delivery Method Oxygen Flow Rate (L/min) Fraction of Inspired Oxygen (FIO2) Positive well nourished and well developed General Appearance ED: well developed; Negative for NAD HEENT Reports normocephalic HEENT Narrative: Laceration tenderness to his right upper outer ear. trauma and tenderness; Negative for atraumatic Eyes PERRL and EOMs intact bilaterally Neck full ROM, no lymphadenopathy and supple General: Negative for tenderness Chest Wall Negative for inspection of chest normal or palpation of chest normal Chest Narrative: Tender right lower rib cage. No crepitance or subcu air. Resp No normal respiratory effort, No no retractions and No clear to auscultation bilaterally Resp Narrative: Increased respiratory effort and rate. Auscultation: rhonchi and wheezes; Negative for rales Cardio regular rhythm, S1 normal heart sound, S2 normal heart sound and no murmurs Rate: tachycardic GI non-tender, non-distended and no masses GI Narrative: No abdominal tenderness. Auscultation: normoactive bowel sounds Palpation: soft; Negative for guarding Back/Spine no CVA tenderness Cervical Spine: Negative for cervical spine tenderness Thoracic Spine / Upper Back: Negative for thoracic spinal tenderness Lumbar Spine / Lower Back: Negative for lumbar spinal tenderness Extremity normal to inspection and no joint enlargement Neuro oriented x3, CN's II-XII intact bilaterally and moves all extremities Philippe Coma Scale: document GCS findings Spontaneous Obeys Commands Oriented 15 Sensorium / Orientation: alert, oriented to person, oriented to place and oriented to time; Negative for confused, lethargic or stuporous Psych mental status grossly normal and thought process normal Skin Lesions: no lesions Rashes: no rashes MDM MDM MDM Narrative Medical decision making narrative: Elderly male [facility] history of lung CA and COPD. Fell injured right rib cage now short of breath and hypoxic. COPD exacerbation treated with aerosols and Solu-Medrol. Chest x-ray to rule out pneumothorax or rib fractures. Labs also being obtained. Right ear laceration which will need to be repaired. Discussed with the extended care facility prior to patient discharge. Also called his power of medical billing specialist who happens to be his ex- Jessica. Lab Data Lab results narrative: CBC shows a white count of 14.7. Hemoglobin 12.5. Electrolytes unremarkable gap of 9. Creatinine 0.8. Radiologist read the CAT scan is unremarkable with chronic findings. Chest x-ray was read as chronic changes. However on my interpretation I do think patient has acute rib fractures #7 #8 laterally. Labs: Laboratory Results - last 24 hr 01/29/21 01/29/21 03:15 03:15 WBC 14.7 H RBC 4.18 L Hgb 12.5 L Hct 39.1 L MCV 93.5 MCH 29.9 MCHC 32.0 RDW Std Deviation 45.3 H RDW Coeff of Melany 13.3 Plt Count 303 MPV 8.9 Immature Gran % (Auto) 0.300 Neut % (Auto) 86.6 H Lymph % (Auto) 7.5 L Gila % (Auto) 5.0 Eos % (Auto) 0.3 Baso % (Auto) 0.3 Absolute Neuts (auto) 12.7 H Absolute Lymphs (auto) 1.10 Nucleated RBC % 0 Sodium 134 L Potassium 4.5 Chloride 99 Carbon Dioxide 26.0 Anion Gap 9 BUN 20 H Creatinine 0.87 Estim Creat Clear Calc 65.52 Est GFR (MDRD) Af Amer 108 Est GFR (MDRD) Non-Af 90 BUN/Creatinine Ratio 23.0 H Glucose 130 H Calcium 9.3 Radiography Diagnostic Testing: Radiology Impression Brain CT 01/29/21 03:05 IMPRESSION: No evidence of intracranial injury or skull fracture. Electronically Signed: Quentin Jimenez MD at 5:41 EDT Tel , Service support , Chest X-Ray 01/29/21 04:09 IMPRESSION: No acute findings. Chronic findings similar to previous include cardiomegaly, partial right pneumonectomy, and chronic fibrotic changes in the lungs. Electronically Signed: Quentin Jimenez MD at 5:45 EDT Tel , Service support , Rhythm Strip Rhythm Strip: Sinus Tach Rate: 117 Ectopy: None EKG Initial EKG: Attestation: I personally reviewed and interpreted this EKG as follows: Interpretation: Sinus Rhythm, No Acute Injury Pattern and Sinus Tachycardia Comments: Sinus tachycardia rate of 117. Right bundle lauren block and also a left posterior fascicular block. Prior EKG tracings: not available for review Procedures Lacerations Right ear laceration: Length: 3 in Depth: Ear cartilage Shape: Linear Prep: Sterile Conditions and Shure-Clens Laceration repair: Irrigated, Lidocaine, Local and Skin sutures Irrigated (ml): 50 Number of Sutures/[place]: 9 Suture Information: Ethilon and Simple Comment: Patient with a complex radial laceration involving skin, subcu tissue and external ear cartilage. Locally anesthetized. Cleaned with Shur-Clens. Irrigated and explored. This is a very irregular laceration. It was pulled together using combination of 4 and 5-0 Ethilon simple interrupted sutures. Patient tolerated procedure well. Critical Care Time Critical Care Time: Yes Critical care time (excluding procedures): 30-74 minutes, Including time spent:, Discussing w/Patient &/or Family/Explosives Detonator, Discussing w/Consultants, Arranging Admission or Transfer, Performing Direct Patient Care at Bedside and - (32 minutes.) Discharge Plan Triage Chief Complaint: Fall ED Provider: Abelino Langley Dx/Rx/DC Orders Clinical Impression: Fall, Right rib fracture, Complex laceration of right ear Instructions: ED Fall with Uncertain Cause, ED Rib Fracture, ED Laceration: All Closures Prescriptions: New hydrocodone-acetaminophen 5-325 mg tablet 1 tab PO Q4H PRN (Reason: pain) 7 Days Qty: 20 RF: 0 cephalexin 500 mg capsule 500 mg PO TID 5 Days Qty: 15 RF: 0 No Action albuterol sulfate [Ventolin HFA] 90 mcg/actuation HFA aerosol inhaler 2 puff INHALATION Q6H PRN (Reason: Sob &/Or Wheezing) RF: 0 terazosin 10 mg capsule 10 mg PO QHS RF: 0 budesonide-formoterol [Symbicort] 160-4.5 mcg/actuation HFA aerosol inhaler 2 puff INHALATION BID RF: 0 montelukast 10 mg tablet 10 mg PO QHS RF: 0 loratadine 10 mg tablet 10 mg PO DAILY RF: 0 lamotrigine 100 mg tablet 100 mg PO BID RF: 0 atorvastatin 40 mg tablet 40 mg PO QPM RF: 0 baclofen 5 mg tablet 10 mg PO TID RF: 0 cholecalciferol (vitamin D3) 50 mcg (2,000 unit) capsule 50 mcg PO QHS RF: 0 clopidogrel 75 mg tablet 75 mg PO DAILY RF: 0 ferrous sulfate 325 mg (65 mg iron) tablet 325 mg PO DAILY RF: 0 fluticasone propionate [Allergy Relief (fluticasone)] 50 mcg/actuation spray,suspension 2 spray INTRANASAL QHS RF: 0 ropinirole 0.25 MG tablet 0.25 mg PO QHS RF: 0 calcium carbonate-vitamin D3 1 TAB tablet 1 tablet PO BIDCM RF: 0 lisinopril 20 mg Tablet 20 mg PO DAILY RF: 0 venlafaxine 150 mg Capsule,Extended Release 24hr 150 mg PO BID RF: 0 divalproex 125 mg Tablet,Delayed Release (Dr/Ec) 125 mg PO QHS RF: 0 oxycodone 5 mg Tablet 5 mg PO TID RF: 0 Primary Care Provider: Daljit Curtis Referrals: Daljit Curtis MD [Primary Care Provider] - As soon as possible Activity Restrictions/Additional Instructions: You have a large laceration of your right ear. The stitches need to come out in 10 days. Keep the area clean and dry. May shower or bathe but dry it thoroughly once done. Apply antibiotic ointment twice daily. You have 2 broken ribs on your right chest wall. Ice to that area. Brace the ribs with a pillow. Disposition Disposition: Home, Self Care
[2021-01-29] MEDS: Lidocaine 1% (20 ml mdv) 20 ML Vial 10 ML INFILT (03:15)
[2021-01-29] MEDS: MethylPREDNISolone 125 MG/2 ML Vial IV (03:15)
[2021-01-29] MEDS: Albuterol 2.5 MG/3 ML VIAL.NEB. INHALATION ×2 (03:22→03:23)
[2021-01-29 03:24] LABS: Absolute Neutrophil Count 12.7 X10^3/uL (2.0-7.7); Basophil# 0.04 X10^3/uL; Basophil% 0.3 % (0-1); Eosinophil# 0.05 X10^3/uL; Eosinophils% 0.3 % (0-5); Hematocrit 39.1 % (40-54); Hemoglobin 12.5 g/dL (13.0-16.5); Lymphocyte % 7.5 % (19-41); Mean Corpuscular Hgb 29.9 pg (27.0-32.0); Mean Corpuscular Volume 93.5 fL (80-94); Mean Platelet Vol. 8.9 fl (6.2-12.0); Monocyte# 0.74 X10^3/uL; NRBC Flagged by Analyzer 0 % (0-5); Neutrophil # 12.71 X10^3/uL (2.7-7.7); Neutrophil % 86.6 % (47-70); Platelet Count 303 K/mm3 (150-450); RBC Distribution Width CV 13.3 % (11.6-14.6); RBC Distribution Width SD 45.3 fl (35.1-43.9); Red Blood Count 4.18 M/mm3 (4.6-6.2); White Blood Count 14.7 K/mm3 (4.4-11.0)
[2021-01-29 03:37] LABS: Anion Gap 9 (5-15); BUN 20 mg/dL (7-18); Calcium,Total 9.3 mg/dL (8.5-10.1); Chloride 99 mmol/L (98-107); Creatinine, Serum 0.87 mg/dL (0.70-1.30); EST Glomerular Filtration Rate 90 mL/min (>60); Est Glom Filt Rate - Afr Amer 108 mL/min (>60); Estimated Creatinine Clearance 65.52 ml/min; Glucose 130 mg/dL (74-106); Potassium 4.5 mmol/L (3.5-5.1); Sodium Level 134 mmol/L (136-145)
--- NOTE | 2021-01-29 03:48 | CPS ---
x2 Albuterol given to pt. in ER as well
--- NOTE | 2021-01-29 04:09 | RAD_ITS ---
STUDY: X-RAY CHEST REASON FOR EXAM: Male, 80 years old. Short of breath. TECHNIQUE: AP COMPARISON: 11/16/2020 CXR FINDINGS: No evidence of pneumonia, pulmonary edema, pneumothorax or pleural effusion. Status post partial right pneumonectomy with right hilar surgical clips and elevation of the right hemidiaphragm. Chronic fibrotic changes in both lungs similar to previous. Cardiac silhouette, hilar and mediastinal contours with no acute findings. Mild cardiomegaly. Atherosclerosis and tortuosity of the thoracic aorta. Degenerative osseous changes with no acute osseous abnormality. Cervical spine fusion hardware. RAD/Chest 1 View (Portable) IMPRESSION: No acute findings. Chronic findings similar to previous include cardiomegaly, partial right pneumonectomy, and chronic fibrotic changes in the lungs. Electronically Signed: Quentin Jimenez MD at 5:45 EDT Tel , Service support ,
--- NOTE | 2021-01-29 06:19 | ED.RN ---
02 decreased to 6lnc
--- NOTE | 2021-01-29 10:02 | ED.RN ---
RN REPORT GIVEN TO ETHEL AT [facility]. RN WITH NO FURTHER QUESTIONS OR CONCERNS.
== END 2021-01-29 10:25 | disposition home or self-care (01) ==
PROVIDERS: Emergency Provider Emergency Medicine; PCP Family Medicine
DX: S22.31XA Fracture of one rib, right side, initial encounter for closed fracture (principal); S01.311A Laceration without foreign body of right ear, initial encounter; I10 Essential (primary) hypertension; E78.5 Hyperlipidemia, unspecified; J44.9 Chronic obstructive pulmonary disease, unspecified; Z87.891 Personal history of nicotine dependence; Z79.899 Other long term (current) drug therapy; W01.0XXA Fall on same level from slipping, tripping and stumbling without subsequent striking against object, initial encounter
CPT/HCPCS: 13152; 70450; 71045; 80048; 85025; 90715; 93005; 94640; 96374; 99251; 99285; A4216; G0463

== ENCOUNTER → 2021-02-05 04:00 | Outpatient (REF) | payer MEDICARE, OTHER, MEDICAID, SELFPAY ==
[2021-01-29 02:54] VITALS: BMI 23.3
[2021-02-05 08:30] LABS: Hematocrit 34.7 % (40-54); Hemoglobin 11.1 g/dL (13.0-16.5); Mean Corpuscular Hgb 29.5 pg (27.0-32.0); Mean Corpuscular Volume 92.3 fL (80-94); Mean Platelet Vol. 9.2 fl (6.2-12.0); Platelet Count 312 K/mm3 (150-450); Red Blood Count 3.76 M/mm3 (4.6-6.2)
[2021-02-05 08:45] LABS: Anion Gap 5 (5-15); BUN 17 mg/dL (7-18); Chloride 103 mmol/L (98-107); Creatinine, Serum 0.52 mg/dL (0.70-1.30); EST Glomerular Filtration Rate 164 mL/min (>60); Est Glom Filt Rate - Afr Amer 199 mL/min (>60); Glucose 95 mg/dL (74-106); Potassium 4.1 mmol/L (3.5-5.1); Sodium Level 136 mmol/L (136-145)
== END ==
LOC: OLS.SW300 04:00
PROVIDERS: PCP Family Medicine; Referring Provider Family Medicine; Visit Provider Family Medicine
DX: I10 Essential (primary) hypertension (principal)
CPT/HCPCS: 36415; 80048; 85027

== ENCOUNTER → 2021-02-12 04:00 | Outpatient (REF) | payer MEDICARE, OTHER, MEDICAID, SELFPAY ==
[2021-01-29 02:54] VITALS: BMI 23.3
[2021-02-12 08:19] LABS: Hematocrit 33.8 % (40-54); Hemoglobin 10.7 g/dL (13.0-16.5); Mean Corp Hgb Conc 31.7 g/dL (32-36); Mean Corpuscular Hgb 29.1 pg (27.0-32.0); Mean Corpuscular Volume 91.8 fL (80-94); Platelet Count 341 K/mm3 (150-450); RBC Distribution Width CV 13.1 % (11.6-14.6); RBC Distribution Width SD 44.2 fl (35.1-43.9); Red Blood Count 3.68 M/mm3 (4.6-6.2)
[2021-02-12 08:40] LABS: Anion Gap 5 (5-15); BUN 26 mg/dL (7-18); BUN/Creat Ratio 44.5 RATIO (10-20); Calcium,Total 8.9 mg/dL (8.5-10.1); Chloride 102 mmol/L (98-107); Creatinine, Serum 0.58 mg/dL (0.70-1.30); EST Glomerular Filtration Rate 142 mL/min (>60); Est Glom Filt Rate - Afr Amer 172 mL/min (>60); Glucose 90 mg/dL (74-106); Potassium 4.2 mmol/L (3.5-5.1); Sodium Level 134 mmol/L (136-145)
== END ==
LOC: OLS.SW300 04:00
PROVIDERS: PCP Family Medicine; Visit Provider Family Medicine
DX: J44.9 Chronic obstructive pulmonary disease, unspecified (principal)
CPT/HCPCS: 36415; 80048; 85027

== ENCOUNTER → 2021-02-19 04:00 | Outpatient (REF) | payer MEDICARE, OTHER, MEDICAID, SELFPAY ==
[2021-01-29 02:54] VITALS: BMI 23.3
[2021-02-19 07:56] LABS: Hematocrit 31.8 % (40-54); Hemoglobin 10.2 g/dL (13.0-16.5); Mean Corp Hgb Conc 32.1 g/dL (32-36); Mean Corpuscular Hgb 29.2 pg (27.0-32.0); Mean Corpuscular Volume 91.1 fL (80-94); Mean Platelet Vol. 9.2 fl (6.2-12.0); Platelet Count 302 K/mm3 (150-450); RBC Distribution Width CV 12.8 % (11.6-14.6); RBC Distribution Width SD 42.8 fl (35.1-43.9); Red Blood Count 3.49 M/mm3 (4.6-6.2); White Blood Count 5.6 K/mm3 (4.4-11.0)
[2021-02-19 08:04] LABS: Anion Gap 7 (5-15); BUN 18 mg/dL (7-18); Calcium,Total 8.8 mg/dL (8.5-10.1); Chloride 101 mmol/L (98-107); Creatinine, Serum 0.46 mg/dL (0.70-1.30); EST Glomerular Filtration Rate 186 mL/min (>60); Est Glom Filt Rate - Afr Amer 225 mL/min (>60); Glucose 89 mg/dL (74-106); Sodium Level 135 mmol/L (136-145)
== END ==
LOC: OLS.SW300 04:00
PROVIDERS: PCP Family Medicine; Visit Provider Family Medicine
DX: J44.9 Chronic obstructive pulmonary disease, unspecified (principal)
CPT/HCPCS: 36415; 80048; 85027

== ENCOUNTER → 2021-02-26 04:00 | Outpatient (REF) | payer MEDICARE, OTHER, MEDICAID, SELFPAY ==
[2021-01-29 02:54] VITALS: BMI 23.3
[2021-02-26 06:48] LABS: Hematocrit 33.5 % (40-54); Hemoglobin 10.5 g/dL (13.0-16.5); Mean Corp Hgb Conc 31.3 g/dL (32-36); Mean Corpuscular Hgb 28.8 pg (27.0-32.0); Mean Platelet Vol. 9.2 fl (6.2-12.0); Platelet Count 278 K/mm3 (150-450); RBC Distribution Width SD 43.9 fl (35.1-43.9); Red Blood Count 3.64 M/mm3 (4.6-6.2); White Blood Count 8.7 K/mm3 (4.4-11.0)
[2021-02-26 07:02] LABS: Anion Gap 5 (5-15); BUN 13 mg/dL (7-18); BUN/Creat Ratio 23.8 RATIO (10-20); Calcium,Total 9.1 mg/dL (8.5-10.1); Chloride 101 mmol/L (98-107); Creatinine, Serum 0.55 mg/dL (0.70-1.30); EST Glomerular Filtration Rate 153 mL/min (>60); Est Glom Filt Rate - Afr Amer 185 mL/min (>60); Glucose 94 mg/dL (74-106); Sodium Level 134 mmol/L (136-145)
== END ==
LOC: OLS.SW300 04:00
PROVIDERS: PCP Family Medicine; Visit Provider Family Medicine
DX: I10 Essential (primary) hypertension (principal)
CPT/HCPCS: 36415; 80048; 85027

== ENCOUNTER → 2021-03-05 05:00 | Outpatient (REF) | payer MEDICARE, OTHER, MEDICAID, SELFPAY ==
[2021-03-05 09:12] LABS: Hematocrit 34.6 % (40-54); Hemoglobin 10.8 g/dL (13.0-16.5); Mean Corp Hgb Conc 31.2 g/dL (32-36); Mean Corpuscular Hgb 28.6 pg (27.0-32.0); Mean Corpuscular Volume 91.5 fL (80-94); Mean Platelet Vol. 9.2 fl (6.2-12.0); Platelet Count 307 K/mm3 (150-450); RBC Distribution Width CV 13.1 % (11.6-14.6); RBC Distribution Width SD 43.8 fl (35.1-43.9); Red Blood Count 3.78 M/mm3 (4.6-6.2); White Blood Count 6.9 K/mm3 (4.4-11.0)
[2021-03-05 09:16] LABS: Anion Gap 6 (5-15); BUN 15 mg/dL (7-18); BUN/Creat Ratio 32.7 RATIO (10-20); Calcium,Total 9.2 mg/dL (8.5-10.1); Chloride 101 mmol/L (98-107); Creatinine, Serum 0.46 mg/dL (0.70-1.30); EST Glomerular Filtration Rate 187 mL/min (>60); Est Glom Filt Rate - Afr Amer 227 mL/min (>60); Glucose 93 mg/dL (74-106); Sodium Level 136 mmol/L (136-145)
== END ==
LOC: OLS.SW300 05:00
PROVIDERS: PCP Family Medicine; Visit Provider Family Medicine
DX: I10 Essential (primary) hypertension (principal)
CPT/HCPCS: 36415; 80048; 85027

== ENCOUNTER 2021-03-10 18:27 | Emergency (ER) | payer OTHER, MEDICARE, MEDICAID, SELFPAY ==
[2021-03-10 18:29] VITALS: BP 139/91; PULSE 79; RESP 18; TEMP 37.1; O2SAT 92; BMI 23.9
--- NOTE | 2021-03-10 18:38 | EX.ED.DYSGE1 ---
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 Chahal was removed because he complained of pain in sores. He has no other complaints. He is not a good informant. Nursing documents were reviewed. Prior similar symptoms: No Recent Illness/Hospitalization: No PFSH PFSH Medical History Anxiety disorder Asthma Bipolar disorder Constipation COPD (chronic obstructive pulmonary disease) COPD (chronic obstructive pulmonary disease) Dementia Essential (primary) hypertension Former smoker Former smoker h/o back surgery Hearing loss, left Hearing loss, right HTN (hypertension) Hyperlipidemia Lung cancer Major depressive disorder Multiple rib fractures Multiple sclerosis Nondisplaced posterior arch fracture of first cervical vertebra PASQUALE (obstructive sleep apnea) Sleep apnea Sleep apnea unspecified fracture of third metacarpal bone, left hand unspecifiedfracture of fourth metacarpal bone, left hand UTI (urinary tract infection) Home Medications albuterol sulfate 90 mcg/actuation aerosol inhaler 2 puff INHALATION Q6H PRN 08/31/20 [History Last Taken Unknown] atorvastatin 40 mg tablet 40 mg PO QPM 08/31/20 [History Last Taken 11/15/20] baclofen 5 mg tablet 10 mg PO TID 08/31/20 [History Last Taken 11/16/20] budesonide-formoterol HFA 160 mcg-4.5 mcg/actuation aerosol inhaler 2 puff INHALATION BID 08/31/20 [History Last Taken 11/16/20] cholecalciferol (vitamin D3) 50 mcg (2,000 unit) capsule 50 mcg PO QHS 08/31/20 [History Last Taken 11/15/20] clopidogrel 75 mg tablet 75 mg PO DAILY 08/31/20 [History Last Taken 11/15/20] ferrous sulfate 325 mg (65 mg iron) tablet 325 mg PO DAILY 08/31/20 [History Last Taken 11/16/20] fluticasone propionate 50 mcg/actuation nasal spray,suspension 2 spray INTRANASAL QHS 08/31/20 [History Last Taken 11/15/20] lamotrigine 100 mg tablet 100 mg PO BID 08/31/20 [History Last Taken 11/16/20] loratadine 10 mg tablet 10 mg PO DAILY 08/31/20 [History Last Taken 11/16/20] montelukast 10 mg tablet 10 mg PO QHS 08/31/20 [History Last Taken 11/15/20] terazosin 10 mg capsule 10 mg PO QHS 08/31/20 [History Last Taken 11/15/20] calcium carbonate-vitamin D3 1 tablet PO BIDCM 11/02/20 [History Last Taken 11/16/20] ropinirole 0.25 mg PO QHS 11/02/20 [History Last Taken 11/15/20] divalproex 125 mg PO QHS 11/16/20 [History Last Taken 11/15/20] lisinopril 20 mg PO DAILY 11/16/20 [History Last Taken 11/16/20] venlafaxine 150 mg PO BID 11/16/20 [History Last Taken 11/16/20] cephalexin 500 mg PO TID 5 Days #15 cap 01/29/21 [Rx Last Taken Unknown] hydrocodone-acetaminophen 1 tab PO Q4H PRN 7 Days #20 tab 01/29/21 [Rx Last Taken Unknown] oxycodone 5 mg PO TID 01/29/21 [History Last Taken Unknown] Allergy/AdvReac Type Severity Reaction Status Date / Time tramadol AdvReac Itching Verified 03/10/21 18:35 Family History Other CVA (cerebral vascular accident) Cancer Hypertension Surgical History H/O hernia repair History of AAA (abdominal aortic aneurysm) repair S/P partial lobectomy of lung Social History housing: [facility] Smoking Status: Former smoker alcohol intake: never what type of physical activity do you participate in: additional details: physical therapy ROS ROS ED Review of Systems ROS Unobtainable: due to mental condition and due to mental status Constitutional Constitutional ED: Denies chills or fever(s) Eyes Eyes: Denies blurry vision or change in vision ENT ENT ED: Denies rhinorrhea or sore throat Cardiovascular Cardiovascular: Denies chest pain Respiratory/Chest Respiratory/Chest: Denies dyspnea Gastrointestinal Gastrointestinal: Denies abdominal pain, nausea or vomiting Genitourinary Genitourinary ED: Reports other Details: Pain tip of my penis Musculoskeletal Musculoskeletal: Denies arthralgias, back pain or myalgias Integumentary Reports rash Allergic/Immunologic Allergic/Immunologic ED: Denies urticaria EXAM Physical Exam Const Vital Signs: 03/10/21 18:29 Temperature 98.7 F Temperature Source Temporal Pulse Rate 79 Respiratory Rate 18 Blood Pressure 139/91 H Blood Pressure Mean 107 Pulse Ox 92 Oxygen Delivery Method Room Air Positive well nourished and well developed General Appearance ED: well developed and NAD HEENT Reports moist mucous membranes HEENT Narrative: Heads atraumatic no cephalic. Ears normal. Nares patent. Posterior pharynx erythema exudate. Eyes PERRL and EOMs intact bilaterally General Eye ED: Negative for pale conjunctiva or scleral icterus Neck no lymphadenopathy, supple and no JVD Chest Wall inspection of chest normal and palpation of chest normal Resp normal respiratory effort and clear to auscultation bilaterally Cardio regular rate, regular rhythm, S1 normal heart sound, S2 normal heart sound and no murmurs GI normal to inspection, nondistended, normoactive bowel sounds and non-tender Palpation: soft Narrative: Hypospadias with 2 ulcerative painful lesions noted on either side of the urethra. This may be due to irritation from Chahal or HSV. Will obtain HSV culture. Back/Spine no CVA tenderness Extremity normal to inspection General Extremety ED: Negative for edema General Extremity: Negative for edema Neuro No oriented x3, CN's II-XII intact bilaterally and no sensory deficits noted Sensorium / Orientation: alert Psych Mood & Affect: anxious Skin No no rashes or lesions noted MDM MDM MDM Narrative Medical decision making narrative: Chahal catheter was ordered since he has this urinary retention and will obtained sample for HSV PCR to evaluate for herpes infection. Discharge Plan Triage Chief Complaint: Chahal C/O ED Provider: Bharath Liao Dx/Rx/DC Orders Clinical Impression: Ulcer of urethral meatus, Chahal catheter problem Prescriptions: No Action albuterol sulfate [Ventolin HFA] 90 mcg/actuation HFA aerosol inhaler 2 puff INHALATION Q6H PRN (Reason: Sob &/Or Wheezing) RF: 0 terazosin 10 mg capsule 10 mg PO QHS RF: 0 budesonide-formoterol [Symbicort] 160-4.5 mcg/actuation HFA aerosol inhaler 2 puff INHALATION BID RF: 0 montelukast 10 mg tablet 10 mg PO QHS RF: 0 loratadine 10 mg tablet 10 mg PO DAILY RF: 0 lamotrigine 100 mg tablet 100 mg PO BID RF: 0 atorvastatin 40 mg tablet 40 mg PO QPM RF: 0 baclofen 5 mg tablet 10 mg PO TID RF: 0 cholecalciferol (vitamin D3) 50 mcg (2,000 unit) capsule 50 mcg PO QHS RF: 0 clopidogrel 75 mg tablet 75 mg PO DAILY RF: 0 ferrous sulfate 325 mg (65 mg iron) tablet 325 mg PO DAILY RF: 0 fluticasone propionate [Allergy Relief (fluticasone)] 50 mcg/actuation spray,suspension 2 spray INTRANASAL QHS RF: 0 ropinirole 0.25 MG tablet 0.25 mg PO QHS RF: 0 calcium carbonate-vitamin D3 1 TAB tablet 1 tablet PO BIDCM RF: 0 lisinopril 20 mg Tablet 20 mg PO DAILY RF: 0 venlafaxine 150 mg Capsule,Extended Release 24hr 150 mg PO BID RF: 0 divalproex 125 mg Tablet,Delayed Release (Dr/Ec) 125 mg PO QHS RF: 0 oxycodone 5 mg Tablet 5 mg PO TID RF: 0 hydrocodone-acetaminophen 5-325 mg tablet 1 tab PO Q4H PRN (Reason: pain) 7 Days Qty: 20 RF: 0 cephalexin 500 mg capsule 500 mg PO TID 5 Days Qty: 15 RF: 0 Primary Care Provider: Daljit Curtis Referrals: Daljit Curtis MD [Primary Care Provider] - Disposition Disposition: Fdc Facility Discharge Location: [facility]
[2021-03-10] MEDS: Lidocaine 2% Jelly 1 APPLIC Tube TOPICAL (19:00)
[2021-03-10 19:34] VITALS: BP 129/76; PULSE 70; RESP 15; TEMP 36.6; O2SAT 99
--- NOTE | 2021-03-10 20:30 | NURSING ---
Report called to Carmen at [facility].
[2021-03-15 08:09] LABS: HSV 1 By PCR Negative (Negative)
[2021-03-15 08:26] LABS: HSV 2 By PCR Negative (Negative)
== END 2021-03-10 21:22 | disposition skilled nursing facility (03) ==
LOC: ED 19:05
PROVIDERS: Emergency Provider Emergency Medicine; PCP Family Medicine
DX: N34.2 Other urethritis (principal); T83.9XXA Unspecified complication of genitourinary prosthetic device, implant and graft, initial encounter; J44.9 Chronic obstructive pulmonary disease, unspecified; I10 Essential (primary) hypertension; E78.5 Hyperlipidemia, unspecified; Z87.891 Personal history of nicotine dependence; Z79.899 Other long term (current) drug therapy
CPT/HCPCS: 87529; 99284

== ENCOUNTER → 2021-03-12 04:00 | Outpatient (REF) | payer MEDICARE, OTHER, MEDICAID, SELFPAY ==
[2021-03-12 07:44] LABS: Hematocrit 34.5 % (40-54); Hemoglobin 11.1 g/dL (13.0-16.5); Mean Corp Hgb Conc 32.2 g/dL (32-36); Mean Corpuscular Hgb 29.1 pg (27.0-32.0); Mean Corpuscular Volume 90.3 fL (80-94); Mean Platelet Vol. 9.3 fl (6.2-12.0); Platelet Count 304 K/mm3 (150-450); RBC Distribution Width CV 12.7 % (11.6-14.6); RBC Distribution Width SD 41.9 fl (35.1-43.9); Red Blood Count 3.82 M/mm3 (4.6-6.2)
[2021-03-12 07:55] LABS: Anion Gap 5 (5-15); BUN 16 mg/dL (7-18); BUN/Creat Ratio 33.3 RATIO (10-20); Calcium,Total 8.8 mg/dL (8.5-10.1); Chloride 101 mmol/L (98-107); Creatinine, Serum 0.48 mg/dL (0.70-1.30); EST Glomerular Filtration Rate 178 mL/min (>60); Est Glom Filt Rate - Afr Amer 215 mL/min (>60); Glucose 93 mg/dL (74-106); Potassium 4.1 mmol/L (3.5-5.1); Sodium Level 134 mmol/L (136-145)
== END ==
LOC: OLS.SW300 04:00
PROVIDERS: PCP Family Medicine; Referring Provider Family Medicine; Visit Provider Family Medicine
DX: I10 Essential (primary) hypertension (principal); J44.9 Chronic obstructive pulmonary disease, unspecified
CPT/HCPCS: 36415; 80048; 85027

== ENCOUNTER → 2021-03-26 05:00 | Outpatient (REF) | payer MEDICARE, OTHER, MEDICAID, SELFPAY ==
[2021-03-26 08:14] LABS: Hematocrit 37.5 % (40-54); Hemoglobin 11.7 g/dL (13.0-16.5); Mean Corp Hgb Conc 31.2 g/dL (32-36); Mean Corpuscular Hgb 27.8 pg (27.0-32.0); Mean Corpuscular Volume 89.1 fL (80-94); Mean Platelet Vol. 9.4 fl (6.2-12.0); Platelet Count 302 K/mm3 (150-450); RBC Distribution Width CV 12.9 % (11.6-14.6); RBC Distribution Width SD 41.9 fl (35.1-43.9); Red Blood Count 4.21 M/mm3 (4.6-6.2); White Blood Count 9.8 K/mm3 (4.4-11.0)
[2021-03-26 08:27] LABS: Anion Gap 7 (5-15); BUN 19 mg/dL (7-18); Calcium,Total 9.3 mg/dL (8.5-10.1); Chloride 99 mmol/L (98-107); Creatinine, Serum 0.56 mg/dL (0.70-1.30); EST Glomerular Filtration Rate 149 mL/min (>60); Est Glom Filt Rate - Afr Amer 181 mL/min (>60); Glucose 100 mg/dL (74-106); Potassium 4.1 mmol/L (3.5-5.1); Sodium Level 134 mmol/L (136-145)
== END ==
LOC: OLS.SW300 05:00
PROVIDERS: PCP Family Medicine; Visit Provider Family Medicine
DX: I10 Essential (primary) hypertension (principal)
CPT/HCPCS: 36415; 80048; 85027

== ENCOUNTER → 2021-04-02 05:00 | Outpatient (REF) | payer MEDICARE, OTHER, MEDICAID, SELFPAY ==
[2021-04-02 08:49] LABS: Hematocrit 33.3 % (40-54); Hemoglobin 10.6 g/dL (13.0-16.5); Mean Corp Hgb Conc 31.8 g/dL (32-36); Mean Corpuscular Hgb 27.9 pg (27.0-32.0); Mean Corpuscular Volume 87.6 fL (80-94); Mean Platelet Vol. 9.3 fl (6.2-12.0); Platelet Count 243 K/mm3 (150-450); RBC Distribution Width CV 13.3 % (11.6-14.6); RBC Distribution Width SD 42.5 fl (35.1-43.9); White Blood Count 18.9 K/mm3 (4.4-11.0)
[2021-04-02 09:17] LABS: Anion Gap 7 (5-15); BUN 16 mg/dL (7-18); BUN/Creat Ratio 27.9 RATIO (10-20); Calcium,Total 8.6 mg/dL (8.5-10.1); Chloride 98 mmol/L (98-107); Creatinine, Serum 0.57 mg/dL (0.70-1.30); EST Glomerular Filtration Rate 145 mL/min (>60); Est Glom Filt Rate - Afr Amer 175 mL/min (>60); Glucose 100 mg/dL (74-106); Potassium 4.1 mmol/L (3.5-5.1); Sodium Level 127 mmol/L (136-145)
== END ==
LOC: OLS.SW300 05:00
PROVIDERS: PCP Family Medicine; Visit Provider Family Medicine
DX: I10 Essential (primary) hypertension (principal)
CPT/HCPCS: 36415; 80048; 85027

== ENCOUNTER → 2021-04-09 05:00 | Outpatient (REF) | payer MEDICARE, OTHER, MEDICAID, SELFPAY ==
[2021-04-09 08:13] LABS: Hematocrit 37.5 % (40-54); Hemoglobin 11.7 g/dL (13.0-16.5); Mean Corp Hgb Conc 31.2 g/dL (32-36); Mean Corpuscular Volume 89.7 fL (80-94); Mean Platelet Vol. 8.8 fl (6.2-12.0); Platelet Count 381 K/mm3 (150-450); RBC Distribution Width CV 13.2 % (11.6-14.6); RBC Distribution Width SD 43.5 fl (35.1-43.9); Red Blood Count 4.18 M/mm3 (4.6-6.2); White Blood Count 6.9 K/mm3 (4.4-11.0)
[2021-04-09 08:40] LABS: Anion Gap 5 (5-15); BUN 12 mg/dL (7-18); BUN/Creat Ratio 24.7 RATIO (10-20); Calcium,Total 9.1 mg/dL (8.5-10.1); Chloride 102 mmol/L (98-107); Creatinine, Serum 0.49 mg/dL (0.70-1.30); EST Glomerular Filtration Rate 175 mL/min (>60); Est Glom Filt Rate - Afr Amer 212 mL/min (>60); Glucose 96 mg/dL (74-106); Potassium 4.4 mmol/L (3.5-5.1); Sodium Level 137 mmol/L (136-145)
== END ==
LOC: OLS.SW300 05:00
PROVIDERS: PCP Family Medicine; Visit Provider Family Medicine
DX: I10 Essential (primary) hypertension (principal)
CPT/HCPCS: 36415; 80048; 85027

== ENCOUNTER → 2021-04-16 04:00 | Outpatient (REF) | payer MEDICARE, MEDICAID, SELFPAY ==
[2021-04-16 08:25] LABS: Hematocrit 37.2 % (40-54); Hemoglobin 11.6 g/dL (13.0-16.5); Mean Corp Hgb Conc 31.2 g/dL (32-36); Mean Corpuscular Hgb 27.9 pg (27.0-32.0); Mean Corpuscular Volume 89.4 fL (80-94); Mean Platelet Vol. 9.1 fl (6.2-12.0); Platelet Count 334 K/mm3 (150-450); RBC Distribution Width CV 14.1 % (11.6-14.6); RBC Distribution Width SD 45.6 fl (35.1-43.9); Red Blood Count 4.16 M/mm3 (4.6-6.2); White Blood Count 13.8 K/mm3 (4.4-11.0)
[2021-04-16 08:58] LABS: Anion Gap 9 (5-15); BUN 21 mg/dL (7-18); BUN/Creat Ratio 32.1 RATIO (10-20); Calcium,Total 9.1 mg/dL (8.5-10.1); Chloride 99 mmol/L (98-107); Creatinine, Serum 0.66 mg/dL (0.70-1.30); EST Glomerular Filtration Rate 124 mL/min (>60); Est Glom Filt Rate - Afr Amer 150 mL/min (>60); Glucose 98 mg/dL (74-106); Sodium Level 134 mmol/L (136-145)
== END ==
LOC: OLS.SW300 04:00
PROVIDERS: PCP Family Medicine; Visit Provider Family Medicine
DX: I10 Essential (primary) hypertension (principal)
CPT/HCPCS: 36415; 80048; 85027

== ENCOUNTER → 2021-04-23 05:00 | Outpatient (REF) | payer MEDICARE, MEDICAID, SELFPAY ==
[2021-04-23 08:16] LABS: Hematocrit 39.2 % (40-54); Hemoglobin 12.4 g/dL (13.0-16.5); Mean Corp Hgb Conc 31.6 g/dL (32-36); Mean Corpuscular Hgb 28.2 pg (27.0-32.0); Mean Corpuscular Volume 89.1 fL (80-94); Mean Platelet Vol. 9.3 fl (6.2-12.0); Platelet Count 339 K/mm3 (150-450); RBC Distribution Width CV 14.3 % (11.6-14.6); RBC Distribution Width SD 46.6 fl (35.1-43.9); White Blood Count 14.1 K/mm3 (4.4-11.0)
[2021-04-23 08:35] LABS: Anion Gap 5 (5-15); BUN 16 mg/dL (7-18); BUN/Creat Ratio 24.4 RATIO (10-20); Calcium,Total 9.3 mg/dL (8.5-10.1); Chloride 99 mmol/L (98-107); Creatinine, Serum 0.66 mg/dL (0.70-1.30); EST Glomerular Filtration Rate 124 mL/min (>60); Est Glom Filt Rate - Afr Amer 150 mL/min (>60); Glucose 89 mg/dL (74-106); Sodium Level 134 mmol/L (136-145)
== END ==
LOC: OLS.SW300 05:00
PROVIDERS: PCP Family Medicine; Visit Provider Family Medicine
DX: I10 Essential (primary) hypertension (principal)
CPT/HCPCS: 36415; 80048; 85027

== ENCOUNTER → 2021-04-24 05:00 | Outpatient (REF) | payer MEDICARE, SELFPAY | LOC: OLS.SW300 05:00 | PROVIDERS: PCP Family Medicine; Visit Provider Family Medicine | DX: R89.8 Other abnormal findings in specimens from other organs, systems and tissues (principal) | CPT/HCPCS: 36415; 87040 ==

== ENCOUNTER → 2021-04-30 05:00 | Outpatient (REF) | payer MEDICARE, OTHER, MEDICAID, SELFPAY ==
[2021-04-30 07:11] LABS: Hematocrit 35.4 % (40-54); Hemoglobin 11.4 g/dL (13.0-16.5); Mean Corp Hgb Conc 32.2 g/dL (32-36); Mean Corpuscular Hgb 28.5 pg (27.0-32.0); Mean Corpuscular Volume 88.5 fL (80-94); Mean Platelet Vol. 9.1 fl (6.2-12.0); Platelet Count 279 K/mm3 (150-450); RBC Distribution Width CV 14.6 % (11.6-14.6); RBC Distribution Width SD 46.6 fl (35.1-43.9); White Blood Count 8.1 K/mm3 (4.4-11.0)
[2021-04-30 07:47] LABS: Anion Gap 8 (5-15); BUN 17 mg/dL (7-18); BUN/Creat Ratio 30.1 RATIO (10-20); Calcium,Total 9.1 mg/dL (8.5-10.1); Chloride 101 mmol/L (98-107); Creatinine, Serum 0.56 mg/dL (0.70-1.30); EST Glomerular Filtration Rate 148 mL/min (>60); Est Glom Filt Rate - Afr Amer 179 mL/min (>60); Glucose 101 mg/dL (74-106); Potassium 3.9 mmol/L (3.5-5.1); Sodium Level 135 mmol/L (136-145)
== END ==
LOC: OLS.SW300 05:00
PROVIDERS: PCP Family Medicine; Visit Provider Family Medicine
DX: I10 Essential (primary) hypertension (principal)
CPT/HCPCS: 36415; 80048; 85027

== ENCOUNTER → 2021-05-07 05:00 | Outpatient (REF) | payer MEDICARE, OTHER, MEDICAID, SELFPAY ==
[2021-05-07 08:50] LABS: Hematocrit 36.3 % (40-54); Hemoglobin 11.7 g/dL (13.0-16.5); Mean Corp Hgb Conc 32.2 g/dL (32-36); Mean Corpuscular Hgb 28.4 pg (27.0-32.0); Mean Corpuscular Volume 88.1 fL (80-94); Mean Platelet Vol. 9.1 fl (6.2-12.0); Platelet Count 272 K/mm3 (150-450); RBC Distribution Width CV 14.8 % (11.6-14.6); RBC Distribution Width SD 47.8 fl (35.1-43.9); Red Blood Count 4.12 M/mm3 (4.6-6.2); White Blood Count 7.3 K/mm3 (4.4-11.0)
[2021-05-07 08:56] LABS: Anion Gap 5 (5-15); BUN 16 mg/dL (7-18); BUN/Creat Ratio 29.5 RATIO (10-20); Calcium,Total 8.8 mg/dL (8.5-10.1); Chloride 101 mmol/L (98-107); Creatinine, Serum 0.54 mg/dL (0.70-1.30); EST Glomerular Filtration Rate 155 mL/min (>60); Est Glom Filt Rate - Afr Amer 187 mL/min (>60); Glucose 95 mg/dL (74-106); Potassium 4.1 mmol/L (3.5-5.1); Sodium Level 135 mmol/L (136-145)
== END ==
LOC: OLS.SW300 05:00
PROVIDERS: PCP Family Medicine; Visit Provider Family Medicine
DX: I10 Essential (primary) hypertension (principal)
CPT/HCPCS: 36415; 80048; 85027

== ENCOUNTER → 2021-05-14 04:00 | Outpatient (REF) | payer MEDICARE, MEDICAID, OTHER, SELFPAY ==
[2021-05-14 06:42] LABS: Hematocrit 35.9 % (40-54); Hemoglobin 11.7 g/dL (13.0-16.5); Mean Corp Hgb Conc 32.6 g/dL (32-36); Mean Corpuscular Hgb 28.7 pg (27.0-32.0); Mean Platelet Vol. 9.2 fl (6.2-12.0); Platelet Count 280 K/mm3 (150-450); RBC Distribution Width CV 14.8 % (11.6-14.6); Red Blood Count 4.08 M/mm3 (4.6-6.2)
[2021-05-14 06:58] LABS: Anion Gap 5 (5-15); BUN 19 mg/dL (7-18); BUN/Creat Ratio 35.4 RATIO (10-20); Calcium,Total 8.7 mg/dL (8.5-10.1); Chloride 101 mmol/L (98-107); Creatinine, Serum 0.54 mg/dL (0.70-1.30); EST Glomerular Filtration Rate 157 mL/min (>60); Est Glom Filt Rate - Afr Amer 190 mL/min (>60); Glucose 85 mg/dL (74-106); Sodium Level 133 mmol/L (136-145)
== END ==
LOC: OLS.SW300 04:00
PROVIDERS: PCP Family Medicine; Visit Provider Family Medicine
DX: I10 Essential (primary) hypertension (principal)
CPT/HCPCS: 36415; 80048; 85027

== ENCOUNTER 2021-05-17 03:54 | Emergency (ER) | payer OTHER, SELFPAY ==
[2021-05-17 03:55] VITALS: BP 134/108; PULSE 110; RESP 30; TEMP 37.2; O2SAT 85; BMI 24.3
[2021-05-17 04:02] VITALS: BP 110/80; PULSE 109; RESP 28; O2SAT 89
--- NOTE | 2021-05-17 04:02 | ED.VIS.DYS ---
HPI History of Present Illness Chief Complaint: Shortness of Breath Detail of Chief Complaint: Hypoxia, difficulty breathing Informant: EMS and SNF Limited: other (Respiratory distress with altered mental status) Onset/Context/Timing Onset: - (Presumed today) Context: sudden (Presumed sudden) Timing: Continuous Narrative Narrative: He has depressed level conscious with respiratory distress and peripheral cyanosis. Documents that accompanied him from the nursing facility indicates he is DNR comfort care only. Will honor his wishes. The hospice unit was contacted. The person who took the call will send someone over. Per the DNR sheet he will have oxygen by nonrebreather mask, IV placed for IV Solu-Medrol and since he is wheezing significantly will receive a DuoNeb and albuterol. Prior similar symptoms: Yes PFSH PFSH Medical History Anxiety disorder Asthma Bipolar disorder Constipation COPD (chronic obstructive pulmonary disease) COPD (chronic obstructive pulmonary disease) Dementia Essential (primary) hypertension Former smoker Former smoker h/o back surgery Hearing loss, left Hearing loss, right HTN (hypertension) Hyperlipidemia Lung cancer Major depressive disorder Multiple rib fractures Multiple sclerosis Nondisplaced posterior arch fracture of first cervical vertebra PASQUALE (obstructive sleep apnea) Sleep apnea Sleep apnea unspecified fracture of third metacarpal bone, left hand unspecifiedfracture of fourth metacarpal bone, left hand UTI (urinary tract infection) Home Medications albuterol sulfate 90 mcg/actuation aerosol inhaler 2 puff INHALATION Q6H PRN 08/31/20 [History Last Taken Unknown] atorvastatin 40 mg tablet 40 mg PO QPM 08/31/20 [History Last Taken 11/15/20] baclofen 5 mg tablet 10 mg PO TID 08/31/20 [History Last Taken 11/16/20] budesonide-formoterol HFA 160 mcg-4.5 mcg/actuation aerosol inhaler 2 puff INHALATION BID 08/31/20 [History Last Taken 11/16/20] cholecalciferol (vitamin D3) 50 mcg (2,000 unit) capsule 50 mcg PO QHS 08/31/20 [History Last Taken 11/15/20] clopidogrel 75 mg tablet 75 mg PO DAILY 08/31/20 [History Last Taken 11/15/20] ferrous sulfate 325 mg (65 mg iron) tablet 325 mg PO DAILY 08/31/20 [History Last Taken 11/16/20] fluticasone propionate 50 mcg/actuation nasal spray,suspension 2 spray INTRANASAL QHS 08/31/20 [History Last Taken 11/15/20] lamotrigine 100 mg tablet 100 mg PO BID 08/31/20 [History Last Taken 11/16/20] loratadine 10 mg tablet 10 mg PO DAILY 08/31/20 [History Last Taken 11/16/20] montelukast 10 mg tablet 10 mg PO QHS 08/31/20 [History Last Taken 11/15/20] terazosin 10 mg capsule 10 mg PO QHS 08/31/20 [History Last Taken 11/15/20] calcium carbonate-vitamin D3 1 tablet PO BIDCM 11/02/20 [History Last Taken 11/16/20] ropinirole 0.25 mg PO QHS 11/02/20 [History Last Taken 11/15/20] lisinopril 20 mg PO DAILY 11/16/20 [History Last Taken 11/16/20] venlafaxine 150 mg PO BID 11/16/20 [History Last Taken 11/16/20] oxycodone 7.5 mg PO TID 01/29/21 [History Last Taken Unknown] Allergy/AdvReac Type Severity Reaction Status Date / Time tramadol AdvReac Itching Verified 05/17/21 04:02 Family History Other CVA (cerebral vascular accident) Cancer Hypertension Surgical History H/O hernia repair History of AAA (abdominal aortic aneurysm) repair S/P partial lobectomy of lung Social History housing: assisted Smoking Status: Former smoker alcohol intake: never what type of physical activity do you participate in: additional details: physical therapy ROS ROS ED Review of Systems ROS Unobtainable: due to mental status EXAM Physical Exam Const Vital Signs: 05/17/21 03:55 05/17/21 04:02 05/17/21 04:04 Temperature 98.9 F Temperature Source Temporal Pulse Rate 110 H 109 H Respiratory Rate 30 H 28 H Respiratory Effort Respiratory Pattern Blood Pressure 134/108 H 110/80 Blood Pressure Mean 116 90 Pulse Ox 85 89 Oxygen Delivery Method Room Air Non-Rebreather Non-Rebreather Oxygen Flow Rate (L/min) 15 15 05/17/21 04:11 05/17/21 04:12 Temperature Temperature Source Pulse Rate 95 Respiratory Rate 28 H Respiratory Effort Labored Respiratory Pattern Tachypnea Blood Pressure Blood Pressure Mean Pulse Ox Oxygen Delivery Method Oxygen Flow Rate (L/min) Positive well developed and unkempt General Appearance ED: unkempt, well developed and other Respiratory distress with peripheral cyanosis and mottling ; Negative for pallor HEENT Reports TM's clear and dry mucous membranes atraumatic Tympanic Membrane ED: Yes TM's clear Mouth ED: Yes dry mucous membranes Mouth: dry mucous membranes Eyes PERRL and EOMs intact bilaterally General Eye ED: Negative for pale conjunctiva or scleral icterus Resp Auscultation: wheezes expiratory wheezes and throughout and diminished lung sounds Cardio regular rate, regular rhythm and no murmurs GI non-tender and non-distended Auscultation: normoactive bowel sounds Palpation: soft Back/Spine normal to inspection Extremity Negative for normal to inspection General Extremety ED: Yes edema; Negative for tenderness General Extremity: edema Neuro No oriented x3 Philippe Coma Scale: document GCS findings To Pain Localizes to Pain Inappropriate 10 Sensorium / Orientation: Negative for alert Psych Negative for mental status grossly normal Appearance: unkempt Thought Process: No normal thought process Skin no wounds General Skin Exam: Negative for pallor Lesions: no lesions Rashes: no rashes Trauma: other Peripheral cyanosis MDM MDM MDM Narrative Medical decision making narrative: The nurse on-call for hospice was contacted. They will send personnel over to evaluate him and most likely take Mr. Krause to their facility. Per the document providers not to initiate CPR, administer resuscitation meds, insert an airway adjunct, defibrillate, cardiovert or initiate pacing. No continuous monitoring. These will be honored. Therefore no laboratory tests were ordered. I was informed by Thuy the hospice nurse that he is agitated. 1 mg of Ativan was ordered. The hospice nurse contacted . She is coming to the emergency room to sign the appropriate papers. After she signed papers he will be transferred to the life care unit. Discharge Plan Triage Chief Complaint: Shortness of Breath ED Provider: Bharath Liao Dx/Rx/DC Orders Clinical Impression: Respiratory failure with hypoxia and hypercapnia, End stage chronic obstructive pulmonary disease, Encephalopathy acute, Indwelling Chahal catheter present Prescriptions: No Action albuterol sulfate [Ventolin HFA] 90 mcg/actuation HFA aerosol inhaler 2 puff INHALATION Q6H PRN (Reason: Sob &/Or Wheezing) RF: 0 terazosin 10 mg capsule 10 mg PO QHS RF: 0 budesonide-formoterol [Symbicort] 160-4.5 mcg/actuation HFA aerosol inhaler 2 puff INHALATION BID RF: 0 montelukast 10 mg tablet 10 mg PO QHS RF: 0 loratadine 10 mg tablet 10 mg PO DAILY RF: 0 lamotrigine 100 mg tablet 100 mg PO BID RF: 0 atorvastatin 40 mg tablet 40 mg PO QPM RF: 0 baclofen 5 mg tablet 10 mg PO TID RF: 0 cholecalciferol (vitamin D3) 50 mcg (2,000 unit) capsule 50 mcg PO QHS RF: 0 clopidogrel 75 mg tablet 75 mg PO DAILY RF: 0 ferrous sulfate 325 mg (65 mg iron) tablet 325 mg PO DAILY RF: 0 fluticasone propionate [Allergy Relief (fluticasone)] 50 mcg/actuation spray,suspension 2 spray INTRANASAL QHS RF: 0 ropinirole 0.25 MG tablet 0.25 mg PO QHS RF: 0 calcium carbonate-vitamin D3 1 TAB tablet 1 tablet PO BIDCM RF: 0 lisinopril 20 mg Tablet 20 mg PO DAILY RF: 0 venlafaxine 150 mg Capsule,Extended Release 24hr 150 mg PO BID RF: 0 oxycodone 5 mg Tablet 7.5 mg PO TID RF: 0 Primary Care Provider: Daljit Curtis Referrals: Daljit Curtis MD [Primary Care Provider] - Disposition Disposition: Acute Care Hospital Discharge Location: [facility]
[2021-05-17] MEDS: MethylPREDNISolone 125 MG/2 ML Vial IV (04:07)
[2021-05-17 04:12] VITALS: PULSE 95; RESP 28
[2021-05-17] MEDS: Ipratropium/Albuterol Sulfate 3 ML AMPUL.NEB INHALATION (04:12)
[2021-05-17] MEDS: LORazepam 2 MG/ML Syringe 1 MG IV (04:48)
[2021-05-17 05:00] VITALS: PULSE 80; RESP 30; O2SAT 81
[2021-05-17] MEDS: HYDROmorphone 0.5 MG/0.5 ML SYRINGE IV (05:45)
[2021-05-17] MEDS: LORazepam 2 MG/ML Syringe IV (05:47)
[2021-05-17] MEDS: Glycopyrrolate 0.2 MG/ML Vial 0.1 MG IV (05:51)
[2021-05-17 05:55] VITALS: PULSE 80; RESP 28
== END 2021-05-17 05:56 | disposition short-term general hospital (02) ==
PROVIDERS: Emergency Provider Emergency Medicine; PCP Family Medicine
DX: J96.92 Respiratory failure, unspecified with hypercapnia (principal); J96.91 Respiratory failure, unspecified with hypoxia; J44.9 Chronic obstructive pulmonary disease, unspecified; G92.9 Unspecified toxic encephalopathy; F41.9 Anxiety disorder, unspecified; I10 Essential (primary) hypertension; G47.33 Obstructive sleep apnea (adult) (pediatric); F31.9 Bipolar disorder, unspecified; E78.5 Hyperlipidemia, unspecified; G35 Multiple sclerosis; Z87.891 Personal history of nicotine dependence; Z66 Do not resuscitate; Z79.899 Other long term (current) drug therapy
CPT/HCPCS: 94640; 96374; 96375; 96376; 99283; A4216